=== PATIENT | female | born 1935 | race Caucasian/White ===

== ENCOUNTER 2024-03-15 18:07 | Inpatient (IN) | payer MEDICARE, OTHER, SELFPAY ==
[2024-03-15] VITALS (17 sets, daily range): BP systolic 77–133; BP diastolic 38–94; BMI 19.8
[2024-03-15 12:10] LABS: % Basophils 0.2 % (0-2); % Eosinophils 0.1 % (0-6); % Immature Granulocytes 0.2 % (0-0.5); % Lymphocytes 4.6 % (20.5-51.1); % Monocytes 6.2 % (1.7-9.3); % Neutrophils 88.7 % (42.2-75.2); Absolute Lymphocytes 0.6 10^3/uL (1.2-3.4); Absolute Monocytes 0.8 10^3/uL (0.1-0.6); Absolute Neutrophils 10.9 10^3/uL (1.4-6.5); Hematocrit 48.7 % (37.0-47.0); Hemoglobin 15.7 g/dL (12.0-16.0); Mean Corp Hgb Conc. 32.2 g/dL (33.0-37.0); Mean Corpuscular Hgb 31.8 pg (27.0-31.0); Mean Corpuscular Volume 98.6 fL (81.0-99.0); Mean Platelet Volume 9.5 fL (7.4-10.4); Nucleated Red Blood Cells % 0 %; Platelet Count 228 10^3/uL (130-400); Red Blood Cell Count 4.94 10^6/uL (4.20-5.40); Red Cell Dist. Width 13.1 % (11.5-14.5); White Blood Cell Count 12.3 10^3/uL (4.8-10.8)
[2024-03-15 12:29] LABS: ALT (SGPT) 16 U/L (0-35); AST (SGOT) 35 U/L (14-36); Albumin 3.6 g/dl (3.5-5.0); Alkaline Phosphatase 71 U/L (38-126); Blood Urea Nitrogen 20 mg/dl (7-17); Carbon Dioxide 27 mmol/L (22-30); Chloride 102 mmol/L (98-107); Glucose 110 mg/dl (70-99); Potassium 4.1 mmol/L (3.5-5.1); Sodium 138 mmol/L (135-145); Total Bilirubin 0.7 mg/dl (0.2-1.3); Total Protein 6.6 g/dl (6.3-8.2); eGFR 48.03
[2024-03-15 12:48] LABS: COVID-19 Antigen Negative (Negative)
--- NOTE | 2024-03-15 13:23 | ED.GENMED ---
History of Present Illness
General
Chief Complaint: Cold/Flu/URI Symptoms
Source: patient
Exam Limitations: none
Time Seen by Provider: 03/15/24 13:13
History of Present Illness
History of Present Illness:
89-year-old female with history of A-fib, COPD on Eliquis presents with several days worth of chills sweats cough body aches headache. No nausea or vomiting. Her daughter is sick with similar symptoms. She feels short of breath. No chest pain.
No vomiting.
Past History
Past History
ED Past Medical History: Arrthythmia (afib/flutter), COPD and Other (IBS)
ED Past Surgical History: Cardiac (pacemaker)
Social History
Alcohol: None
Drug: None
Living: with family
Phy Exam
Physical Exam
Physical Exam:
General: Overall well-appearing female no acute respiratory distress
HEENT: Normocephalic atraumatic
Heart: Cardiac and irregular
Lungs: Rales at the right base no obvious wheeze
Abdomen is soft nontender nondistended
Extremities: No cyanosis or edema
Skin: Warm no rash
Course
Orders/Labs/Results
Orders:
Orders
03/15/24 11:47
Electrocardiogram (*1) Urgent
Reason for Study: Tachycardia
EKG- Treatment ONCE
03/15/24 11:55
COVID-19 Antigen Urgent
Source: Nasal Swab
Complete Blood Count/With Diff Urgent
Comprehensive Metabolic Panel Urgent
INF RAPID [Influenza A+B Rapid Molecular] Urgent
DIANA Source: Nasal Swab
Specimen Description:
03/15/24 13:23
Cardiac Monitoring- Treatment ONCE
CR Chest - 2 Views Urgent
Comment:
Reason For Exam: cough
03/15/24 13:47
0.9% Sodium Chloride 1000 ml [Nss] 1,000 ml IV BOLUS
Diltiazem HCl [Cardizem] 10 mg IV NOW STA
03/15/24 14:00
Diltiazem 125 mg/125 ml Nss [Cardizem] 125 mg in 125 ml IV PER PROTOCOL
Initial dose in mg/hr, then titrate:: 5
Titrate to keep:: Heart rate 80-100 bpm
Titrate by mg/hr:: 5 mg/hr
Frequency of titrations (minutes):: 15
Maximum dose in mg/hr:: 15
03/15/24 16:16
Azithromycin 500 mg/250 ml [Zithromax Infusion] 500 mg in 250 ml IV NOW
CefTRIAXone [Rocephin] 1,000 mg IV NOW STA
Abnormal Lab Results
03/15/24
11:55
WBC 12.3 H 10^3/uL
(4.8-10.8)
Hct 48.7 H %
(37.0-47.0)
MCH 31.8 H pg
(27.0-31.0)
MCHC 32.2 L g/dL
(33.0-37.0)
Absolute Neuts (auto) 10.9 H 10^3/uL
(1.4-6.5)
Absolute Lymphs (auto) 0.6 L 10^3/uL
(1.2-3.4)
Absolute Monos (auto) 0.8 H 10^3/uL
(0.1-0.6)
Neutrophils % 88.7 H %
(42.2-75.2)
Lymphocytes % 4.6 L %
(20.5-51.1)
BUN 20 H mg/dl
(7-17)
Creatinine 1.1 H mg/dL
(0.6-1.0)
Glucose 110 H mg/dl
(70-99)
03/15/24 11:55
03/15/24 11:55
Vital Signs
Initial and Last Documented VS:
Initial Vital Signs
Temp Pulse Resp BP Pulse Ox
97.6 F 122 20 124/93 95
03/15/24 11:41 03/15/24 11:41 03/15/24 11:41 03/15/24 11:41 03/15/24 11:41
Last Documented Vital Signs
Temp Pulse Resp BP Pulse Ox
98.1 F 104 26 133/69 91
03/15/24 14:33 03/15/24 16:00 03/15/24 16:00 03/15/24 15:00 03/15/24 16:00
MDM/Problems Addressed
Differential Diagnosis Includes:
Rigors cough fatigue myalgias. Consider viral illness versus pneumonia versus COPD flare.
Patient also has history of atrial fibrillation. Will check EKG. EKG demonstrates rapid atrial fibrillation
*Critical Care Note
Total Time (30-74mins, 75-104mins- exclusive of procedures): Not Applicable
Update Note
Update Note:
Patient reevaluated multiple times. She persisted to be in rapid A-fib. Cardizem bolus and infusion was ordered. COVID test was negative. Chest x-ray shows right lower lobe infiltrate consistent with pneumonia. Rocephin and Zithromax ordered.
Will admit to hospital
ED Attending Note
-
Portions of this chart may have been created with voice recognition software.� Occasional wrong word or��sound alike� substitutions may have occurred due to the inherent limitations of voice recognition software.
Discharge Plan
Departure
Patient Disposition: Admit
Date of Disposition: 03/15/24
Time of Disposition: 16:20
Admit to: Telemetry
Presentation/result/management discussed w/ accepting MD/DO: Hospitalist
Discharge Problem:
Pneumonia, Atrial fibrillation
Prescriptions:
No Action
acetaminophen [Tylenol Extra Strength] 500 mg Tablet
500 mg PO DAILYPRN PRN (Reason: mild pain)
simethicone [Gas-X Extra Strength] 125 mg Tablet,Chewable
250 mg PO BIDPRN PRN (Reason: flatulence)
cholecalciferol (vitamin D3) [Vitamin D3] 25 mcg (1,000 unit) Tablet
25 mcg PO DAILY
Restful Legs tablet
2 - 3 tab sublingual DAILYPRN PRN (Reason: restless legs)
hydralazine 10 mg Tablet
10 mg PO BID
Patient Comments:
07/28/23 patient gets this filled at [facility] in [place].
bumetanide 1 mg Tablet
1 mg PO DAILYPRN PRN (Reason: fluid retention)
Patient Comments:
07/28/23 patient gets this filled at [facility] in [place].
Linzess 145 mcg Capsule
145 mcg PO Q72H
Patient Comments:
07/28/[address] patient [address] samples [address] Dr[address] Jonah Pitts in [place], [place]
Eliquis 2.5 mg Tablet
2.5 mg PO BID
Patient Comments:
07/28/23 patient gets this medication filled at [facility] in [place].
Trelegy Ellipta 100-62.5-25 mcg Blister With Device
1 inh INHALATION R DAILY
Patient Comments:
07/28/23 patient gets this medication filled from [facility] in [place].
metoprolol succinate 100 mg Tablet Extended Release 24 Hr
100 mg PO BID
gabapentin 600 mg Tablet
600 mg PO HS
doxycycline hyclate 100 mg Capsule
100 mg PO Q12 Qty: 6 0RF
albuterol sulfate 2.5 mg /3 mL (0.083 %) Solution For Nebulization
2.5 mg inhalation R Q4HPRN PRN (Reason: SOB, COUGH, WHEEZE) Qty: 75 0RF
Referrals:
Harvinder Borrego MD [Family Provider] -
Interventions
Interventions:
*Risk Screen - Suicide Last Done: 03/15/24 13:29
*General Assessment Last Done: 03/15/24 13:29
*Neglect/Abuse Screening Last Done: 03/15/24 13:29
ED- Fall Risk Assessment Last Done: 03/15/24 13:29
*ED COVID-19 Vaccine History Last Done: 03/15/24 13:29
ED- Pulmonary Assessment Last Done: 03/15/24 16:00
Discharge Date and Time
Print Language: ALGERIAN
[2024-03-15] MEDS: CARDIZEM 10 MG IV (13:52)
[2024-03-15] MEDS: NSS 1000 IV ×2 (13:53→23:30)
[2024-03-15] MEDS: CARDIZEM 125 IV (13:54)
[2024-03-15] MEDS: ROCEPHIN 1000 MG IV (16:31)
[2024-03-15] MEDS: ZITHROMAX INFUSION 250 IV (16:32)
[2024-03-15] MEDS: TYLENOL 1000 MG PO (16:35)
--- NOTE | 2024-03-15 17:48 | W.PN.HOSP.TC ---
Today's Communication/Plan
-
admit IMU
empiric abx
Cardizem drip
Assessment / Plan
Assessment / Plan
Acute Rt sided Community Associated Pneumonia
48 hrs of fever, cough, headache, chills and sob
Hx of COPD
follows with Dr. Mariah Nielson in office
Paroxysmal Atrial Fibrillation
currently with rvr, started on Cardizem drip
Etoh
2 glasses of wine per day, never had withdrawal symptoms if did not drink
Cigarettes
1/2 ppd x 20 yrs, none since 1987
P:empiric abx
IV Cardizem
Pulm and Cardio consults
DNR
see dictated note
Anticipated Discharge: > 48 hours
Subjective/Interval History
-
Date of Service: March 15, 2024
cough, fever, chills past 48 hrs
Objective Data
-
Labs:
Laboratory Results
03/15/24
11:55
WBC 12.3 H
Hgb 15.7
Hct 48.7 H
Plt Count 228
Sodium 138
Potassium 4.1
Chloride 102
Carbon Dioxide 27
BUN 20 H
Creatinine 1.1 H
Glucose 110 H
Calcium 9.0
Total Bilirubin 0.7
AST 35
ALT 16
Alkaline Phosphatase 71
Vital Signs:
Vital Signs
Temp Pulse Resp BP Pulse Ox
98.1 F 104 26 133/69 95
03/15/24 14:33 03/15/24 16:00 03/15/24 16:00 03/15/24 15:00 03/15/24 17:13
Review of Systems
-
History Source: Patient and Family (son at bedside)
Constitutional: Reports Fever (prior to admission)
EENT: Reports No Symptoms Reported
Respiratory: Reports Cough and Trouble Breathing
Cardiac: Reports Palpitations; Denies Chest Pain
Abdomen/GI: Reports No Symptoms
Genitourinary: Reports No Symptoms
Neuro: Reports No Symptoms
Physical Exam
-
General: Well Developed, Well Nourished and No Apparent Distress
HEENT: Normocephalic, Atraumatic and Moist Mucous Membranes
Respiratory: Rhonchi (right mid lung)
Cardiac: S1/S2, Irregular Rhythm and Tachycardic
GI: Soft, Nontender and Nondistended
Musculoskeletal: No Clubbing, No Cyanosis and No Edema
Neuro: Awake, Alert and Oriented
[2024-03-15] MEDS: VENTOLIN NEBULES 2.5 MG INH (20:37)
[2024-03-15] MEDS: ELIQUIS 2.5 MG PO (20:41)
[2024-03-15] MEDS: TOPROL XL 100 MG PO (20:41)
[2024-03-15] MEDS: NEURONTIN 600 MG PO (21:08)
[2024-03-16] VITALS (18 sets, daily range): BP systolic 86–159; BP diastolic 44–84
--- NOTE | 2024-03-16 00:10 | PTCARENOTE ---
Rec'd pt from ED ground transportation operator with cardizem gtt intact at 10mg through R AC IV. This RN questioned pt about listed cardizem allergy & pt states that she does not have an allergy to this medication bc she has never had it before, however pt handed
this RN a print-out of all of her medications/allergies which does list the allergy and rxn foot & ankle swelling. Pt agreeable to taking medication anyways. This RN titrated per protocol. Pt due for PO metoprolol, which again is a listed allergy.
Pt agreeable to take medication despite listed allergy with rxn itching. BP 105 systolic when med given. BPs started to read low in the 80s systolic with MAPs 50s-low 60s, this RN reached out to JF Brady who ordered to hold cardizem gtt. Gtt held,
BP reading 77/43. Reached out to JF again, who ordered NSS bolus, infusing now.
[2024-03-16] MEDS: TYLENOL 500 MG PO (03:26)
[2024-03-16] MEDS: LINZESS 145 MCG PO (05:16)
[2024-03-16 05:25] LABS: Hematocrit 40.9 % (37.0-47.0); Hemoglobin 13.4 g/dL (12.0-16.0); Mean Corp Hgb Conc. 32.8 g/dL (33.0-37.0); Mean Corpuscular Hgb 31.8 pg (27.0-31.0); Mean Corpuscular Volume 97.1 fL (81.0-99.0); Mean Platelet Volume 9.6 fL (7.4-10.4); Platelet Count 217 10^3/uL (130-400); Red Blood Cell Count 4.21 10^6/uL (4.20-5.40); Red Cell Dist. Width 13.1 % (11.5-14.5); White Blood Cell Count 8.9 10^3/uL (4.8-10.8)
[2024-03-16 05:40] LABS: Blood Urea Nitrogen 18 mg/dl (7-17); Calcium 8.1 mg/dl (8.4-10.2); Carbon Dioxide 23 mmol/L (22-30); Chloride 108 mmol/L (98-107); Estimated Creatinine Clearance 35 ml/min; Glucose 75 mg/dl (70-99); Potassium 4.1 mmol/L (3.5-5.1); Sodium 139 mmol/L (135-145); eGFR > 60.00
--- NOTE | 2024-03-16 05:50 | PTCARENOTE ---
Pt ambulated to bathroom with rolling walker and assistx1. Pt did not experience tachycardia, but did experience tachypnea, and hypoxia once returned to bed with O2 sat 88% on 2L. Once returned to bed, BP noted to be 99/44 compared to 111/60 prior
to ambulation. Pt did c/o feeling weaker than usual and fatigued once returned to bed, but no other complaints while ambulating. Pt O2 soon recovered to 96%.
[2024-03-16 05:51] LABS: Troponin I 0.041 ng/ml
--- NOTE | 2024-03-16 07:47 | CON.CAR ---
Addendum entered and electronically signed by Werner Streeter MD 03/16/24 16:07:
I saw and examined the patient.
The Wooden Furniture Polisher's note was reviewed and I agree with the note.
Comment: Briefly, 89-year-old woman past medical history of paroxysmal atrial fibrillation on Eliquis and permanent pacemaker for sick sinus syndrome who presented with pneumonia and was found to be in atrial fibrillation with rapid ventricular rates
Initiated on IV Cardizem however she developed hypotension and this medication was discontinued
As her blood pressure has been marginal would decrease metoprolol dose down from 100 mg twice daily to 50 mg twice daily
Will start amiodarone for additional rate control
If she does not spontaneously convert to sinus rhythm during hospitalization we can arrange for outpatient cardioversion in 3 to 4 weeks after she recovers from acute illness
Currently receiving IV fluids for sepsis, would be judicious to avoid precipitating decompensated heart failure
Original Note:
Consultation
Consultation Request
Date/Time Consultation Performed: 03/06/35
Requesting Provider: Dr. Ocampo
Performing Provider: Erin Reynolds PA-C for Dr. Streeter
Reason for Consultation: afib with RVR
Medical History
-
Chief Complaint: cough
History of Present Illness:
Patient is an 89 yo F with PMH of COPD, SSS s/p Medtronic DC PPM 2016, PAF on chronic eliquis, HTN, chronic HFpEF who presented to with complaints of cough, chills, and headache. She was found to have R sided PNA by imaging and was also noted to
be in rapid afib. She does not feel when she is in afib. She states she has been compliant with eliquis, aside from missing a dose yesterday morning due to coming to ER. She was started on IV cardizem however then had hypotension to 70s systolic and
drip was stopped. Cardiology consulted for evaluation. Currently HRs controlled in afib.
PMH:
PAF on chronic eliquis
SSS s/p Medtronic DC PPM 2016
Chronic HFpEF
HTN
COPD
History of respiratory arrest 2012
History of PE
Former smoker
Daily ETOH (2 small glasses of wine)
Past Medical History
Past Medical History: Other (in HPI)
Social History
Tobacco: Former Smoker
Alcohol: Daily
Living: With Family (son and DIL)
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
Allergies / Home Medications
Allergy/AdvReac Type Severity Reaction Status Date / Time
amlodipine Allergy Swelling Verified 03/15/24 11:42
diltiazem Allergy Swelling Verified 03/15/24 11:42
hydromorphone [From Dilaudid] Allergy Swelling Verified 03/15/24 11:42
metoprolol [From Lopressor] Allergy Itching Verified 03/15/24 23:08
metronidazole [From Flagyl] Allergy Hives Verified 03/15/24 11:42
Sulfa (Sulfonamide Allergy Itching Verified 03/15/24 11:42
Antibiotics)
�Medication �Instructions �Recorded �Confirmed �Type
Restful Legs 2 - 3 tab sublingual DAILYPRN PRN 07/28/23 03/15/24 History
restless legs
acetaminophen 500 mg tablet 500 mg PO DAILYPRN PRN mild pain 07/28/23 03/15/24 History
(Tylenol Extra Strength)
apixaban 2.5 mg tablet (Eliquis) 2.5 mg PO BID Blood Clot 07/28/23 03/15/24 History
Prevention/Tx
bumetanide 1 mg tablet 1 mg PO DAILYPRN PRN fluid 07/28/23 03/15/24 History
retention
cholecalciferol (vitamin D3) 25 25 mcg PO DAILY Supplement 07/28/23 03/15/24 History
mcg (1,000 unit) tablet (Vitamin
D3)
fluticasone fur. 100 mcg-umeclid 1 inh inhalation R DAILY sob 07/28/23 03/15/24 History
62.5 mcg-vilant 25 mcg
inhalat.powder (Trelegy Ellipta)
gabapentin 600 mg tablet 600 mg PO HS Neurological Condition 07/28/23 03/15/24 History
hydralazine 10 mg tablet 10 mg PO BID Blood Pressure 07/28/23 03/15/24 History
linaclotide 145 mcg capsule 145 mcg PO Q72H Gastrointestinal 07/28/23 03/15/24 History
(Linzess) Issue
metoprolol succinate 100 mg 100 mg PO BID Blood Pressure 07/28/23 03/15/24 History
tablet,extended release 24 hr
simethicone 125 mg chewable tablet 250 mg PO BIDPRN PRN flatulence 07/28/23 03/15/24 History
(Gas-X Extra Strength)
albuterol sulfate 2.5 mg/3 mL 2.5 mg (3 mL) inhalation R Q4HPRN 07/30/23 03/15/24 Rx
(0.083 %) solution for nebulization PRN SOB, COUGH, WHEEZE #75 mL
doxycycline hyclate 100 mg capsule 100 mg PO Q12 #6 caps 07/30/23 03/15/24 Rx
Review of Systems
-
History Source: Patient
All other systems: Negative unless noted
Physical Exam
Vital Signs
Temp Pulse Resp BP Pulse Ox
98.4 F 87 22 99/44 96
03/16/24 03:00 03/16/24 05:10 03/16/24 05:10 03/16/24 05:10 03/16/24 05:10
Lab Results
03/16/24 05:06
03/16/24 05:06
Troponin I 0.041 ng/ml H* 03/16/24 05:06
Physical Exam
General: No Apparent Distress, Comfortable and Other (on supp O2)
HEENT: Normocephalic, Anicteric and Moist Mucous Membranes
Respiratory: Wheezes (and rales B/L) and Non Labored Respirations
Cardiac: S1/S2 and Irregular Rhythm
Musculoskeletal: No Clubbing, No Cyanosis and No Edema
Skin: Warm and Dry
Neuro: AO x 3
Impression / Plan
-
Primary Spa Associate: Dr. Ta
Assessment:
Presentation with cough, headache, chills
R PNA
Atrial fibrillation with RVR
Hypotension with IV cardizem gtt
Elevated troponin, suspected nonischemic myocardial injury
PAF on chronic eliquis
SSS s/p Medtronic DC PPM 2016
Chronic HFpEF
HTN
COPD
History of respiratory arrest 2008, 2012
History of PE
Former smoker
Daily ETOH (2 small glasses of wine)
DNR code status
Plan:
-Patient presents with cough headache and chills. By imaging noted to have right-sided pneumonia.
-Cardiology consulted due to atrial fibrillation with rapid ventricular response on arrival
-Started on IV Cardizem gtt overnight with subsequent hypotension and stopped. Currently heart rates well-controlled in A-fib.
-remains hypotensive, asymptomatic. by OP note in 10/2023, patient was on toprol 50mg daily, and again in pulm note 02/26/24. unclear when/why dosing increased as no eCW record of this. will hold dose this AM and plan to start toprol 50mg BID this
evening. would consider starting amiodarone with hypotension and as paroxysmal. currently on zithromax but QTc stable by EKG 03/15. repeat today and in AM to follow QTc
-check echo
-device interrogation to determine AF burden
-check TSH
-continue eliquis 2.5mg BID, one missed dose on 03/15. would consider for OP CV if remains in afib.
-trop 0.041. no CP. trend to peak. in rapid AF, patient with inferolateral ST abnormality. would consider for OP ischemic evaluation once recovered
-continue treatment of PNA per primary service
Data Reviewed
-
EKG: Tracing Personally Visualized and interpreted
Radiology: Report Reviewed by me
Labs: Labs Reviewed by me
Old Records: Reviewed
[2024-03-16] MEDS: VITAMIN D3 (cholecalciferol) 25 MCG PO (08:16)
[2024-03-16] MEDS: ELIQUIS 2.5 MG PO ×2 (08:16→20:18)
[2024-03-16] MEDS: SYMBICORT 80/4.5 MCG INHALER 2 PUFF INH (08:22)
[2024-03-16] MEDS: SPIRIVA RESPIMAT 2.5 MCG 2 PUFF INH (08:22)
[2024-03-16] MEDS: TOPROL XL PO (08:40)
[2024-03-16 10:11] LABS: TSH Reflex To Free T4 2.14 uIU/ml (0.47-4.68)
[2024-03-16] MEDS: PACERONE 200 MG PO ×2 (10:24→20:18)
--- NOTE | 2024-03-16 12:36 | CON.PUL ---
Consultation
Consultation Request
Date/Time Consultation Requested: 03/16/2024
Date/Time Consultation Performed: 03/16/2024
Requesting Provider: Dr. Ocampo
Performing Provider: Dr. Prem Argueta
Reason for Consultation: Pneumonia/acute exacerbation of COPD
Medical History
-
History of Present Illness:
89-year-old woman who is known to our service, follows up with Dr. Nielson regarding COPD/bronchiectasis. Last admission to the hospital in 2022 with acute exacerbation.
History of atrial fibrillation on chronic anticoagulant. Came to the hospital after developing productive cough, increased respiratory distress, fevers, chills, headache and generalized malaise for the last 24 hours.
Due to worsening symptoms, came to the emergency room. Chest x-ray demonstrated right lower lobe abnormality suggestive of pneumonia.
Patient was found to be in rapid atrial fibrillation. Started on a Cardizem drip.
I started antibiotics per
She denies any hemoptysis.
Denies any swallowing problems.
Denies any leg edema.
Denies syncopal episodes.
[facility] records reviewed, recently seen in our office and she was doing well.
Past Medical History
Past Medical History: Other (See assessment and plan section)
Social History
Tobacco: Former Smoker
Alcohol: None
Drug: None
Personal:
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
Occupational Exposures: Denies
Environmental Exposures: Denies
Family History
Family History: Reviewed & Not Pertinent
Allergies / Home Medications
Allergies
Allergy/AdvReac Type Severity Reaction Status Date / Time
amlodipine Allergy Swelling Verified 03/15/24 11:42
diltiazem Allergy Swelling Verified 03/15/24 11:42
hydromorphone [From Dilaudid] Allergy Swelling Verified 03/15/24 11:42
metoprolol [From Lopressor] Allergy Itching Verified 03/15/24 23:08
metronidazole [From Flagyl] Allergy Hives Verified 03/15/24 11:42
Sulfa (Sulfonamide Allergy Itching Verified 03/15/24 11:42
Antibiotics)
Home Medications
�Medication �Instructions �Recorded �Confirmed �Last Taken �Type
Restful Legs 2 - 3 tab sublingual DAILYPRN PRN 07/28/23 03/15/24 Unknown History
restless legs
acetaminophen 500 mg tablet 500 mg PO DAILYPRN PRN mild pain 07/28/23 03/15/24 Unknown History
(Tylenol Extra Strength)
apixaban 2.5 mg tablet (Eliquis) 2.5 mg PO BID Blood Clot 07/28/23 03/15/24 07/26/23 History
Prevention/Tx
bumetanide 1 mg tablet 1 mg PO DAILYPRN PRN fluid 07/28/23 03/15/24 Unknown History
retention
cholecalciferol (vitamin D3) 25 25 mcg PO DAILY Supplement 07/28/23 03/15/24 07/26/23 History
mcg (1,000 unit) tablet (Vitamin
D3)
fluticasone fur. 100 mcg-umeclid 1 inh inhalation R DAILY sob 07/28/23 03/15/24 07/26/23 History
62.5 mcg-vilant 25 mcg
inhalat.powder (Trelegy Ellipta)
gabapentin 600 mg tablet 600 mg PO HS Neurological Condition 07/28/23 03/15/24 Unknown History
hydralazine 10 mg tablet 10 mg PO BID Blood Pressure 07/28/23 03/15/24 07/26/23 History
linaclotide 145 mcg capsule 145 mcg PO Q72H Gastrointestinal 07/28/23 03/15/24 07/26/23 History
(Linzess) Issue
metoprolol succinate 100 mg 100 mg PO BID Blood Pressure 07/28/23 03/15/24 07/27/23 08:00 History
tablet,extended release 24 hr
simethicone 125 mg chewable tablet 250 mg PO BIDPRN PRN flatulence 07/28/23 03/15/24 Unknown History
(Gas-X Extra Strength)
albuterol sulfate 2.5 mg/3 mL 2.5 mg (3 mL) inhalation R Q4HPRN 07/30/23 03/15/24 Unknown Rx
(0.083 %) solution for nebulization PRN SOB, COUGH, WHEEZE #75 mL
doxycycline hyclate 100 mg capsule 100 mg PO Q12 #6 caps 07/30/23 03/15/24 Unknown Rx
Review of Systems
-
History Source: Patient
All other systems: Negative unless noted
Vitals / Labs / Diagnostic Testing
Vital Signs
Temp Pulse Resp BP Pulse Ox
97.9 F 88 38 121/63 96
03/16/24 11:00 03/16/24 12:00 03/16/24 12:00 03/16/24 10:24 03/16/24 12:05
Lab Data
03/16/24 05:06
03/16/24 05:06
Microbiology
03/15/24 11:55 Nasal Swab Influenza Types A & B (SHER) - Final
Negative for Influenza A & B, NAAT
Negative results must be combined with clinical observations
and patient history.
Nucleic Acid Amplification test (NAAT)performed on the
[employer] NOW platform.
Diagnostic Testing:
Physical Exam
-
HEENT: Normocephalic
Cardiovascular: S1/S2
Respiratory: Rales (scattered bilaterally.) and Other (Coughing throughout the examination.)
GI: Soft, Non Distended and Non Tender
Neurology: Awake, Alert, Oriented, AO x 3 and No Motor Deficits
Skin: Warm
General: Respiratory Distress (n)
Assessment
-
89-year-old woman with past medical history noted. Came to the hospital with 48 hours of fevers, cough, generalized malaise. Shortness of breath. Found to be in rapid atrial fibrillation. Found to have a right lower lobe infiltrate and admitted
for further evaluation.
Acute respiratory sufficiency due to acute exacerbation of COPD/bronchiectasis-currently in 2 L which is new for her.
Chest x-ray 03/15/2024: New focal region of patchy parenchymal opacity within the right lower lobe. Small right pleural effusion.
Pneumonia-likely bacterial
Rapid atrial fibrillation-mild troponin leak
Conditions PUMP SERVICER:
Hospital admission for acute exacerbation of COPD 07/30/2023
Afib/flutter, on apixaban
PPM
COPD/bronchiectasis: on fluticasone/umeclidinium/vilanterol (trelegy). Not on home O2. Not on SABDs.
IBS
S/p partial colectomy in 2008 while living in [place]
Postop complicated by respiratory arrest after extubation
S/p BRNA 2012 at [facility]
Postop complicated by respiratory arrest after extubation, resulting in prolonged MV requiring tracheoscomy
Bronchiectasis: Abnormal chest CT 2020: significant BEs at RML and lingula, small patchy bilateral opacities
Reports has received up to 4 bronchoscopies over the years, reportedly not actionable results, denies MTB or NTM
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
Spirometry 12/10/2023: FEV1 0.66 L - 48%, FVC 0.95 L - 50%, FEV1/FVC 69%.
Chronic cough: Possible allergic rhinitis.
History of pulmonary embolism-unprovoked per patient-on long-term anticoagulation
Former cigarette smoker quitting in 1979 two quarter of a pack for 30 years.
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
1.8 cm right ovarian lesion.
Assessment and plan:
-
Clinical picture suggestive of possible bacterial pneumonia.
Patient at risk due to advanced age as well as bronchiectasis.
-
Not significantly bronchospastic on exam
Okay to hold systemic corticosteroids
Continue inhalers
Will limit beta agonist with rapid atrial fibrillation.
Significant coughing: Hold inhalers as maneuver is poor at the moment.
Start Xopenex/Atrovent/Pulmicort nebulizers while in the hospital.
Acapella device
Mucolytic's
Sputum culture if able-order was placed
Continue current antibiotics will adjust as necessary
-
Continue oxygen supplementation and wean down as able to maintain pulse ox above 88%.
Patient not on supplemental oxygen at home.
Eventual home oxygen assessment prior to discharge.
Last 6-minute walk testing 11/2023 without oxygen requirements in our office.
-
Rapid atrial fibrillation likely driven by pulmonary process
Repeat echocardiogram 03/16/2024: Report reviewed: Hyperdynamic left ventricular systolic function. LVEF 70 to 75%. Mild to moderate LVH. Normal biventricular size and function.
Mild MR. Mild TR. Pulmonary pressure 35-40 mmHg.
Cardiology following the patient-IV Cardizem started for rate control. Heart rate is improved now off Cardizem drip.
Hopefully as pneumonia improves heart rate will improve
Trend troponins
Continue anticoagulants
-
Patient has chronic shortness of breath: Likely has component of deconditioning.
Will start physical therapy and Occupational Therapy-
Consults were placed
-
Will follow
--- NOTE | 2024-03-16 12:45 | CM ---
CM met with pt bedside
Pt resides with her son and DIL in an inlaw suite
Suite is one level, [address]
Pt notes independence with her ADLs
Only utilizes her rollator at night
Denies use of home O2 baseline
Pt has hx with [facility] while she lived in [place]
PCP- Harvinder Borrego
Rx- [facility]
Discharge Disposition- home, follow for VN/O2 needs
[2024-03-16] MEDS: ATROVENT NEBULES 0.5 MG INH ×2 (13:47→20:05)
[2024-03-16] MEDS: XOPENEX 0.63 MG INHALANT SOLUTION 0.630000000000000004 MG INH ×2 (13:48→20:05)
[2024-03-16 14:39] LABS: Troponin I 0.024 ng/ml
--- NOTE | 2024-03-16 15:20 | W.CARD.DEVCH ---
Cardiac Device Check
-
Device: Pacemaker
Inpatient Coder: [employer]
The patient's device was interrogated with assistance of the device advertising account representative. The device had normal function. AF burden noted to be 26.8% since 10/2023, with associated suboptimal HRs above 100BPM.
[2024-03-16] MEDS: STERILE WATER FOR INJECTION 10 ML IV (16:42)
[2024-03-16] MEDS: ZITHROMAX INFUSION 250 IV (16:43)
[2024-03-16] MEDS: ROCEPHIN 1000 MG IV (16:43)
[2024-03-16] MEDS: TYLENOL 650 MG PO (16:51)
--- NOTE | 2024-03-16 17:47 | W.PN.HOSP.TC ---
Today's Communication/Plan
-
follow labs, CXR
Assessment / Plan
Assessment / Plan
Acute Rt sided Community Associated Pneumonia
48 hrs of fever, cough, headache, chills and sob
WBC 12.3-->8.9
Hx of COPD
follows with Dr. Mariah Nielson in office. Input of Dr. Argueta appreciated
Paroxysmal Atrial Fibrillation
currently with rvr, started on Cardizem drip, became hypotensive, Cardizem was stopped and placed on Amiodarone
Etoh
2 glasses of wine per day, never had withdrawal symptoms if did not drink
Cigarettes
1/2 ppd x 20 yrs, none since 1987
P:empiric abx
IV Cardizem stopped and placed on oral Amiodarone
Pulm and Cardio consults
DNR
Anticipated Discharge: > 48 hours
Subjective/Interval History
-
Date of Service: March 16, 2024
Still with cough
Objective Data
-
Labs:
Laboratory Results
03/16/24
05:06
WBC 8.9
Hgb 13.4
Hct 40.9
Plt Count 217
Vital Signs:
Vital Signs
Temp Pulse Resp BP Pulse Ox
100.7 F H 80 26 121/63 96
03/16/24 15:20 03/16/24 13:49 03/16/24 13:49 03/16/24 10:24 03/16/24 13:49
I&O
03/15/24 03/16/24 03/17/24
06:59 06:59 06:59
Intake Total 200 / 200
Balance 200 / 200
Review of Systems
-
History Source: Patient
Constitutional: Reports Fever (100.7)
EENT: Reports No Symptoms Reported
Respiratory: Reports Cough and Trouble Breathing
Cardiac: Reports Palpitations; Denies Chest Pain
Abdomen/GI: Reports No Symptoms
Genitourinary: Reports No Symptoms
Neuro: Reports No Symptoms
Physical Exam
-
General: Well Developed, Well Nourished and No Apparent Distress
HEENT: Normocephalic, Atraumatic and Moist Mucous Membranes
Respiratory: Rhonchi (right mid lung)
Cardiac: S1/S2, Irregular Rhythm and Tachycardic (rate has slowed)
GI: Soft, Nontender and Nondistended
Musculoskeletal: No Clubbing, No Cyanosis and No Edema
Neuro: Awake, Alert and Oriented
--- NOTE | 2024-03-16 18:23 | PTCARENOTE ---
Rec'd pt this AM. remains in A fib, mostly controlled heart rate. Febrile tonight with temp 100.7. tylenol given with relief. OOB x1 with walker to BSC. poor appetite, drinking fluids.
[2024-03-16] MEDS: PULMICORT 0.5 MG INH (20:05)
[2024-03-16] MEDS: NEURONTIN 600 MG PO (20:18)
[2024-03-16] MEDS: MUCINEX 600 MG PO (20:18)
[2024-03-16] MEDS: TOPROL XL 50 MG PO (20:18)
[2024-03-17] VITALS (11 sets, daily range): BP systolic 101–158; BP diastolic 51–95
--- NOTE | 2024-03-17 02:50 | PTCARENOTE ---
pt able to ambulate to BR x1 assist with RW- pt was tachypneic and SOB during ambulation, oxygen did drop to 80s. oxygen increased to 4L and pt recovered to 90s.
--- NOTE | 2024-03-17 05:28 | PTCARENOTE ---
Addendum entered by Anmol Mijares RN 03/17/24 05:58:
pt refusing extra strength tylenol that was ordered- pt agreed to lidocaine patches- one patch to lower back, one patch to right hip.
Addendum entered by Anmol Mijares RN 03/17/24 05:35:
pt also refusing CXR this AM.
Original Note:
this AM pt told this RN that she 'is done, does not want anything done anymore'. refusing labs, BP, EKG, stating she is in pain and tired of being in pain, says her head has been hurting since Friday, her hips and back hurt, they hurt more when
she coughs. states that tylenol does not work. notified covering [employer] of the above. awaiting orders.
--- NOTE | 2024-03-17 05:41 | PTCARENOTE ---
pt told this RN that she is ready for hospice care- educated patient, advised to talk to MD in the AM.
[2024-03-17] MEDS: LIDOCAINE 4% PATCH 1 PATCH TOPICAL ×2 (05:47)
[2024-03-17] MEDS: PULMICORT INH (07:53)
[2024-03-17] MEDS: XOPENEX 0.63 MG INHALANT SOLUTION INH ×2 (07:53→13:46)
[2024-03-17] MEDS: ATROVENT NEBULES INH ×2 (07:53→13:46)
[2024-03-17] MEDS: TOPROL XL 50 MG PO ×2 (09:21→19:44)
[2024-03-17] MEDS: MUCINEX 600 MG PO ×2 (09:22→19:43)
[2024-03-17] MEDS: PACERONE 200 MG PO ×2 (09:22→19:43)
[2024-03-17] MEDS: ELIQUIS 2.5 MG PO ×2 (09:22→19:43)
[2024-03-17] MEDS: VITAMIN D3 (cholecalciferol) 25 MCG PO (09:22)
[2024-03-17] MEDS: LIDOCAINE 4% PATCH TOPICAL ×2 (09:22)
--- NOTE | 2024-03-17 09:48 | PTCARENOTE ---
Rec'd pt this AM. Continues to refuse labs and X ray. will take PO meds. Allowed RN to monitor pulse Ox and BP with much encouragement. Very short of breath. PT did take off O2 and was trying to get OOB by herself. RN reminded pt to call for help
so she does not fall. bed alarm in place. Pt confused about where she was briefly but able to be re-oriented. Pt wants to go home on hospice. RN updated Dr. Ocampo
--- NOTE | 2024-03-17 10:17 | W.PN.PUL3 ---
Today's Communication / Plan
-
Patient requesting hospice
Declining aggressive care
Will give morphine for work of breathing relief
1 dose of Lasix and IV steroids also ordered.
Continue nebulizer therapy
Dr. Argueta discussed with son who is on his way to discuss further.
Patient is DNR status
Discussed with primary team
Prognosis is guarded
Assessment
-
89-year-old woman with past medical history noted. Came to the hospital with 48 hours of fevers, cough, generalized malaise. Shortness of breath. Found to be in rapid atrial fibrillation. Found to have a right lower lobe infiltrate and admitted
for further evaluation.
Acute respiratory sufficiency due to acute exacerbation of COPD/bronchiectasis-currently in 2 L which is new for her.
Chest x-ray 03/15/2024: New focal region of patchy parenchymal opacity within the right lower lobe. Small right pleural effusion.
Pneumonia-likely bacterial
Rapid atrial fibrillation-mild troponin leak
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
Hospital admission for acute exacerbation of COPD 07/30/2023
Afib/flutter, on apixaban
PPM
COPD/bronchiectasis: on fluticasone/umeclidinium/vilanterol (trelegy). Not on home O2. Not on SABDs.
IBS
S/p partial colectomy in 2008 while living in [place]
Postop complicated by respiratory arrest after extubation
S/p BRAN 2012 at [facility]
Postop complicated by respiratory arrest after extubation, resulting in prolonged MV requiring tracheoscomy
Bronchiectasis: Abnormal chest CT 2020: significant BEs at RML and lingula, small patchy bilateral opacities
Reports has received up to 4 bronchoscopies over the years, reportedly not actionable results, denies MTB or NTM
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
Spirometry 12/10/2023: FEV1 0.66 L - 48%, FVC 0.95 L - 50%, FEV1/FVC 69%.
Chronic cough: Possible allergic rhinitis.
History of pulmonary embolism-unprovoked per patient-on long-term anticoagulation
Former cigarette smoker quitting in 1979 two quarter of a pack for 30 years.
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
1.8 cm right ovarian lesion.
Assessment and plan:
-
Clinical picture suggestive of possible bacterial pneumonia.
Patient at risk due to advanced age as well as bronchiectasis.
-
Clinical deterioration overnight, now with increased work of breathing.
Rhonchi throughout.
Increased oxygen requirement
More tachycardic with heart rate in the 130s.
Patient has been refusing care, she is contemplating going on hospice.
She would like to be comfortable.
-
To my evaluation using accessory muscles, unable to speak in full sentences.
She states that she would like to be comfortable.
-
Will give 1 dose of dexamethasone
Will give 1 dose of morphine for relief of shortness of breath
Cannot rule out volume overload component as well, will give 1 dose of Lasix as well.
Dr. Argueta discussed with son Leon over the phone 03/17/2024 current situation. He was explained that his mother was requesting hospice evaluation. He is on his way to discuss further.
Will limit beta agonist with rapid atrial fibrillation.
Significant coughing: Hold inhalers as maneuver is poor at the moment.(Usually on Trelegy)
Continue Xopenex/Atrovent/Pulmicort nebulizers while in the hospital.
Acapella device if able.
Mucolytic's
Sputum culture if able-order was placed- pending
Follow fever curve and white blood cells. Low-grade fevers noted overnight.
Continue current antibiotics will adjust as necessary, depending on cultures. Ceftriaxone/azithromycin.
-
Continue oxygen supplementation and wean down as able to maintain pulse ox above 88%.
Mid flow will be started. High flow may be an option if she continues to have increased work of breathing.
Not a candidate for noninvasive mechanical ventilation at this point. Significant secretions as well as tachycardic.
-
Last 6-minute walk testing 11/2023 without oxygen requirements in our office.
-
Rapid atrial fibrillation likely driven by pulmonary process
Repeat echocardiogram 03/16/2024: Report reviewed: Hyperdynamic left ventricular systolic function. LVEF 70 to 75%. Mild to moderate LVH. Normal biventricular size and function.
Mild MR. Mild TR. Pulmonary pressure 35-40 mmHg.
Heart rate controlled overnight but elevated this morning.
Cardiology following the patient-if no improvement with above interventions may need to restart Cardizem
Minimal troponin leak. Back to normal. Denies chest pain.
Continue anticoagulants
-
Patient has chronic shortness of breath: Likely has component of deconditioning.
As able physical therapy and Occupational Therapy-
-
Will follow
-
Patient requesting hospice. Dr. Argueta discussed with Aide and her son on 03/17/2024. Also discussed with Dr. Ocampo.
Patient is DNR status. Continue supportive care as above
-
Outpatient pulmonary follow-up with Dr. Mariah Nielson after discharge
Subjective Data
-
Date of Service:
Date of Service: March 17, 2024
Chief Complaint: Pulmonary Follow Up (Pneumonia/shortness of breath)
Subjective:
Unfortunately, clinical deterioration.
Increased work of breathing
Tachycardic
More congested.
Patient has expressed that she would not want aggressive care. She would like to explore hospice.
Refused laboratories, refused physical therapy
Review of Systems
Cardiopulmonary: Dyspnea, Dyspnea on Exertion (Acute on chronic), Cough and Sputum Production (Difficult to expectorate)
Objective Data
Data Reviewed
Vital Signs / I&O / Oxygen:
Vital Signs
Temp Pulse Resp BP Pulse Ox
100.6 F H 126 39 150/94 98
03/17/24 07:56 03/17/24 09:22 03/17/24 04:00 03/17/24 09:22 03/17/24 02:00
Intake and Output
03/16/24 03/17/24 03/18/24
06:59 06:59 06:59
Intake Total 200 / 200
Balance 200 / 200
SaO2 98
Nasal Cannula flow liters per 2
minute
Physical Exam
General: Respiratory Distress (Moderate at rest)
HEENT: Normocephalic
Cardiovascular: S1-S2 and Regular Rhythm
Respiratory: Rhonchi and Accessory Resp Muscle Use
GI: Soft and Non Distended
Neurology: Awake, Alert, Oriented and No Motor Deficits
Skin: Warm
Labs/Micro/Reports
Microbiology
03/15/24 11:55 Nasal Swab Influenza Types A & B (SHER) - Final
Negative for Influenza A & B, NAAT
Negative results must be combined with clinical observations
and patient history.
Nucleic Acid Amplification test (NAAT)performed on the
[employer] NOW platform.
--- NOTE | 2024-03-17 10:50 | PTCARENOTE ---
Pt O2 sat down to 70s. Dr. Argueta at bedside. ordered lasix, steroids, morphine for comfort. Pt still requesting hospice. Son on his way to see her.
--- NOTE | 2024-03-17 11:06 | W.PN.CARDCBS ---
Today's Communication / Plan
-
patient requests hospice evaluation, which appears appropriate
d/w hospitalist, pulm, nursing
will sign off. please call with questions
Impression / Plan
-
Primary Oncology Admin: Dr. Ta
Assessment:
Presentation with cough, headache, chills
R PNA
Atrial fibrillation with RVR
Hypotension with IV cardizem gtt
Elevated troponin, suspected nonischemic myocardial injury
PAF on chronic eliquis
SSS s/p Medtronic DC PPM 2016
Chronic HFpEF
HTN
COPD
History of respiratory arrest 2008, 2012
History of PE
Former smoker
Daily ETOH (2 small glasses of wine)
DNR code status
ECHO 03/16/24: EF 70-75%, mild to mod cLVH, mild MR, mild TR, PAP 35-40mmHg
Plan:
-she feels SOB and has had increasing supp O2 requirements overnight
-remains in rapid afib
-she is refusing CXR and labs this morning
-believe she would benefit from dose of IV lasix if agreeable
-states that she is 'done' and does not want anymore tests
-she requests hospice eval, which appears appropriate. she confirms that she is DNR/DNI code status today
-d/w pulmonary, hospitalist, and nursing
Progress Note - Oncology Admin
Subjective
Date of Service: March 17, 2024
reports SOB. 'I am done'
Objective
Labs:
Labs
Hgb 13.4 g/dL (12.0-16.0) 03/16/24 05:06
Hct 40.9 % (37.0-47.0) 03/16/24 05:06
Plt Count 217 10^3/uL (130-400) 03/16/24 05:06
Sodium 139 mmol/L (135-145) 03/16/24 05:06
Potassium 4.1 mmol/L (3.5-5.1) 03/16/24 05:06
BUN 18 mg/dl (7-17) H 03/16/24 05:06
Creatinine 0.9 mg/dL (0.6-1.0) 03/16/24 05:06
Glucose 75 mg/dl (70-99) 03/16/24 05:06
Troponins
03/16/24 03/16/24
05:06 13:45
Troponin I 0.041 H* 0.024
Vital Signs and I&O:
Vital Signs
Temp Pulse Resp BP Pulse Ox
100.6 F H 126 39 150/94 85
03/17/24 07:56 03/17/24 09:22 03/17/24 04:00 03/17/24 09:22 03/17/24 10:29
Vital Signs
Temp Pulse Resp BP Pulse Ox
100.6 F H 126 39 150/94 85
03/17/24 07:56 03/17/24 09:22 03/17/24 04:00 03/17/24 09:22 03/17/24 10:29
Intake & Output
03/15/24 03/16/24 03/17/24 03/18/24
07:59 07:59 07:59 07:59
Intake Total 200 / 200
Balance 200 / 200
Physical Exam
Physical Exam
GEN: No distress, awake, alert, oriented x3. on supp O2
HEENT: supple, anicteric, mmm, eomi
LUNGS: Rales B/L
CV: Irreg irreg, S1/S2, no murmur
NEURO: Gross non-focal
[2024-03-17] MEDS: MORPHINE SULFATE 1 MG IV (11:07)
[2024-03-17] MEDS: LASIX 20 MG IV (11:08)
[2024-03-17] MEDS: DECADRON 4 MG IV ×2 (11:09→19:42)
--- NOTE | 2024-03-17 11:11 | PN.CDI ---
CDI
- -
CDI:
Physician Documentation Request
Admit Date: 03/15/24 18:07
Dear Doctor Terrence,
The diagnosis of sepsis was documented in H&P, but is not consistently noted in subsequent documentation.
03/16 progress note states 'acute Rt sided Community associated pneumonia 48 hrs of fever , cough, headache, chills and sob WBC 12.3 -->8.9'
Presenting heart rate 122 (afib )
Presenting respiratory rate 20-24
Please clarify the following:
____ - Sepsis was present on admission
____ - Sepsis was ruled out
____ - Other
Use of terms such as suspected, likely, concern for, or probable (associated with a specific diagnosis that is being evaluated, monitored, or treated as if it exists) are acceptable and can be coded in the inpatient setting, when documented at the
time of discharge.
Thank you,
Nadege Ayala RN, BSN
CDI Specialist
tiger text
Please use your independent medical judgment in providing your response.
--- NOTE | 2024-03-17 13:52 | PTCARENOTE ---
Met with pt and son to discuss goals of care after they talked to Dr. Ocampo. both agree to allow 24 hours on antibiotics to see how she feels. She does not want any labs or x rays and requests morphine to continue PRN. Pt's breathing has improved.
Weaning O2 down. currently at 10L down from 15L. Updated Dr. Ocampo
--- NOTE | 2024-03-17 16:46 | CM ---
Patient with Dx pneumonia, Paroxysmal Atrial Fibrillation. O2 6L. Receiving IV Abx, IV decadron. Patient declined PT/OT. Goals of care discussions in progress.
CM continuing to follow for d/c needs.
Plan follow up with patient/family once GOC decisions made.
[2024-03-17] MEDS: ZITHROMAX INFUSION 250 IV (17:04)
[2024-03-17] MEDS: STERILE WATER FOR INJECTION 10 ML IV (17:04)
[2024-03-17] MEDS: ROCEPHIN 1000 MG IV (17:04)
--- NOTE | 2024-03-17 18:00 | W.PN.HOSP.TC ---
Today's Communication/Plan
-
add low dose Morphine
Assessment / Plan
Assessment / Plan
Acute Rt sided Community Associated Pneumonia
48 hrs of fever, cough, headache, chills and sob
WBC 12.3-->8.9
Sepsis from Pneumonia
leukocytosis/tachycardia/fever 100.7
Hx of COPD
follows with Dr. Mariah Nielson in office. Input of Dr. Argueta appreciated
Paroxysmal Atrial Fibrillation
currently with rvr, started on Cardizem drip, became hypotensive, Cardizem was stopped and placed on Amiodarone
Etoh
2 glasses of wine per day, never had withdrawal symptoms if did not drink
Cigarettes
1/2 ppd x 20 yrs, none since 1987
P:empiric abx
IV Cardizem stopped and placed on oral Amiodarone
Pulm and Cardio consults
Pt at this point is saying she had 'enough' and wishes to transition to Hospice. Met with pt and son, plan is to continue treatment overnight and if continues to be in favor of stoppage of treatment, son would be okay with the transition to Hospice
extensive visit discussing these issues
Low dose Morphine, as per Dr. Argueta, may help air hunger and make pt more comfortable
DNR
Anticipated Discharge: > 48 hours
Subjective/Interval History
-
Date of Service: March 17, 2024
feels more congested
Objective Data
-
Labs:
Laboratory Results
03/17/24
06:00
WBC Cancelled
Hgb Cancelled
Hct Cancelled
Plt Count Cancelled
Vital Signs:
Vital Signs
Temp Pulse Resp BP Pulse Ox
99.5 F 126 39 158/95 85
03/17/24 15:57 03/17/24 09:22 03/17/24 04:00 03/17/24 11:08 03/17/24 10:29
I&O
03/16/24 03/17/24 03/18/24
06:59 06:59 06:59
Intake Total 200 / 200
Output Total 900 / 900
Balance 200 / 200 -900 / -900
Review of Systems
-
History Source: Patient, Family (reviewed with son in room) and Physician (reviewed with Dr. Argueta)
Constitutional: Reports Fever (100.7)
EENT: Reports No Symptoms Reported
Respiratory: Reports Cough and Trouble Breathing
Cardiac: Reports Palpitations; Denies Chest Pain
Abdomen/GI: Reports No Symptoms
Genitourinary: Reports No Symptoms
Neuro: Reports No Symptoms
Physical Exam
-
General: Well Developed, Well Nourished and No Apparent Distress
HEENT: Normocephalic, Atraumatic and Moist Mucous Membranes
Respiratory: Rhonchi (right mid lung) and Other (very rhonchus cough when takes deep breaths)
Cardiac: S1/S2, Irregular Rhythm and Tachycardic (rate has slowed)
GI: Soft, Nontender and Nondistended
Musculoskeletal: No Clubbing, No Cyanosis and No Edema
Neuro: Awake, Alert and Oriented
[2024-03-17] MEDS: NEURONTIN 600 MG PO (19:42)
[2024-03-17] MEDS: ATROVENT NEBULES 0.5 MG INH (20:12)
[2024-03-17] MEDS: XOPENEX 0.63 MG INHALANT SOLUTION 0.630000000000000004 MG INH (20:13)
[2024-03-17] MEDS: PULMICORT 0.5 MG INH (20:13)
[2024-03-18] VITALS (16 sets, daily range): BP systolic 94–126; BP diastolic 53–73; PULSE 79–86; O2SAT 99
[2024-03-18] MEDS: XOPENEX 0.63 MG INHALANT SOLUTION 0.630000000000000004 MG INH ×3 (07:47→20:05)
[2024-03-18] MEDS: PULMICORT 0.5 MG INH ×2 (07:48→20:05)
[2024-03-18] MEDS: ATROVENT NEBULES 0.5 MG INH ×3 (07:48→20:05)
[2024-03-18] MEDS: MUCINEX 600 MG PO ×2 (09:03→20:05)
[2024-03-18] MEDS: VITAMIN D3 (cholecalciferol) 25 MCG PO (09:03)
[2024-03-18] MEDS: PACERONE 200 MG PO ×2 (09:03→20:05)
[2024-03-18] MEDS: SENOKOT-S 1 TABLET PO (09:03)
[2024-03-18] MEDS: LIDOCAINE 4% PATCH 1 PATCH TOPICAL ×2 (09:04→09:05)
[2024-03-18] MEDS: MORPHINE SULFATE 1 MG IV (09:04)
[2024-03-18] MEDS: ELIQUIS 2.5 MG PO ×2 (09:06→20:06)
[2024-03-18] MEDS: TOPROL XL PO ×2 (09:07→20:01)
[2024-03-18] MEDS: DECADRON 4 MG IV ×2 (09:07→20:14)
--- NOTE | 2024-03-18 10:16 | W.PN.PUL3 ---
Today's Communication / Plan
-
Continue nebulizers
IV steroids
Secretion clearance interventions
Antibiotics
High rate control
Oxygen supplementation
Physical therapy as able
Will follow
Assessment
-
89-year-old woman with past medical history noted. Came to the hospital with 48 hours of fevers, cough, generalized malaise. Shortness of breath. Found to be in rapid atrial fibrillation. Found to have a right lower lobe infiltrate and admitted
for further evaluation.
Acute respiratory sufficiency due to acute exacerbation of COPD/bronchiectasis-currently in 2 L which is new for her.
Chest x-ray 03/15/2024: New focal region of patchy parenchymal opacity within the right lower lobe. Small right pleural effusion.
Pneumonia-likely bacterial
Rapid atrial fibrillation-mild troponin leak
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
Hospital admission for acute exacerbation of COPD 07/30/2023
Afib/flutter, on apixaban
PPM
COPD/bronchiectasis: on fluticasone/umeclidinium/vilanterol (trelegy). Not on home O2. Not on SABDs.
IBS
S/p partial colectomy in 2008 while living in [place]
Postop complicated by respiratory arrest after extubation
S/p BRAN 2012 at [facility]
Postop complicated by respiratory arrest after extubation, resulting in prolonged MV requiring tracheoscomy
Bronchiectasis: Abnormal chest CT 2020: significant BEs at RML and lingula, small patchy bilateral opacities
Reports has received up to 4 bronchoscopies over the years, reportedly not actionable results, denies MTB or NTM
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
Spirometry 12/10/2023: FEV1 0.66 L - 48%, FVC 0.95 L - 50%, FEV1/FVC 69%.
Chronic cough: Possible allergic rhinitis.
History of pulmonary embolism-unprovoked per patient-on long-term anticoagulation
Former cigarette smoker quitting in 1979 two quarter of a pack for 30 years.
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
1.8 cm right ovarian lesion.
Assessment and plan:
-
Clinical picture suggestive of possible bacterial pneumonia.
Patient at risk due to advanced age as well as bronchiectasis.
-
Significant improvement compared to yesterday.
Today, patient would like to continue with care.
Lung exam improved, scattered rhonchi with bibasilar crackles.
Oxygen requirements improved. Continue to wean down as able.
Heart rate improved, patient currently on physical therapy.
-
Respiratory distress at rest has resolved.
-
Continue dexamethasone at the current dose, 4 mg IV every 12. Monitor for delirium.
Did receive 1 dose of Lasix. 03/17/[address] Argueta discussed with Leon her son at the bedside 03/18/2024. Will continue with current care per
-
Significant coughing: Hold inhalers as maneuver is poor at the moment.(Usually on Trelegy)
Continue Xopenex/Atrovent/Pulmicort nebulizers while in the hospital.
Acapella device if able.
Mucolytic's
-
Sputum culture if able-order was placed- pending
leukocytosis resolved
Low-grade fever resolved
Continue current antibiotics will adjust as necessary, depending on cultures. Ceftriaxone/azithromycin.
-
Continue oxygen supplementation and wean down as able to maintain pulse ox above 88%.
Currently on nasal cannula oxygen.
Last 6-minute walk testing 11/2023 without oxygen requirements in our office.
-
Rapid atrial fibrillation likely driven by pulmonary process-heart rate improved this morning 03/18/2024.
Repeat echocardiogram 03/16/2024: Report reviewed: Hyperdynamic left ventricular systolic function. LVEF 70 to 75%. Mild to moderate LVH. Normal biventricular size and function.
Mild MR. Mild TR. Pulmonary pressure 35-40 mmHg.
Cardiology following
Minimal troponin leak. Back to normal. Denies chest pain.
Continue anticoagulants
-
Patient has chronic shortness of breath: Likely has component of deconditioning.
As able physical therapy and Occupational Therapy-
-
Will follow
-
Patient is DNR status. Continue supportive care as above.
Case has been discussed with son Dr. Quintero by Dr. Argueta as well as Dr. Ocampo 03/18/2024.
-
Outpatient pulmonary follow-up with Dr. Mariah Nielson after discharge
Subjective Data
-
Date of Service:
Date of Service: March 18, 2024
Chief Complaint: Pulmonary Follow Up (Pneumonia/shortness of breath)
Subjective:
Feels better today
Less short of breath
Continues to report cough and congestion
In better spirits today.
Son at the bedside
Review of Systems
Cardiopulmonary: Dyspnea, Dyspnea on Exertion, Cough, Sputum Production and Wheezing
GI: Abdominal Pain (n)
Objective Data
Data Reviewed
Vital Signs / I&O / Oxygen:
Vital Signs
Temp Pulse Resp BP Pulse Ox
97.7 F 91 32 97/71 96
03/18/24 07:46 03/18/24 07:50 03/18/24 07:50 03/18/24 09:07 03/18/24 07:50
Intake and Output
03/17/24 03/18/24 03/19/24
06:59 06:59 06:59
Output Total 900 / 900
Balance -900 / -900
SaO2 96
Nasal Cannula flow liters per 6
minute
Physical Exam
General: Respiratory Distress (None at rest)
HEENT: Normocephalic
Cardiovascular: S1-S2 and Regular Rhythm
Respiratory: Wheeze ( mild expiratory wheezing), Crackles (Bibasilar), Rhonchi (Mild scattered) and Accessory Resp Muscle Use
GI: Soft and Non Distended
Neurology: Awake, Alert, Oriented and No Motor Deficits
Skin: Warm
Labs/Micro/Reports
Lab Data
03/17/24 06:00
03/17/24 06:00
Microbiology
03/15/24 11:55 Nasal Swab Influenza Types A & B (SHER) - Final
Negative for Influenza A & B, NAAT
Negative results must be combined with clinical observations
and patient history.
Nucleic Acid Amplification test (NAAT)performed on the
[employer] NOW platform.
[2024-03-18] MEDS: ZITHROMAX INFUSION 250 IV (16:16)
[2024-03-18] MEDS: ROCEPHIN 1000 MG IV (16:17)
[2024-03-18] MEDS: STERILE WATER FOR INJECTION 10 ML IV (16:17)
[2024-03-18] MEDS: TYLENOL 650 MG PO (17:10)
--- NOTE | 2024-03-18 17:17 | PTCARENOTE ---
OOB all day, weaned o2 to 4L Midflow tubing. RA 87% and SOB. IV Morphine given for headache/ whole body pain earlier today with good relief, this pm asking for tylenol for headache. No BM this admit- but refused prn regimen- will bring in linzess
from home if needed.
--- NOTE | 2024-03-18 17:17 | W.PN.HOSP.TC ---
Today's Communication/Plan
-
continue current management, will not proceed to Hospice with pt showing signs of improvement
Assessment / Plan
Assessment / Plan
Acute Rt sided Community Associated Pneumonia
48 hrs of fever, cough, headache, chills and sob, today starting to improve, much less sob
WBC 12.3-->8.9-->pt refuses further blood tests
SaO2 99% on 4 L/M
Sepsis from Pneumonia
leukocytosis/tachycardia/fever 100.7
Hx of COPD
follows with Dr. Mariah Nielson in office. Input of Dr. Argueta appreciated
Paroxysmal Atrial Fibrillation
currently with rvr, started on Cardizem drip, became hypotensive, Cardizem was stopped and placed on Amiodarone 200 mg bid and Toprol XL 50 mg bid
Etoh
2 glasses of wine per day, never had withdrawal symptoms if did not drink
Cigarettes
1/2 ppd x 20 yrs, none since 1987
P:empiric abx
IV Cardizem stopped and placed on oral Amiodarone
Pulm and Cardio consults
Pt at this point iwilling to continue to receive aggressive medical care as she too believes she is improving
Low dose Morphine, as per Dr. Argueta, may help air hunger and make pt more comfortable
appetite has been poor, will add supplemental Ensure
DNR
Anticipated Discharge: > 48 hours
Subjective/Interval History
-
Date of Service: March 18, 2024
Looks better, much less sob
Objective Data
-
Vital Signs:
Vital Signs
Temp Pulse Resp BP Pulse Ox
98.1 F 91 30 96/63 99
03/18/24 15:49 03/18/24 16:00 03/18/24 16:00 03/18/24 16:00 03/18/24 10:00
I&O
06/03/18/24 03/19/24
06:59 06:59 06:59
Intake Total 730 / 730
Output Total 900 / 900 150 / 150
Balance -900 / -900 580 / 580
Review of Systems
-
History Source: Patient, Family (reviewed with son and dgt in room) and Physician (reviewed with Dr. Argueta)
Constitutional: Reports Fever (afebrile >24hrs)
EENT: Reports No Symptoms Reported
Respiratory: Reports Cough and Trouble Breathing
Cardiac: Reports Palpitations; Denies Chest Pain
Abdomen/GI: Reports No Symptoms
Genitourinary: Reports No Symptoms
Neuro: Reports No Symptoms
Physical Exam
-
General: Well Developed, Well Nourished and No Apparent Distress
HEENT: Normocephalic, Atraumatic and Moist Mucous Membranes
Respiratory: Rhonchi (right mid lung, markedly diminished) and Other (very rhonchus cough when takes deep breaths); Negative Wheezes
Cardiac: S1/S2, Irregular Rhythm and Tachycardic (resolved)
GI: Soft, Nontender and Nondistended
Musculoskeletal: No Clubbing, No Cyanosis and No Edema
Neuro: Awake, Alert and Oriented
--- NOTE | 2024-03-18 20:23 | PTCARENOTE ---
Pt resting in bed, RR even unlabored. denies SOB. 4L midflow. Pt AAO. making needs known. held PM toporl, v/s not within admin protocol. Pt took Pm pills with water.
[2024-03-18] MEDS: NEURONTIN 600 MG PO (21:40)
[2024-03-19] VITALS (13 sets, daily range): BP systolic 93–123; BP diastolic 55–73; BMI 19.8
[2024-03-19] MEDS: LINZESS PO (05:26)
[2024-03-19 06:18] LABS: % Basophils 0.2 % (0-2); % Immature Granulocytes 0.6 % (0-0.5); % Lymphocytes 5.7 % (20.5-51.1); % Monocytes 3.2 % (1.7-9.3); % Neutrophils 90.3 % (42.2-75.2); Absolute Immature Granulocytes 0.1 10^3/uL (0-0.05); Absolute Lymphocytes 0.8 10^3/uL (1.2-3.4); Absolute Monocytes 0.4 10^3/uL (0.1-0.6); Hematocrit 44.6 % (37.0-47.0); Mean Corp Hgb Conc. 31.4 g/dL (33.0-37.0); Mean Corpuscular Hgb 31.3 pg (27.0-31.0); Mean Corpuscular Volume 99.6 fL (81.0-99.0); Mean Platelet Volume 9.7 fL (7.4-10.4); Nucleated Red Blood Cells % 0 %; Platelet Count 261 10^3/uL (130-400); Red Blood Cell Count 4.48 10^6/uL (4.20-5.40); Red Cell Dist. Width 12.2 % (11.5-14.5); White Blood Cell Count 13.3 10^3/uL (4.8-10.8)
[2024-03-19 06:40] LABS: Blood Urea Nitrogen 27 mg/dl (7-17); Calcium 9.1 mg/dl (8.4-10.2); Carbon Dioxide 32 mmol/L (22-30); Chloride 101 mmol/L (98-107); Estimated Creatinine Clearance 35 ml/min; Glucose 113 mg/dl (70-99); Potassium 4.8 mmol/L (3.5-5.1); Sodium 138 mmol/L (135-145); eGFR > 60.00
[2024-03-19] MEDS: ATROVENT NEBULES 0.5 MG INH ×3 (07:50→19:48)
[2024-03-19] MEDS: PULMICORT 0.5 MG INH ×2 (07:50→19:48)
[2024-03-19] MEDS: XOPENEX 0.63 MG INHALANT SOLUTION 0.630000000000000004 MG INH ×3 (07:50→19:48)
[2024-03-19] MEDS: TOPROL XL 50 MG PO ×2 (09:53→21:08)
[2024-03-19] MEDS: ELIQUIS 2.5 MG PO ×2 (09:53→21:07)
[2024-03-19] MEDS: MUCINEX 600 MG PO ×2 (09:53→21:07)
[2024-03-19] MEDS: VITAMIN D3 (cholecalciferol) 25 MCG PO (09:54)
[2024-03-19] MEDS: DECADRON 4 MG IV ×2 (09:54→21:08)
[2024-03-19] MEDS: PACERONE 200 MG PO ×2 (09:54→21:06)
[2024-03-19] MEDS: LIDOCAINE 4% PATCH TOPICAL ×2 (10:00)
--- NOTE | 2024-03-19 10:33 | W.PN.PUL3 ---
Today's Communication / Plan
-
Continue antibiotics
Wean oxygen
Continue budesonide nebulizer, DuoNebs
Continue IV Decadron, consider transition to oral Pred in the next 24 to 48 hours
Out of bed to chair, PT/OT
Assessment
-
89-year-old woman with past medical history noted. Came to the hospital with 48 hours of fevers, cough, generalized malaise. Shortness of breath. Found to be in rapid atrial fibrillation. Found to have a right lower lobe infiltrate and admitted
for further evaluation.
Acute respiratory sufficiency due to acute exacerbation of COPD/bronchiectasis-currently in 2 L which is new for her.
Chest x-ray 03/15/2024: New focal region of patchy parenchymal opacity within the right lower lobe. Small right pleural effusion.
Pneumonia-likely bacterial
Rapid atrial fibrillation-mild troponin leak
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
Hospital admission for acute exacerbation of COPD 07/30/2023
Afib/flutter, on apixaban
PPM
COPD/bronchiectasis: on fluticasone/umeclidinium/vilanterol (trelegy). Not on home O2. Not on SABDs.
IBS
S/p partial colectomy in 2008 while living in [place]
Postop complicated by respiratory arrest after extubation
S/p BRAN 2012 at [facility]
Postop complicated by respiratory arrest after extubation, resulting in prolonged MV requiring tracheoscomy
Bronchiectasis: Abnormal chest CT 2020: significant BEs at RML and lingula, small patchy bilateral opacities
Reports has received up to 4 bronchoscopies over the years, reportedly not actionable results, denies MTB or NTM
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
Spirometry 12/10/2023: FEV1 0.66 L - 48%, FVC 0.95 L - 50%, FEV1/FVC 69%.
Chronic cough: Possible allergic rhinitis.
History of pulmonary embolism-unprovoked per patient-on long-term anticoagulation
Former cigarette smoker quitting in 1979 two quarter of a pack for 30 years.
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
1.8 cm right ovarian lesion.
Assessment and plan:
At this time, patient appears to be subjectively improved
Chest exam with persistent crackles, inspiratory squeaks, few rhonchi
Clinical picture suggestive of possible bacterial pneumonia.
Patient at risk due to advanced age as well as bronchiectasis.
Chest x-ray today with no significant improvement, no worsening
Moving forward
Continue to wean oxygen as able
Respiratory distress at rest has resolved
Would like to get out of bed to chair, PT/OT
Continue dexamethasone at the current dose, 4 mg IV every 12. Monitor for delirium.
Will consider transition to oral prednisone in the next 24 to 48 hours
Did receive 1 dose of Lasix. 03/17/[address] Argueta discussed with Leon her son at the bedside 03/18/2024. Will continue with current care
Significant coughing: Hold inhalers as maneuver is poor at the moment.(Usually on Trelegy)
Continue Xopenex/Atrovent/Pulmicort nebulizers while in the hospital.
Acapella device if able.
Mucolytic's
Sputum culture unable to produce
Prior cultures in the past July 2022 positive for gram-negative bacilli
leukocytosis resolved
Low-grade fever resolved
Continue current antibiotics will adjust as necessary, depending on cultures. Ceftriaxone/azithromycin.
Continue oxygen supplementation and wean down as able to maintain pulse ox above 88%.
Currently on nasal cannula oxygen.
Last 6-minute walk testing 11/2023 without oxygen requirements in our office.
Atrial fibrillation noted
Repeat echocardiogram 03/16/2024: Report reviewed: Hyperdynamic left ventricular systolic function. LVEF 70 to 75%. Mild to moderate LVH. Normal biventricular size and function.
Mild MR. Mild TR. Pulmonary pressure 35-40 mmHg.
Cardiology following
Minimal troponin leak. Back to normal. Denies chest pain.
Continue anticoagulants
Patient has chronic shortness of breath: Likely has component of deconditioning.
As able physical therapy and Occupational Therapy-
-
Will follow
-
Patient is DNR status. Continue supportive care as above.
Case has been discussed with son Dr. Quintero by Dr. Argueta as well as Dr. Ocampo 03/18/2024.
-
Outpatient pulmonary follow-up with Dr. Mariah Nielson after discharge. Dr Lemus covering over the weekend
Subjective Data
-
Date of Service:
Date of Service: March 19, 2024
Chief Complaint: Pulmonary Follow Up (Pneumonia/shortness of breath)
Subjective:
Patient appears to be comfortable, complaining of shortness of breath and cough. Feels improved since admission. Denies hemoptysis, nausea, abdominal pain. Has essentially been sedentary, not out of bed
Objective Data
Data Reviewed
Vital Signs / I&O / Oxygen:
Vital Signs
Temp Pulse Resp BP Pulse Ox
97.2 F 103 25 103/68 100
03/19/24 07:10 03/19/24 09:54 03/19/24 06:00 03/19/24 09:54 03/19/24 06:00
Intake and Output
03/18/24 03/19/24 03/20/24
06:59 06:59 06:59
Intake Total 730 / 730
Output Total 900 / 900 150 / 150
Balance -900 / -900 580 / 580
SaO2 100
Nasal Cannula flow liters per 5
minute
Physical Exam
General: Comfortable (Lying flat)
HEENT: Normocephalic and Anicteric
Cardiovascular: S1-S2, Regular Rhythm, Murmur (n) and Rub (n)
Respiratory: Wheeze ( mild expiratory wheezing), Crackles (Bibasilar), Rhonchi (Mild scattered), Accessory Resp Muscle Use and Stridor (n)
GI: Soft, Non Distended and Non Tender
Neurology: Awake, Alert, Oriented and No Motor Deficits
Skin: Good Color and Cyanosis (n)
Labs/Micro/Reports
Lab Data
03/19/24 05:22
03/19/24 05:22
--- NOTE | 2024-03-19 14:33 | W.PN.HOSP.TC ---
Today's Communication/Plan
-
continue current Tx, potential transfer [facility] if converts back into NSR
Assessment / Plan
Assessment / Plan
Acute Rt sided Community Associated Pneumonia
48 hrs of fever, cough, headache, chills and sob, today starting to improve, much less sob
WBC 12.3-->8.9-->13.3
SaO2 99% on 3 L/M
03/19 CXR: Stable moderate right basilar pneumonia with small associated right pleural effusion
Sepsis from Pneumonia
leukocytosis/tachycardia/fever 100.7
Hx of COPD
follows with Dr. Mariah Nielson in office. Input of Dr. Argueta appreciated
Paroxysmal Atrial Fibrillation
currently with rvr, started on Cardizem drip, became hypotensive, Cardizem was stopped and placed on Amiodarone 200 mg bid and Toprol XL 50 mg bid
Etoh
2 glasses of wine per day, never had withdrawal symptoms if did not drink
Cigarettes
1/2 ppd x 20 yrs, none since 1987
P:empiric abx
IV Cardizem stopped and placed on oral Amiodarone
Pulm and Cardio consults
Pt at this point is willing to continue to receive aggressive medical care as she too believes she is improving
Low dose Morphine, as per Dr. Argueta, may help air hunger and make pt more comfortable
appetite has been poor, will add supplemental Ensure
Discussed adding percussion vest therapy, though with her hx of arthritis may make her more uncomfortable and thus will hold off
DNR
Anticipated Discharge: > 48 hours
Subjective/Interval History
-
Date of Service: March 19, 2024
Pt looks much better today, smiling, answering questions
Objective Data
-
Labs:
Laboratory Results
03/19/24
05:22
WBC 13.3 H
Hgb 14.0
Hct 44.6
Plt Count 261 D
Sodium 138
Potassium 4.8
Chloride 101
Carbon Dioxide 32 H
BUN 27 H
Creatinine 0.9
Glucose 113 H
Calcium 9.1
Vital Signs:
Vital Signs
Temp Pulse Resp BP Pulse Ox
97.5 F 90 28 112/55 99
03/19/24 11:00 03/19/24 13:43 03/19/24 13:43 03/19/24 10:00 03/19/24 13:43
I&O
03/18/24 03/19/24 03/20/24
06:59 06:59 06:59
Intake Total 730 / 730
Output Total 900 / 900 150 / 150
Balance -900 / -900 580 / 580
Review of Systems
-
History Source: Patient and Physician (reviewed with Dr. Argueta)
Constitutional: Reports Fever (afebrile >24hrs)
EENT: Reports No Symptoms Reported
Respiratory: Reports Cough and Trouble Breathing
Cardiac: Reports Palpitations; Denies Chest Pain
Abdomen/GI: Reports No Symptoms
Genitourinary: Reports No Symptoms
Neuro: Reports No Symptoms
Physical Exam
-
General: Well Developed, Well Nourished and No Apparent Distress
HEENT: Normocephalic, Atraumatic and Moist Mucous Membranes
Respiratory: Rhonchi (much clearer, rhonchi resolved) and Other (very rhonchus cough when takes deep breaths); Negative Wheezes
Cardiac: S1/S2, Irregular Rhythm and Tachycardic (resolved)
GI: Soft, Nontender and Nondistended
Musculoskeletal: No Clubbing, No Cyanosis and No Edema
Neuro: Awake, Alert and Oriented
--- NOTE | 2024-03-19 15:32 | PN.CDI ---
CDI
- -
CDI:
Physician Documentation Request
Admit Date: 03/15/24 18:07
Dear Doctor Terrence
Patient admitted with sepsis from right sided community associated pneumonia.
03/17 nursing note states 'Pt O2 sat down to 70s', later the same day 'Weaning O2 down. currently at 10 L down from 15 L'
Documented vital signs reflect pt is using midflow.
Please clarify which of the following accurately represents the patient's respiratory status:
Acute respiratory failure- please indicate type
Hypoxia
Other
Additional information for Respiratory Failure:
Recognized criteria for Respiratory Failure (Source: [facility] Hospitalist Jul 2013)
ABGs: (1 or more) Symptoms Please indicate type if known
1. p)2 <60 or RA SPO2 <91% on RA 1. Tachypnea, SOB, dyspnea Hypoxic
2. pCO2 50 and pH <7.35 2. Use of accessory muscles Hypercapnic
3. pO2 decrease of pCO2 increase by 3. Pallor or cyanosis Hypoxic and Hypercapnic
10 mmHg from baseline if known 4. Anxiety or restlessness Unable to determine
5. Unable to speak in full sentences
Supplemental O2 of > 40% (5LPM) Intubation is not required
Use of terms such as suspected, likely, concern for, or probable (associated with a specific diagnosis that is being evaluated, monitored, or treated as if it exists) are acceptable and can be coded in the inpatient setting, when documented at the
time of discharge.
Thank you,
Nadege Ayala RN, BSN
CDI Specialist
tiger text
Please use your independent medical judgment in providing your response.
[2024-03-19] MEDS: ROCEPHIN 1000 MG IV (16:03)
[2024-03-19] MEDS: STERILE WATER FOR INJECTION 10 ML IV (16:04)
[2024-03-19] MEDS: ZITHROMAX 500 MG PO (16:04)
--- NOTE | 2024-03-19 17:08 | CM ---
Patient with Dx pneumonia, Paroxysmal Atrial Fibrillation. O2 3L. Receiving IV Abx, IV decadron. PT recommending rehab vs home. OT recommends HH.
Phone call to son Leon; left message requesting callback for d/c planning.
Plan watch for any home O2 needs.
Plan discuss SNF for rehab vs home with VN.
--- NOTE | 2024-03-19 18:26 | PTCARENOTE ---
Pt reports much improvement in symptoms and overall status today. Weaned from 4L O2 [place] to 2L O2 NC with POX 97%. Pt worked with PT and assisted in her own hygiene care this afternoon. Pt still reports mild-moderate MERAZ, but states overall more
comfortable at rest. Pt resting comfortably in bed watching TV, call flor within reach.
[2024-03-19] MEDS: NEURONTIN 600 MG PO (21:07)
[2024-03-19] MEDS: MORPHINE SULFATE 1 MG IV (23:28)
[2024-03-20] VITALS (11 sets, daily range): BP systolic 95–126; BP diastolic 57–85
--- NOTE | 2024-03-20 06:39 | PTCARENOTE ---
Patient requested prn morphine at bedtime for restlessness/generalized pain/MERAZ, able to sleep after dose. Tele showing Afib, HR 80-100. Pt calls appropriately to get up to BSC, slightly unsteady. No BM. Pt reports appetite is improving. Remains on
2L [place], Sp02 WNL. Call flor and tray table within reach. Pt appreciative of care.
[2024-03-20] MEDS: ATROVENT NEBULES 0.5 MG INH ×3 (07:18→20:21)
[2024-03-20] MEDS: PULMICORT 0.5 MG INH ×2 (07:19→20:21)
[2024-03-20] MEDS: XOPENEX 0.63 MG INHALANT SOLUTION 0.630000000000000004 MG INH ×3 (07:19→20:21)
--- NOTE | 2024-03-20 09:51 | RESPNOTE ---
Attempted to wean patient from O2, SpO2 decreased to 85%, RN placed patient back on oxygen 2 LPM.
[2024-03-20] MEDS: ELIQUIS 2.5 MG PO ×2 (09:52→21:11)
[2024-03-20] MEDS: MUCINEX 600 MG PO ×2 (09:52→21:11)
[2024-03-20] MEDS: DECADRON 4 MG IV (09:54)
[2024-03-20] MEDS: LIDOCAINE 4% PATCH TOPICAL ×2 (09:55)
[2024-03-20] MEDS: TOPROL XL 50 MG PO ×2 (10:15→21:10)
[2024-03-20] MEDS: PACERONE 200 MG PO ×2 (10:15→21:10)
[2024-03-20] MEDS: VITAMIN D3 (cholecalciferol) 25 MCG PO (10:17)
--- NOTE | 2024-03-20 10:53 | W.PN.PUL3 ---
Today's Communication / Plan
-
Improving, on 2L [place], not on home O2--home O2 eval ordered
Transition IV steroids to PO prednisone, taper at discharge
Encouraged OOB/Ambulation
Outpatient pulmonary FU recommended
Discharge planning per team
Assessment
-
89-year-old woman with past medical history noted. Came to the hospital with 48 hours of fevers, cough, generalized malaise. Shortness of breath. Found to be in rapid atrial fibrillation. Found to have a right lower lobe infiltrate and admitted
for further evaluation.
Acute respiratory sufficiency due to acute exacerbation of COPD/bronchiectasis-currently in 2 L which is new for her.
Chest x-ray 03/15/2024: New focal region of patchy parenchymal opacity within the right lower lobe. Small right pleural effusion.
Pneumonia-likely bacterial
Rapid atrial fibrillation-mild troponin leak
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
Hospital admission for acute exacerbation of COPD 07/30/2023
Afib/flutter, on apixaban
PPM
COPD/bronchiectasis: on fluticasone/umeclidinium/vilanterol (trelegy). Not on home O2. Not on SABDs.
IBS
S/p partial colectomy in 2008 while living in [place]
Postop complicated by respiratory arrest after extubation
S/p BRAN 2012 at [facility]
Postop complicated by respiratory arrest after extubation, resulting in prolonged MV requiring tracheoscomy
Bronchiectasis: Abnormal chest CT 2020: significant BEs at RML and lingula, small patchy bilateral opacities
Reports has received up to 4 bronchoscopies over the years, reportedly not actionable results, denies MTB or NTM
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
Spirometry 12/10/2023: FEV1 0.66 L - 48%, FVC 0.95 L - 50%, FEV1/FVC 69%.
Chronic cough: Possible allergic rhinitis.
History of pulmonary embolism-unprovoked per patient-on long-term anticoagulation
Former cigarette smoker quitting in 1979 two quarter of a pack for 30 years.
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
1.8 cm right ovarian lesion.
Plan
At this time, patient appears to be subjectively improved
Chest exam with persistent crackles, inspiratory squeaks, few rhonchi
Clinical picture suggestive of possible bacterial pneumonia.
Patient at risk due to advanced age as well as bronchiectasis.
Chest x-ray today with no significant improvement, no worsening
Home O2 eval
Placed on 2L [place], prior 6MWT showing yolanda 90% on RA
She had been borderline on prior testing
Continue to wean oxygen as able
Respiratory distress at rest has resolved
Would like to get out of bed to chair, PT/OT
Severe COPD history
She typically will have 2-3 flares per year requiring prednisone, last hospitalization in Jul 2023 for AECOPD
Continue dexamethasone at the current dose, 4 mg IV every 12. Monitor for delirium.
Will consider transition to oral prednisone in the next 24 to 48 hours
Did receive 1 dose of Lasix. 03/17/[address] Argueta discussed with Leon her son at the bedside 03/18/2024. Will continue with current care
Significant coughing: Hold inhalers as maneuver is poor at the moment. (Usually on Trelegy)
Continue Xopenex/Atrovent/Pulmicort nebulizers while in the hospital.
Acapella device if able.
Mucolytic's
Bronchiectasis history: She does have Acapella device and incentive spirometer at home. She is not interested in vest therapy.
Prior CT chest showing TIB findings. Per records, patient has undergone multiple bronchoscopies, negative for BRITTNY. Most recent sputum culture normal.
She had a repeat chest x-ray in past which shows persistent right middle lobe and lingular infiltrates. These findings were present on CT imaging in 2020.
We did discuss repeating CT imaging to evaluate for progression but she declined. She did not want to be aggressive
Sputum culture unable to produce
Prior cultures in the past July 2022 positive for gram-negative bacilli
Leukocytosis resolved/Low-grade fever resolved
Continue current antibiotics will adjust as necessary, depending on cultures--Ceftriaxone/azithromycin.
Atrial fibrillation noted
Repeat echocardiogram 03/16/2024: Report reviewed: Hyperdynamic left ventricular systolic function. LVEF 70 to 75%. Mild to moderate LVH. Normal biventricular size and function.
Mild MR. Mild TR. Pulmonary pressure 35-40 mmHg.
Cardiology following
Minimal troponin leak. Back to normal. Denies chest pain.
Continue anticoagulants
Patient has chronic shortness of breath: Likely has component of deconditioning.
As able PT/OT evals
Patient is DNR status. Continue supportive care as above.
Case has been discussed with son Dr. Quintero by Dr. Argueta as well as Dr. Ocampo 03/18/2024.
Outpatient pulmonary follow-up with Dr. Mariah Nielson after discharge.
Diagnostic Data
CXR 03/19/24- Stable moderate right basilar pneumonia with small associated right pleural effusion
03/15/24- New focal region of patchy parenchymal opacity within the right lower lobe of the lung, which very likely represents pneumonia. Small right pleural effusion.
07/28/23- Severe chronic COPD and lung changes in the right middle lobe and lingula of the left upper lobe, seen on prior CT of the chest 2.5 years ago. No definite acute process. No definite pleural effusion or focal area of airspace process.
CT CAP 12/18/20- 1. Minimally displaced fracture of the left posterolateral 10th rib, with adjacent soft tissue swelling suggestive of acute fracture. No additional rib fractures are appreciated.
2. No pneumothorax or significant pleural effusion.
3. Significant bronchiectasis and interstitial thickening within the right middle lobe and lingular segment of the right upper lobe, suggestive of chronic indolent infection such as BRITTNY. Diffuse tree-in-bud opacities within both lungs, also
suggestive of indolent infection.
4. Calcified arterial plaque within the abdominal aorta. 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 Wide patency of the celiac axis and inferior mesenteric artery. Please correlate for
symptoms of chronic mesenteric ischemia.
5. 1.8 cm right ovarian lesion. Further evaluation is recommended with nonemergent pelvic ultrasound.
Subjective Data
-
Date of Service:
Date of Service: March 20, 2024
Chief Complaint: Pulmonary Follow Up (Pneumonia/shortness of breath)
Subjective:
doing well today, no new complaints
remains on 2L [place]
Objective Data
Data Reviewed
Vital Signs / I&O / Oxygen:
Vital Signs
Temp Pulse Resp BP Pulse Ox
97.7 F 86 16 102/54 2
03/20/24 07:17 03/20/24 10:15 03/20/24 07:19 03/20/24 10:15 03/20/24 07:19
Intake and Output
03/19/24 03/20/24 03/21/24
06:59 06:59 06:59
Intake Total 730 / 730 240 / 240
Output Total 150 / 150
Balance 580 / 580 240 / 240
SaO2 2
Nasal Cannula flow liters per 98
minute
Physical Exam
General: Comfortable (Lying flat)
HEENT: Normocephalic and Anicteric
Cardiovascular: S1-S2, Regular Rhythm, Murmur (n) and Rub (n)
Respiratory: Clear, Accessory Resp Muscle Use and Stridor (n)
GI: Soft, Non Distended and Non Tender
Neurology: Awake, Alert, Oriented, AO x 3 and No Motor Deficits
Skin: Good Color and Cyanosis (n)
Labs/Micro/Reports
Lab Data
03/19/24 05:22
03/19/24 05:22
--- NOTE | 2024-03-20 16:30 | W.PN.HOSP.TC ---
Today's Communication/Plan
-
encourage OOB
recheck labs
will need SNF rehab, hopefully early this week
Assessment / Plan
Assessment / Plan
Acute Rt sided Community Associated Pneumonia
48 hrs of fever, cough, headache, chills and sob, today starting to improve, much less sob
WBC 12.3-->8.9-->13.3
SaO2 99% on 3 L/M
03/19 CXR: Stable moderate right basilar pneumonia with small associated right pleural effusion
Sepsis from Pneumonia present on admission
leukocytosis/tachycardia/fever 100.7
Acute hypoxic respiratory failure from PNA, present on admission
markedly better
Hx of COPD
follows with Dr. Mariah Nielson in office. Input of Dr. Argueta appreciated
Paroxysmal Atrial Fibrillation
started on Cardizem drip, became hypotensive, Cardizem was stopped and placed on Amiodarone 200 mg bid and Toprol XL 50 mg bid
heart rate much improved. Rate now in 75-85 range, but still a. fib primarily
Etoh
2 glasses of wine per day, never had withdrawal symptoms if did not drink
Cigarettes
1/2 ppd x 20 yrs, none since 1987
P:empiric abx
IV Cardizem stopped and placed on oral Amiodarone 200 mg bid
Pulm and Cardio consults
Pt at this point is willing to continue to receive aggressive medical care as she too believes she is improving
Low dose Morphine, as per Dr. Argueta, may help air hunger and make pt more comfortable
appetite has been poor, will add supplemental Ensure
Discussed adding percussion vest therapy, though with her hx of arthritis may make her more uncomfortable and thus will hold off
importance of sitting in chair and out of bed, Incentive Spirometry recommended
Pt remains too weak to go directly home. Have recommended short term SNF rehab and pt is agreeable
DNR
Anticipated Discharge: > 48 hours
Subjective/Interval History
-
Date of Service: March 20, 2024
Remains weak
Objective Data
-
Vital Signs:
Vital Signs
Temp Pulse Resp BP Pulse Ox
98.2 F 78 17 112/66 97
03/20/24 15:20 03/20/24 13:12 03/20/24 13:12 03/20/24 12:00 03/20/24 13:24
I&O
03/19/24 03/20/24 03/21/24
06:59 06:59 06:59
Intake Total 730 / 730 240 / 240
Output Total 150 / 150 250 / 250
Balance 580 / 580 240 / 240 -250 / -250
Review of Systems
-
History Source: Patient
Constitutional: Reports Fever (afebrile >48hrs)
EENT: Reports No Symptoms Reported
Respiratory: Reports Cough (has markedly lessened) and Trouble Breathing
Cardiac: Reports Palpitations; Denies Chest Pain
Abdomen/GI: Reports No Symptoms
Genitourinary: Reports No Symptoms
Neuro: Reports No Symptoms
Physical Exam
-
General: Well Developed, Well Nourished and No Apparent Distress
HEENT: Normocephalic, Atraumatic and Moist Mucous Membranes
Respiratory: Rhonchi (scattered rt sided rhonchi) and Other (very rhonchus cough when takes deep breaths); Negative Wheezes
Cardiac: S1/S2, Irregular Rhythm and Tachycardic (resolved)
GI: Soft, Nontender and Nondistended
Musculoskeletal: No Clubbing, No Cyanosis and No Edema
Neuro: Awake, Alert and Oriented
[2024-03-20] MEDS: ZITHROMAX 500 MG PO (16:54)
[2024-03-20] MEDS: STERILE WATER FOR INJECTION 10 ML IV (16:55)
[2024-03-20] MEDS: ROCEPHIN 1000 MG IV (16:55)
--- NOTE | 2024-03-20 18:31 | PTCARENOTE ---
No events throughout the shift, pt tolerated 2L NC with POX 98%. RT attempted RA trial with pt this AM which she failed with a POX of 85%. Pt states potential d/c to rehab on Friday. Pt reports no bowel movement since admission, offered PRN bowel
regimen, pt declined, reports she wants her Linzess in the AM. Pt has been utilizing the commode for elimination as a standby assist. Resting comfortably in bed, call flor within reach.
[2024-03-20] MEDS: NEURONTIN 600 MG PO (21:11)
[2024-03-20] MEDS: MORPHINE SULFATE 1 MG IV (21:23)
--- NOTE | 2024-03-20 23:31 | PTCARENOTE ---
Received pt resting comfortably in bed. AAOx3 NISQUALLY. Afib w/ occ Apacing on the monitor. On 2L o2 97%. Lungs w/ scattered rhonchi. Appetite decreased. No BM + BS. Pt declining bowel regimen - would like her Linzess in the AM (ordered for 03/19 AM).
[2024-03-21] VITALS (12 sets, daily range): BP systolic 93–142; BP diastolic 60–117; PULSE 86; O2SAT 95
[2024-03-21 06:05] LABS: % Basophils 0.1 % (0-2); % Immature Granulocytes 1.4 % (0-0.5); % Lymphocytes 7.3 % (20.5-51.1); % Monocytes 6.2 % (1.7-9.3); Absolute Immature Granulocytes 0.1 10^3/uL (0-0.05); Absolute Lymphocytes 0.7 10^3/uL (1.2-3.4); Absolute Monocytes 0.6 10^3/uL (0.1-0.6); Hematocrit 40.3 % (37.0-47.0); Hemoglobin 13.1 g/dL (12.0-16.0); Mean Corp Hgb Conc. 32.5 g/dL (33.0-37.0); Mean Corpuscular Hgb 31.6 pg (27.0-31.0); Mean Corpuscular Volume 97.3 fL (81.0-99.0); Mean Platelet Volume 9.3 fL (7.4-10.4); Nucleated Red Blood Cells % 0 %; Platelet Count 301 10^3/uL (130-400); Red Blood Cell Count 4.14 10^6/uL (4.20-5.40); Red Cell Dist. Width 12.1 % (11.5-14.5); White Blood Cell Count 9.4 10^3/uL (4.8-10.8)
[2024-03-21 06:26] LABS: ALT (SGPT) 42 U/L (0-35); AST (SGOT) 51 U/L (14-36); Alkaline Phosphatase 52 U/L (38-126); Blood Urea Nitrogen 28 mg/dl (7-17); Calcium 8.9 mg/dl (8.4-10.2); Carbon Dioxide 34 mmol/L (22-30); Chloride 99 mmol/L (98-107); Estimated Creatinine Clearance 45 ml/min; Glucose 98 mg/dl (70-99); Potassium 5.5 mmol/L (3.5-5.1); Sodium 136 mmol/L (135-145); Total Bilirubin 0.3 mg/dl (0.2-1.3); Total Protein 5.5 g/dl (6.3-8.2); eGFR > 60.00
[2024-03-21] MEDS: ATROVENT NEBULES 0.5 MG INH ×3 (06:56→20:54)
[2024-03-21] MEDS: PULMICORT 0.5 MG INH ×2 (06:56→20:54)
[2024-03-21] MEDS: XOPENEX 0.63 MG INHALANT SOLUTION 0.630000000000000004 MG INH ×3 (06:56→20:54)
[2024-03-21] MEDS: LIDOCAINE 4% PATCH TOPICAL ×2 (07:29→08:58)
[2024-03-21] MEDS: LINZESS PO (07:30)
[2024-03-21] MEDS: LINZESS 145 MCG PO (07:41)
[2024-03-21] MEDS: ELIQUIS 2.5 MG PO ×2 (08:57→20:25)
[2024-03-21] MEDS: TOPROL XL 50 MG PO ×2 (08:57→20:35)
[2024-03-21] MEDS: PACERONE 200 MG PO ×2 (08:58→20:25)
[2024-03-21] MEDS: DELTASONE 40 MG PO (08:58)
[2024-03-21] MEDS: MUCINEX 600 MG PO ×2 (08:58→20:25)
[2024-03-21] MEDS: VITAMIN D3 (cholecalciferol) 25 MCG PO (08:59)
--- NOTE | 2024-03-21 09:56 | W.PN.PUL3 ---
Today's Communication / Plan
-
Doing well, continue OOB/IS
Wean O2 as tolerated, eventual home O2 eval
Dispo planning to SNF
OP pulmonary FU
Assessment
-
89-year-old woman with past medical history noted. Came to the hospital with 48 hours of fevers, cough, generalized malaise. Shortness of breath. Found to be in rapid atrial fibrillation. Found to have a right lower lobe infiltrate and admitted
for further evaluation.
Acute respiratory sufficiency due to acute exacerbation of COPD/bronchiectasis-currently in 2 L which is new for her.
Chest x-ray 03/15/2024: New focal region of patchy parenchymal opacity within the right lower lobe. Small right pleural effusion.
Pneumonia-likely bacterial
Rapid atrial fibrillation-mild troponin leak
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
Hospital admission for acute exacerbation of COPD 07/30/2023
Afib/flutter, on apixaban
PPM
COPD/bronchiectasis: on fluticasone/umeclidinium/vilanterol (trelegy). Not on home O2. Not on SABDs.
IBS
S/p partial colectomy in 2008 while living in [place]
Postop complicated by respiratory arrest after extubation
S/p BRAN [address] [facility]
Postop complicated by respiratory arrest after extubation, resulting in prolonged MV requiring tracheoscomy
Bronchiectasis: Abnormal chest CT 2020: significant BEs at RML and lingula, small patchy bilateral opacities
Reports has received up to 4 bronchoscopies over the years, reportedly not actionable results, denies MTB or NTM
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
Spirometry 12/10/2023: FEV1 0.66 L - 48%, FVC 0.95 L - 50%, FEV1/FVC 69%.
Chronic cough: Possible allergic rhinitis.
History of pulmonary embolism-unprovoked per patient-on long-term anticoagulation
Former cigarette smoker quitting in 1979 two quarter of a pack for 30 years.
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
1.8 cm right ovarian lesion.
Plan
At this time, patient appears to be subjectively improved
Chest exam with persistent crackles, inspiratory squeaks, few rhonchi
Clinical picture suggestive of possible bacterial pneumonia.
Patient at risk due to advanced age as well as bronchiectasis.
Chest x-ray today with no significant improvement, no worsening
Home O2 eval
Placed on 2L NC, prior 6MWT showing yolanda 90% on RA
She had been borderline on prior testing
Continue to wean oxygen as able
Respiratory distress at rest has resolved
Would like to get out of bed to chair, PT/OT
Severe COPD history
She typically will have 2-3 flares per year requiring prednisone, last hospitalization in Jul 2023 for AECOPD
Continue dexamethasone at the current dose, 4 mg IV every 12. Monitor for delirium.
Will consider transition to oral prednisone in the next 24 to 48 hours
Did receive 1 dose of Lasix. 03/17/[address] Argueta discussed with Leon her son at the bedside 03/18/2024. Will continue with current care
Significant coughing: Hold inhalers as maneuver is poor at the moment. (Usually on Trelegy)
Continue Xopenex/Atrovent/Pulmicort nebulizers while in the hospital.
Acapella device if able.
Mucolytic's
Bronchiectasis history: She does have Acapella device and incentive spirometer at home. She is not interested in vest therapy.
Prior CT chest showing TIB findings. Per records, patient has undergone multiple bronchoscopies, negative for BRITTNY. Most recent sputum culture normal.
She had a repeat chest x-ray in past which shows persistent right middle lobe and lingular infiltrates. These findings were present on CT imaging in 2020.
We did discuss repeating CT imaging to evaluate for progression but she declined. She did not want to be aggressive
Sputum culture unable to produce
Prior cultures in the past July 2022 positive for gram-negative bacilli
Leukocytosis resolved/Low-grade fever resolved
Continue current antibiotics will adjust as necessary, depending on cultures--Ceftriaxone/azithromycin.
Atrial fibrillation noted
Repeat echocardiogram 03/16/2024: Report reviewed: Hyperdynamic left ventricular systolic function. LVEF 70 to 75%. Mild to moderate LVH. Normal biventricular size and function.
Mild MR. Mild TR. Pulmonary pressure 35-40 mmHg.
Cardiology following
Minimal troponin leak. Back to normal. Denies chest pain.
Continue anticoagulants
Patient has chronic shortness of breath: Likely has component of deconditioning.
As able PT/OT evals
Patient is DNR status. Continue supportive care as above.
Case has been discussed with son Dr. Quintero by Dr. Argueta as well as Dr. Ocampo 03/18/2024.
Outpatient pulmonary follow-up with Dr. Mariah Nielson after discharge.
Diagnostic Data
CXR 03/19/24- Stable moderate right basilar pneumonia with small associated right pleural effusion
03/15/24- New focal region of patchy parenchymal opacity within the right lower lobe of the lung, which very likely represents pneumonia. Small right pleural effusion.
07/28/23- Severe chronic COPD and lung changes in the right middle lobe and lingula of the left upper lobe, seen on prior CT of the chest 2.5 years ago. No definite acute process. No definite pleural effusion or focal area of airspace process.
CT CAP 12/18/20- 1. Minimally displaced fracture of the left posterolateral 10th rib, with adjacent soft tissue swelling suggestive of acute fracture. No additional rib fractures are appreciated.
2. No pneumothorax or significant pleural effusion.
3. Significant bronchiectasis and interstitial thickening within the right middle lobe and lingular segment of the right upper lobe, suggestive of chronic indolent infection such as BRITTNY. Diffuse tree-in-bud opacities within both lungs, also
suggestive of indolent infection.
4. Calcified arterial plaque within the abdominal aorta. 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 Wide patency of the celiac axis and inferior mesenteric artery. Please correlate for
symptoms of chronic mesenteric ischemia.
5. 1.8 cm right ovarian lesion. Further evaluation is recommended with nonemergent pelvic ultrasound.
Subjective Data
-
Date of Service:
Date of Service: March 21, 2024
Chief Complaint: Pulmonary Follow Up (Pneumonia/shortness of breath)
Subjective:
no new complaints
no events on
Objective Data
Data Reviewed
Vital Signs / I&O / Oxygen:
Vital Signs
Temp Pulse Resp BP Pulse Ox
97.7 F 93 24 128/79 97
03/21/24 07:24 03/21/24 08:58 03/21/24 06:02 03/21/24 08:58 03/21/24 06:56
Intake and Output
03/20/24 03/21/24 03/22/24
06:59 06:59 06:59
Intake Total 240 / 240 1420 / 1420
Output Total 550 / 550 300 / 300
Balance 240 / 240 870 / 870 -300 / -300
SaO2 97
Nasal Cannula flow liters per 2
minute
Physical Exam
General: Comfortable (Lying flat)
HEENT: Normocephalic and Anicteric
Cardiovascular: S1-S2, Regular Rhythm, Murmur (n) and Rub (n)
Respiratory: Clear, Accessory Resp Muscle Use and Stridor (n)
GI: Soft, Non Distended and Non Tender
Neurology: Awake, Alert, Oriented, AO x 3 and No Motor Deficits
Skin: Good Color and Cyanosis (n)
Labs/Micro/Reports
Lab Data
03/21/24 05:33
03/21/24 05:33
[2024-03-21] MEDS: LOKELMA 5 GRAM PO (11:15)
--- NOTE | 2024-03-21 15:05 | CM ---
Patient with Dx pneumonia, sepsis, paroxysmal atrial fibrillation. O2 2L. Receiving IV Abx.
PT 03/18 recommends rehab vs home. Patient declined PT 05/19 & 03/20.
OT 03/18; max assist for toileting & LE self care, recommend HH.
Met with patient and daughter Pilar, who is POA; discussed need for short term SNF for rehab. Patient JAMUL but seemed to understand. Discussed with daughter that patient will need to participate with PT/OT in order for SNF to accept- daughter is
not sure why patient has declined PT however wonders if she is not hearing therapist speaking to her. Patient/daughter chose [facility] SNF - M/C rating provided. Also provided SNF list - daughter will review in case an alternate SNF is needed.
SNF referral placed for [facility].
Plan follow patient's progress with PT/OT - check if patient participating.
Plan follow up SNF referral.
--- NOTE | 2024-03-21 15:50 | PTCARENOTE ---
Rec'd pt this AM. Pt reports feeling much improved. no longer tachypnic. OOB to bSC x2. had large BM in BSC. One assist OOB. vital signs stable today. Daughter at bedside.
[2024-03-21] MEDS: ROCEPHIN 1000 MG IV (16:08)
[2024-03-21] MEDS: ZITHROMAX 500 MG PO (16:08)
[2024-03-21] MEDS: STERILE WATER FOR INJECTION 10 ML IV (16:08)
--- NOTE | 2024-03-21 16:43 | W.PN.HOSP.TC ---
Today's Communication/Plan
-
encourage OOB to chair and use of incentive spirometry
Assessment / Plan
Assessment / Plan
Acute Rt sided Community Associated Pneumonia
48 hrs of fever, cough, headache, chills and sob, today starting to improve, much less sob
WBC 12.3-->8.9-->13.3-->9.4
SaO2 99% on 2 L/M
03/19 CXR: Stable moderate right basilar pneumonia with small associated right pleural effusion
Sepsis from Pneumonia present on admission
leukocytosis/tachycardia/fever 100.7
Acute hypoxic respiratory failure from PNA, present on admission
markedly better
Hx of COPD
follows with Dr. Mariah Nielsno in office. Input of Dr. Argueta appreciated
Paroxysmal Atrial Fibrillation
started on Cardizem drip, became hypotensive, Cardizem was stopped and placed on Amiodarone 200 mg bid and Toprol XL 50 mg bid
heart rate much improved. Rate now in 75-85 range, but still a. fib primarily
Etoh
2 glasses of wine per day, never had withdrawal symptoms if did not drink
Cigarettes
1/2 ppd x 20 yrs, none since 1987
P:empiric abx
IV Cardizem stopped and placed on oral Amiodarone 200 mg bid
Pulm and Cardio consults
Pt at this point is willing to continue to receive aggressive medical care as she too believes she is improving
Low dose Morphine, as per Dr. Argueta, may help air hunger and make pt more comfortable
appetite has been poor, will add supplemental Ensure
Discussed adding percussion vest therapy, though with her hx of arthritis may make her more uncomfortable and thus will hold off
importance of sitting in chair and out of bed, Incentive Spirometry recommended
Pt remains too weak to go directly home. Have recommended short term SNF rehab and pt is agreeable
Will stop Azithromycin, transition off Rocephin at time of dc
CM updated on plans to go to SNF
reviewed with dgt in room
DNR
Anticipated Discharge: 24 - 48 hours
Subjective/Interval History
-
Date of Service: March 21, 2024
Definitely looks better
Objective Data
-
Labs:
Laboratory Results
03/21/24
05:33
WBC 9.4
Hgb 13.1
Hct 40.3
Plt Count 301
Sodium 136
Potassium 5.5 H
Chloride 99
Carbon Dioxide 34 H
BUN 28 H
Creatinine 0.7
Glucose 98
Calcium 8.9
Total Bilirubin 0.3
AST 51 H
ALT 42 H
Alkaline Phosphatase 52
Vital Signs:
Vital Signs
Temp Pulse Resp BP Pulse Ox
97.8 F 85 26 129/70 97
03/21/24 15:41 03/21/24 15:27 03/21/24 15:27 03/21/24 15:27 03/21/24 15:27
I&O
03/20/24 03/21/24 03/22/24
06:59 06:59 06:59
Intake Total 240 / 240 1420 / 1420
Output Total 550 / 550 500 / 500
Balance 240 / 240 870 / 870 -500 / -500
Review of Systems
-
History Source: Patient
Constitutional: Reports Fever (afebrile >48hrs)
EENT: Reports No Symptoms Reported and Hearing Loss (dgt concerned about worsening hearing)
Respiratory: Reports Cough (has markedly lessened) and Trouble Breathing
Cardiac: Reports Palpitations; Denies Chest Pain
Abdomen/GI: Reports No Symptoms
Genitourinary: Reports No Symptoms
Neuro: Reports No Symptoms
Physical Exam
-
General: Well Developed, Well Nourished and No Apparent Distress
HEENT: Normocephalic, Atraumatic and Moist Mucous Membranes
Respiratory: Rhonchi (scattered rt sided rhonchi) and Other (very rhonchus cough when takes deep breaths); Negative Wheezes
Cardiac: S1/S2, Irregular Rhythm and Tachycardic (resolved)
GI: Soft, Nontender and Nondistended
Musculoskeletal: No Clubbing, No Cyanosis and No Edema
Neuro: Awake, Alert and Oriented
[2024-03-21] MEDS: NEURONTIN 600 MG PO (20:34)
[2024-03-21] MEDS: MORPHINE SULFATE 1 MG IV (23:40)
[2024-03-22] VITALS (12 sets, daily range): BP systolic 118–145; BP diastolic 58–89
[2024-03-22 06:38] LABS: ALT (SGPT) 69 U/L (0-35); AST (SGOT) 64 U/L (14-36); Alkaline Phosphatase 52 U/L (38-126); Blood Urea Nitrogen 26 mg/dl (7-17); Carbon Dioxide 35 mmol/L (22-30); Chloride 98 mmol/L (98-107); Estimated Creatinine Clearance 39 ml/min; Glucose 81 mg/dl (70-99); Sodium 137 mmol/L (135-145); Total Bilirubin 0.4 mg/dl (0.2-1.3); Total Protein 5.6 g/dl (6.3-8.2); eGFR > 60.00
[2024-03-22] MEDS: VITAMIN D3 (cholecalciferol) 25 MCG PO (07:56)
[2024-03-22] MEDS: PACERONE 200 MG PO ×2 (07:56→21:07)
[2024-03-22] MEDS: ELIQUIS 2.5 MG PO ×2 (07:59→21:07)
[2024-03-22] MEDS: MUCINEX 600 MG PO ×2 (07:59→21:07)
[2024-03-22] MEDS: DELTASONE 40 MG PO (07:59)
[2024-03-22] MEDS: LIDOCAINE 4% PATCH TOPICAL ×2 (08:00)
[2024-03-22] MEDS: ATROVENT NEBULES 0.5 MG INH ×3 (08:00→19:18)
[2024-03-22] MEDS: PULMICORT 0.5 MG INH ×2 (08:00→19:18)
[2024-03-22] MEDS: XOPENEX 0.63 MG INHALANT SOLUTION 0.630000000000000004 MG INH ×3 (08:00→19:18)
[2024-03-22] MEDS: TOPROL XL 50 MG PO ×2 (08:00→21:08)
--- NOTE | 2024-03-22 08:44 | W.PN.HOSP.TC ---
Today's Communication/Plan
-
Wean Oxygen for sats above 92.
Discharge planning
Needs a rehab
Assessment / Plan
Assessment / Plan
Echo 03/16/2024-small LV size. Hyperdynamic LV systolic function. Ejection fraction 70 to 75%. Mild to moderate concentric LVH. Diastolic function indeterminate. Normal RV size and function. Mild MR. Mild TR. Pulmonary artery pressure 35 to
40 mmHg.
CVS: S1-S2 irregular,,SSM at apex
Chest:Rales bilaterally
Abdomen: Soft, NT / Bowel sounds present
Extremities: No edema, normal pulses
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
#Rt sided Community Associated Pneumonia with small effusion NOS
Sepsis from Pneumonia present on admission
Acute hypoxic respiratory failure secondary to pneumonia present on admission
Low dose Morphine, as per Dr. Argueta, may help air hunger and make pt more comfortable
Continue incentive spirometry-out of bed as tolerated
Completed Zithromax
Ceftriaxone to be completed
Continue Pulmicort, Mucinex, prednisone, Atrovent inhaler
Uses trilogy Ellipta outpatient
Wean Oxygen
#Paroxysmal Atrial Fibrillation
History of pacemaker placement
Started on Cardizem drip, became hypotensive, Cardizem was stopped and placed on Amiodarone 200 mg bid and Toprol XL 50 mg bid
Heart rate much improved. Rate now in 75-85 range, but still a. fib primarily
Continue Eliquis 2.5 mg twice daily
#Nonischemic myocardial injury with one troponin 0.04
#Hx of COPD/chronic bronchiectasis-Follows with Dr. Mariah Nielson uses trilogy Ellipta
COPD exacerbation
PO steroids now
#Hyperkalemia resolved
#Daily alcohol use-2 glasses of wine per day, never had withdrawal symptoms
Elevated AST and AZZ-fvakrua-azusuwh transaminase elevation
Add Thiamine
Check MSAS
#History of pulmonary embolism-unprovoked per patient-on long-term anticoagulation
#Calcified arterial plaque within the abdominal aorta. 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 Wide patency of the celiac axis and inferior mesenteric artery.
#1.8 cm right ovarian lesion-CT 2020-OP Follow up
#S/p partial colectomy in 2008
#Ex-smoker
#DVT prophylaxis-Eliquis
#DNR
Spoke to son Leon and updated
Case management made aware re discharge plans
D/W Pulm
Anticipated Discharge: Within 24 hours
Subjective/Interval History
-
Date of Service: March 22, 2024
Objective Data
-
Labs:
Laboratory Results
03/22/24
06:04
Sodium 137
Potassium 5.0
Chloride 98
Carbon Dioxide 35 H
BUN 26 H
Creatinine 0.8
Glucose 81
Calcium 9.0
Total Bilirubin 0.4
AST 64 H
ALT 69 H
Alkaline Phosphatase 52
Vital Signs:
Vital Signs
Temp Pulse Resp BP Pulse Ox
98 F 78 18 139/84 99
03/22/24 03:21 03/22/24 08:07 03/22/24 08:07 03/22/24 08:00 03/22/24 08:08
I&O
03/21/24 03/22/24 03/23/24
06:59 06:59 06:59
Intake Total 1420 / 1420
Output Total 550 / 550 600 / 600
Balance 870 / 870 -600 / -600
[2024-03-22] MEDS: VITAMIN B1 200 MG PO (11:26)
--- NOTE | 2024-03-22 12:45 | W.PN.PUL3 ---
Today's Communication / Plan
-
OOB/IS
Wean O2 as tolerated, eventual home O2 eval - goal SpO2 88-94%
Dispo planning to SNF
OP pulmonary FU
Assessment
-
89-year-old woman with past medical history noted. Came to the hospital with 48 hours of fevers, cough, generalized malaise. Shortness of breath. Found to be in rapid atrial fibrillation. Found to have a right lower lobe infiltrate and admitted
for further evaluation.
Impression:
Acute respiratory sufficiency due to acute exacerbation of COPD/bronchiectasis-currently in 1-2 L which is new for her.
Chest x-ray 03/15/2024: New focal region of patchy parenchymal opacity within the right lower lobe. Small right pleural effusion.
Pneumonia-likely bacterial involving RLL
Rapid atrial fibrillation-mild troponin leak
Conditions [employer]:
Hospital admission for acute exacerbation of COPD 07/30/2023
Afib/flutter, on apixaban
PPM
COPD/bronchiectasis: on fluticasone/umeclidinium/vilanterol (trelegy). Not on home O2. Not on SABDs.
IBS
S/p partial colectomy in 2008 while living in [place]
Postop complicated by respiratory arrest after extubation
S/p BRAN 2012 at [facility]
Postop complicated by respiratory arrest after extubation, resulting in prolonged MV requiring tracheoscomy
Bronchiectasis: Abnormal chest CT 2020: significant BEs at RML and lingula, small patchy bilateral opacities
Reports has received up to 4 bronchoscopies over the years, reportedly not actionable results, denies MTB or NTM
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
Spirometry 12/10/2023: FEV1 0.66 L - 48%, FVC 0.95 L - 50%, FEV1/FVC 69%.
Chronic cough: Possible allergic rhinitis.
History of pulmonary embolism-unprovoked per patient-on long-term anticoagulation
Former cigarette smoker quitting in 1979 two quarter of a pack for 30 years.
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
1.8 cm right ovarian lesion.
Plan
At this time, patient appears to be improved
Clinical picture suggestive of possible bacterial pneumonia.
Patient at risk due to advanced age as well as bronchiectasis.
Chest x-ray on 03/19/2024 shows stable RLL pneumonia
Home O2 eval prior to discharge
Prior 6MWT showing yolanda 90% on RA
She had been borderline on prior testing
Continue to wean oxygen as able to maintain SpO2 >88%
Respiratory distress at rest has resolved
Would like to get out of bed to chair, PT/OT
Severe COPD history
She typically will have 2-3 flares per year requiring prednisone, last hospitalization in Jul 2023 for AECOPD
Continue prednisone 40 mg, started 03/21/2024 after being on decadron - Monitor for delirium.
Did receive 1 dose of Lasix on 03/17/[address] Argueta discussed with Leon her son at the bedside 03/18/2024. Will continue with current care
Significant coughing: Hold inhalers as maneuver is poor at the moment. (Usually on Trelegy)
Continue Xopenex/Atrovent/Pulmicort nebulizers while in the hospital.
Acapella device if able.
Mucolytic's
Bronchiectasis history: She does have Acapella device and incentive spirometer at home. She is not interested in vest therapy.
Prior CT chest showing TIB findings. Per records, patient has undergone multiple bronchoscopies, negative for BRITTNY. Most recent sputum culture normal.
She had a repeat chest x-ray in past which shows persistent right middle lobe and lingular infiltrates. These findings were present on CT imaging in 2020.
We did discuss repeating CT imaging to evaluate for progression but she declined. She did not want to be aggressive
Sputum culture unable to produce
Prior cultures in the past July 2022 positive for gram-negative bacilli
Leukocytosis resolved/Low-grade fever resolved
Continue current antibiotics will adjust as necessary, depending on cultures--Ceftriaxone and s/p azithromycin.
Atrial fibrillation noted
Repeat echocardiogram 03/16/2024: Report reviewed: Hyperdynamic left ventricular systolic function. LVEF 70 to 75%. Mild to moderate LVH. Normal biventricular size and function.
Mild MR. Mild TR. Pulmonary pressure 35-40 mmHg.
Cardiology following
Minimal troponin leak. Back to normal. Denies chest pain.
Continue anticoagulants
Patient has chronic shortness of breath: Likely has component of deconditioning.
As able PT/OT evals
Patient is DNR status. Continue supportive care as above.
Case has been discussed with son Dr. Quintero by Dr. Argueta as well as Dr. Ocampo 03/18/2024.
Outpatient pulmonary follow-up with Dr. Mariah Nielson after discharge.
Total time spent today was 35 minutes for this encounter. Time includes reviewing laboratory test/imaging results, reviewing pertinent medical records, obtaining and reviewing medical history, performing an appropriate exam, ordering medications,
tests and procedures. Time also includes documentation of this encounter, coordinating patient care and communicating with other healthcare professionals. Total time does not include separately billed tests performed on this date of service.
Diagnostic Data
CXR 03/19/24- Stable moderate right basilar pneumonia with small associated right pleural effusion
03/15/24- New focal region of patchy parenchymal opacity within the right lower lobe of the lung, which very likely represents pneumonia. Small right pleural effusion.
07/28/23- Severe chronic COPD and lung changes in the right middle lobe and lingula of the left upper lobe, seen on prior CT of the chest 2.5 years ago. No definite acute process. No definite pleural effusion or focal area of airspace process.
CT CAP 12/18/20- 1. Minimally displaced fracture of the left posterolateral 10th rib, with adjacent soft tissue swelling suggestive of acute fracture. No additional rib fractures are appreciated.
2. No pneumothorax or significant pleural effusion.
3. Significant bronchiectasis and interstitial thickening within the right middle lobe and lingular segment of the right upper lobe, suggestive of chronic indolent infection such as BRITTNY. Diffuse tree-in-bud opacities within both lungs, also
suggestive of indolent infection.
4. Calcified arterial plaque within the abdominal aorta. 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 Wide patency of the celiac axis and inferior mesenteric artery. Please correlate for
symptoms of chronic mesenteric ischemia.
5. 1.8 cm right ovarian lesion. Further evaluation is recommended with nonemergent pelvic ultrasound.
Abd US 03-22-2024:
1. Moderate diffuse liver disease (probably diffuse hepatic steatosis).
2. Gallbladder stones and sludge.
3. No sonographic evidence for biliary obstruction.
4. Severe calcific atherosclerotic plaque in the abdominal aorta.
5. Moderate chronic bilateral renal disease.
6. Small right pleural effusion.
Subjective Data
-
Date of Service:
Date of Service: March 22, 2024
Chief Complaint: Pulmonary Follow Up (Pneumonia/shortness of breath)
Subjective:
Patient seen and evaluated today. No acute events reported from overnight. Patient afebrile. Currently on 1 L/min nasal cannula saturating 97%. Patient denies chest pain, headache, abdominal pain, fevers or chills.
Review of Systems
General: Other (Negative unless mentioned above)
Objective Data
Data Reviewed
Vital Signs / I&O / Oxygen:
Vital Signs
Temp Pulse Resp BP Pulse Ox
98 F 67 26 123/61 95
03/22/24 03:21 03/22/24 10:00 03/22/24 10:00 03/22/24 10:00 03/22/24 10:00
Intake and Output
03/21/24 03/22/24 03/23/24
06:59 06:59 06:59
Intake Total 1420 / 1420 460 / 460
Output Total 550 / 550 600 / 600 200 / 200
Balance 870 / 870 -600 / -600 260 / 260
SaO2 95
Nasal Cannula flow liters per 2
minute
Physical Exam
General: Respiratory Distress (negative) and Comfortable (Lying flat)
HEENT: Normocephalic and Anicteric
Cardiovascular: S1-S2, Murmur (n) and Rub (n)
Respiratory: Wheeze (n), Crackles, Rhonchi and Stridor (n)
GI: Soft, Non Distended and Non Tender
Neurology: AO x 3 and No Motor Deficits
Skin: Warm, Dry and Cyanosis (n)
Labs/Micro/Reports
Lab Data
03/21/24 05:33
03/22/24 06:04
--- NOTE | 2024-03-22 14:36 | TRANSFER ---
Pt downgraded to tele, report called to new RNMirella. Pt transported on telemetry via stretcher, all personal belongings sent with pt.
--- NOTE | 2024-03-22 15:23 | CM ---
CM reviewed pt with Dr Paul- ADC tomorrow
Pt accepted at [facility] pending bed availability on day of dc
Pt has Medicare and qualifying stay
Discharge Disposition- [facility] pending bed availability
--- NOTE | 2024-03-22 16:06 | PTCARENOTE ---
Patient transferred from IMU into room 410-02. Vital signs stable. Patient NPO - sent for abdominal US. Oriented to room and use of call flor. Patient verbalizes understanding of teaching.
[2024-03-22] MEDS: STERILE WATER FOR INJECTION 10 ML IV (16:16)
[2024-03-22] MEDS: ROCEPHIN 1000 MG IV (16:16)
[2024-03-22] MEDS: NEURONTIN 600 MG PO (21:08)
[2024-03-22] MEDS: MORPHINE SULFATE 1 MG IV (22:02)
[2024-03-23 03:15] VITALS: BP 109/59
[2024-03-23 06:40] VITALS: BMI 21.3
[2024-03-23] MEDS: PULMICORT 0.5 MG INH (07:00)
[2024-03-23] MEDS: ATROVENT NEBULES 0.5 MG INH ×2 (07:00→13:37)
[2024-03-23] MEDS: XOPENEX 0.63 MG INHALANT SOLUTION 0.630000000000000004 MG INH ×2 (07:00→13:37)
[2024-03-23 07:59] VITALS: BP 131/81
[2024-03-23] MEDS: VITAMIN B1 200 MG PO (08:58)
[2024-03-23] MEDS: PACERONE 200 MG PO (08:58)
[2024-03-23] MEDS: LIDOCAINE 4% PATCH TOPICAL ×2 (08:58)
[2024-03-23] MEDS: MUCINEX 600 MG PO (08:59)
[2024-03-23] MEDS: ELIQUIS 2.5 MG PO (08:59)
[2024-03-23] MEDS: DELTASONE 40 MG PO (08:59)
[2024-03-23] MEDS: TOPROL XL 50 MG PO (08:59)
[2024-03-23] MEDS: VITAMIN D3 (cholecalciferol) 25 MCG PO (08:59)
[2024-03-23 11:00] VITALS: BP 115/61
--- NOTE | 2024-03-23 11:06 | W.PN.PUL3 ---
Today's Communication / Plan
-
OOB/IS
Wean O2 as tolerated with home O2 eval - goal SpO2 88-94%
Today is day #9 of Abx - ok to stop
OP pulmonary FU
Patient being prepared for discharge to SNF-rehab @ [facility]. Pulmonary service will now sign off. Please reconsult if there are any additional questions/concerns, or if patient's respiratory status deteriorates.
Assessment
-
89-year-old woman with past medical history noted. Came to the hospital with 48 hours of fevers, cough, generalized malaise. Shortness of breath. Found to be in rapid atrial fibrillation. Found to have a right lower lobe infiltrate and admitted
for further evaluation.
Impression:
Acute respiratory sufficiency due to acute exacerbation of COPD/bronchiectasis-currently on 1-2 L which is new for her.
Chest x-ray 03/15/2024: New focal region of patchy parenchymal opacity within the right lower lobe. Small right pleural effusion.
Pneumonia-likely bacterial involving RLL
Rapid atrial fibrillation-mild troponin leak
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
Hospital admission for acute exacerbation of COPD 07/30/2023
Afib/flutter, on apixaban
PPM
COPD/bronchiectasis: on fluticasone/umeclidinium/vilanterol (trelegy). Not on home O2. Not on SABDs.
IBS
S/p partial colectomy in 2008 while living in [place]
Postop complicated by respiratory arrest after extubation
S/p BRAN 2012 at [facility] [place][note 2]
Postop complicated by respiratory arrest after extubation, resulting in prolonged MV requiring tracheoscomy
Bronchiectasis: Abnormal chest CT 2020: significant BEs at RML and lingula, small patchy bilateral opacities
Reports has received up to 4 bronchoscopies over the years, reportedly not actionable results, denies MTB or NTM
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
Spirometry 12/10/2023: FEV1 0.66 L - 48%, FVC 0.95 L - 50%, FEV1/FVC 69%.
Chronic cough: Possible allergic rhinitis.
History of pulmonary embolism-unprovoked per patient-on long-term anticoagulation
Former cigarette smoker quitting in 1979 two quarter of a pack for 30 years.
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
1.8 cm right ovarian lesion.
Plan
At this time, patient has markedly improved
Clinical picture suggestive of bacterial pneumonia.
Patient at risk due to advanced age as well as bronchiectasis.
Chest x-ray on 03/19/2024 shows stable RLL pneumonia
Home O2 eval prior to discharge
Prior 6MWT showing yolanda 90% on RA
She had been borderline on prior testing
Continue to wean oxygen as able to maintain SpO2 >88%
Respiratory distress at rest has resolved
Would like to get out of bed to chair, PT/OT -patient awaiting discharge to SNF at [facility] for skilled rehab
Severe COPD history
She typically will have 2-3 flares per year requiring prednisone, last hospitalization in Jul 2023 for AECOPD
Continue prednisone 40 mg, started 03/21/2024 after being on decadron - Monitor for delirium.
Did receive 1 dose of Lasix on 03/17/[address] Argueta discussed with Leon her son at the bedside 03/18/2024. Will continue with current care
Significant coughing: Hold inhalers as maneuver is poor at the moment. (Usually on Trelegy)
Continue Xopenex/Atrovent/Pulmicort nebulizers while in the hospital --> DC back on Trelegy
Acapella device if able.
Mucolytics
Bronchiectasis history: She does have Acapella device and incentive spirometer at home. She is not interested in vest therapy.
Prior CT chest showing TIB findings. Per records, patient has undergone multiple bronchoscopies, negative for BRITTNY. Most recent sputum culture normal.
She had a repeat chest x-ray in past which shows persistent right middle lobe and lingular infiltrates. These findings were present on CT imaging in 2020.
We did discuss repeating CT imaging to evaluate for progression but she declined. She did not want to be aggressive
Sputum culture unable to produce
Prior cultures in the past July 2022 positive for gram-negative bacilli
Leukocytosis resolved/Low-grade fever resolved
Continue current antibiotics will adjust as necessary, depending on cultures--Ceftriaxone and s/p azithromycin.
Atrial fibrillation noted
Repeat echocardiogram 03/16/2024: Report reviewed: Hyperdynamic left ventricular systolic function. LVEF 70 to 75%. Mild to moderate LVH. Normal biventricular size and function.
Mild MR. Mild TR. Pulmonary pressure 35-40 mmHg.
Cardiology following
Minimal troponin leak. Back to normal as of 03/16/2024 at 1345. Denies chest pain.
Continue anticoagulants
Patient has chronic shortness of breath: Likely has component of deconditioning.
PT/OT --> pt going to [facility] today for SNF-rehab
Patient is DNR status. Continue supportive care as above.
Case has been discussed with son Leon by Dr. Argueta as well as Dr. Ocampo 03/18/2024.
Outpatient pulmonary follow-up with Dr. Mariah Nielson after discharge.
Patient being prepared for discharge to SNF-rehab - Pulmonary service will now sign off. Thank you for allowing us to be involved in the care of this patient. Please reconsult if there are any additional questions/concerns, or if patient's
respiratory status deteriorates.
Total time spent today was 35 minutes for this encounter. Time includes reviewing laboratory test/imaging results, reviewing pertinent medical records, obtaining and reviewing medical history, performing an appropriate exam, ordering medications,
tests and procedures. Time also includes documentation of this encounter, coordinating patient care and communicating with other healthcare professionals. Total time does not include separately billed tests performed on this date of service.
Diagnostic Data
CXR 03/19/24- Stable moderate right basilar pneumonia with small associated right pleural effusion
03/15/24- New focal region of patchy parenchymal opacity within the right lower lobe of the lung, which very likely represents pneumonia. Small right pleural effusion.
07/28/23- Severe chronic COPD and lung changes in the right middle lobe and lingula of the left upper lobe, seen on prior CT of the chest 2.5 years ago. No definite acute process. No definite pleural effusion or focal area of airspace process.
CT CAP 12/18/20- 1. Minimally displaced fracture of the left posterolateral 10th rib, with adjacent soft tissue swelling suggestive of acute fracture. No additional rib fractures are appreciated.
2. No pneumothorax or significant pleural effusion.
3. Significant bronchiectasis and interstitial thickening within the right middle lobe and lingular segment of the right upper lobe, suggestive of chronic indolent infection such as BRITTNY. Diffuse tree-in-bud opacities within both lungs, also
suggestive of indolent infection.
4. Calcified arterial plaque within the abdominal aorta. 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 Wide patency of the celiac axis and inferior mesenteric artery. Please correlate for
symptoms of chronic mesenteric ischemia.
5. 1.8 cm right ovarian lesion. Further evaluation is recommended with nonemergent pelvic ultrasound.
Abd 03-22-2024:
1. Moderate diffuse liver disease (probably diffuse hepatic steatosis).
2. Gallbladder stones and sludge.
3. No sonographic evidence for biliary obstruction.
4. Severe calcific atherosclerotic plaque in the abdominal aorta.
5. Moderate chronic bilateral renal disease.
6. Small right pleural effusion.
Subjective Data
-
Date of Service:
Date of Service: March 23, 2024
Chief Complaint: Pulmonary Follow Up (Pneumonia/shortness of breath)
Subjective:
Patient seen at bedside and she was laying in bed in no acute distress on 1.5 L/min breathing comfortably. She says she is not on home oxygen. She still feels short of breath with activity and has a dry cough but she feels much better compared to
several days ago. Still has aches and pains in her body but no chest pain, headache, nausea, vomiting, fevers or chills.
Review of Systems
General: Other (Negative unless mentioned above)
Objective Data
Data Reviewed
Vital Signs / I&O / Oxygen:
Vital Signs
Temp Pulse Resp BP Pulse Ox
97.4 F 74 20 131/81 98
03/23/24 07:59 03/23/24 08:58 03/23/24 07:59 03/23/24 08:58 03/23/24 07:59
Intake and Output
03/22/24 03/23/24 03/24/24
06:59 06:59 06:59
Intake Total 820 / 820
Output Total 600 / 600 200 / 200
Balance -600 / -600 620 / 620
SaO2 98
Nasal Cannula flow liters per 2
minute
Physical Exam
General: Respiratory Distress (negative) and Comfortable (Lying flat)
HEENT: Normocephalic and Anicteric
Cardiovascular: S1-S2, Murmur (n), Rub (n) and Peripheral Edema (Negative)
Respiratory: Wheeze (n), Crackles (Negative), Rhonchi (Bilaterally) and Stridor (n)
GI: Soft, Non Distended and Non Tender
Neurology: AO x 3 and Tremors (Negative)
Skin: Warm, Dry and Cyanosis (n)
Labs/Micro/Reports
Lab Data
03/21/24 05:33
03/22/24 06:04
--- NOTE | 2024-03-23 11:21 | CM ---
Addendum entered by Gabriela Payton 03/23/24 16:12:
Acute Care was not able to accomodate w/c van transport. [facility] will be providing w/c van transport; son notified of need to call [facility] directly to arrange payment for w/c van.
[facility]
Report: [phone]

Addendum entered by Gabriela Payton 03/23/24 14:27:
ERNIE spoke with [facility] and [facility] has been accepted for admission. Will set up w/c van transport and notify family of transfer time.
Addendum entered by Gabriela Payton 03/23/24 13:47:
Attempted to reach [facility] several times today without success. [place] Text sent at 1:39pm. Await response.
Original Note:
CM following for briener to [facility] when medically ready. Call placed to [facility] to determine bed availability. Await return call with bed status.
PCP: Harvinder Borrego
Pharm: [facility]
--- NOTE | 2024-03-23 13:37 | W.PN.HOSP.TC ---
Addendum entered and electronically signed by Mino Paul MD 03/23/24 15:23:
LFTs noted- Pt has no right upper quadrant pain or tenderness.
Ultrasound ordered. Hepatic steatosis. Gallstones with no CBD obstruction
Reached out to cardiology okay to decrease amiodarone to 2 her milligram daily and repeat LFTs as outpatient.
Prednisone will be also tapered. LFTs to be followed as outpatient I did discuss this with the patient's son.
Repeat chest x-ray in 4 to 6 weeks.
Patient has a bed at [facility] will discharge for further lab work and x-ray follow-up as outpatient.
Total discharge coordination time 40 minutes
Original Note:
Today's Communication/Plan
-
Repeat LFTs ordered
Await SNF
Assessment / Plan
Assessment / Plan
Echo 03/16/2024-small LV size. Hyperdynamic LV systolic function. Ejection fraction 70 to 75%. Mild to moderate concentric LVH. Diastolic function indeterminate. Normal RV size and function. Mild MR. Mild TR. Pulmonary artery pressure 35 to
40 mmHg.
CVS: S1-S2 irregular,,SSM at apex
Chest:few scattered Rales bilaterally
Abdomen: Soft, NT / Bowel sounds present
Extremities: No edema, normal pulses
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
Ultrasound of the abdomen 03/22/2024-moderate diffuse liver disease-probably diffuse hepatic steatosis. Gallbladder stone with sludge. No sonographic evidence of failure or obstruction. Severe calcific atherosclerotic plaque in the abdominal aorta.
Moderate chronic bilateral renal disease. Small right pleural effusion.
#Rt sided Community Associated Pneumonia with small effusion NOS
Sepsis from Pneumonia present on admission
Acute hypoxic respiratory failure secondary to pneumonia present on admission
Low dose Morphine, as per Dr. Argueta, may help air hunger and make pt more comfortable
Continue incentive spirometry-out of bed as tolerated
Completed Zithromax
Ceftriaxone to be completed
Continue Pulmicort, Mucinex, prednisone, Atrovent inhaler
Uses trilogy Ellip outpatient
Wean Oxygen
#Paroxysmal Atrial Fibrillation
History of pacemaker placement
Started on Cardizem drip, became hypotensive, Cardizem was stopped and placed on Amiodarone 200 mg bid and Toprol XL 50 mg bid
Heart rate much improved. but still a. fib primarily
Continue Eliquis 2.5 mg twice daily
#Nonischemic myocardial injury with one troponin 0.04
#Hx of COPD/chronic bronchiectasis-Follows with Dr. Mariah Nielson uses [facility] Ellipta
COPD exacerbation
PO steroids now
#Hyperkalemia resolved
#Daily alcohol use-2 glasses of wine per day, never had withdrawal symptoms
Elevated AST and MZK-iyqwodb-qzrvfyx transaminase elevation
Add Thiamine
MSAS-0 now
Likely secondary hepatic steatosis
No abdomen tenderness noted
#History of pulmonary embolism-unprovoked per patient-on long-term anticoagulation
#Calcified arterial plaque within the abdominal aorta. 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 Wide patency of the celiac axis and inferior mesenteric artery.
#1.8 cm right ovarian lesion-CT 2020-OP Follow up
#S/p partial colectomy in 2008
#Ex-smoker
#DVT prophylaxis-Eliquis
#DNR
D/W RN at bed side
Spoke to charlie Quintero and updated 03/22/24
Case management made aware re discharge plans
D/W Pulm
Anticipated Discharge: Today
Subjective/Interval History
-
Date of Service: March 23, 2024
Objective Data
-
Vital Signs:
Vital Signs
Temp Pulse Resp BP Pulse Ox
98.1 F 66 18 115/61 95
03/23/24 11:00 03/23/24 11:00 03/23/24 11:00 03/23/24 11:00 03/23/24 11:00
I&O
03/22/24 03/23/24 03/24/24
06:59 06:59 06:59
Intake Total 820 / 820
Output Total 600 / 600 200 / 200
Balance -600 / -600 620 / 620
[2024-03-23 14:55] LABS: ALT (SGPT) 99 U/L (0-35); AST (SGOT) 70 U/L (14-36); Albumin 3.2 g/dl (3.5-5.0); Alkaline Phosphatase 59 U/L (38-126); Blood Urea Nitrogen 25 mg/dl (7-17); Calcium 9.1 mg/dl (8.4-10.2); Chloride 94 mmol/L (98-107); Estimated Creatinine Clearance 37 ml/min; Glucose 121 mg/dl (70-99); Potassium 4.7 mmol/L (3.5-5.1); Sodium 135 mmol/L (135-145); Total Bilirubin 0.4 mg/dl (0.2-1.3); Total Protein 5.7 g/dl (6.3-8.2); eGFR > 60.00
[2024-03-23 15:18] LABS: Carbon Dioxide 35 mmol/L (22-30)
--- NOTE | 2024-03-23 15:24 | W.DS.TRANS ---
Addendum entered and electronically signed by Mino Paul MD 03/23/24 16:23:
Dictation- [id number]
Original Note:
DC Summary - Eye Physician
-
Discharge Instructions:
Sleep Apnea Risk Low
Discharge Diagnosis/Procedures , Atrial fibrillation, COPD, chronic
bronchiectasis ,pneumonia history of pulmonary,
atherosclerosis, 1.8 cm right ovarian lesion,
fatty liver, gallstones.
Diet As tolerated
Activity As tolerated,With assistance
Driving Restrictions No driving
Blood Work LFTs 3-5 days . Thyroid function tests 3 months
Others Tests X ray of the chest 4-6 weeks .
Other Services PT,OT
Instructions:
Stand-Alone Forms:
Changes to Home Medications: Yes
Discharge Medications:
DC Medications w/original date entered in [facility]
Restful Legs 2 - 3 tab sublingual DAILYPRN PRN restless legs 07/28/23
apixaban 2.5 mg tablet (Eliquis) 2.5 mg PO BID Blood Clot Prevention/Tx 07/28/23
bumetanide 1 mg tablet 1 mg PO DAILYPRN PRN fluid retention 07/28/23
cholecalciferol (vitamin D3) 25 mcg (1,000 unit) tablet (Vitamin D3) 25 mcg PO DAILY Supplement 07/28/23
fluticasone fur. 100 mcg-umeclid 62.5 mcg-vilant 25 mcg inhalat.powder (Trelegy Ellipta) 1 inh inhalation R DAILY sob 07/28/23
gabapentin 600 mg tablet 600 mg PO HS Neurological Condition 07/28/23
linaclotide 145 mcg capsule (Linzess) 145 mcg PO Q72H Gastrointestinal Issue 07/28/23
simethicone 125 mg chewable tablet (Gas-X Extra Strength) 250 mg PO BIDPRN PRN flatulence 07/28/23
albuterol sulfate 2.5 mg/3 mL (0.083 %) solution for nebulization 2.5 mg (3 mL) inhalation R Q4HPRN PRN SOB, COUGH, WHEEZE #75 mL 07/30/23
amiodarone 200 mg tablet (Pacerone) 200 mg PO DAILY Arrhythmia #0 tabs 03/23/24
guaifenesin 600 mg tablet, extended release 12 hr 600 mg PO Q12 Lung/breathing issues #0 tabs 03/23/24
ipratropium bromide 0.02 % solution for inhalation 0.5 mg (2.5 mL) inhalation R TID Lung/breathing issues #0 mL 03/23/24
lidocaine 4 % topical patch 1 patch topical DAILY Pain #0 ea 03/23/24
metoprolol succinate 50 mg tablet,extended release 24 hr 50 mg PO BID Heart disease/condition #0 tabs 03/23/24
polyethylene glycol 3350 17 gram oral powder packet (HealthyLax) 17 g PO DAILYPRN PRN constipation #0 ea 03/23/24
prednisone 20 mg tablet 40 mg (2 x 20 mg) PO DAILY Lung/breathing issues #0 tabs 03/23/24
thiamine HCl (vitamin B1) 100 mg tablet 200 mg (2 x 100 mg) PO DAILY Supplement #0 tabs 03/23/24
Home Medication Changes
new
polyethylene glycol 3350 17 gram oral powder packet (HealthyLax) 17 g PO DAILYPRN PRN constipation #0 ea 03/23/24
prednisone 20 mg tablet 40 mg (2 x 20 mg) PO DAILY Lung/breathing issues #0 tabs 03/23/24
thiamine HCl (vitamin B1) 100 mg tablet 200 mg (2 x 100 mg) PO DAILY Supplement #0 tabs 03/23/24
albuterol sulfate 2.5 mg/3 mL (0.083 %) solution for nebulization 2.5 mg (3 mL) inhalation R Q4HPRN PRN SOB, COUGH, WHEEZE #75 mL 07/30/23
amiodarone 200 mg tablet (Pacerone) 200 mg PO DAILY Arrhythmia #0 tabs 03/23/24
guaifenesin 600 mg tablet, extended release 12 hr 600 mg PO Q12 Lung/breathing issues #0 tabs 03/23/24
ipratropium bromide 0.02 % solution for inhalation 0.5 mg (2.5 mL) inhalation R TID Lung/breathing issues #0 mL 03/23/24
lidocaine 4 % topical patch 1 patch topical DAILY Pain #0 ea 03/23/24
Hydralazine stopped
Metoprolol decreased.
Pending Results: No
[2024-03-23] MEDS: ROCEPHIN 1000 MG IV (15:58)
[2024-03-23] MEDS: STERILE WATER FOR INJECTION 10 ML IV (15:59)
== END 2024-03-23 18:09 | DRG 871 ==
LOC: 4 EAST ACU 18:07
PROVIDERS: Emergency Medicine; Nurse Practitioner Family; Physician Assistant; ADMITTING PHYSICIAN Internal Medicine; ATTENDING PHYSICIAN Hospitalist; CONSULT PHYSICIAN Internal Medicine Critical Care Medicine; EMERGENCY PHYSICIAN Emergency Medicine; FAMILY PHYSICIAN Family Medicine; OTHER PHYSICIAN Internal Medicine Cardiovascular Disease
DX: A41.9 Sepsis, unspecified organism (principal); J18.9 Pneumonia, unspecified organism; J96.01 Acute respiratory failure with hypoxia; J44.0 Chronic obstructive pulmonary disease with (acute) lower respiratory infection; I50.32 Chronic diastolic (congestive) heart failure; J44.1 Chronic obstructive pulmonary disease with (acute) exacerbation; J47.1 Bronchiectasis with (acute) exacerbation; I5A Non-ischemic myocardial injury (non-traumatic); Z66 Do not resuscitate; I11.0 Hypertensive heart disease with heart failure; K76.0 Fatty (change of) liver, not elsewhere classified; I08.1 Rheumatic disorders of both mitral and tricuspid valves; I70.0 Atherosclerosis of aorta; I49.5 Sick sinus syndrome; I48.0 Paroxysmal atrial fibrillation; K58.9 Irritable bowel syndrome, unspecified; F10.90 Alcohol use, unspecified, uncomplicated; E87.5 Hyperkalemia; I95.2 Hypotension due to drugs; T46.1X5A Adverse effect of calcium-channel blockers, initial encounter; Y92.239 Unspecified place in hospital as the place of occurrence of the external cause; K80.20 Calculus of gallbladder without cholecystitis without obstruction; N83.9 Noninflammatory disorder of ovary, fallopian tube and broad ligament, unspecified; Z79.01 Long term (current) use of anticoagulants; Z79.899 Other long term (current) drug therapy; Z87.19 Personal history of other diseases of the digestive system; Z87.891 Personal history of nicotine dependence; Z90.49 Acquired absence of other specified parts of digestive tract; Z90.89 Acquired absence of other organs; Z95.0 Presence of cardiac pacemaker; Z87.09 Personal history of other diseases of the respiratory system; Z86.711 Personal history of pulmonary embolism; Z88.2 Allergy status to sulfonamides; Z88.8 Allergy status to other drugs, medicaments and biological substances; Z11.52 Encounter for screening for COVID-19
CPT/HCPCS: 71045; 71046; 76700; 80048; 80053; 83735; 84443; 84484; 85025; 85027; 87502; 87811; 93005; 93306; 94640; 96361; 96374; 96375; 97110; 97116; 97163; 97166; 99285

== ENCOUNTER → 2024-03-26 09:11 | Outpatient (REF) | payer MEDICARE, OTHER, SELFPAY ==
[2024-03-26 09:54] LABS: ALT (SGPT) 75 U/L (0-35); AST (SGOT) 39 U/L (14-36); Albumin 2.9 g/dl (3.5-5.0); Alkaline Phosphatase 60 U/L (38-126); Direct Bilirubin 0.2 mg/dl (0.0-0.4); Total Bilirubin 0.4 mg/dl (0.2-1.3); Total Protein 5.3 g/dl (6.3-8.2)
== END ==
LOC: OLABP 09:11
PROVIDERS: ATTENDING PHYSICIAN Hospitalist; FAMILY PHYSICIAN Family Medicine
DX: J44.1 Chronic obstructive pulmonary disease with (acute) exacerbation (principal)
CPT/HCPCS: 36415; 80076

== ENCOUNTER → 2024-03-30 10:50 | Outpatient (REF) | payer MEDICARE, OTHER, SELFPAY ==
[2024-03-30 13:20] LABS: % Basophils 0.2 % (0-2); % Eosinophils 0.2 % (0-6); % Immature Granulocytes 1.4 % (0-0.5); % Lymphocytes 11.8 % (20.5-51.1); % Monocytes 10.4 % (1.7-9.3); Absolute Immature Granulocytes 0.2 10^3/uL (0-0.05); Absolute Lymphocytes 1.9 10^3/uL (1.2-3.4); Absolute Monocytes 1.7 10^3/uL (0.1-0.6); Absolute Neutrophils 12.5 10^3/uL (1.4-6.5); Hemoglobin 13.2 g/dL (12.0-16.0); Mean Corp Hgb Conc. 31.4 g/dL (33.0-37.0); Mean Corpuscular Hgb 32.7 pg (27.0-31.0); Mean Platelet Volume 9.8 fL (7.4-10.4); Nucleated Red Blood Cells % 0 %; Platelet Count 333 10^3/uL (130-400); Red Blood Cell Count 4.04 10^6/uL (4.20-5.40); Red Cell Dist. Width 12.5 % (11.5-14.5); White Blood Cell Count 16.4 10^3/uL (4.8-10.8)
[2024-03-30 13:35] LABS: ALT (SGPT) 56 U/L (0-35); AST (SGOT) 34 U/L (14-36); Albumin 3.1 g/dl (3.5-5.0); Alkaline Phosphatase 63 U/L (38-126); Blood Urea Nitrogen 22 mg/dl (7-17); Calcium 8.9 mg/dl (8.4-10.2); Carbon Dioxide 35 mmol/L (22-30); Chloride 99 mmol/L (98-107); Glucose 54 mg/dl (70-99); Potassium 4.4 mmol/L (3.5-5.1); Sodium 139 mmol/L (135-145); Total Bilirubin 0.3 mg/dl (0.2-1.3); Total Protein 5.6 g/dl (6.3-8.2); eGFR > 60.00
== END ==
LOC: OLABP 10:50
PROVIDERS: ATTENDING PHYSICIAN Family Medicine
DX: A41.9 Sepsis, unspecified organism (principal); M62.81 Muscle weakness (generalized); E87.5 Hyperkalemia
CPT/HCPCS: 36415; 80053; 85025

== ENCOUNTER → 2024-04-01 09:44 | Outpatient (REF) | payer OTHER, MEDICARE, SELFPAY ==
[2024-04-01 10:27] LABS: Hematocrit 38.9 % (37.0-47.0); Hemoglobin 12.5 g/dL (12.0-16.0); Mean Corp Hgb Conc. 32.1 g/dL (33.0-37.0); Mean Corpuscular Hgb 32.1 pg (27.0-31.0); Mean Platelet Volume 9.5 fL (7.4-10.4); Platelet Count 312 10^3/uL (130-400); Red Blood Cell Count 3.89 10^6/uL (4.20-5.40); Red Cell Dist. Width 12.8 % (11.5-14.5); White Blood Cell Count 16.4 10^3/uL (4.8-10.8)
[2024-04-01 10:56] LABS: ALT (SGPT) 49 U/L (0-35); AST (SGOT) 32 U/L (14-36); Alkaline Phosphatase 57 U/L (38-126); Blood Urea Nitrogen 22 mg/dl (7-17); Calcium 8.5 mg/dl (8.4-10.2); Carbon Dioxide 36 mmol/L (22-30); Chloride 98 mmol/L (98-107); Glucose 60 mg/dl (70-99); Potassium 4.1 mmol/L (3.5-5.1); Sodium 137 mmol/L (135-145); Total Bilirubin 0.6 mg/dl (0.2-1.3); Total Protein 5.3 g/dl (6.3-8.2); eGFR > 60.00
== END ==
LOC: OLABP 09:44
PROVIDERS: ATTENDING PHYSICIAN Family Medicine
DX: A41.9 Sepsis, unspecified organism (principal); J44.1 Chronic obstructive pulmonary disease with (acute) exacerbation; J47.9 Bronchiectasis, uncomplicated; E87.5 Hyperkalemia; I21.4 Non-ST elevation (NSTEMI) myocardial infarction; I48.0 Paroxysmal atrial fibrillation; M62.81 Muscle weakness (generalized); J18.9 Pneumonia, unspecified organism
CPT/HCPCS: 36415; 80053; 85027

== ENCOUNTER → 2024-04-05 10:50 | Outpatient (REF) | payer MEDICARE, OTHER, SELFPAY ==
[2024-04-05 13:08] LABS: % Basophils 0.3 % (0-2); % Eosinophils 1.3 % (0-6); % Immature Granulocytes 0.8 % (0-0.5); % Monocytes 6.8 % (1.7-9.3); % Neutrophils 75.8 % (42.2-75.2); Absolute Eosinophils 0.2 10^3/uL (0-0.7); Absolute Immature Granulocytes 0.1 10^3/uL (0-0.05); Absolute Lymphocytes 1.9 10^3/uL (1.2-3.4); Absolute Monocytes 0.8 10^3/uL (0.1-0.6); Absolute Neutrophils 9.4 10^3/uL (1.4-6.5); Hematocrit 41.4 % (37.0-47.0); Mean Corp Hgb Conc. 31.4 g/dL (33.0-37.0); Mean Corpuscular Hgb 32.8 pg (27.0-31.0); Mean Corpuscular Volume 104.5 fL (81.0-99.0); Mean Platelet Volume 9.8 fL (7.4-10.4); Nucleated Red Blood Cells % 0 %; Platelet Count 314 10^3/uL (130-400); Red Blood Cell Count 3.96 10^6/uL (4.20-5.40); Red Cell Dist. Width 12.8 % (11.5-14.5); White Blood Cell Count 12.4 10^3/uL (4.8-10.8)
== END ==
LOC: OLABP 10:50
PROVIDERS: ATTENDING PHYSICIAN Family Medicine
DX: M62.81 Muscle weakness (generalized) (principal); I21.4 Non-ST elevation (NSTEMI) myocardial infarction; J47.9 Bronchiectasis, uncomplicated
CPT/HCPCS: 85025

== ENCOUNTER → 2024-05-11 11:47 | Outpatient (REF) | payer MEDICARE, OTHER, SELFPAY ==
[2024-05-11 11:58] LABS: % Basophils 0.4 % (0-2); % Eosinophils 2.4 % (0-6); % Immature Granulocytes 1.3 % (0-0.5); % Lymphocytes 13.5 % (20.5-51.1); % Monocytes 7.7 % (1.7-9.3); % Neutrophils 74.7 % (42.2-75.2); Absolute Basophils 0.1 10^3/uL (0-0.2); Absolute Eosinophils 0.3 10^3/uL (0-0.7); Absolute Immature Granulocytes 0.2 10^3/uL (0-0.05); Absolute Lymphocytes 1.6 10^3/uL (1.2-3.4); Absolute Monocytes 0.9 10^3/uL (0.1-0.6); Absolute Neutrophils 8.9 10^3/uL (1.4-6.5); Hematocrit 32.1 % (37.0-47.0); Hemoglobin 10.2 g/dL (12.0-16.0); Mean Corp Hgb Conc. 31.8 g/dL (33.0-37.0); Mean Corpuscular Hgb 33.2 pg (27.0-31.0); Mean Corpuscular Volume 104.6 fL (81.0-99.0); Mean Platelet Volume 8.9 fL (7.4-10.4); Nucleated Red Blood Cells % 0 %; Platelet Count 515 10^3/uL (130-400); Red Blood Cell Count 3.07 10^6/uL (4.20-5.40); Red Cell Dist. Width 14.7 % (11.5-14.5)
[2024-05-11 12:33] LABS: Blood Urea Nitrogen 10 mg/dl (7-17); Calcium 8.5 mg/dl (8.4-10.2); Carbon Dioxide 38 mmol/L (22-30); Chloride 97 mmol/L (98-107); Glucose 86 mg/dl (70-99); Potassium 4.4 mmol/L (3.5-5.1); Sodium 134 mmol/L (135-145); eGFR > 60.00
== END ==
LOC: OLABP 11:47
PROVIDERS: ATTENDING PHYSICIAN Family Medicine
DX: M25.552 Pain in left hip (principal); D62 Acute posthemorrhagic anemia; R26.2 Difficulty in walking, not elsewhere classified; M62.81 Muscle weakness (generalized); I48.0 Paroxysmal atrial fibrillation; A41.9 Sepsis, unspecified organism
CPT/HCPCS: 36415; 80048; 85025

== ENCOUNTER → 2024-05-26 12:01 | Outpatient (REF) | payer OTHER, MEDICARE, SELFPAY ==
[2024-05-26 12:31] LABS: % Basophils 0.2 % (0-2); % Eosinophils 1.1 % (0-6); % Immature Granulocytes 1.8 % (0-0.5); % Lymphocytes 22.7 % (20.5-51.1); % Monocytes 8.4 % (1.7-9.3); % Neutrophils 65.8 % (42.2-75.2); Absolute Eosinophils 0.2 10^3/uL (0-0.7); Absolute Immature Granulocytes 0.2 10^3/uL (0-0.05); Absolute Monocytes 1.1 10^3/uL (0.1-0.6); Absolute Neutrophils 8.6 10^3/uL (1.4-6.5); Hematocrit 34.3 % (37.0-47.0); Hemoglobin 10.7 g/dL (12.0-16.0); Mean Corp Hgb Conc. 31.2 g/dL (33.0-37.0); Mean Corpuscular Hgb 32.7 pg (27.0-31.0); Mean Corpuscular Volume 104.9 fL (81.0-99.0); Mean Platelet Volume 9.2 fL (7.4-10.4); Nucleated Red Blood Cells % 0 %; Platelet Count 336 10^3/uL (130-400); Red Blood Cell Count 3.27 10^6/uL (4.20-5.40); Red Cell Dist. Width 14.4 % (11.5-14.5); White Blood Cell Count 13.1 10^3/uL (4.8-10.8)
[2024-05-26 13:06] LABS: Blood Urea Nitrogen 22 mg/dl (7-17); Calcium 8.7 mg/dl (8.4-10.2); Carbon Dioxide 36 mmol/L (22-30); Chloride 97 mmol/L (98-107); Glucose 68 mg/dl (70-99); Potassium 4.3 mmol/L (3.5-5.1); Sodium 140 mmol/L (135-145); eGFR > 60.00
== END ==
LOC: OLABP 12:01
PROVIDERS: ATTENDING PHYSICIAN Family Medicine
DX: I50.30 Unspecified diastolic (congestive) heart failure (principal); D62 Acute posthemorrhagic anemia; I48.0 Paroxysmal atrial fibrillation; I50.32 Chronic diastolic (congestive) heart failure; J44.1 Chronic obstructive pulmonary disease with (acute) exacerbation; Z95.0 Presence of cardiac pacemaker; K76.89 Other specified diseases of liver; J47.9 Bronchiectasis, uncomplicated; N28.9 Disorder of kidney and ureter, unspecified; J96.10 Chronic respiratory failure, unspecified whether with hypoxia or hypercapnia; E87.5 Hyperkalemia
CPT/HCPCS: 36415; 80048; 85025

== ENCOUNTER → 2024-06-04 10:56 | Outpatient (REF) | payer OTHER, MEDICARE, SELFPAY ==
[2024-06-04 11:07] LABS: % Basophils 0.3 % (0-2); % Eosinophils 1.2 % (0-6); % Immature Granulocytes 1.4 % (0-0.5); % Lymphocytes 25.9 % (20.5-51.1); % Monocytes 7.5 % (1.7-9.3); % Neutrophils 63.7 % (42.2-75.2); Absolute Eosinophils 0.2 10^3/uL (0-0.7); Absolute Immature Granulocytes 0.2 10^3/uL (0-0.05); Absolute Monocytes 1.2 10^3/uL (0.1-0.6); Absolute Neutrophils 9.9 10^3/uL (1.4-6.5); Hematocrit 37.8 % (37.0-47.0); Hemoglobin 11.8 g/dL (12.0-16.0); Mean Corp Hgb Conc. 31.2 g/dL (33.0-37.0); Mean Corpuscular Hgb 33.4 pg (27.0-31.0); Mean Corpuscular Volume 107.1 fL (81.0-99.0); Mean Platelet Volume 9.6 fL (7.4-10.4); Nucleated Red Blood Cells % 0 %; Platelet Count 272 10^3/uL (130-400); Red Blood Cell Count 3.53 10^6/uL (4.20-5.40); Red Cell Dist. Width 14.2 % (11.5-14.5); White Blood Cell Count 15.5 10^3/uL (4.8-10.8)
[2024-06-04 11:14] LABS: ALT (SGPT) 16 U/L (0-35); AST (SGOT) 24 U/L (14-36); Albumin 3.7 g/dl (3.5-5.0); Alkaline Phosphatase 118 U/L (38-126); Blood Urea Nitrogen 15 mg/dl (7-17); Calcium 9.1 mg/dl (8.4-10.2); Carbon Dioxide 37 mmol/L (22-30); Chloride 94 mmol/L (98-107); Glucose 70 mg/dl (70-99); Potassium 4.3 mmol/L (3.5-5.1); Sodium 140 mmol/L (135-145); Total Bilirubin 0.5 mg/dl (0.2-1.3); Total Protein 6.3 g/dl (6.3-8.2); eGFR > 60.00
== END ==
LOC: OLABP 10:56
PROVIDERS: ATTENDING PHYSICIAN Family Medicine
DX: I50.30 Unspecified diastolic (congestive) heart failure (principal); D62 Acute posthemorrhagic anemia; I48.0 Paroxysmal atrial fibrillation; I50.32 Chronic diastolic (congestive) heart failure; J44.1 Chronic obstructive pulmonary disease with (acute) exacerbation; Z95.0 Presence of cardiac pacemaker; K76.89 Other specified diseases of liver; J47.9 Bronchiectasis, uncomplicated; N28.9 Disorder of kidney and ureter, unspecified; E87.5 Hyperkalemia; J96.10 Chronic respiratory failure, unspecified whether with hypoxia or hypercapnia
CPT/HCPCS: 36415; 80053; 85025

== ENCOUNTER → 2024-06-11 09:09 | Outpatient (REF) | payer OTHER, MEDICARE, SELFPAY ==
[2024-06-11 10:09] LABS: Hematocrit 32.6 % (37.0-47.0); Mean Corp Hgb Conc. 30.7 g/dL (33.0-37.0); Mean Corpuscular Hgb 31.4 pg (27.0-31.0); Mean Corpuscular Volume 102.5 fL (81.0-99.0); Mean Platelet Volume 9.5 fL (7.4-10.4); Platelet Count 250 10^3/uL (130-400); Red Blood Cell Count 3.18 10^6/uL (4.20-5.40); Red Cell Dist. Width 13.7 % (11.5-14.5); White Blood Cell Count 11.2 10^3/uL (4.8-10.8)
[2024-06-11 10:43] LABS: Blood Urea Nitrogen 19 mg/dl (7-17); Calcium 8.6 mg/dl (8.4-10.2); Carbon Dioxide 34 mmol/L (22-30); Chloride 96 mmol/L (98-107); Glucose 78 mg/dl (70-99); Magnesium 1.8 mg/dl (1.6-2.3); Potassium 4.2 mmol/L (3.5-5.1); Sodium 140 mmol/L (135-145); eGFR > 60.00
== END ==
LOC: OLABP 09:09
PROVIDERS: ATTENDING PHYSICIAN Family Medicine
DX: I50.30 Unspecified diastolic (congestive) heart failure (principal); D62 Acute posthemorrhagic anemia; I48.0 Paroxysmal atrial fibrillation; I50.32 Chronic diastolic (congestive) heart failure; J44.1 Chronic obstructive pulmonary disease with (acute) exacerbation; Z95.0 Presence of cardiac pacemaker; K76.89 Other specified diseases of liver; J47.9 Bronchiectasis, uncomplicated; N28.9 Disorder of kidney and ureter, unspecified; E87.5 Hyperkalemia; J96.10 Chronic respiratory failure, unspecified whether with hypoxia or hypercapnia
CPT/HCPCS: 36415; 80048; 83735; 84443; 85027

== ENCOUNTER 2024-06-13 14:57 | Inpatient (IN) | payer MEDICARE, OTHER, SELFPAY ==
[2024-06-13 12:17] VITALS: BP 144/55
[2024-06-13 12:33] VITALS: BMI 24.7
[2024-06-13] MEDS: SOLU-MEDROL PF 60 MG IV (12:50)
[2024-06-13] MEDS: DUONEB 3 ML INH ×3 (12:51→21:04)
[2024-06-13 12:57] LABS: % Basophils 0.2 % (0-2); % Eosinophils 0.8 % (0-6); % Immature Granulocytes 0.8 % (0-0.5); % Lymphocytes 8.6 % (20.5-51.1); % Monocytes 8.1 % (1.7-9.3); % Neutrophils 81.5 % (42.2-75.2); Absolute Eosinophils 0.1 10^3/uL (0-0.7); Absolute Immature Granulocytes 0.1 10^3/uL (0-0.05); Absolute Lymphocytes 1.3 10^3/uL (1.2-3.4); Absolute Monocytes 1.2 10^3/uL (0.1-0.6); Absolute Neutrophils 11.9 10^3/uL (1.4-6.5); Hematocrit 37.5 % (37.0-47.0); Hemoglobin 11.5 g/dL (12.0-16.0); Mean Corp Hgb Conc. 30.7 g/dL (33.0-37.0); Mean Corpuscular Hgb 31.9 pg (27.0-31.0); Mean Corpuscular Volume 104.2 fL (81.0-99.0); Mean Platelet Volume 9.2 fL (7.4-10.4); Nucleated Red Blood Cells % 0 %; Platelet Count 300 10^3/uL (130-400); Red Cell Dist. Width 13.8 % (11.5-14.5); White Blood Cell Count 14.6 10^3/uL (4.8-10.8)
[2024-06-13 13:10] LABS: ALT (SGPT) 16 U/L (0-35); AST (SGOT) 22 U/L (14-36); Albumin 3.3 g/dl (3.5-5.0); Alkaline Phosphatase 89 U/L (38-126); Blood Urea Nitrogen 21 mg/dl (7-17); Calcium 8.5 mg/dl (8.4-10.2); Carbon Dioxide 38 mmol/L (22-30); Chloride 97 mmol/L (98-107); Estimated Creatinine Clearance 36 ml/min; Glucose 91 mg/dl (70-99); Potassium 3.9 mmol/L (3.5-5.1); Sodium 141 mmol/L (135-145); Total Bilirubin 0.5 mg/dl (0.2-1.3); Total Protein 5.8 g/dl (6.3-8.2); eGFR > 60.00
[2024-06-13 13:22] LABS: NT-proBNP 4860 pg/ml; Troponin I 0.014 ng/ml
--- NOTE | 2024-06-13 13:24 | ED.GENMED ---
History of Present Illness
General
Chief Complaint: Chest Problem
Source: patient, records and ambulance crew
Time Seen by Provider: 06/13/24 12:17
History of Present Illness
History of Present Illness:
89-year-old female with past medical history of atrial fibrillation, hypertension, COPD, previous PE presenting to the emergency department via EMS for worsening shortness of breath and left-sided rib pain, started on Augmentin yesterday for
aspiration pneumonia, has been on 2 L via nasal cannula since recent hospitalization and outpatient rehab at [facility] which she states has been about for 3 weeks. Patient states pain worsens with deep inspiration but no hemoptysis, fevers, chills
or rigors. She notes that she is chronically short of breath and has a chronic cough but states this cough is a little bit more productive of a yellowish sputum. No known sick contacts.
Past History
Past History
ED Past Medical History: Arrthythmia (afib/flutter), CHF, COPD, HTN and Other (IBS)
ED Past Surgical History: Cardiac (pacemaker)
Social History
Tobacco: Non-smoker
Alcohol: None
Drug: None
Personal:
Living: with family
Review of Systems
Review of Systems
All Other Systems: ROS reviewed and negative except as documented in HPI and ROS
Phy Exam
Physical Exam
Physical Exam:
GENERAL: Alert , in no apparent distress, coughing throughout the exam and bringing up a yellowish-green sputum
EYE: Clear conjunctiva
NECK: Supple
ENT: o/p clr, mmm.
CARDIAC: irregularly irregular rate and rhythm
LUNGS: Diffuse anterior and posterior lung field wheezing and rhonchi, possible faint Rales bilateral bases
ABDOMEN: Soft, without focal tenderness, no r/g, no cvat
NEUROLOGICAL: Alert and oriented
SKIN: Warm and dry, skin intact.
MUSCULOSKELETAL: No edema, well perfused.
PSYCH: Normal and appropriate interaction.
Scores
Heart Failure Risk
Heart Failure Risk Score: Not Applicable
Heart Score for Chest Pain Patients
STEMI patient?: Not applicable
Withdrawal Assessment of Alcohol
Withdrawal Assessment Completed?: Not applicable
Sepsis
Sepsis Screening
Sepsis Assessment: Sepsis
Sepsis Screening: Worsening O2 Saturation
Sepsis Screen
Sepsis Screen: Sepsis
Date: 06/13/24
Time: 16:50
Course
Orders/Labs/Results
Orders:
Orders
06/13/24 12:33
Ipratropium/Albuterol Sulfate [Duoneb] 3 ml INH R NOW ONE
MethylPREDNISolone PF [Solu-Medrol Pf] 60 mg IV NOW STA
06/13/24 12:34
Electrocardiogram (*1) Urgent
Reason for Study: Shortness of Breath
EKG- Treatment ONCE
CR Chest Portable - 1 View Urgent
Comment:
Reason For Exam: SOB, cough, aspiration
Reason Study Needs to be Portable: Unable to Transport
06/13/24 12:42
Complete Blood Count/With Diff Urgent
Comprehensive Metabolic Panel Urgent
Lactic Acid Q4H
Comment: CANCEL 2nd LACTIC ACID IF 1st LACTIC ACID IS LESS THAN 2
NT-proBNP Urgent
Troponin I Urgent
06/13/24 14:08
Cefepime HCl [Maxipime] 2,000 mg IV NOW STA
06/13/24 14:32
Sterile Water [Sterile Water For Injection] 20 ml .ROUTE .STK-MED
06/13/24 14:35
Admit/Transfer Patient As Directed
Co-Sign Provider:
Level of Care: Inpatient admission
Assign to:: Medical/Surgical
Physician / Group: evens
Diagnosis: aspiration pneumonia/ copd ex
Reason for Hospitalization: aspiration pneumonia /copd ex
Expected length of stay greater than two midnights?: Yes
ELOS- Estimated Length of Stay in days: 2
I certify the patient meets the requirements for IP care: Yes
Oxycodone [Roxicodone Oral Solution] 5 mg PO NOW STA
06/13/24 14:36
Vancomycin [Vancocin] 1,500 mg 0.9% Sodium Chloride [Nss] 20 ml 0.9% Sodium Chloride 250 ml [Nss] 250 ml IV NOW
06/13/24 14:37
PRN Pain Medication Management As Directed
May give lesser potent ordered pain med per pt: Yes
preference::
Protocol:: Medication orders for pain may be administered in a
manner that supports deferring to patient preference
when the pt is:
- Requesting an ordered lesser potent pain medication.
Least to most potent pain medications are defined
as: acetaminophen < NSAID < tramadol < opioids
(morphine, oxycodone, hydromorphone).
- Requesting a lesser dose of the same medication IF
ORDERED.
- Requesting a less intrusive route of administration
if both routes are prescribed by the provider (PO <
IV).
06/13/24 14:38
Code Status As Directed
Resuscitation Status: Do not resuscitate
Reached after discussion with pt or family/Healthcare POA: Yes
06/13/24 14:39
DNR Bracelet Application ONCE
06/13/24 14:40
CT Chest Pe Study Urgent
Comment:
Reason For Exam: PE
06/13/24 Dinner
Cholesterol Lowering
At Your Request: Full Participation
Does patient need a safe tray?: No
Cholesterol Lowering: Sodium, 2 Gram
06/13/24 16:10
Acetaminophen [Tylenol] 650 mg PO Q4HPRN PRN
Ampicillin/Sulbactam 1.5 G [Unasyn] 1.5 gm 0.9% Sodium Chloride [Nss] 50 ml IV Q24H
Bisacodyl [Dulcolax] 10 mg RECTAL DAILYPRN PRN
Dexamethasone Sod Phosphate [Decadron] 4 mg IV Q12H
Doxycycline Hyclate [Vibramycin] 100 mg 0.9% Sodium Chloride 250 ml [Nss] 250 ml IV Q12H
Guaifenesin [Mucinex] 600 mg PO [id number] PRN
Ipratropium/Albuterol Sulfate [Duoneb] 3 ml INH R Q4HPRN PRN
Ipratropium/Albuterol Sulfate [Duoneb] 3 ml INH R QID
Magnesium Hydroxide [Milk of Magnesia] 30 ml PO DAILYPRN PRN
Oxycodone [Roxicodone] 10 mg PO Q6HPRN PRN
Phosphate Enema [Fleet Phosphate Enema-Adult] 118 ml RECTAL DAILYPRN PRN
methocarbamol 500 mg PO Q8HPRN PRN
naloxone [Narcan] 4 mg NASAL Q3MPRN PRN
simethicone [Gas-X Extra Strength] 125 mg PO QIDPRN PRN
06/13/24 16:10
VTE Contraindication Routine
VTE Mechanical Device Contraindication: Medical Contraindication
Pharmocologic Contraindication: Medical Contraindication
Activity As Directed
Activity Level: As Tolerated
Intake/ Output As Directed
Frequency: Per unit guidelines
Vital Signs As Directed
Frequency: Per unit guidelines
Copd Education [RESP] Routine
Speech Therapy Eval & Treat Routine
06/13/24 16:24
Respiratory Culture/Gram Stain Urgent
DIANA Source: Sputum
Specimen Description:
Date Specimen was Collected: 06/13/24
Time Specimen was Collected: 16:21
06/13/24 20:00
Apixaban [Eliquis] 2.5 mg PO BID
Budesonide [Pulmicort] 0.5 mg INH R BID
Docusate Sodium [Colace] 100 mg PO BID
Metoprolol Xl [Toprol Xl] 25 mg PO BID
06/13/24 22:00
Acetaminophen [Tylenol] 500 mg PO HS
Gabapentin [Neurontin] 600 mg PO HS
06/14/24 06:00
Basic Metabolic Panel IN AM
Complete Blood Count/With Diff IN AM
06/14/24 08:00
Amiodarone [Pacerone] 200 mg PO DAILY
Bumetanide [Bumex] 1 mg PO DAILY
Cholecalciferol (Vitamin D3) [VITAMIN D3 (cholecalciferol)] 25 mcg PO DAILY
Levothyroxine [Synthroid] 50 mcg PO DAILY
Linaclotide [Linzess] 145 mcg PO DAILY
Sennosides [Senokot] 17.2 mg PO DAILY
Thiamine HCl [Vitamin B1] 100 mg PO DAILY
Tolterodine Extended Release [Detrol LA] 2 mg PO DAILY
Abnormal Lab Results
06/13/24
12:42
WBC 14.6 H 10^3/uL
(4.8-10.8)
RBC 3.60 L 10^6/uL
(4.20-5.40)
Hgb 11.5 L g/dL
(12.0-16.0)
MCV 104.2 H fL
(81.0-99.0)
MCH 31.9 H pg
(27.0-31.0)
MCHC 30.7 L g/dL
(33.0-37.0)
Abs Immat Gran (auto) 0.1 H 10^3/uL
(0-0.05)
Absolute Neuts (auto) 11.9 H 10^3/uL
(1.4-6.5)
Absolute Monos (auto) 1.2 H 10^3/uL
(0.1-0.6)
Immature Gran % 0.8 H %
(0-0.5)
Neutrophils % 81.5 H %
(42.2-75.2)
Lymphocytes % 8.6 L %
(20.5-51.1)
Chloride 97 L mmol/L
(98-107)
Carbon Dioxide 38 H mmol/L
(22-30)
BUN 21 H mg/dl
(7-17)
Total Protein 5.8 L g/dl
(6.3-8.2)
Albumin 3.3 L g/dl
(3.5-5.0)
06/13/24 12:42
06/13/24 12:42
Vital Signs
Initial and Last Documented VS:
Initial Vital Signs
Temp Pulse Resp BP Pulse Ox
98.3 F 80 22 144/55 85
06/13/24 12:17 06/13/24 12:17 06/13/24 12:17 06/13/24 12:17 06/13/24 12:17
Last Documented Vital Signs
Temp Pulse Resp BP Pulse Ox
97.9 F 93 20 144/107 94
06/13/24 16:19 06/13/24 16:46 06/13/24 16:46 06/13/24 16:19 06/13/24 16:46
MDM/Problems Addressed
Differential Diagnosis Includes:
Aspiration pneumonia, COPD exacerbation, COVID/flu or other viral etiology, CHF, less concern for ACS presentation however considered given patient's cardiopulmonary medical history
MDM/Problems Addressed:
89-year-old female presenting to the emergency department for evaluation of left-sided chest discomfort, cough and shortness of breath. Diagnosed yesterday with aspiration pneumonia and started on Augmentin. Patient on her current regimen of 2 L
via nasal cannula. At the bedside she is bringing up a fair amount of purulent yellow-green sputum. I do suspect symptoms are more likely from pneumonia causing COPD exacerbation. Will treat with nebulizer treatments and Solu-Medrol. Patient may
need IV antibiotics as well. Anticipate admission is most likely disposition.
Chronic conditions affecting care: COPD
Acute Exacerbation and/or Progression of Chronic Illness: COPD
*Radiology
Radiology exam reviewed: radiology read reviewed
*Pulse Oximetry
Patient hypoxic: no
*EKG
Interpreted by ED Provider?: Yes
Heart Rate: 91
Rate: normal
Rhythm: a-fib
Interval: long QT
Ischemia: non-specific ST changes
*Material Man Interpretation
Rate: tachycardiac
Rhythm: a-fib
*Critical Care Note
Total Time (30-74mins, 75-104mins- exclusive of procedures): Not Applicable
Data Reviewed
Review of Other/Old Records Reveals: Labs, Records and Discharge Summary
Comment
Comment:
Patient is a lactic of less than 2. I did not initiate sepsis antibiotics due to patient's CHF history and I do feel that a component of patient's presentation today is related to CHF.
Patient Management
Discussion with other providers: Hospitalist
Escalation/DeEscalation of care consider admission/obs:
Patient's chest x-ray consistent with pneumonia. Given her age, comorbidities and worsening respiratory status will admit for continued breathing treatments, antibiotics and monitoring. Hospitalist team is aware and accepts for continued
evaluation and treatment.
ED Attending Note
-
Portions of this chart may have been created with voice recognition software.� Occasional wrong word or��sound alike� substitutions may have occurred due to the inherent limitations of voice recognition software.
Discharge Plan
Departure
Patient Disposition: Admit
Date of Disposition: 06/13/24
Time of Disposition: 14:09
Presentation/result/management discussed w/ accepting MD/DO: Hospitalist
Discharge Problem:
Aspiration pneumonia, Acute exacerbation of chronic obstructive pulmonary disease, CHF (congestive heart failure)
Interventions
Interventions:
*Risk Screen - Suicide Last Done: 06/13/24 12:28
*General Assessment Last Done: 06/13/24 12:28
*Neglect/Abuse Screening Last Done: 06/13/24 12:29
ED- Fall Risk Assessment Last Done: 06/13/24 12:36
*ED COVID-19 Vaccine History Last Done: 06/13/24 12:35
*Nursing Disposition Last Done: 06/13/24 16:09
ED- Cardiac Assessment Last Done: 06/13/24 12:36
ED- Pulmonary Assessment Last Done: 06/13/24 12:36
Discharge Date and Time
Discharge Date/Time: 06/13/24 16:10
[2024-06-13 14:00] VITALS: BP 141/77
[2024-06-13] MEDS: MAXIPIME 2000 MG IV (14:36)
--- NOTE | 2024-06-13 14:43 | HPS.HSE ---
Family Physician
-
Family Physician: Noel Stewart MD
Chief Complaint
-
shortness of breath
History of Present Illness
89-year-old female past medical history of paroxysmal atrial fibrillation with pacemaker, chronic HFpEF, COPD, bronchiectasis, daily alcohol use, pulmonary embolism, presenting for worsening shortness of breath and left-sided rib pain. Pain started
today and is worse with deep inspiration but denies coughing up blood, fevers or chills or sweats. She has chronic shortness of breath and chronic cough but she states the cough is a bit more productive with yellow sputum which got worse a few days
ago. Denies sick contacts.
Started yesterday on Augmentin for aspiration pneumonia. She had an episode where she coughed possibly aspirated on a pill few days ago. Denies any swallowing dysfunction normally. She has been on 2 L nasal cannula since recent hospitalization
after which she attended rehab at [facility] [place].
She has some lower extremity edema which she states that she has had since she had left hip surgery. It is not too bad at this time. She denies any weight gain.
She is a former smoker. She drinks 1/4 glass of wine every night.
Medical History
Past Medical History
Past Medical History: Reports Other (paroxysmal atrial fibrillation with pacemaker, chronic HFpEF, COPD, bronchiectasis, daily alcohol use, pulmonary embolism)
Past Surgical History: Reports None
Social History
Tobacco: Former Smoker
Alcohol: Daily
Drug: None
Family History
Family History: Not pertinent
Allergies / Home Medications
Allergies reflects when Allergies were last updated in [facility]
Home Medications with original date entered in [facility]
Allergy/Medication List:
Allergies
Allergy/AdvReac Type Severity Reaction Status Date / Time
amlodipine Allergy Swelling Verified 03/15/24 11:42
diltiazem Allergy Swelling Verified 03/15/24 11:42
hydromorphone [From Dilaudid] Allergy Swelling Verified 03/15/24 11:42
metoprolol [From Lopressor] Allergy Itching Verified 03/15/24 23:08
metronidazole [From Flagyl] Allergy Hives Verified 03/15/24 11:42
Sulfa (Sulfonamide Allergy Itching Verified 03/15/24 11:42
Antibiotics)
Home Medications
apixaban 2.5 mg tablet (Eliquis) 2.5 mg PO BID Blood Clot Prevention/Tx 07/28/23
bumetanide 1 mg tablet 1 mg PO DAILY 07/28/23
cholecalciferol (vitamin D3) 25 mcg (1,000 unit) tablet (Vitamin D3) 25 mcg PO DAILY Supplement 07/28/23
linaclotide 145 mcg capsule (Linzess) 145 mcg PO DAILY Gastrointestinal Issue 07/28/23
simethicone 125 mg chewable tablet (Gas-X Extra Strength) 125 mg PO QIDPRN PRN flatulence 07/28/23
amiodarone 200 mg tablet (Pacerone) 200 mg PO DAILY Arrhythmia #0 tabs 03/23/24
acetaminophen 325 mg tablet 650 mg PO Q4HPRN PRN mild pain/fever>100 06/13/24
acetaminophen 500 mg tablet 500 mg PO HS 06/13/24
amoxicillin 875 mg-potassium clavulanate 125 mg tablet 1 tab PO BID 06/13/24
bisacodyl 10 mg rectal suppository (Dulcolax (bisacodyl)) 10 mg NM DAILYPRN PRN if mom is ineffective, give on day 5 of no bm 06/13/24
budesonide 0.5 mg/2 mL suspension for nebulization 0.5 mg inhalation R BID 06/13/24
docusate sodium 100 mg capsule 100 mg PO BID 06/13/24
gabapentin 300 mg capsule 600 mg PO HS 06/13/24
guaifenesin 600 mg tablet, extended release 12 hr 600 mg PO [id number] PRN cough 06/13/24
ipratropium 0.5 mg-albuterol 3 mg (2.5 mg base)/3 mL nebulization soln 3 ml inhalation R Q6 06/13/24
levothyroxine 50 mcg tablet 50 mcg PO DAILY 06/13/24
magnesium hydroxide 400 mg/5 mL oral suspension (Milk of Magnesia) 30 ml PO DAILYPRN PRN if no bm on day 4 06/13/24
methocarbamol 500 mg tablet 500 mg PO Q8HPRN PRN muscle weakness 06/13/24
metoprolol succinate 25 mg tablet,extended release 24 hr 25 mg PO BID 06/13/24
naloxone 4 mg/actuation nasal spray (Narcan) 4 mg intranasal Q3MPRN PRN opiod overdose 06/13/24
oxycodone 5 mg tablet 10 mg PO Q6HPRN PRN moderate pain 06/13/24
prednisone 10 mg tablet 10 mg PO DAILY 06/13/24
prednisone 20 mg tablet 20 mg PO DAILY Lung/breathing issues 06/13/24
sennosides 8.6 mg tablet (senna) 17.2 mg PO DAILY 06/13/24
sodium phosphates 19 gram-7 gram/118 mL enema (Fleet Enema) 118 ml NM DAILYPRN PRN if dulcolax is ineffective, give day 6 of no bm 06/13/24
thiamine HCl (vitamin B1) 100 mg tablet 100 mg PO DAILY Supplement 06/13/24
tolterodine 2 mg capsule,extended release 24 hr 2 mg PO DAILY 06/13/24
Review of Systems
-
Constitutional: Reports No Symptoms
EENT: Reports No Symptoms
Respiratory: Reports See HPI
Cardiac: Reports See HPI
Abdomen/GI: Reports No Symptoms
: Reports No Symptoms
Musculoskeletal: Reports No Symptoms
Skin: Reports No Symptoms
Neurological: Reports No Symptoms
Endocrine: Reports No Symptoms
Hematologic/Lymphatic: Reports No Symptoms
Psych: Reports No Symptoms
Physical Exam
Vital Signs
Vital Signs
Temp Pulse Resp BP Pulse Ox
98.3 F 80 24 144/55 95
06/13/24 12:17 06/13/24 13:07 06/13/24 13:07 06/13/24 12:17 06/13/24 13:07
Physical Exam
General: Well Developed, Well Nourished and No Apparent Distress
HEENT: NormoCephalic, Moist mucous membranes and Atraumatic
Respiratory: Wheezes and Rhonchi
Cardiac: S1/S2 and Regular Rhythm; No Murmur or Rub
GI: Soft, Non Tender, Non Distended and Normal Bowel Sounds; No Organomegaly
Rectal: Deferred by Provider
Musculoskeletal: No Clubbing, No Cyanosis and No Edema
Skin: No Rash
Neuro: Nonfocal/grossly intact
Laboratory Results
-
06/13/24 12:42
06/13/24 12:42
Laboratory Results
Lactic Acid Cancelled 06/13/24 16:45
Total Bilirubin 0.5 mg/dl (0.2-1.3) 06/13/24 12:42
AST 22 U/L (14-36) 06/13/24 12:42
ALT 16 U/L (0-35) 06/13/24 12:42
Alkaline Phosphatase 89 U/L (38-126) 06/13/24 12:42
Troponin I 0.014 ng/ml 06/13/24 12:42
Data Reviewed
-
Lab Data: Labs Reviewed by me
Old Records: Reviewed
Impression/Plan
-
IMPRESSION:
PLAN:
# Multifactorial dyspnea secondary to right basilar aspiration pneumonia/COPD exacerbation
-See individually below
-Chest pain on the left does not correlate with location of aspiration pneumonia, will check CT PE to rule out pulmonary embolism given history
# Right basilar aspiration pneumonia
-Check sputum culture
-Given Vanco and cefepime in ER, change to Unasyn/doxycycline
-Check speech and swallow
# Acute COPD exacerbation
# Chronic bronchiectasis
-Dexamethasone 4 mg every 12
-DuoNebs every 6 hours
-Guaifenesin
-Continue budesonide
Paroxysmal atrial fibrillation with pacemaker
-Continue amiodarone
-On Eliquis however dosing is for DVT prophylaxis
-Continue metoprolol
Chronic HFpEF
-Cardiac BNP of 4800 but not overtly in heart failure
-Continue Bumex
History of pulmonary embolism
-Continue Eliquis
Daily alcohol use
Hypothyroidism
-Continue levothyroxine
Calcified arterial plaque within abdominal aorta
Chronic right shoulder/right hip pain
-Continue oxycodone, gabapentin
Superior mesenteric artery occlusion
Right ovarian lesion
History of partial colectomy in 2008
Former smoker
Constipation
-Continue Linzess
DNR/DNI
DVT prophylaxis�Eliquis
Cardiac diet
[2024-06-13] MEDS: ROXICODONE ORAL SOLUTION 5 MG PO (14:46)
[2024-06-13] MEDS: VANCOCIN 300 MG IV (15:12)
[2024-06-13] MEDS: VANCOCIN 300 ML IV (15:12)
[2024-06-13 16:19] VITALS: BP 144/107
[2024-06-13 16:20] VITALS: BMI 24.1
[2024-06-13] MEDS: VIBRAMYCIN 100 MG PO (17:49)
[2024-06-13] MEDS: TOPROL XL 25 MG PO (20:09)
[2024-06-13] MEDS: ELIQUIS 2.5 MG PO (20:09)
[2024-06-13] MEDS: COLACE 100 MG PO (20:09)
[2024-06-13] MEDS: ROXICODONE 10 MG PO (20:19)
[2024-06-13] MEDS: PULMICORT 0.5 MG INH (21:04)
[2024-06-13] MEDS: NEURONTIN 600 MG PO (21:10)
[2024-06-13] MEDS: TYLENOL PO ×2 (21:10→21:14)
[2024-06-13] MEDS: DECADRON 4 MG IV (21:11)
[2024-06-13] MEDS: UNASYN IV (23:11)
[2024-06-13] MEDS: SKELAXIN 800 MG PO (23:20)
[2024-06-13 23:48] VITALS: BP 140/89
--- NOTE | 2024-06-13 23:52 | PTCARENOTE ---
Received pt from day shift RN. Pt AAOx3, VSS 97% on 2L. Medicated for chest pain per NOV. Oriented to room, call flor and plan of care.
[2024-06-14] MEDS: MUCINEX 600 MG PO (00:01)
[2024-06-14] MEDS: ROXICODONE 10 MG PO ×4 (03:42→21:17)
[2024-06-14 06:00] VITALS: BMI 24.1
[2024-06-14] MEDS: SYNTHROID 50 MCG PO (06:07)
[2024-06-14] MEDS: UNASYN IV ×3 (06:07→18:07)
[2024-06-14 07:40] VITALS: BP 113/74
[2024-06-14 08:08] LABS: % Basophils 0.1 % (0-2); % Immature Granulocytes 0.9 % (0-0.5); % Lymphocytes 6.8 % (20.5-51.1); % Monocytes 4.8 % (1.7-9.3); % Neutrophils 87.4 % (42.2-75.2); Absolute Immature Granulocytes 0.1 10^3/uL (0-0.05); Absolute Lymphocytes 0.7 10^3/uL (1.2-3.4); Absolute Monocytes 0.5 10^3/uL (0.1-0.6); Absolute Neutrophils 9.3 10^3/uL (1.4-6.5); Hematocrit 34.2 % (37.0-47.0); Hemoglobin 10.8 g/dL (12.0-16.0); Mean Corp Hgb Conc. 31.6 g/dL (33.0-37.0); Mean Corpuscular Hgb 32.1 pg (27.0-31.0); Mean Corpuscular Volume 101.8 fL (81.0-99.0); Mean Platelet Volume 9.1 fL (7.4-10.4); Nucleated Red Blood Cells % 0 %; Platelet Count 259 10^3/uL (130-400); Red Blood Cell Count 3.36 10^6/uL (4.20-5.40); Red Cell Dist. Width 13.6 % (11.5-14.5); White Blood Cell Count 10.6 10^3/uL (4.8-10.8)
[2024-06-14] MEDS: DUONEB 3 ML INH ×4 (08:19→20:23)
[2024-06-14] MEDS: PULMICORT 0.5 MG INH ×2 (08:19→20:23)
[2024-06-14 08:39] LABS: Blood Urea Nitrogen 21 mg/dl (7-17); Calcium 8.7 mg/dl (8.4-10.2); Chloride 93 mmol/L (98-107); Estimated Creatinine Clearance 32 ml/min; Glucose 133 mg/dl (70-99); Potassium 4.7 mmol/L (3.5-5.1); Sodium 138 mmol/L (135-145); eGFR > 60.00
--- NOTE | 2024-06-14 08:54 | W.PN.HOSP.TC ---
Today's Communication/Plan
-
Continue antibiotics, steroids, Eliquis
Consulted pulmonary, appreciate evaluation and recommendations
Assessment / Plan
Assessment / Plan
Physical Exam
General: Well Developed, Well Nourished and No Apparent Distress
HEENT: Normocephalic, Moist mucous membranes and Atraumatic
Respiratory: Wheezes and Rhonchi
Cardiac: S1/S2 and Regular Rhythm
GI: Soft, Non Tender, Non Distended and Normal Bowel Sounds
Musculoskeletal: No Cyanosis and No Edema
Skin: Warm. Dry.
Neuro: Nonfocal/grossly intact
Assessment/Plan
89-year-old female history of paroxysmal atrial fibrillation, chronic HFrEF, COPD, bronchiectasis, prior PE on Eliquis here for chest pain/shortness of breath secondary to right basilar aspiration pneumonia and COPD exacerbation. Chest pain does
not correlate to location of pneumonia. Check CT PE. Unasyn/Doxy, sputum culture, dexamethasone/DuoNebs, speech and swallow
# Multifactorial dyspnea secondary to right basilar aspiration pneumonia/COPD exacerbation
-See individually below
-Chest pain on the left does not correlate with location of aspiration pneumonia, will check CT PE to rule out pulmonary embolism given history
# Right basilar aspiration pneumonia
-Check sputum culture
-Given Vanco and cefepime in ER, change to Unasyn/doxycycline
-Check speech and swallow: per speech pathologist: '.......I attempted to see [phone] Mary Lou Ward for Swallow Evaluation. Patient adamantly refused ST services; Reported this is the [address] has attempted to see her and she has refused each
time, stating she does not have trouble swallowing. She endorsed choking on a pill prior to admission, which I discussed is considered dysphagia. I educated her on her diagnosis of aspiration pneumonia being related to dysphagia. Patient continued
to refuse. Please let me know if you have questions, thank you'
# Acute COPD exacerbation
# Chronic bronchiectasis
-Dexamethasone 4 mg every 12
-DuoNebs every 6 hours
-Guaifenesin
-Continue budesonide
-Pulmonary consulted, appreciate evaluation and recommendations
Paroxysmal atrial fibrillation with pacemaker
-Continue amiodarone
-Continue Eliquis
-Continue metoprolol
Chronic HFpEF
-Cardiac BNP of 4800 but not overtly in heart failure
-Continue Bumex
History of pulmonary embolism
-Continue Eliquis
Daily alcohol use
Hypothyroidism
-Continue levothyroxine
Calcified arterial plaque within abdominal aorta
Chronic right shoulder/right hip pain
-Continue oxycodone, gabapentin
Superior mesenteric artery occlusion
Right ovarian lesion
History of partial colectomy in 2008
Former smoker
Constipation
-Continue Linzess
DNR/DNI
DVT prophylaxis�Eliquis
Cardiac diet
Anticipated Discharge: > 48 hours
Subjective/Interval History
-
Date of Service: June 14, 2024
Patient was seen and examined. She reported pain in her left chest wall, worse with breathing and movement.
Objective Data
-
Labs:
Laboratory Results
06/14/24
07:38
WBC 10.6
Hgb 10.8 L
Hct 34.2 L
Plt Count 259
Sodium 138
Potassium 4.7
Chloride 93 L
Carbon Dioxide Pending
BUN 21 H
Creatinine 0.9
Glucose 133 H
Calcium 8.7
Vital Signs:
Vital Signs
Temp Pulse Resp BP Pulse Ox
97.5 F 68 16 113/74 99
06/14/24 07:40 06/14/24 08:20 06/14/24 08:20 06/14/24 07:40 06/14/24 08:20
I&O
06/13/24 06/14/24 06/15/24
06:59 06:59 06:59
Intake Total 480 / 480
Balance 480 / 480
[2024-06-14] MEDS: BUMEX 1 MG PO (09:27)
[2024-06-14] MEDS: VITAMIN B1 100 MG PO (09:27)
[2024-06-14] MEDS: ELIQUIS 2.5 MG PO ×2 (09:28→20:55)
[2024-06-14] MEDS: VIBRAMYCIN 100 MG PO ×2 (09:29→20:55)
[2024-06-14] MEDS: PACERONE 200 MG PO (09:29)
[2024-06-14] MEDS: VITAMIN D3 (cholecalciferol) 25 MCG PO (09:36)
[2024-06-14] MEDS: COLACE 100 MG PO ×2 (09:36→20:55)
[2024-06-14] MEDS: TOPROL XL 25 MG PO ×2 (09:36→20:55)
[2024-06-14] MEDS: DETROL LA PO (09:41)
[2024-06-14] MEDS: SENOKOT PO (09:41)
[2024-06-14] MEDS: DECADRON 4 MG IV ×2 (09:45→21:18)
[2024-06-14 09:58] LABS: Carbon Dioxide 30 mmol/L (22-30)
[2024-06-14] MEDS: LINZESS 145 MCG PO (09:59)
[2024-06-14 11:12] VITALS: BP 117/63
[2024-06-14 12:00] VITALS: BMI 24.1
[2024-06-14 15:52] VITALS: BP 97/61
--- NOTE | 2024-06-14 17:04 | CM ---
Patient was admitted from [facility], not on bedhold per admissions at [facility], prior to skilled placement, neha lived in an in law suite with son and daughter in law, 1st floor one story with one step to enter, patient needs assist with adl's and
uses cane and walker with ambulation.
Pharmacy [facility] in [place]
PCP: Dr. Borrego
Plan; Skilled placement possible back to [facility].
[2024-06-14 19:45] VITALS: BP 121/61
[2024-06-14] MEDS: NEURONTIN 600 MG PO (21:16)
[2024-06-14] MEDS: TYLENOL 500 MG PO (21:16)
[2024-06-14 23:50] VITALS: BP 130/65
[2024-06-15] MEDS: UNASYN IV ×5 (00:11→23:54)
[2024-06-15] MEDS: TYLENOL 650 MG PO (03:02)
[2024-06-15] MEDS: ROXICODONE 10 MG PO ×2 (03:03→10:51)
[2024-06-15 03:27] VITALS: BP 123/79
[2024-06-15] MEDS: SYNTHROID 50 MCG PO (05:10)
[2024-06-15 06:00] VITALS: BMI 23.9
[2024-06-15] MEDS: DUONEB 3 ML INH ×4 (07:27→20:38)
[2024-06-15] MEDS: PULMICORT 0.5 MG INH ×2 (07:28→20:38)
[2024-06-15 07:40] VITALS: BP 117/68
[2024-06-15] MEDS: BUMEX 1 MG PO (08:39)
[2024-06-15] MEDS: COLACE 100 MG PO ×2 (08:40→20:14)
[2024-06-15] MEDS: LINZESS 145 MCG PO (08:40)
[2024-06-15] MEDS: PACERONE 200 MG PO (08:40)
[2024-06-15] MEDS: ELIQUIS 2.5 MG PO ×2 (08:40→20:14)
[2024-06-15] MEDS: DETROL LA 2 MG PO (08:40)
[2024-06-15] MEDS: VITAMIN B1 100 MG PO (08:41)
[2024-06-15] MEDS: TOPROL XL 25 MG PO ×2 (08:41→20:14)
[2024-06-15] MEDS: VIBRAMYCIN 100 MG PO ×2 (08:41→20:15)
[2024-06-15] MEDS: VITAMIN D3 (cholecalciferol) 25 MCG PO (08:41)
[2024-06-15] MEDS: SENOKOT 17.2 MG PO (08:41)
[2024-06-15 08:55] LABS: % Immature Granulocytes 1.5 % (0-0.5); % Lymphocytes 8.1 % (20.5-51.1); % Monocytes 5.1 % (1.7-9.3); % Neutrophils 85.3 % (42.2-75.2); Absolute Immature Granulocytes 0.2 10^3/uL (0-0.05); Absolute Lymphocytes 0.9 10^3/uL (1.2-3.4); Absolute Monocytes 0.6 10^3/uL (0.1-0.6); Absolute Neutrophils 9.3 10^3/uL (1.4-6.5); Hematocrit 32.9 % (37.0-47.0); Mean Corp Hgb Conc. 30.4 g/dL (33.0-37.0); Mean Corpuscular Hgb 30.7 pg (27.0-31.0); Mean Corpuscular Volume 100.9 fL (81.0-99.0); Nucleated Red Blood Cells % 0 %; Platelet Count 252 10^3/uL (130-400); Red Blood Cell Count 3.26 10^6/uL (4.20-5.40); Red Cell Dist. Width 13.4 % (11.5-14.5); White Blood Cell Count 10.9 10^3/uL (4.8-10.8)
--- NOTE | 2024-06-15 09:20 | CON.PUL ---
Consultation
Consultation Request
Date/Time Consultation Requested: 06/15/24
Date/Time Consultation Performed: 06/15/24
Performing Provider: Nisreen
Reason for Consultation: SOB, L sided chest pain
Medical History
-
History of Present Illness:
Patient is an 89-year-old female with previous history of A-fib, heart failure with preserved ejection fraction, COPD, bronchiectasis, prior PE presenting for acute onset left-sided chest pain. She notes that she has had pain with onset of
exertion, she had been sent over from rehab for pain. She has accompanying shortness of breath due to pain on deep inspiration. Denies any cough, chest tightness. She does have wheezing. She was started on Augmentin for suspected aspiration
pneumonia, there is note of increased lower extremity edema. Chest x-ray and CT scan obtained not indicating any acute left-sided pathology. She does have an elevated proBNP with negative troponins.
Recently discharged from at 03/23/24 for AECOPD and AECHF.
Past Medical History
Past Medical History: Other (see list below)
Allergies / Home Medications
Allergies
Allergy/AdvReac Type Severity Reaction Status Date / Time
amlodipine Allergy Swelling Verified 03/15/24 11:42
diltiazem Allergy Swelling Verified 03/15/24 11:42
hydromorphone [From Dilaudid] Allergy Swelling Verified 03/15/24 11:42
metoprolol [From Lopressor] Allergy Itching Verified 03/15/24 23:08
metronidazole [From Flagyl] Allergy Hives Verified 03/15/24 11:42
Sulfa (Sulfonamide Allergy Itching Verified 03/15/24 11:42
Antibiotics)
Home Medications
�Medication �Instructions �Recorded �Confirmed �Last Taken �Type
apixaban 2.5 mg tablet (Eliquis) 2.5 mg PO BID Blood Clot 07/28/23 06/13/24 07/26/23 History
Prevention/Tx
bumetanide 1 mg tablet 1 mg PO DAILY Fluid 07/28/23 06/13/24 Unknown History
Retention/Swelling
cholecalciferol (vitamin D3) 25 25 mcg PO DAILY Supplement 07/28/23 06/13/24 07/26/23 History
mcg (1,000 unit) tablet (Vitamin
D3)
linaclotide 145 mcg capsule 145 mcg PO DAILY Gastrointestinal 07/28/23 06/13/24 07/26/23 History
(Linzess) Issue
simethicone 125 mg chewable tablet 125 mg PO QIDPRN PRN flatulence 07/28/23 06/13/24 Unknown History
(Gas-X Extra Strength)
amiodarone 200 mg tablet (Pacerone) 200 mg PO DAILY Arrhythmia #0 tabs 03/23/24 06/13/24 Unknown Rx
acetaminophen 325 mg tablet 650 mg PO Q4HPRN PRN mild 06/13/24 06/13/24 Unknown History
pain/fever>100
acetaminophen 500 mg tablet 500 mg PO HS Pain 06/13/24 06/13/24 Unknown History
amoxicillin 875 mg-potassium 1 tab PO BID Infection 06/13/24 06/13/24 Unknown History
clavulanate 125 mg tablet
bisacodyl 10 mg rectal suppository 10 mg GA DAILYPRN PRN if mom is 06/13/24 06/13/24 Unknown History
(Dulcolax (bisacodyl)) ineffective, give on day 5 of no bm
budesonide 0.5 mg/2 mL suspension 0.5 mg inhalation R BID 06/13/24 06/13/24 Unknown History
for nebulization Lung/Breathing Issues
docusate sodium 100 mg capsule 100 mg PO BID Constipation 06/13/24 06/13/24 Unknown History
gabapentin 300 mg capsule 600 mg PO HS Neurological Condition 06/13/24 06/13/24 Unknown History
guaifenesin 600 mg tablet, 600 mg PO [id number] PRN cough 06/13/24 06/13/24 Unknown History
extended release 12 hr
ipratropium 0.5 mg-albuterol 3 mg 3 ml inhalation R Q6 06/13/24 06/13/24 Unknown History
(2.5 mg base)/3 mL nebulization Lung/Breathing Issues
soln
levothyroxine 50 mcg tablet 50 mcg PO DAILY Thyroid 06/13/24 06/13/24 Unknown History
magnesium hydroxide 400 mg/5 mL 30 ml PO DAILYPRN PRN if no bm on 06/13/24 06/13/24 Unknown History
oral suspension (Milk of Magnesia) day 4
methocarbamol 500 mg tablet 500 mg PO Q8HPRN PRN muscle 06/13/24 06/13/24 Unknown History
weakness
metoprolol succinate 25 mg 25 mg PO BID Heart Failure 06/13/24 06/13/24 Unknown History
tablet,extended release 24 hr
naloxone 4 mg/actuation nasal 4 mg intranasal Q3MPRN PRN opiod 06/13/24 06/13/24 Unknown History
spray (Narcan) overdose
oxycodone 5 mg tablet 10 mg PO Q6HPRN PRN moderate pain 06/13/24 06/13/24 Unknown History
prednisone 10 mg tablet 10 mg PO DAILY Anti-Inflammatory 06/13/24 06/13/24 Unknown History
prednisone 20 mg tablet 20 mg PO DAILY Lung/breathing 06/13/24 06/13/24 Unknown History
issues
sennosides 8.6 mg tablet (senna) 17.2 mg PO DAILY Constipation 06/13/24 06/13/24 Unknown History
sodium phosphates 19 gram-7 118 ml GA DAILYPRN PRN if dulcolax 06/13/24 06/13/24 Unknown History
gram/118 mL enema (Fleet Enema) is ineffective, give day 6 of no bm
thiamine HCl (vitamin B1) 100 mg 100 mg PO DAILY Supplement 06/13/24 06/13/24 Unknown History
tablet
tolterodine 2 mg capsule,extended 2 mg PO DAILY Urinary Issue 06/13/24 06/13/24 Unknown History
release 24 hr
Review of Systems
-
History Source: Patient
All other systems: Negative unless noted
Vitals / Labs / Diagnostic Testing
Vital Signs
Temp Pulse Resp BP Pulse Ox
97.6 F 85 16 117/68 98
06/15/24 07:40 06/15/24 07:40 06/15/24 07:40 06/15/24 07:40 06/15/24 07:40
Lab Data
06/15/24 08:24
Microbiology
06/13/24 18:58 Nose MRSA Screen - Final
No Methicillin Resistant Staphylococcus aureus isolated.
06/13/24 16:24 Sputum Gram Stain - Preliminary
Diagnostic Testing:
Physical Exam
-
HEENT: Normocephalic, Anicteric and Moist Mucous Membranes
Cardiovascular: S1/S2 and Regular Rhythm
Respiratory: Wheeze and Non-Labored Respirations
GI: Soft, Non Distended and Non Tender
Neurology: Awake, Alert, Oriented, AO x 3 and No Motor Deficits
Skin: Warm, Dry and Good Color
General: Comfortable, Pain and Other (NAD)
Assessment
-
Patient is an 89-year-old female with previous history of A-fib, heart failure with preserved ejection fraction, COPD, bronchiectasis, prior PE presenting for acute onset left-sided chest pain. She notes that she has had pain with onset of
exertion, she had been sent over from rehab for pain. She has accompanying shortness of breath due to pain on deep inspiration. Denies any cough, chest tightness. She does have wheezing. She was started on Augmentin for suspected aspiration
pneumonia, there is note of increased lower extremity edema. Chest x-ray and CT scan obtained not indicating any acute left-sided pathology. She does have an elevated proBNP with negative troponins.
Acute hypoxic respiratory failure, O2 yolanda 85%
Acute L sided pleuritic pain
SOB
Acute on chronic HFpEF
Wheezing, possible AE COPD
Conditions [employer]:
Hospital admission for acute exacerbation of COPD 07/30/2023, 7/2/24
Afib/flutter, on apixaban
PPM
IBS
S/p partial colectomy in 2008 while living in [place]
Postop complicated by respiratory arrest after extubation
S/p BRAN 2012 at [facility]
Postop complicated by respiratory arrest after extubation, resulting in prolonged MV requiring tracheostomy
COPD/Bronchiectasis: on fluticasone/umeclidinium/vilanterol (trelegy). Not on home O2. Not on SABDs.
Abnormal chest CT 2020: significant BEs at RML and lingula, small patchy bilateral opacities
Reports has received up to 4 bronchoscopies over the years, reportedly not actionable results, denies MTB or NTM
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
Spirometry 12/10/2023: FEV1 0.66 L - 48%, FVC 0.95 L - 50%, FEV1/FVC 69% (severe obstruction)
Chronic cough
Allergic rhinitis.
History of pulmonary embolism-unprovoked per patient-on long-term anticoagulation
Former cigarette smoker quitting in 1980s /-1/2 pack for 30 years.
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
1.8 cm right ovarian lesion
Plan
At this time, patient has been placed on O2, yolanda 85%
Placed on supplemental O2, has not needed this at home
Prior 6MWT showing yolanda 90% on RA
She had been borderline on prior testing
Continue to wean oxygen as able to maintain SpO2 >88%
Wheezing is noted, she is treated with IV steroids for AE COPD
CT and CXR reviewed showing persistent bilateral TIB/mucus plugging but nothing to explain L sided chest pain
PE negative
proBNP 4860
She has history of HFpEF maintained on bumex at home
Severe COPD history
She typically will have 2-3 flares per year requiring prednisone, last hospitalization in Jul 2023 then 03/2024 for AECOPD
Resume home inhalers
Bronchiectasis history: She does have Acapella device and incentive spirometer at home. She is not interested in vest therapy.
Airway clearance resumed
Prior CT chest showing TIB findings.
Per records, patient has undergone multiple bronchoscopies, negative for BRITTNY.
Most recent sputum culture normal.
She had a repeat chest x-ray in past which shows persistent right middle lobe and lingular infiltrates. These findings were present on CT imaging in 2020.
[address] showing progression but no discreet consolidation
L sided pleuritic pain could be MSK in nature
Pain management
Neg trops on arrival, can repeat ECHO
Atrial fibrillation history, resume on home meds
Prior ECHO reviewed, stable function, trivial VHD, PH
Patient has chronic shortness of breath: Likely has component of deconditioning.
PT/OT --> pt at [facility], she would like to return [facility]
Patient is DNR status. Continue supportive care as above.
Outpatient pulmonary follow-up with Dr. Mariah Nielson after discharge.
We will follow
Diagnostic Data
CXR 06/13/24- Small right basilar airspace opacity may represent aspiration/pneumonia.
CXR 03/19/24- Stable moderate right basilar pneumonia with small associated right pleural effusion
03/15/24- New focal region of patchy parenchymal opacity within the right lower lobe of the lung, which very likely represents pneumonia. Small right pleural effusion.
07/28/23- Severe chronic COPD and lung changes in the right middle lobe and lingula of the left upper lobe, seen on prior CT of the chest 2.5 years ago. No definite acute process. No definite pleural effusion or focal area of airspace process.
CT Chest 06/13/24- 1. No CTA evidence for an acute pulmonary thromboembolism.
2. Confluent airspace opacity in the right lower lobe with air bronchograms and a groundglass opacity in the left lower lobe, both considered suspicious for pneumonia.
3. Small right pleural effusion.
4. Significant bronchiectasis and peribronchial thickening of the right middle lobe and lingula.
5. Small centrilobular nodules throughout both lungs most suspicious for a chronic infectious or inflammatory bronchiolitis.
6. Subacute fracture of the anterior left fifth rib.
CT CAP 12/18/20- 1. Minimally displaced fracture of the left posterolateral 10th rib, with adjacent soft tissue swelling suggestive of acute fracture. No additional rib fractures are appreciated.
2. No pneumothorax or significant pleural effusion.
3. Significant bronchiectasis and interstitial thickening within the right middle lobe and lingular segment of the right upper lobe, suggestive of chronic indolent infection such as BRITTNY. Diffuse tree-in-bud opacities within both lungs, also
suggestive of indolent infection.
4. Calcified arterial plaque within the abdominal aorta. 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 Wide patency of the celiac axis and inferior mesenteric artery. Please correlate for
symptoms of chronic mesenteric ischemia.
5. 1.8 cm right ovarian lesion. Further evaluation is recommended with nonemergent pelvic ultrasound.
Abd US 03-22-2024:
1. Moderate diffuse liver disease (probably diffuse hepatic steatosis).
2. Gallbladder stones and sludge.
3. No sonographic evidence for biliary obstruction.
4. Severe calcific atherosclerotic plaque in the abdominal aorta.
5. Moderate chronic bilateral renal disease.
6. Small right pleural effusion.
ECHO 03/16/2024: Hyperdynamic left ventricular systolic function. LVEF 70 to 75%. Mild to moderate LVH. Normal biventricular size and function.
Mild MR. Mild TR. Pulmonary pressure 35-40 mmHg.
-----
Total time spent today was 75 minutes for this encounter. Time includes reviewing laboratory test/imaging results, reviewing pertinent medical records, obtaining and reviewing medical history, performing an appropriate exam, ordering medications,
tests and procedures. Time also includes documentation of this encounter, coordinating patient care and communicating with other healthcare professionals. Total time does not include separately billed tests performed on this date of service.
--- NOTE | 2024-06-15 09:21 | PN.CDI ---
CDI
- -
CDI:
Physician Documentation Request
Admit Date: 06/13/24 14:57
Dear Doctor Marielle,
Patient admitted for aspiration pneumonia and COPD exacerbation.
ER Physician Documentation: 'has been on 2 L via nasal cannula since recent hospitalization and outpatient rehab at [facility] which she states has been about for 3 weeks.'
06/13 PCN: 'Pt AAOx3, VSS 97% on 2L.'
Selected Entries
06/13/24
12:36 06/14/24
08:00 06/15/24
03:27
Nasal Cannula flow liters per minute 2 2 2
Clarify which of the following accurately represents the patient's respiratory status:
Chronic hypoxic respiratory failure
Hypoxia
Other
Additional information for Respiratory Failure:
Recognized criteria for Respiratory Failure (Source: [facility] Hospitalist Jul 2013)
ABGs: (1 or more) Symptoms Please indicate type if known
1. p)2 <60 or RA SPO2 <91% on RA 1. Tachypnea, SOB, dyspnea Hypoxic
2. pCO2 50 and pH <7.35 2. Use of accessory muscles Hypercapnic
3. pO2 decrease of pCO2 increase by 3. Pallor or cyanosis Hypoxic and Hypercapnic
10 mmHg from baseline if known 4. Anxiety or restlessness Unable to determine
5. Unable to speak in full sentences
Supplemental O2 of > 40% (5LPM) Intubation is not required
Use of terms such as suspected, likely, concern for, or probable (associated with a specific diagnosis that is being evaluated, monitored, or treated as if it exists) are acceptable and can be coded in the inpatient setting, when documented at the
time of discharge.
Thank you,
Vika Blanco RN, BSN
CDI Specialist
Available via [place] text
Please use your independent medical judgment in providing your response.
[2024-06-15 09:23] LABS: ALT (SGPT) 15 U/L (0-35); AST (SGOT) 22 U/L (14-36); Albumin 3.2 g/dl (3.5-5.0); Alkaline Phosphatase 84 U/L (38-126); Blood Urea Nitrogen 27 mg/dl (7-17); Calcium 8.7 mg/dl (8.4-10.2); Chloride 93 mmol/L (98-107); Estimated Creatinine Clearance 32 ml/min; Glucose 115 mg/dl (70-99); Potassium 4.2 mmol/L (3.5-5.1); Sodium 138 mmol/L (135-145); Total Bilirubin 0.4 mg/dl (0.2-1.3); Total Protein 5.6 g/dl (6.3-8.2); eGFR > 60.00
--- NOTE | 2024-06-15 09:28 | PN.CDI ---
CDI
- -
CDI:
Physician Documentation Request
Admit Date: 06/13/24 14:57
Dear Doctor Marielle,
Patient admitted for aspiration pneumonia and COPD exacerbation.
06/14 Hospitalist PN: 'Chronic right shoulder/right hip pain -Continue oxycodone, gabapentin'
Oxycodone 10mg PO administered
06/13: 20:19
06/14: 03:42, 09:42, 15:39, 21:17
06/15: 03:03
If possible, please provide further specificity as outlined below:
Opioid dependence
Opioid use
Other
Use of terms such as suspected, likely, concern for, or probable (associated with a specific diagnosis that is being evaluated, monitored, or treated as if it exists) are acceptable and can be coded in the inpatient setting, when documented at the
time of discharge.
Thank you,
Vika Blanco RN, BSN
CDI Specialist
Available via [place] text
Please use your independent medical judgment in providing your response.
[2024-06-15 09:32] LABS: Carbon Dioxide 36 mmol/L (22-30)
[2024-06-15] MEDS: DECADRON 4 MG IV ×2 (09:35→21:31)
[2024-06-15 11:21] VITALS: BP 117/58
[2024-06-15 14:29] LABS: Venous Blood Gas B.E. 13.2 mmol/L (-4 to +4); Venous Blood Gas pH 7.35 (7.32-7.43); Venous Blood Gas pO2 30 mmHg (30-50)
[2024-06-15 14:39] LABS: Venous Blood Gas pCO2 76 mmHg (35-48)
[2024-06-15 15:34] VITALS: BP 118/58
--- NOTE | 2024-06-15 16:05 | W.PN.HOSP.TC ---
Today's Communication/Plan
-
Continue IV steroids
Continue antibiotics
Wean oxygen as tolerated
Appreciate pulmonary
Assessment / Plan
Assessment / Plan
Physical Exam
General: Well Developed, Well Nourished and No Apparent Distress
HEENT: Normocephalic, Moist mucous membranes and Atraumatic
Respiratory: Wheezes and Rhonchi
Cardiac: S1/S2 and Regular Rhythm
GI: Soft, Non Tender, Non Distended and Normal Bowel Sounds
Musculoskeletal: No Cyanosis and No Edema
Skin: Warm. Dry.
Neuro: Nonfocal/grossly intact
Assessment/Plan
89-year-old female history of paroxysmal atrial fibrillation, chronic HFrEF, COPD, bronchiectasis, prior PE on Eliquis here for chest pain/shortness of breath secondary to right basilar aspiration pneumonia and COPD exacerbation. Chest pain does
not correlate to location of pneumonia. Check CT PE. Unasyn/Doxy, sputum culture, dexamethasone/DuoNebs, speech and swallow
# Multifactorial dyspnea secondary to right basilar aspiration pneumonia/COPD exacerbation
# Concern for Chronic hypoxic respiratory failure
-See individually below
-Chest pain on the left does not correlate with location of aspiration pneumonia, will check CT PE to rule out pulmonary embolism given history
# Right basilar aspiration pneumonia
-Check sputum culture
-Given Vanco and cefepime in ER, changed to Unasyn/doxycycline
-Check speech and swallow: per speech pathologist: '.......I attempted to see [phone] Mary Lou Ward for Swallow Evaluation. Patient adamantly refused ST services; Reported this is the 4th [address] has attempted to see her and she has refused each
time, stating she does not have trouble swallowing. She endorsed choking on a pill prior to admission, which I discussed is considered dysphagia. I educated her on her diagnosis of aspiration pneumonia being related to dysphagia. Patient continued
to refuse. Please let me know if you have questions, thank you'
# Acute COPD exacerbation
# Chronic bronchiectasis
# Acute hypoxic respiratory failure
-Dexamethasone 4 mg every 12
-DuoNebs every 6 hours
-Guaifenesin
-Continue budesonide
-Pulmonary consulted, appreciate evaluation and recommendations
Paroxysmal atrial fibrillation with pacemaker
-Continue amiodarone
-Continue Eliquis
-Continue metoprolol
Chronic HFpEF
-Cardiac BNP of 4800 but not overtly in heart failure
-Continue Bumex
History of pulmonary embolism
-Continue Eliquis
Daily alcohol use
Hypothyroidism
-Continue levothyroxine
Calcified arterial plaque within abdominal aorta
Chronic right shoulder/right hip pain
Opioid Use
-Continue oxycodone, gabapentin
Superior mesenteric artery occlusion
Right ovarian lesion
History of partial colectomy in 2008
Former smoker
Constipation
-Continue Linzess
DNR/DNI
DVT prophylaxis�Eliquis
Cardiac diet
Anticipated Discharge: 24 - 48 hours
Subjective/Interval History
-
Date of Service: June 15, 2024
Patient was seen and examined. She denied any new symptoms.
Objective Data
-
Labs:
Laboratory Results
06/15/24
08:24
WBC 10.9 H
Hgb 10.0 L
Hct 32.9 L
Plt Count 252
Sodium 138
Potassium 4.2
Chloride 93 L
Carbon Dioxide 36 H
BUN 27 H
Creatinine 0.9
Glucose 115 H
Calcium 8.7
Total Bilirubin 0.4
AST 22
ALT 15
Alkaline Phosphatase 84
Vital Signs:
Vital Signs
Temp Pulse Resp BP Pulse Ox
98.0 F 92 18 118/58 97
06/15/24 15:34 06/15/24 15:34 06/15/24 15:34 06/15/24 15:34 06/15/24 15:34
I&O
06/14/24 06/15/24 06/16/24
06:59 06:59 06:59
Intake Total 480 / 480 960 / 960
Balance 480 / 480 960 / 960
--- NOTE | 2024-06-15 16:08 | CM ---
Chart reviewed and outsole caser will await PT/OT evaluations to assist with discharge planning needs for patient.
Plan; Await PT/OT evaluations and recommendations.
[2024-06-15] MEDS: ROXICODONE 5 MG PO ×2 (16:27→21:32)
[2024-06-15] MEDS: LIDOCAINE 4% PATCH 1 PATCH TOPICAL (16:27)
[2024-06-15] MEDS: SKELAXIN PO (16:27)
[2024-06-15 19:30] VITALS: BP 130/68
[2024-06-15] MEDS: NEURONTIN 600 MG PO (21:32)
[2024-06-15] MEDS: TYLENOL PO ×2 (21:33→21:48)
[2024-06-15 23:40] VITALS: BP 133/74
[2024-06-16 03:30] VITALS: BP 140/69
[2024-06-16] MEDS: ROXICODONE 5 MG PO ×4 (04:23→20:13)
[2024-06-16] MEDS: SYNTHROID 50 MCG PO (05:53)
[2024-06-16] MEDS: UNASYN IV ×3 (05:53→17:22)
[2024-06-16 06:00] VITALS: BMI 24.0
[2024-06-16 07:23] LABS: % Basophils 0.1 % (0-2); % Lymphocytes 6.4 % (20.5-51.1); % Monocytes 4.8 % (1.7-9.3); % Neutrophils 86.7 % (42.2-75.2); Absolute Immature Granulocytes 0.2 10^3/uL (0-0.05); Absolute Lymphocytes 0.7 10^3/uL (1.2-3.4); Absolute Monocytes 0.5 10^3/uL (0.1-0.6); Absolute Neutrophils 8.9 10^3/uL (1.4-6.5); Hematocrit 32.6 % (37.0-47.0); Hemoglobin 10.1 g/dL (12.0-16.0); Mean Corpuscular Hgb 30.8 pg (27.0-31.0); Mean Corpuscular Volume 99.4 fL (81.0-99.0); Mean Platelet Volume 9.3 fL (7.4-10.4); Nucleated Red Blood Cells % 0 %; Platelet Count 265 10^3/uL (130-400); Red Blood Cell Count 3.28 10^6/uL (4.20-5.40); Red Cell Dist. Width 13.3 % (11.5-14.5); White Blood Cell Count 10.3 10^3/uL (4.8-10.8)
[2024-06-16 07:47] LABS: Blood Urea Nitrogen 25 mg/dl (7-17); Calcium 8.4 mg/dl (8.4-10.2); Chloride 93 mmol/L (98-107); Estimated Creatinine Clearance 32 ml/min; Glucose 118 mg/dl (70-99); Potassium 4.7 mmol/L (3.5-5.1); Sodium 141 mmol/L (135-145); eGFR > 60.00
[2024-06-16 07:57] LABS: Carbon Dioxide 30 mmol/L (22-30)
[2024-06-16] MEDS: PULMICORT 0.5 MG INH ×2 (08:00→20:11)
[2024-06-16] MEDS: DUONEB 3 ML INH ×3 (08:00→20:11)
[2024-06-16 08:09] VITALS: BP 138/84
[2024-06-16] MEDS: BUMEX 1 MG PO (08:51)
[2024-06-16] MEDS: COLACE 100 MG PO (08:52)
[2024-06-16] MEDS: ELIQUIS 2.5 MG PO ×2 (08:52→20:28)
[2024-06-16] MEDS: LINZESS 145 MCG PO (08:52)
[2024-06-16] MEDS: LIDOCAINE 4% PATCH 1 PATCH TOPICAL (08:52)
[2024-06-16] MEDS: DETROL LA 2 MG PO (08:52)
[2024-06-16] MEDS: PACERONE 200 MG PO (08:53)
[2024-06-16] MEDS: VITAMIN B1 100 MG PO (08:53)
[2024-06-16] MEDS: VIBRAMYCIN 100 MG PO ×2 (08:53→20:29)
[2024-06-16] MEDS: TOPROL XL 25 MG PO ×2 (08:53→20:28)
[2024-06-16] MEDS: VITAMIN D3 (cholecalciferol) 25 MCG PO (08:53)
[2024-06-16] MEDS: SENOKOT 17.2 MG PO (08:53)
[2024-06-16] MEDS: DECADRON 4 MG IV (09:22)
[2024-06-16 10:14] LABS: Troponin I 0.021 ng/ml
[2024-06-16 11:10] VITALS: BP 127/67
[2024-06-16] MEDS: DUONEB INH (11:26)
--- NOTE | 2024-06-16 11:35 | W.PN.PUL3 ---
Today's Communication / Plan
-
SOB more than prior, agree with added diuresis
Follow UO, weights
L sided pain not improved per patient, local pain control
Encouraged OOB/PT/ambulation
If better by tomorrow, can refer back to [facility] rehab
Assessment
-
Patient is an 89-year-old female with previous history of A-fib, heart failure with preserved ejection fraction, COPD, bronchiectasis, prior PE presenting for acute onset left-sided chest pain. She notes that she has had pain with onset of
exertion, she had been sent over from rehab for pain. She has accompanying shortness of breath due to pain on deep inspiration. Denies any cough, chest tightness. She does have wheezing. She was started on Augmentin for suspected aspiration
pneumonia, there is note of increased lower extremity edema. Chest x-ray and CT scan obtained not indicating any acute left-sided pathology. She does have an elevated proBNP with negative troponins.
Acute hypoxic respiratory failure, O2 yolanda 85%
Acute L sided pleuritic pain
SOB
Acute on chronic HFpEF
Wheezing, possible AE COPD
Conditions [employer]:
Hospital admission for acute exacerbation of COPD 07/30/2023, 03/23/24
Afib/flutter, on apixaban
PPM
IBS
S/p partial colectomy in 2008 while living in [place]
Postop complicated by respiratory arrest after extubation
S/p BRAN 2012 at [facility]
Postop complicated by respiratory arrest after extubation, resulting in prolonged MV requiring tracheostomy
COPD/Bronchiectasis: on fluticasone/umeclidinium/vilanterol (trelegy). Not on home O2. Not on SABDs.
Abnormal chest CT 2020: significant BEs at RML and lingula, small patchy bilateral opacities
Reports has received up to 4 bronchoscopies over the years, reportedly not actionable results, denies MTB or NTM
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
Spirometry 12/10/2023: FEV1 0.66 L - 48%, FVC 0.95 L - 50%, FEV1/FVC 69% (severe obstruction)
Chronic cough
Allergic rhinitis.
History of pulmonary embolism-unprovoked per patient-on long-term anticoagulation
Former cigarette smoker quitting in 1980s /-1/2 pack for 30 years.
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
1.8 cm right ovarian lesion
Plan
At this time, patient has been placed on O2, yolanda 85%
Placed on supplemental O2, has not needed this at home
Prior 6MWT showing yolanda 90% on RA
She had been borderline on prior testing
Continue to wean oxygen as able to maintain SpO2 >88%
Wheezing is noted, she is treated with IV steroids for AE COPD
CT and CXR reviewed showing persistent bilateral TIB/mucus plugging but nothing to explain L sided chest pain
PE negative
proBNP 4860
She has history of HFpEF maintained on bumex at home
Agree with added diuresis
Severe COPD history
She typically will have 2-3 flares per year requiring prednisone, last hospitalization in Jul 2023 then 03/2024 for AECOPD
Resume home inhalers
Bronchiectasis history: She does have Acapella device and incentive spirometer at home. She is not interested in vest therapy.
Airway clearance resumed
Prior CT chest showing TIB findings.
Per records, patient has undergone multiple bronchoscopies, negative for BRITTNY.
Most recent sputum culture normal.
She had a repeat chest x-ray in past which shows persistent right middle lobe and lingular infiltrates. These findings were present on CT imaging in 2020.
[address] showing progression but no discreet consolidation
L sided pleuritic pain could be MSK in nature
Pain management
Neg trops on arrival, can repeat ECHO
Atrial fibrillation history, resume on home meds
Prior ECHO reviewed, stable function, trivial VHD, PH
Patient has chronic shortness of breath: Likely has component of deconditioning.
PT/OT --> pt at [facility], she would like to return [facility]
Patient is DNR status. Continue supportive care as above.
Outpatient pulmonary follow-up with Dr. Mariah Nielson after discharge.
Diagnostic Data
CXR 06/13/24- Small right basilar airspace opacity may represent aspiration/pneumonia.
CXR 03/19/24- Stable moderate right basilar pneumonia with small associated right pleural effusion
03/15/24- New focal region of patchy parenchymal opacity within the right lower lobe of the lung, which very likely represents pneumonia. Small right pleural effusion.
07/28/23- Severe chronic COPD and lung changes in the right middle lobe and lingula of the left upper lobe, seen on prior CT of the chest 2.5 years ago. No definite acute process. No definite pleural effusion or focal area of airspace process.
CT Chest 06/13/24- 1. No CTA evidence for an acute pulmonary thromboembolism.
2. Confluent airspace opacity in the right lower lobe with air bronchograms and a groundglass opacity in the left lower lobe, both considered suspicious for pneumonia.
3. Small right pleural effusion.
4. Significant bronchiectasis and peribronchial thickening of the right middle lobe and lingula.
5. Small centrilobular nodules throughout both lungs most suspicious for a chronic infectious or inflammatory bronchiolitis.
6. Subacute fracture of the anterior left fifth rib.
CT CAP 12/18/20- 1. Minimally displaced fracture of the left posterolateral 10th rib, with adjacent soft tissue swelling suggestive of acute fracture. No additional rib fractures are appreciated.
2. No pneumothorax or significant pleural effusion.
3. Significant bronchiectasis and interstitial thickening within the right middle lobe and lingular segment of the right upper lobe, suggestive of chronic indolent infection such as BRITTNY. Diffuse tree-in-bud opacities within both lungs, also
suggestive of indolent infection.
4. Calcified arterial plaque within the abdominal aorta. 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 Wide patency of the celiac axis and inferior mesenteric artery. Please correlate for
symptoms of chronic mesenteric ischemia.
5. 1.8 cm right ovarian lesion. Further evaluation is recommended with nonemergent pelvic ultrasound.
Abd US 03-22-2024:
1. Moderate diffuse liver disease (probably diffuse hepatic steatosis).
2. Gallbladder stones and sludge.
3. No sonographic evidence for biliary obstruction.
4. Severe calcific atherosclerotic plaque in the abdominal aorta.
5. Moderate chronic bilateral renal disease.
6. Small right pleural effusion.
ECHO 03/16/2024: Hyperdynamic left ventricular systolic function. LVEF 70 to 75%. Mild to moderate LVH. Normal biventricular size and function.
Mild MR. Mild TR. Pulmonary pressure 35-40 mmHg.
-----
Total time spent today was 50 minutes for this encounter. Time includes reviewing laboratory test/imaging results, reviewing pertinent medical records, obtaining and reviewing medical history, performing an appropriate exam, ordering medications,
tests and procedures. Time also includes documentation of this encounter, coordinating patient care and communicating with other healthcare professionals. Total time does not include separately billed tests performed on this date of service.
Subjective Data
-
Date of Service:
Date of Service: June 16, 2024
Chief Complaint: Pulmonary Follow Up
Subjective:
No new events, states her SOB had been increasing
Received extra 1 x dose of lasix
UO has been improving
Still notes L sided pain
Objective Data
Data Reviewed
Vital Signs / I&O / Oxygen:
Vital Signs
Temp Pulse Resp BP Pulse Ox
97.8 F 89 20 127/67 100
06/16/24 11:10 06/16/24 11:10 06/16/24 11:10 06/16/24 11:10 06/16/24 11:10
Intake and Output
06/15/24 06/16/24 06/17/24
06:59 06:59 06:59
Intake Total 960 / 960 1680 / 1680
Balance 960 / 960 1680 / 1680
SaO2 100
Nasal Cannula flow liters per 3
minute
Physical Exam
General: Comfortable and Other (NAD)
HEENT: Normocephalic, Anicteric and Moist Mucous Membranes
Cardiovascular: S1-S2 and Regular Rhythm
Respiratory: Crackles and Non-Labored Respirations
GI: Soft, Non Distended and Non Tender
Neurology: Awake, Alert, Oriented and No Motor Deficits
Skin: Warm, Dry and Good Color
Labs/Micro/Reports
Lab Data
06/16/24 06:07
06/16/24 06:07
Microbiology
06/13/24 16:24 Sputum Respiratory Culture - Final
Pseudomonas aeruginosa
06/13/24 16:24 Sputum Gram Stain - Final
06/13/24 18:58 Nose MRSA Screen - Final
No Methicillin Resistant Staphylococcus aureus isolated.
--- NOTE | 2024-06-16 15:14 | CM ---
Chart reviewed and waiting on PT/OT evaluations plan is for skilled placement per son, Leon. Patient's son has selected [facility], referral sent to [facility] for skilled placement.
Plan; Waiting on a determination from admissions at [facility].
[2024-06-16 15:19] LABS: Troponin I 0.025 ng/ml
[2024-06-16 15:37] VITALS: BP 122/70
--- NOTE | 2024-06-16 16:29 | PTCARENOTE ---
When the student nurse charted this patient's POX, she charted that patient was on room air. Pt has not been on room air but has had the O2 decreased throughout the shift and now is on 1.5L of O2 and POX is 97%.
--- NOTE | 2024-06-16 17:59 | W.PN.HOSP.TC ---
Today's Communication/Plan
-
Continue prednisone
Was more SOB this morning, but echo without significant change, no concern for ACS
Continue to monitor, anticipate discharge to SNF in the next 24 to 48 hours
Assessment / Plan
Assessment / Plan
Physical Exam
General: Well Developed, Well Nourished and No Apparent Distress
HEENT: Normocephalic, Moist mucous membranes and Atraumatic
Respiratory: Wheezes and Rhonchi
Cardiac: S1/S2 and Regular Rhythm
GI: Soft, Non Tender, Non Distended and Normal Bowel Sounds
Musculoskeletal: No Cyanosis and No Edema
Skin: Warm. Dry.
Neuro: Nonfocal/grossly intact

CT Chest Results (as per radiologist's report)
'IMPRESSION:
1. No CTA evidence for an acute pulmonary thromboembolism.
2. Confluent airspace opacity in the right lower lobe with air bronchograms and a groundglass opacity in the left lower lobe, both considered suspicious for pneumonia.
3. Small right pleural effusion.
4. Significant bronchiectasis and peribronchial thickening of the right middle lobe and lingula.
5. Small centrilobular nodules throughout both lungs most suspicious for a chronic infectious or inflammatory bronchiolitis.
6. Subacute fracture of the anterior left fifth rib.'
Chest X-Ray -- from 06/13/24 -- Results (as per radiologist's report)
'IMPRESSION:
Slight interval increase in right basilar airspace opacities which may represent worsening pneumonia/pneumonitis versus atelectasis. Stable small right pleural effusion. Left basilar airspace opacities are unchanged. No new focal consolidation.'
Echocardiogram (as per websphere commerce developer's report)
'CONCLUSIONS
Normal left ventricular size, wall thickness and systolic function. No regional
wall motion abnormalities are seen. LV ejection fraction is 57% by volumetric
assessment. Diastolic function indeterminate due to atrial fibrillation.
Mitral annular calcification. Thickened mitral valve leaflets. Mitral valve
opens normally. Mild mitral regurgitation.
Indexed LA volume is mildly abnormal (35-41 mL/m2).
Aortic annular calcification. Trileaflet aortic valve. Thickened aortic valve
with normal leaflet excursion. Trace aortic regurgitation.
Tricuspid valve opens normally. Mild tricuspid regurgitation. Estimated
pulmonary artery pressure of 37 mmHg, assuming a right atrial pressure of 3
mmHg.
Mildly dilated right atrium.
Since echocardiogram February 2024, there is no significant change.'

Assessment/Plan
89-year-old female history of paroxysmal atrial fibrillation, chronic HFrEF, COPD, bronchiectasis, prior PE on Eliquis here for chest pain/shortness of breath secondary to right basilar aspiration pneumonia and COPD exacerbation. Chest pain does
not correlate to location of pneumonia. Check CT PE. Unasyn/Doxy, sputum culture, dexamethasone/DuoNebs, speech and swallow
# Multifactorial dyspnea secondary to right basilar aspiration pneumonia/COPD exacerbation
# Concern for Chronic hypoxic respiratory failure
-See individually below
-Chest pain on the left does not correlate with location of aspiration pneumonia, will check CT PE to rule out pulmonary embolism given history
# Right basilar aspiration pneumonia
-Check sputum culture
-Given Vanco and cefepime in ER, changed to Unasyn/doxycycline
-Check speech and swallow: per speech pathologist: '.......I attempted to see [phone] Mary Lou Ward for Swallow Evaluation. Patient adamantly refused ST services; Reported this is the 4th [address] has attempted to see her and she has refused each
time, stating she does not have trouble swallowing. She endorsed choking on a pill prior to admission, which I discussed is considered dysphagia. I educated her on her diagnosis of aspiration pneumonia being related to dysphagia. Patient continued
to refuse. Please let me know if you have questions, thank you'
-ProBNP elevated, but echo without significant change
# Acute COPD exacerbation
# Chronic bronchiectasis
# Acute hypoxic respiratory failure
-Status post Dexamethasone 4 mg every 12
-Now on prednisone (at home takes 30 mg of PO Prednisone daily)
-DuoNebs every 6 hours
-Guaifenesin
-Continue budesonide
-Pulmonary consulted, appreciate evaluation and recommendations
Paroxysmal atrial fibrillation with pacemaker
-Continue amiodarone
-Continue Eliquis
-Continue metoprolol
Chronic HFpEF
-Cardiac BNP of 4800 but not overtly in heart failure
-Continue Bumex
History of pulmonary embolism
-Continue Eliquis
Daily alcohol use
Hypothyroidism
-Continue levothyroxine
Calcified arterial plaque within abdominal aorta
Chronic right shoulder/right hip pain
Opioid Use
-Continue oxycodone, gabapentin
Superior mesenteric artery occlusion
Right ovarian lesion
History of partial colectomy in 2008
Former smoker
Constipation
-Continue Linzess
DNR/DNI
DVT prophylaxis�Eliquis
Cardiac diet
Anticipated Discharge: 24 - 48 hours
Subjective/Interval History
-
Date of Service: June 16, 2024
Patient was seen and examined. She was somewhat more short of breath this morning.
Objective Data
-
Labs:
Laboratory Results
06/16/24
06:07
WBC 10.3
Hgb 10.1 L
Hct 32.6 L
Plt Count 265
Sodium 141
Potassium 4.7
Chloride 93 L
Carbon Dioxide 30
BUN 25 H
Creatinine 0.9
Glucose 118 H
Calcium 8.4
Vital Signs:
Vital Signs
Temp Pulse Resp BP Pulse Ox
97.5 F 80 20 122/70 97
06/16/24 15:37 06/16/24 15:37 06/16/24 15:37 06/16/24 15:37 06/16/24 16:22
I&O
06/15/24 06/16/24 06/17/24
06:59 06:59 06:59
Intake Total 960 / 960 1680 / 1680
Balance 960 / 960 1680 / 1680
[2024-06-16 19:23] VITALS: BP 110/86
[2024-06-16] MEDS: COLACE PO (20:04)
[2024-06-16 20:44] LABS: Troponin I 0.027 ng/ml
[2024-06-16] MEDS: SKELAXIN 800 MG PO (21:58)
[2024-06-16] MEDS: TYLENOL PO (21:58)
[2024-06-16] MEDS: NEURONTIN 600 MG PO (21:58)
[2024-06-16 23:31] VITALS: BP 143/77
[2024-06-17] VITALS (8 sets, daily range): BP systolic 104–177; BP diastolic 55–90; PULSE 81–85; O2SAT 80–96; BMI 24.2
[2024-06-17] MEDS: UNASYN IV ×4 (00:19→19:31)
[2024-06-17] MEDS: ROXICODONE 5 MG PO ×3 (00:19→08:47)
[2024-06-17 03:05] LABS: Troponin I 0.027 ng/ml
[2024-06-17] MEDS: SYNTHROID 50 MCG PO (04:31)
[2024-06-17] MEDS: DUONEB 3 ML INH ×3 (07:36→15:07)
[2024-06-17] MEDS: PULMICORT 0.5 MG INH (07:36)
[2024-06-17 07:38] LABS: % Basophils 0.3 % (0-2); % Eosinophils 0.2 % (0-6); % Immature Granulocytes 3.6 % (0-0.5); % Lymphocytes 13.4 % (20.5-51.1); % Monocytes 10.3 % (1.7-9.3); % Neutrophils 72.2 % (42.2-75.2); Absolute Immature Granulocytes 0.4 10^3/uL (0-0.05); Absolute Lymphocytes 1.5 10^3/uL (1.2-3.4); Absolute Monocytes 1.2 10^3/uL (0.1-0.6); Absolute Neutrophils 8.3 10^3/uL (1.4-6.5); Hematocrit 34.7 % (37.0-47.0); Mean Corp Hgb Conc. 31.7 g/dL (33.0-37.0); Mean Corpuscular Hgb 32.3 pg (27.0-31.0); Mean Corpuscular Volume 101.8 fL (81.0-99.0); Mean Platelet Volume 9.3 fL (7.4-10.4); Nucleated Red Blood Cells % 0 %; Platelet Count 283 10^3/uL (130-400); Red Blood Cell Count 3.41 10^6/uL (4.20-5.40); Red Cell Dist. Width 13.2 % (11.5-14.5); White Blood Cell Count 11.4 10^3/uL (4.8-10.8)
[2024-06-17 08:23] LABS: Blood Urea Nitrogen 28 mg/dl (7-17); Calcium 8.7 mg/dl (8.4-10.2); Chloride 92 mmol/L (98-107); Estimated Creatinine Clearance 26 ml/min; Glucose 73 mg/dl (70-99); Sodium 140 mmol/L (135-145); eGFR 48.03
[2024-06-17] MEDS: LIDOCAINE 4% PATCH 1 PATCH TOPICAL (08:42)
[2024-06-17] MEDS: VIBRAMYCIN 100 MG PO (08:45)
[2024-06-17] MEDS: COLACE 100 MG PO (08:45)
[2024-06-17] MEDS: VITAMIN D3 (cholecalciferol) 25 MCG PO (08:45)
[2024-06-17] MEDS: LINZESS 145 MCG PO (08:45)
[2024-06-17] MEDS: SENOKOT 17.2 MG PO (08:46)
[2024-06-17] MEDS: TOPROL XL 25 MG PO (08:46)
[2024-06-17] MEDS: DELTASONE 40 MG PO (08:47)
[2024-06-17] MEDS: BUMEX 1 MG PO (08:47)
[2024-06-17] MEDS: PACERONE 200 MG PO (08:47)
[2024-06-17] MEDS: ELIQUIS 2.5 MG PO (08:47)
[2024-06-17] MEDS: DETROL LA 2 MG PO (08:47)
[2024-06-17] MEDS: VITAMIN B1 100 MG PO (08:48)
[2024-06-17 08:56] LABS: Carbon Dioxide 38 mmol/L (22-30)
--- NOTE | 2024-06-17 11:02 | W.PN.HOSP.TC ---
Addendum entered and electronically signed by Jadon Palomares MD 06/17/24 16:52:
Given that fluoroquinolones have an interaction with patient's Amiodarone, have not given patient any fluoroquinolone.
Original Note:
Today's Communication/Plan
-
Discharge today
Assessment / Plan
Assessment / Plan
Physical Exam
General: Not in Acute Distress
HEENT: Normocephalic, Moist mucous membranes and Atraumatic
Respiratory: Wheezes and Rhonchi - IMPROVED
Cardiac: S1/S2 and Regular Rhythm
GI: Soft, Non Tender, Non Distended and Normal Bowel Sounds
Musculoskeletal: No Cyanosis and No Edema
Skin: Warm. Dry.
Neuro: Nonfocal/grossly intact

CT Chest Results (as per radiologist's report)
'IMPRESSION:
1. No CTA evidence for an acute pulmonary thromboembolism.
2. Confluent airspace opacity in the right lower lobe with air bronchograms and a groundglass opacity in the left lower lobe, both considered suspicious for pneumonia.
3. Small right pleural effusion.
4. Significant bronchiectasis and peribronchial thickening of the right middle lobe and lingula.
5. Small centrilobular nodules throughout both lungs most suspicious for a chronic infectious or inflammatory bronchiolitis.
6. Subacute fracture of the anterior left fifth rib.'
Chest X-Ray -- from 06/13/24 -- Results (as per radiologist's report)
'IMPRESSION:
Slight interval increase in right basilar airspace opacities which may represent worsening pneumonia/pneumonitis versus atelectasis. Stable small right pleural effusion. Left basilar airspace opacities are unchanged. No new focal consolidation.'
Echocardiogram (as per punch finisher's report)
'CONCLUSIONS
Normal left ventricular size, wall thickness and systolic function. No regional
wall motion abnormalities are seen. LV ejection fraction is 57% by volumetric
assessment. Diastolic function indeterminate due to atrial fibrillation.
Mitral annular calcification. Thickened mitral valve leaflets. Mitral valve
opens normally. Mild mitral regurgitation.
Indexed LA volume is mildly abnormal (35-41 mL/m2).
Aortic annular calcification. Trileaflet aortic valve. Thickened aortic valve
with normal leaflet excursion. Trace aortic regurgitation.
Tricuspid valve opens normally. Mild tricuspid regurgitation. Estimated
pulmonary artery pressure of 37 mmHg, assuming a right atrial pressure of 3
mmHg.
Mildly dilated right atrium.
Since echocardiogram February 2024, there is no significant change.'

Assessment/Plan
89-year-old female history of paroxysmal atrial fibrillation, chronic HFrEF, COPD, bronchiectasis, prior PE on Eliquis here for chest pain/shortness of breath secondary to right basilar aspiration pneumonia and COPD exacerbation. Chest pain does
not correlate to location of pneumonia. Check CT PE. Unasyn/Doxy, sputum culture, dexamethasone/DuoNebs, speech and swallow
# Multifactorial dyspnea secondary to right basilar aspiration pneumonia
#Acute Left-Sided Pleuritic Chest Pain
# Concern for Chronic hypoxic respiratory failure
-See individually below
-Chest pain on the left does not correlate with location of aspiration pneumonia, will check CT PE to rule out pulmonary embolism given history
# Right basilar aspiration pneumonia
#Pseudomonas growth in sputum culture
-Checked sputum culture as above
-Given Vanco and cefepime in ER, changed to Unasyn/doxycycline
-Discussed on 06/17/24 case with clinical pharmacist regarding patient Pseudomonas in the sputum culture, and after discussion it was decided patient can be discharged on Levofloxacin 750 mg Q48H
(given her CrCl of 26) for another 6 days (total of 3 doses)
-Check speech and swallow: per speech pathologist: '.......I attempted to see [phone] Mary Lou Ward for Swallow Evaluation. Patient adamantly refused ST services; Reported this is the 4th [address] has attempted to see her and she has refused each
time, stating she does not have trouble swallowing. She endorsed choking on a pill prior to admission, which I discussed is considered dysphagia. I educated her on her diagnosis of aspiration pneumonia being related to dysphagia. Patient continued
to refuse. Please let me know if you have questions, thank you'
-ProBNP elevated, but echo without significant change
# Wheezing, Possible Acute COPD exacerbation
# Chronic bronchiectasis
# Acute hypoxic respiratory failure
-Status post Dexamethasone 4 mg every 12
-Now on prednisone 40 mg: do prednisone tapering Q3 days until the prednisone is stopped
-DuoNebs every 6 hours
-Guaifenesin
-Continue budesonide
-Pulmonary consulted, appreciate evaluation and recommendations
-Maintain oxygen saturation at least 89% or above
-Follow-up with Dr. Lemus after discharge
#Dizziness on 06/17/24 morning - RESOLVED
-Zofran given for nausea
-Possibly from taking oxycodone on an empty stomach or higher than usual blood pressure, this morning SBP was in the 170s
-Monitor blood pressure -- IMPROVED
Paroxysmal atrial fibrillation with pacemaker
-Continue amiodarone
-Continue Eliquis
-Continue metoprolol
Chronic HFpEF
-Cardiac BNP of 4800 but not overtly in heart failure
-Continue Bumex
History of pulmonary embolism
-Continue Eliquis
Daily alcohol use
Hypothyroidism
-Continue levothyroxine
Calcified arterial plaque within abdominal aorta
Chronic right shoulder/right hip pain
Opioid Use
-Continue oxycodone, gabapentin
Superior mesenteric artery occlusion
Right ovarian lesion
History of partial colectomy in 2008
Former smoker
Constipation
-Continue Linzess
History of pulmonary embolism
Former cigarette smoker quitting in 1980s 1/4-1/2 pack for 30 years.
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
DNR/DNI
DVT prophylaxis�Eliquis
Cardiac diet
I called and spoke to patient's daughter today. All questions and concerns were answered to satisfaction.
More than 30 minutes spent in discharge including
Final examination of the patient
Summarizing hospital stay
Instructions for continuing care to all relevant caregivers
Preparation of discharge records, prescriptions, and referral forms
Total time spent (in minutes): 45
Anticipated Discharge: Today
Subjective/Interval History
-
Date of Service: June 17, 2024
Patient was seen and examined. She reported room-spinning dizziness this morning and was unable to participate in physical or occupational therapy.
Objective Data
-
Labs:
Laboratory Results
06/17/24
06:11
WBC 11.4 H
Hgb 11.0 L
Hct 34.7 L
Plt Count 283
Sodium 140
Potassium 4.0
Chloride 92 L
Carbon Dioxide 38 H
BUN 28 H
Creatinine 1.1 H
Glucose 73
Calcium 8.7
Vital Signs:
Vital Signs
Temp Pulse Resp BP Pulse Ox
97.6 F 85 22 177/90 96
06/17/24 08:24 06/17/24 08:24 06/17/24 08:24 06/17/24 08:46 06/17/24 08:24
I&O
06/16/24 06/17/24 06/18/24
06:59 06:59 06:59
Intake Total 1680 / 1680 840 / 840
Balance 1680 / 1680 840 / 840
--- NOTE | 2024-06-17 11:20 | W.PN.PUL3 ---
Today's Communication / Plan
-
Doing better in terms of SOB, ongoing diuresis
Transition IV steroids to PO taper
Encouraged OOB/PT
Pain control for L sided pain, can try 1 time dose of ibuprofen
Otherwise, ok for discharge to rehab per team
Outpatient FU recommended
Assessment
-
Patient is an 89-year-old female with previous history of A-fib, heart failure with preserved ejection fraction, COPD, bronchiectasis, prior PE presenting for acute onset left-sided chest pain. She notes that she has had pain with onset of
exertion, she had been sent over from rehab for pain. She has accompanying shortness of breath due to pain on deep inspiration. Denies any cough, chest tightness. She does have wheezing. She was started on Augmentin for suspected aspiration
pneumonia, there is note of increased lower extremity edema. Chest x-ray and CT scan obtained not indicating any acute left-sided pathology. She does have an elevated proBNP with negative troponins.
Acute hypoxic respiratory failure, O2 yolanda 85%
Acute L sided pleuritic pain
SOB
Acute on chronic HFpEF
Wheezing, possible AE COPD
Conditions G[employer] MAIN [employer]:
Hospital admission for acute exacerbation of COPD 07/30/2023, 03/23/24
Afib/flutter, on apixaban
PPM
IBS
S/p partial colectomy in 2008 while living in [place]
Postop complicated by respiratory arrest after extubation
S/p BRAN 2012 at [facility]
Postop complicated by respiratory arrest after extubation, resulting in prolonged MV requiring tracheostomy
COPD/Bronchiectasis: on fluticasone/umeclidinium/vilanterol (trelegy). Not on home O2. Not on SABDs.
Abnormal chest CT 2020: significant BEs at RML and lingula, small patchy bilateral opacities
Reports has received up to 4 bronchoscopies over the years, reportedly not actionable results, denies MTB or NTM
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
Spirometry 12/10/2023: FEV1 0.66 L - 48%, FVC 0.95 L - 50%, FEV1/FVC 69% (severe obstruction)
Chronic cough
Allergic rhinitis.
History of pulmonary embolism-unprovoked per patient-on long-term anticoagulation
Former cigarette smoker quitting in 1980s /-1/2 pack for 30 years.
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
1.8 cm right ovarian lesion
Plan
At this time, patient has been placed on O2, yolanda 85%
Placed on supplemental O2, has not needed this at home
Prior 6MWT showing yolanda 90% on RA
She had been borderline on prior testing
Continue to wean oxygen as able to maintain SpO2 >88%
Needing 2L with exertion, can arrange for rehab
Wheezing is noted, she is treated with IV steroids for AE COPD, transition to PO taper
CT and CXR reviewed showing persistent bilateral TIB/mucus plugging but nothing to explain L sided chest pain
PE negative
proBNP 4860
She has history of HFpEF maintained on bumex at home
Agree with added diuresis
Severe COPD history
She typically will have 2-3 flares per year requiring prednisone, last hospitalization in Jul 2023 then 03/2024 for AECOPD
Resume home inhalers
Bronchiectasis history: She does have Acapella device and incentive spirometer at home. She is not interested in vest therapy.
Airway clearance resumed
Prior CT chest showing TIB findings.
Per records, patient has undergone multiple bronchoscopies, negative for BRITTNY.
Most recent sputum culture normal.
She had a repeat chest x-ray in past which shows persistent right middle lobe and lingular infiltrates. These findings were present on CT imaging in 2020.
[address] showing progression but no discreet consolidation
L sided pleuritic pain could be MSK in nature
Pain management
Neg trops on arrival
Atrial fibrillation history, resume on home meds
Prior ECHO reviewed, stable function, trivial VHD, PH
Patient has chronic shortness of breath: Likely has component of deconditioning.
PT/OT --> pt at [facility], she would like to return [facility]
Patient is DNR status. Continue supportive care as above.
Outpatient pulmonary follow-up with Dr. Mariah Nielson after discharge.
Diagnostic Data
CXR 06/13/24- Small right basilar airspace opacity may represent aspiration/pneumonia.
CXR 03/19/24- Stable moderate right basilar pneumonia with small associated right pleural effusion
03/15/24- New focal region of patchy parenchymal opacity within the right lower lobe of the lung, which very likely represents pneumonia. Small right pleural effusion.
07/28/23- Severe chronic COPD and lung changes in the right middle lobe and lingula of the left upper lobe, seen on prior CT of the chest 2.5 years ago. No definite acute process. No definite pleural effusion or focal area of airspace process.
CT Chest 06/13/24- 1. No CTA evidence for an acute pulmonary thromboembolism.
2. Confluent airspace opacity in the right lower lobe with air bronchograms and a groundglass opacity in the left lower lobe, both considered suspicious for pneumonia.
3. Small right pleural effusion.
4. Significant bronchiectasis and peribronchial thickening of the right middle lobe and lingula.
5. Small centrilobular nodules throughout both lungs most suspicious for a chronic infectious or inflammatory bronchiolitis.
6. Subacute fracture of the anterior left fifth rib.
CT CAP 12/18/20- 1. Minimally displaced fracture of the left posterolateral 10th rib, with adjacent soft tissue swelling suggestive of acute fracture. No additional rib fractures are appreciated.
2. No pneumothorax or significant pleural effusion.
3. Significant bronchiectasis and interstitial thickening within the right middle lobe and lingular segment of the right upper lobe, suggestive of chronic indolent infection such as BRITTNY. Diffuse tree-in-bud opacities within both lungs, also
suggestive of indolent infection.
4. Calcified arterial plaque within the abdominal aorta. 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 Wide patency of the celiac axis and inferior mesenteric artery. Please correlate for
symptoms of chronic mesenteric ischemia.
5. 1.8 cm right ovarian lesion. Further evaluation is recommended with nonemergent pelvic ultrasound.
Abd US 03-22-2024:
1. Moderate diffuse liver disease (probably diffuse hepatic steatosis).
2. Gallbladder stones and sludge.
3. No sonographic evidence for biliary obstruction.
4. Severe calcific atherosclerotic plaque in the abdominal aorta.
5. Moderate chronic bilateral renal disease.
6. Small right pleural effusion.
ECHO 03/16/2024: Hyperdynamic left ventricular systolic function. LVEF 70 to 75%. Mild to moderate LVH. Normal biventricular size and function.
Mild MR. Mild TR. Pulmonary pressure 35-40 mmHg.
-----
Total time spent today was 50 minutes for this encounter. Time includes reviewing laboratory test/imaging results, reviewing pertinent medical records, obtaining and reviewing medical history, performing an appropriate exam, ordering medications,
tests and procedures. Time also includes documentation of this encounter, coordinating patient care and communicating with other healthcare professionals. Total time does not include separately billed tests performed on this date of service.
Subjective Data
-
Date of Service:
Date of Service: June 17, 2024
Chief Complaint: Pulmonary Follow Up
Subjective:
Doing well, no acute events ON
Still with L sided pain but tolerating it
Objective Data
Data Reviewed
Vital Signs / I&O / Oxygen:
Vital Signs
Temp Pulse Resp BP Pulse Ox
97.6 F 85 22 177/90 92
06/17/24 08:24 06/17/24 08:24 06/17/24 08:24 06/17/24 08:46 06/17/24 11:19
Intake and Output
06/16/24 06/17/24 06/18/24
06:59 06:59 06:59
Intake Total 1680 / 1680 840 / 840
Balance 1680 / 1680 840 / 840
SaO2 92
Nasal Cannula flow liters per 2
minute
Physical Exam
General: Comfortable and Other (NAD)
HEENT: Normocephalic, Anicteric and Moist Mucous Membranes
Cardiovascular: S1-S2 and Regular Rhythm
Respiratory: Crackles and Non-Labored Respirations
GI: Soft, Non Distended and Non Tender
Neurology: Awake, Alert, Oriented and No Motor Deficits
Skin: Warm, Dry and Good Color
Labs/Micro/Reports
Lab Data
06/17/24 06:11
06/17/24 06:11
Microbiology
06/13/24 16:24 Sputum Respiratory Culture - Final
Pseudomonas aeruginosa
06/13/24 16:24 Sputum Gram Stain - Final
06/13/24 18:58 Nose MRSA Screen - Final
No Methicillin Resistant Staphylococcus aureus isolated.
[2024-06-17] MEDS: ZOFRAN 4 MG IV (12:09)
[2024-06-17] MEDS: MOTRIN 200 MG PO (16:07)
--- NOTE | 2024-06-17 16:13 | CM ---
Patient from [facility] with Dx aspiration pneumonia/COPD exacerbation. O2 2L. PT/OT recommend skilled rehab.
Spoke with Jacquelyn, s [facility]; they are able to accept the patient today. The phone for report is [phone], fax [phone].
Met with patient and spoke with daughter Pilar; both agree to d/c today to [facility] by ambulance. IMM completed.
Plan [facility] today by ambulance.
--- NOTE | 2024-06-17 19:41 | PTCARENOTE ---
writing a note for [facility] who did not answer for report, I called them two times and no answer.
--- NOTE | 2024-06-17 21:52 | PTCARENOTE ---
Addendum entered by Edith Landry RN 06/17/24 22:08:
correction to previous note: Patient transferred at 19:40
Original Note:
Patient being transferred to [place] [facility] via [facility] care ambulance at 21:40. [address] at 2 liters. Vitals obtained prior to d/c and stable. Patient belongings taken with daughter. IV removed prior.
== END 2024-06-17 19:42 | DRG 177 ==
LOC: 4 WEST ACU 14:57
PROVIDERS: Physician Assistant Medical; ADMITTING PHYSICIAN Hospitalist; ATTENDING PHYSICIAN Hospitalist; EMERGENCY PHYSICIAN Emergency Medicine; FAMILY PHYSICIAN Family Medicine; OTHER PHYSICIAN Internal Medicine
DX: J69.0 Pneumonitis due to inhalation of food and vomit (principal); I50.33 Acute on chronic diastolic (congestive) heart failure; J96.01 Acute respiratory failure with hypoxia; K55.069 Acute infarction of intestine, part and extent unspecified; J44.1 Chronic obstructive pulmonary disease with (acute) exacerbation; Z87.891 Personal history of nicotine dependence; I48.0 Paroxysmal atrial fibrillation; E03.9 Hypothyroidism, unspecified; Z66 Do not resuscitate; F11.90 Opioid use, unspecified, uncomplicated
CPT/HCPCS: 93308; 71045; 71046; 71275; 80048; 80053; 82805; 83605; 83880; 84484; 85025; 87070; 87077; 87186; 87205; 93005; 93321; 93325; 94640; 94761; 96374; 97161; 97166; 99285; Q9967

== ENCOUNTER → 2024-06-18 09:15 | Outpatient (REF) | payer OTHER, MEDICARE, SELFPAY ==
[2024-06-18 10:03] LABS: % Basophils 0.3 % (0-2); % Eosinophils 0.4 % (0-6); % Immature Granulocytes 2.4 % (0-0.5); % Lymphocytes 16.5 % (20.5-51.1); % Monocytes 8.9 % (1.7-9.3); % Neutrophils 71.5 % (42.2-75.2); Absolute Eosinophils 0.1 10^3/uL (0-0.7); Absolute Immature Granulocytes 0.3 10^3/uL (0-0.05); Absolute Monocytes 1.1 10^3/uL (0.1-0.6); Absolute Neutrophils 8.6 10^3/uL (1.4-6.5); Hematocrit 32.3 % (37.0-47.0); Hemoglobin 10.4 g/dL (12.0-16.0); Mean Corp Hgb Conc. 32.2 g/dL (33.0-37.0); Mean Corpuscular Hgb 32.4 pg (27.0-31.0); Mean Corpuscular Volume 100.6 fL (81.0-99.0); Mean Platelet Volume 9.5 fL (7.4-10.4); Nucleated Red Blood Cells % 0 %; Platelet Count 273 10^3/uL (130-400); Red Blood Cell Count 3.21 10^6/uL (4.20-5.40); Red Cell Dist. Width 13.2 % (11.5-14.5)
[2024-06-18 10:26] LABS: ALT (SGPT) 17 U/L (0-35); AST (SGOT) 21 U/L (14-36); Alkaline Phosphatase 76 U/L (38-126); Blood Urea Nitrogen 29 mg/dl (7-17); Calcium 8.6 mg/dl (8.4-10.2); Carbon Dioxide 40 mmol/L (22-30); Chloride 93 mmol/L (98-107); Glucose 72 mg/dl (70-99); Magnesium 1.7 mg/dl (1.6-2.3); Potassium 3.6 mmol/L (3.5-5.1); Sodium 140 mmol/L (135-145); Total Bilirubin 0.4 mg/dl (0.2-1.3); Total Protein 5.4 g/dl (6.3-8.2); eGFR 48.03
== END ==
LOC: OLABP 09:15
PROVIDERS: ATTENDING PHYSICIAN Family Medicine
DX: I50.30 Unspecified diastolic (congestive) heart failure (principal); I48.0 Paroxysmal atrial fibrillation; I50.32 Chronic diastolic (congestive) heart failure; J44.1 Chronic obstructive pulmonary disease with (acute) exacerbation; Z95.0 Presence of cardiac pacemaker; K76.89 Other specified diseases of liver; J47.9 Bronchiectasis, uncomplicated; N28.9 Disorder of kidney and ureter, unspecified; E87.5 Hyperkalemia; J96.10 Chronic respiratory failure, unspecified whether with hypoxia or hypercapnia
CPT/HCPCS: 36415; 80053; 83735; 85025

== ENCOUNTER → 2024-06-25 09:50 | Outpatient (REF) | payer OTHER, MEDICARE, SELFPAY ==
[2024-06-25 10:57] LABS: % Basophils 0.1 % (0-2); % Eosinophils 1.4 % (0-6); % Immature Granulocytes 3.2 % (0-0.5); % Lymphocytes 25.6 % (20.5-51.1); % Monocytes 8.8 % (1.7-9.3); % Neutrophils 60.9 % (42.2-75.2); Absolute Eosinophils 0.2 10^3/uL (0-0.7); Absolute Immature Granulocytes 0.4 10^3/uL (0-0.05); Hematocrit 32.7 % (37.0-47.0); Hemoglobin 10.1 g/dL (12.0-16.0); Mean Corp Hgb Conc. 30.9 g/dL (33.0-37.0); Mean Corpuscular Hgb 31.2 pg (27.0-31.0); Mean Corpuscular Volume 100.9 fL (81.0-99.0); Mean Platelet Volume 9.8 fL (7.4-10.4); Nucleated Red Blood Cells % 0 %; Platelet Count 307 10^3/uL (130-400); Red Blood Cell Count 3.24 10^6/uL (4.20-5.40); Red Cell Dist. Width 13.2 % (11.5-14.5); White Blood Cell Count 11.6 10^3/uL (4.8-10.8)
[2024-06-25 11:14] LABS: ALT (SGPT) 24 U/L (0-35); AST (SGOT) 29 U/L (14-36); Albumin 2.7 g/dl (3.5-5.0); Alkaline Phosphatase 103 U/L (38-126); Blood Urea Nitrogen 26 mg/dl (7-17); Calcium 8.4 mg/dl (8.4-10.2); Carbon Dioxide 39 mmol/L (22-30); Chloride 97 mmol/L (98-107); Glucose 64 mg/dl (70-99); Potassium 3.6 mmol/L (3.5-5.1); Sodium 142 mmol/L (135-145); Total Bilirubin 0.2 mg/dl (0.2-1.3); Total Protein 5.1 g/dl (6.3-8.2); eGFR 43.27
== END ==
LOC: OLABP 09:50
PROVIDERS: ATTENDING PHYSICIAN Family Medicine
DX: I50.30 Unspecified diastolic (congestive) heart failure (principal); D62 Acute posthemorrhagic anemia; I48.0 Paroxysmal atrial fibrillation; I50.32 Chronic diastolic (congestive) heart failure; J44.1 Chronic obstructive pulmonary disease with (acute) exacerbation; Z95.0 Presence of cardiac pacemaker; K76.89 Other specified diseases of liver; J47.9 Bronchiectasis, uncomplicated; N28.9 Disorder of kidney and ureter, unspecified; E87.5 Hyperkalemia; J96.10 Chronic respiratory failure, unspecified whether with hypoxia or hypercapnia
CPT/HCPCS: 36415; 80053; 85025

== ENCOUNTER → 2024-06-29 12:09 | Outpatient (REF) | payer OTHER, MEDICARE, SELFPAY ==
[2024-06-29 13:18] LABS: % Basophils 0.4 % (0-2); % Eosinophils 2.3 % (0-6); % Immature Granulocytes 1.7 % (0-0.5); % Lymphocytes 19.5 % (20.5-51.1); % Monocytes 8.2 % (1.7-9.3); % Neutrophils 67.9 % (42.2-75.2); Absolute Eosinophils 0.2 10^3/uL (0-0.7); Absolute Immature Granulocytes 0.2 10^3/uL (0-0.05); Absolute Lymphocytes 1.9 10^3/uL (1.2-3.4); Absolute Monocytes 0.8 10^3/uL (0.1-0.6); Absolute Neutrophils 6.7 10^3/uL (1.4-6.5); Hematocrit 32.3 % (37.0-47.0); Mean Corpuscular Hgb 32.8 pg (27.0-31.0); Mean Corpuscular Volume 105.9 fL (81.0-99.0); Mean Platelet Volume 9.7 fL (7.4-10.4); Nucleated Red Blood Cells % 0 %; Platelet Count 284 10^3/uL (130-400); Red Blood Cell Count 3.05 10^6/uL (4.20-5.40); Red Cell Dist. Width 13.3 % (11.5-14.5); White Blood Cell Count 9.9 10^3/uL (4.8-10.8)
[2024-06-29 13:50] LABS: Blood Urea Nitrogen 15 mg/dl (7-17); Calcium 8.6 mg/dl (8.4-10.2); Carbon Dioxide 36 mmol/L (22-30); Chloride 99 mmol/L (98-107); Glucose 70 mg/dl (70-99); Potassium 4.7 mmol/L (3.5-5.1); Sodium 141 mmol/L (135-145); eGFR 53.85
== END ==
LOC: OLABP 12:09
PROVIDERS: ATTENDING PHYSICIAN Family Medicine
DX: I50.30 Unspecified diastolic (congestive) heart failure (principal); D62 Acute posthemorrhagic anemia; I48.0 Paroxysmal atrial fibrillation; I50.32 Chronic diastolic (congestive) heart failure; J44.1 Chronic obstructive pulmonary disease with (acute) exacerbation; Z95.0 Presence of cardiac pacemaker; K76.89 Other specified diseases of liver; J47.9 Bronchiectasis, uncomplicated; N28.9 Disorder of kidney and ureter, unspecified; E87.5 Hyperkalemia
CPT/HCPCS: 36415; 80048; 85025

== ENCOUNTER 2024-08-19 08:00 | Inpatient (IN) | payer MEDICARE, OTHER, SELFPAY ==
[2024-08-14 16:41] VITALS: BP 137/52; BMI 23.6
[2024-08-14 17:00] VITALS: BP 142/52
[2024-08-14 18:00] VITALS: BP 131/54
--- NOTE | 2024-08-14 18:21 | ED.GENMED ---
History of Present Illness
<Maya Phillips PA-C - Last Filed: 08/17/24 18:41>
General
Chief Complaint: Fall
Source: patient
Exam Limitations: none
Time Seen by Provider: 08/14/24 17:13
Nursing documentation reviewed up to this point in time: agreed with
History of Present Illness
History of Present Illness:
PT IS A 89 Y/O F with h/o bronchiectasis on o2
afib on eliquis
here with L shoulder and L hip pain after fall
pt is mostly wheelchair bound; she can stand to transfer briefly
and has h/o L hip fracture and shoulder fracture from a fall a few months ago
she says that she was standing up to get out of her wheelchair and she lost her balance and fell on her L side onto let shoulder, elbow and hip
she has mostly pain in her L groin
she has minimal pain in her L shoulder which is fairly chronic because of her preivous fracture
she has very limited ROM chronically
requesting oxycodone 5 mg which she last took at 1 pm
no vomiting, cp, sob, flank pain, rib pain
pt says she fell on carpet and called out to her son whom she lives with and was able to be picked up after EMS arrived, which wasn't long
Past History
<Maya Phillips PA-C - Last Filed: 08/17/24 18:41>
Past History
ED Past Medical History: Arrthythmia (afib/flutter), CHF, COPD, HTN and Other (IBS)
ED Past Surgical History: Cardiac (pacemaker)
Social History
Tobacco: Non-smoker
Alcohol: None
Drug: None
Personal:
Living: with family
Review of Systems
<FJ Kapoor Last Filed: 08/17/24 18:41>
Review of Systems
Allergies reviewed?: Yes
All Other Systems: Not applicable
Phy Exam
<Maya Phillips PA-C - Last Filed: 08/17/24 18:41>
Physical Exam
Physical Exam:
GENERAL: Alert , in no apparent distress
HEAD: NCAT
NECK: no midline tenderness, active ROM intact, no paraspinal muscle tenderness;
EYE: pupils equal and reactive, EOMs intact.
ENT: o/p clr, mmm. no hemotympanum
CARDIAC: Regular rate and rhythm, no edema
LUNGS: diminished, occ cough;, no acute respiratory distress, no wheezes/rales/rhonchi
ABDOMEN: Soft, without focal tenderness, no r/g, no cvat
no rib tendenress, no flank bruising or tendenress
back: no midline bakc or neck tendenress
NEUROLOGICAL: Alert and oriented, no focal neuro deficits, CN intact, 5/5 strength, sensation intact
SKIN: Warm and dry,
MUSCULOSKELETAL: L groin pain with hip flexion and rotation
L leg is about 1 inch shorter than R
right hip full rom
L shoulder nontender, no deformity but some very limited extension and abduction
PSYCH: Normal and appropriate interaction.
Course
<Maya Phillips PA-C - Last Filed: 08/17/24 18:41>
Orders/Labs/Results
Orders:
Orders
08/14/24 16:54
Elbow, Left [CR Elbow - Left Min 3 Views ] Urgent
Comment:
Reason For Exam: fall, pain
Shoulder, Left, Trauma CR [CR Shoulder, Trauma - Left] Urgent
Comment:
Reason For Exam: fall, pain
08/14/24 18:02
Hip, Left 2-3 Views [CR Hip - LT w/wo Pel 2-3 Vw*] Urgent
Comment:
Reason For Exam: left groin pain after fall
Include a pelvis x-ray?: Yes
08/14/24 18:21
CT Head W/o Iv Contrast Urgent
Comment:
Reason For Exam: fall on eliquis
08/14/24 19:48
Oxycodone [Roxicodone] 5 mg PO NOW STA
08/14/24 23:08
Admit/Transfer Patient As Directed
Co-Sign Provider:
Level of Care: Observation services
Assign to:: Telemetry
Physician / Group: alana
Diagnosis: ambulatory dysfunction
Reason for Telemetry: Arrhythmia
Date to Stop Telemetry: 08/17/24
Time to Stop Telemetry: 11:00
08/14/24 23:09
PRN Pain Medication Management As Directed
May give lesser potent ordered pain med per pt: Yes
preference::
Protocol:: Medication orders for pain may be administered in a
manner that supports deferring to patient preference
when the pt is:
- Requesting an ordered lesser potent pain medication.
Least to most potent pain medications are defined
as: acetaminophen < NSAID < tramadol < opioids
(morphine, oxycodone, hydromorphone).
- Requesting a lesser dose of the same medication IF
ORDERED.
- Requesting a less intrusive route of administration
if both routes are prescribed by the provider (PO <
IV).
08/14/24 23:10
Code Status As Directed
Resuscitation Status: Do not resuscitate
Reached after discussion with pt or family/Healthcare POA: Yes
DNR Bracelet Application ONCE
08/15/24 00:48
Acetaminophen [Tylenol] 650 mg PO Q4H PRN
Bisacodyl [Dulcolax] 10 mg RECTAL [id number] PRN
Docusate W/Senna [Senokot-S] 1 tablet PO BIDPRN PRN
Ipratropium/Albuterol Sulfate [Duoneb] 3 ml INH R Q4HPRN PRN
Lidocaine [Lidocaine 4% Patch] 1 patch TOPICAL DAILY PRN
Apply Lidocaine patch(s) to:: back
Oxycodone [Roxicodone] 5 mg PO Q6HPRN PRN
Polyethylene Glycol Powder [Miralax] 17 grams PO DAILYPRN PRN
08/15/24 00:48
Activity As Directed
Activity Level: As Tolerated
Vital Signs As Directed
Frequency: Per unit guidelines
O2 Therapy [RESP] Routine
Titrate/Wean O2 to maintain O2 sat greater than (%): 92
08/15/24 Breakfast
Cholesterol Lowering
At Your Request: Limited Participation
Does patient need a safe tray?: No
Cholesterol Lowering: Sodium, 2 Gram
Occupational Therapy Consult [Ot Eval And Treat] IN AM
Physical Therapy Consult [Pt Eval And Treat] IN AM
Activity Level: As Tolerated
08/15/24 08:00
CT Pelvis W/o Iv Contrast Routine
Reason For Exam: groin pain
Amiodarone [Pacerone] 200 mg PO DAILY
Apixaban [Eliquis] 2.5 mg PO BID
Budesonide/Formoterol 80/4.5 [Symbicort 80/4.5 Mcg Inhaler] 2 puff INH R BID
Cholecalciferol (Vitamin D3) [VITAMIN D3 (cholecalciferol)] 25 mcg PO DAILY
Linaclotide [Linzess] 145 mcg PO DAILY
Metoprolol Xl [Toprol Xl] 50 mg PO BID
08/15/24 22:00
Gabapentin [Neurontin] 600 mg PO HS
08/17/24 11:00
DC Protocol for Telemetry ONCE
Vital Signs
Initial and Last Documented VS:
Initial Vital Signs
Temp Pulse Resp BP Pulse Ox
98.3 F 63 17 137/52 92
08/14/24 16:41 08/14/24 16:41 08/14/24 16:41 08/14/24 16:41 08/14/24 16:41
Last Documented Vital Signs
Temp Pulse Resp BP Pulse Ox
97.4 F 65 18 118/57 97
08/17/24 23:02 08/17/24 23:02 08/17/24 23:02 08/17/24 23:02 08/17/24 23:02
<Noel Vanessa MD - Last Filed: 08/18/24 08:10>
Orders/Labs/Results
Orders:
Orders
08/14/24 16:54
Elbow, Left [CR Elbow - Left Min 3 Views ] Urgent
Comment:
Reason For Exam: fall, pain
Shoulder, Left, Trauma CR [CR Shoulder, Trauma - Left] Urgent
Comment:
Reason For Exam: fall, pain
08/14/24 18:02
Hip, Left 2-3 Views [CR Hip - LT w/wo Pel 2-3 Vw*] Urgent
Comment:
Reason For Exam: left groin pain after fall
Include a pelvis x-ray?: Yes
08/14/24 18:21
CT Head W/o Iv Contrast Urgent
Comment:
Reason For Exam: fall on eliquis
08/14/24 19:48
Oxycodone [Roxicodone] 5 mg PO NOW STA
08/14/24 23:08
Admit/Transfer Patient As Directed
Co-Sign Provider:
Level of Care: Observation services
Assign to:: Telemetry
Physician / Group: alana
Diagnosis: ambulatory dysfunction
Reason for Telemetry: Arrhythmia
Date to Stop Telemetry: 08/17/24
Time to Stop Telemetry: 11:00
08/14/24 23:09
PRN Pain Medication Management As Directed
May give lesser potent ordered pain med per pt: Yes
preference::
Protocol:: Medication orders for pain may be administered in a
manner that supports deferring to patient preference
when the pt is:
- Requesting an ordered lesser potent pain medication.
Least to most potent pain medications are defined
as: acetaminophen < NSAID < tramadol < opioids
(morphine, oxycodone, hydromorphone).
- Requesting a lesser dose of the same medication IF
ORDERED.
- Requesting a less intrusive route of administration
if both routes are prescribed by the provider (PO <
IV).
08/14/24 23:10
Code Status As Directed
Resuscitation Status: Do not resuscitate
Reached after discussion with pt or family/Healthcare POA: Yes
DNR Bracelet Application ONCE
08/15/24 00:48
Acetaminophen [Tylenol] 650 mg PO Q4H PRN
Bisacodyl [Dulcolax] 10 mg RECTAL [id number] PRN
Docusate W/Senna [Senokot-S] 1 tablet PO BIDPRN PRN
Ipratropium/Albuterol Sulfate [Duoneb] 3 ml INH R Q4HPRN PRN
Lidocaine [Lidocaine 4% Patch] 1 patch TOPICAL DAILY PRN
Apply Lidocaine patch(s) to:: back
Oxycodone [Roxicodone] 5 mg PO Q6HPRN PRN
Polyethylene Glycol Powder [Miralax] 17 grams PO DAILYPRN PRN
08/15/24 00:48
Activity As Directed
Activity Level: As Tolerated
Vital Signs As Directed
Frequency: Per unit guidelines
O2 Therapy [RESP] Routine
Titrate/Wean O2 to maintain O2 sat greater than (%): 92
08/15/24 Breakfast
Cholesterol Lowering
At Your Request: Limited Participation
Does patient need a safe tray?: No
Cholesterol Lowering: Sodium, 2 Gram
Occupational Therapy Consult [Ot Eval And Treat] IN AM
Physical Therapy Consult [Pt Eval And Treat] IN AM
Activity Level: As Tolerated
08/15/24 08:00
CT Pelvis W/o Iv Contrast Routine
Reason For Exam: groin pain
Amiodarone [Pacerone] 200 mg PO DAILY
Apixaban [Eliquis] 2.5 mg PO BID
Budesonide/Formoterol 80/4.5 [Symbicort 80/4.5 Mcg Inhaler] 2 puff INH R BID
Cholecalciferol (Vitamin D3) [VITAMIN D3 (cholecalciferol)] 25 mcg PO DAILY
Linaclotide [Linzess] 145 mcg PO DAILY
Metoprolol Xl [Toprol Xl] 50 mg PO BID
08/15/24 22:00
Gabapentin [Neurontin] 600 mg PO HS
08/17/24 11:00
DC Protocol for Telemetry ONCE
Vital Signs
Initial and Last Documented VS:
Initial Vital Signs
Temp Pulse Resp BP Pulse Ox
98.3 F 63 17 137/52 92
08/14/24 16:41 08/14/24 16:41 08/14/24 16:41 08/14/24 16:41 08/14/24 16:41
Last Documented Vital Signs
Temp Pulse Resp BP Pulse Ox
97.4 F 65 18 118/57 97
08/17/24 23:02 08/17/24 23:02 08/17/24 23:02 08/17/24 23:02 08/17/24 23:02
<Maya Phillips PA-C - Last Filed: 08/17/24 18:41>
MDM/Problems Addressed
Differential Diagnosis Includes:
fall, fracture, contusion, head injury
MDM/Problems Addressed:
89 y/o F
from home
lives with son
fall on carpet onto her already fractured L shoulder and L hip which was repaired
she is ni a lot of pain
on oxycodone
did not hit her head
she occasionally is a ltitle confused by questions but has no sign of head trauma
on eliquis so ct'd her head which was neg
xray l hip and L shoulder - no new fx
indep reviewed
will medicate with oxycodone and reassess
pt would like to go home
i spoke with son who agreed that this is her basliene, minimal walking, using a lot of opiates, stubborn
but he will take her back if she can come.
<Maya Phillips PA-C - Last Filed: 08/17/24 18:41>
*Critical Care Note
Total Time (30-74mins, 75-104mins- exclusive of procedures): Not Applicable
ED Attending Note
<Maya Phillips PA-C - Last Filed: 08/17/24 18:41>
-
Portions of this chart may have been created with voice recognition software.� Occasional wrong word or��sound alike� substitutions may have occurred due to the inherent limitations of voice recognition software.
<Noel Vanessa MD - Last Filed: 08/18/24 08:10>
ED Attending Note
Patient seen and examined by attending physician: Yes
ED Attending Note:
Patient presents to ED for an evaluation after losing balance, when she got up from her wheelchair, and fell onto her left side. Patient presents with left shoulder and left hip pain. No other injuries reported.
Unfortunately, despite x-ray without any acute fractures, patient unable to ambulate due to significant pain, despite treatment with pain medication. As such, patient will be admitted to the hospital for further evaluation treatment, including
likely PT OT evaluation as well as case management consultation for potential transition to short-term rehab.
Discharge Plan
Departure
Patient Disposition: Admit
Date of Disposition: 08/14/24
Time of Disposition: 22:38
Admit to: Med/Surg
Presentation/result/management discussed w/ accepting MD/DO: Hospitalist
Discharge Problem:
Intractable pain
Interventions
Interventions:
*Risk Screen - Suicide Last Done: 08/14/24 16:41
*General Assessment Last Done: 08/14/24 16:41
*Neglect/Abuse Screening Last Done: 08/14/24 16:41
ED- Fall Risk Assessment Last Done: 08/14/24 16:57
*ED COVID-19 Vaccine History Last Done: 08/14/24 16:41
*Nursing Disposition Last Done: 08/15/24 00:50
ED-Musculoskeletal Assessment Last Done: 08/14/24 16:57
ED- Neurological Assessment Last Done: 08/14/24 16:57
ED-Skin Assessment Last Done: 08/14/24 16:57
Discharge Date and Time
Discharge Date/Time: 08/15/24 00:57
[2024-08-14 19:19] VITALS: BP 153/50
[2024-08-14 20:00] VITALS: BP 164/53
[2024-08-14] MEDS: ROXICODONE 5 MG PO (20:03)
--- NOTE | 2024-08-14 22:40 | HPS.HSE ---
Family Physician
-
Family Physician: Harvinder Borrego
Chief Complaint
-
fall
History of Present Illness
89 Y/O F with h/o bronchiectasis on o2,afib on eliquis here with L shoulder and L hip and groin pain after fall.pt is mostly wheelchair bound. she got up from the chair and lose the balance and fell on her left side. since then complaining of left
hip,groin pain. denied stinson, dizzy or syncope. denied fever, chills, chest pain,sob. denied abdominal pain,n,v,d. denied dysuria or hematuria.
no acute fracture.admitting for further management.
Medical History
Past Medical History
Past Medical History: Reports Other
Additional Past Medical History:
COPD
A-fib
Hypertension
Bronchiectasis
Paroxysmal A-fib
Aortic diastolic murmur
CHF
Mitral insufficiency
Ambulatory dysfunction
Past Surgical History: Reports Other
Additional Past Surgical History:
Appendectomy
Left oophorectomy
Lithotripsy
Large colon resection
Tracheotomy
Cardiac pacemaker
Laminectomy
Right hip replacement
Social History
Tobacco: Former Smoker
Alcohol: Occasional
Drug: None
Personal: Single
Living: With Family
Family History
Family History: Not pertinent
Allergies / Home Medications
Allergies reflects when Allergies were last updated in [employer].
Home Medications with original date entered in [employer]
Allergy/Medication List:
Allergies
Allergy/AdvReac Type Severity Reaction Status Date / Time
amlodipine Allergy Swelling Verified 08/14/24 16:49
diltiazem Allergy Swelling Verified 08/14/24 16:49
hydromorphone [From Dilaudid] Allergy Swelling Verified 08/14/24 16:49
metoprolol [From Lopressor] Allergy Itching Verified 08/14/24 16:49
metronidazole [From Flagyl] Allergy Hives Verified 08/14/24 16:49
Sulfa (Sulfonamide Allergy Itching Verified 08/14/24 16:49
Antibiotics)
Home Medications
apixaban 2.5 mg tablet (Eliquis) 2.5 mg PO BID Blood Clot Prevention/Tx 07/28/23
bumetanide 1 mg tablet 1 mg PO DAILY Fluid Retention/Swelling 07/28/23
cholecalciferol (vitamin D3) 25 mcg (1,000 unit) tablet (Vitamin D3) 25 mcg PO DAILY Supplement 07/28/23
linaclotide 145 mcg capsule (Linzess) 145 mcg PO DAILY Gastrointestinal Issue 07/28/23
simethicone 125 mg chewable tablet (Gas-X Extra Strength) 125 mg PO QIDPRN PRN flatulence 07/28/23
amiodarone 200 mg tablet (Pacerone) 200 mg PO DAILY Arrhythmia #0 tabs 03/23/24
acetaminophen 500 mg tablet 500 mg PO HS Pain 06/13/24
bisacodyl 10 mg rectal suppository (Dulcolax (bisacodyl)) 10 mg MA DAILYPRN PRN if mom is ineffective, give on day 5 of no bm 06/13/24
budesonide 0.5 mg/2 mL suspension for nebulization 0.5 mg inhalation R BID Lung/Breathing Issues 06/13/24
docusate sodium 100 mg capsule 100 mg PO BID Constipation 06/13/24
gabapentin 300 mg capsule 600 mg PO HS Neurological Condition 06/13/24
guaifenesin 600 mg tablet, extended release 12 hr 600 mg PO Q52UDRT PRN cough 06/13/24
ipratropium 0.5 mg-albuterol 3 mg (2.5 mg base)/3 mL nebulization soln 3 ml inhalation R Q6 Lung/Breathing Issues 06/13/24
levothyroxine 50 mcg tablet 50 mcg PO DAILY Thyroid 06/13/24
magnesium hydroxide 400 mg/5 mL oral suspension (Milk of Magnesia) 30 ml PO DAILYPRN PRN if no bm on day 4 06/13/24
methocarbamol 500 mg tablet 500 mg PO Q8HPRN PRN muscle weakness 06/13/24
metoprolol succinate 25 mg tablet,extended release 24 hr 25 mg PO BID Heart Failure 06/13/24
naloxone 4 mg/actuation nasal spray (Narcan) 4 mg intranasal Q3MPRN PRN opiod overdose 06/13/24
oxycodone 5 mg tablet 10 mg PO Q6HPRN PRN moderate pain 06/13/24
sennosides 8.6 mg tablet (senna) 17.2 mg PO DAILY Constipation 06/13/24
sodium phosphates 19 gram-7 gram/118 mL enema (Fleet Enema) 118 ml MA DAILYPRN PRN if dulcolax is ineffective, give day 6 of no bm 06/13/24
thiamine HCl (vitamin B1) 100 mg tablet 100 mg PO DAILY Supplement 06/13/24
tolterodine 2 mg capsule,extended release 24 hr 2 mg PO DAILY Urinary Issue 06/13/24
amoxicillin 875 mg-potassium clavulanate 125 mg tablet 1 tab PO Q12H #2 tabs 06/17/24
doxycycline hyclate 100 mg capsule 100 mg PO Q12 #2 caps 06/17/24
prednisone 10 mg tablet 10 mg PO DIRECTED #16 tabs 06/17/24
Review of Systems
-
Constitutional: Reports No Symptoms
EENT: Reports No Symptoms
Respiratory: Reports No Symptoms
Cardiac: Reports No Symptoms
Abdomen/GI: Reports No Symptoms
: Reports No Symptoms
Musculoskeletal: Reports Other (left hip, groin pain)
Skin: Reports No Symptoms
Neurological: Reports No Symptoms
Endocrine: Reports No Symptoms
Hematologic/Lymphatic: Reports No Symptoms
Psych: Reports No Symptoms
Physical Exam
Vital Signs
Vital Signs
Temp Pulse Resp BP Pulse Ox
98.3 F 60 18 164/53 95
08/14/24 16:41 08/14/24 19:24 08/14/24 20:00 08/14/24 20:00 08/14/24 19:52
Physical Exam
General: Well Developed, Well Nourished and No Apparent Distress
HEENT: NormoCephalic, Moist mucous membranes and Atraumatic
Respiratory: Clear
Cardiac: S1/S2 and Regular Rhythm; No Murmur or Rub
GI: Soft, Non Tender, Non Distended and Normal Bowel Sounds; No Organomegaly
Rectal: Deferred by Provider
Musculoskeletal: No Clubbing, No Cyanosis, No Edema and Other (left LE shorter than right LE)
Skin: No Rash
Neuro: AO x 3 and Nonfocal/grossly intact
Psych: Calm
Data Reviewed
-
Diagnostic Radiology: Report Reviewed by me
Lab Data: Labs Reviewed by me
Impression/Plan
-
# Mechanical fall/ambulatory dysfunction
-PT/OT consulted
-Head CT with no acute abnormality
-Hip x-ray without evidence of acute periprosthetic fracture or dislocation
-Shoulder x-ray with no acute fracture or dislocation, there is chronic proximal humeral fracture which appears overall similar to prior
-Elbow x-ray with no evidence of acute fracture or dislocation
-will obtain CT of groin
-oxy prn for pain
#chornic hypoxic respiratory failure
#COPD
-uses 2l all the time
-continue supplemental oxygen to keep sat>92
-wean a tolerated
#paroxysmal atrial fibrillation with pacemaker
-Continue amiodarone
-Continue Eliquis
-Continue metoprolol
#Chronic HFpEF
-not in acute exacerbation
#History of pulmonary embolism
-Continue Eliquis
#Constipation
-Continue Linzess
DNR/DNI
DVT prophylaxis�Eliquis
Cardiac diet
[2024-08-15] VITALS (7 sets, daily range): BP systolic 122–135; BP diastolic 52–59; BMI 24.3
--- NOTE | 2024-08-15 00:16 | W.PN.UPDATE ---
Update Note
Progress Note Update
Attending addendum
89 Y/O woman with h/o:
bronchiectasis on o2,
afib on eliquis
here with L shoulder and L hip and groin pain after fall. She is mostly wheelchair bound. Today, she got up from the chair and lose the balance and fell on her left side. Since then, she has been complaining of left hip, groin pain. She denied stinson,
dizzy or syncope, fever, chills, chest pain, sob, abdominal pain,n,v,d., dysuria or hematuria. At the time of my interview, she was comfortable. Imaging in ED showed no acute fracture.
Past Medical History
COPD
A-fib
Hypertension
Bronchiectasis
Paroxysmal A-fib
Aortic diastolic murmur
CHF
Mitral insufficiency
Ambulatory dysfunction
Past Surgical History: Reports Other
Additional Past Surgical History:
Appendectomy
Left oophorectomy
Lithotripsy
Large colon resection
Tracheotomy
Cardiac pacemaker
Laminectomy
Right hip replacement
Physical Exam
General: Well Developed, Well Nourished and No Apparent Distress
HEENT: NormoCephalic, Moist mucous membranes and Atraumatic
Respiratory: Clear
Cardiac: S1/S2 and Regular Rhythm; No Murmur or Rub
GI: Soft, Non Tender, Non Distended and Normal Bowel Sounds; No Organomegaly
Psych: Calm
Impression/Plan
1. Mechanical fall/ambulatory dysfunction, no signs of fracture
PT/OT consulted
Head CT with no acute abnormality
Hip x-ray without evidence of acute periprosthetic fracture or dislocation
Shoulder x-ray with no acute fracture or dislocation,
Elbow x-ray with no evidence of acute fracture or dislocation
CT of groin pending
oxy prn for pain
2. See midlevel note for full details of the following:
chronic hypoxic respiratory failure
COPD
paroxysmal atrial fibrillation with pacemaker
Chronic HFpEF
History of pulmonary embolism
Constipation
[2024-08-15] MEDS: ROXICODONE 5 MG PO ×4 (01:07→20:41)
[2024-08-15] MEDS: SYMBICORT 80/4.5 MCG INHALER 2 PUFF INH ×2 (07:21→19:33)
[2024-08-15] MEDS: VITAMIN D3 (cholecalciferol) 25 MCG PO (08:07)
[2024-08-15] MEDS: ELIQUIS 2.5 MG PO ×2 (08:08→20:29)
[2024-08-15] MEDS: TOPROL XL 50 MG PO (08:08)
[2024-08-15] MEDS: PACERONE 200 MG PO (08:08)
[2024-08-15] MEDS: TYLENOL 650 MG PO ×4 (11:27→23:37)
--- NOTE | 2024-08-15 12:54 | CM ---
CM reviewed chart, patient seen bedside, initial assessment completed. Patient resides in a single story home with her son and daughter in law, two small steps to enter. Patient reports she gets lifted over the steps into the home. Patient reports
having three wheelchairs at home, two walkers, a rollator, oxygen at home, typically 2L, unsure of provider. Patient current with [facility], current with Palliative Care. Patient reports history of [facility]. Patient confirms PCP Harvinder Borrego,
pharmacy [facility], confirms prescription coverage. Patient denies any insecurities at home. LANE reviewed, refused to sign, placed in chart, patient provided with copy. CM will continue to follow for all discharge planning needs.
Plan; PT/OT ordered, watch for recommendations.
[2024-08-15 13:54] LABS: Hemoglobin 10.5 g/dL (12.0-16.0); Mean Corp Hgb Conc. 30.9 g/dL (33.0-37.0); Mean Corpuscular Hgb 30.6 pg (27.0-31.0); Mean Corpuscular Volume 99.1 fL (81.0-99.0); Mean Platelet Volume 9.4 fL (7.4-10.4); Platelet Count 333 10^3/uL (130-400); Red Blood Cell Count 3.43 10^6/uL (4.20-5.40); Red Cell Dist. Width 12.4 % (11.5-14.5); White Blood Cell Count 10.1 10^3/uL (4.8-10.8)
--- NOTE | 2024-08-15 14:44 | W.PN.HOSP.TC ---
Today's Communication/Plan
-
pain control
bowel regimen
PT/OT
Assessment / Plan
Assessment / Plan
pt is an 89 year old female
Mechanical fall/ambulatory dysfunction--no prodrome of dizziness, chest pain, etc--head CT without acute issues--has pelvic fracture and chronic healing proximal humeral fracture--pain control (no labs ordered so unclear if blow up operator give NSAIDs etc),
bowel regimen, PT/OT--changing to RTC tylenol and will add motrin if labs are fine, increase oxy to U2D--erxtbeyzt won't get pt pain free just pain tolerable--will likely need SNF
chronic hypoxemic respiratory failure (wears 2L O2 at baseline) due to COPD--cont nebs/MDIs
paroxysmal atrial fibrillation with pacemaker--Continue amiodarone--Continue Eliquis--Continue metoprolol
Chronic HFpEF--not in acute exacerbation--cont meds as able
History of pulmonary embolism--Continue Eliquis
Constipation--Continue Linzess PRN along with bowel regimen
code status --DNR/DNI
DVT prophylaxis�Eliquis
Anticipated Discharge: 24 - 48 hours
Subjective/Interval History
-
Date of Service: August 15, 2024
pt c/o pain meds not lasting
Objective Data
-
Labs:
Laboratory Results
08/15/24
13:47
WBC 10.1
Hgb 10.5 L
Hct 34.0 L
Plt Count 333
Sodium Pending
Potassium Pending
Chloride Pending
Carbon Dioxide Pending
BUN Pending
Creatinine Pending
Glucose Pending
Calcium Pending
Total Bilirubin Pending
AST Pending
ALT Pending
Alkaline Phosphatase Pending
Vital Signs:
max temp for 24 hours
08/15/24
01:05
Temp 98.6 F
Vital Signs
Temp Pulse Resp BP Pulse Ox
98.0 F 61 18 135/57 95
08/15/24 11:25 08/15/24 11:25 08/15/24 11:25 08/15/24 11:25 08/15/24 11:25
I&O
08/14/24 08/15/24 08/16/24
06:59 06:59 06:59
Intake Total 240 / 240
Balance 240 / 240
Review of Systems
-
All other systems: Reviewed and negative
Musculoskeletal: Reports Other (pelvis and left arm painful)
Physical Exam
-
General: Appears Chronically Ill (frail)
HEENT: Normocephalic, Atraumatic and Oxygen (wears 2 L at baseline)
Respiratory: Clear to Auscultation; Negative Wheezes or Rhonchi
Cardiac: Regular Rhythm and S1/S2; Negative Murmur
GI: Soft, Nontender, Nondistended and Normal Bowel Sounds
Musculoskeletal: No Clubbing, No Cyanosis and No Edema
Neuro: Awake and Alert
Psych: Calm
[2024-08-15 14:55] LABS: ALT (SGPT) 16 U/L (0-35); AST (SGOT) 25 U/L (14-36); Alkaline Phosphatase 73 U/L (38-126); Blood Urea Nitrogen 10 mg/dl (7-17); Calcium 8.5 mg/dl (8.4-10.2); Carbon Dioxide 30 mmol/L (22-30); Chloride 98 mmol/L (98-107); Estimated Creatinine Clearance 34 ml/min; Glucose 102 mg/dl (70-99); Magnesium 1.6 mg/dl (1.6-2.3); Potassium 4.1 mmol/L (3.5-5.1); Sodium 138 mmol/L (135-145); Total Bilirubin 0.4 mg/dl (0.2-1.3); Total Protein 5.8 g/dl (6.3-8.2); eGFR > 60.00
[2024-08-15] MEDS: COLACE PO ×2 (20:29→20:39)
[2024-08-15] MEDS: TOPROL XL PO ×2 (20:30→20:38)
[2024-08-15] MEDS: NEURONTIN 600 MG PO (21:34)
[2024-08-15] MEDS: SENOKOT PO (21:38)
[2024-08-16] VITALS (8 sets, daily range): BP systolic 111–132; BP diastolic 49–67; PULSE 60–61; O2SAT 96; BMI 24.3
[2024-08-16] MEDS: ROXICODONE 5 MG PO ×5 (00:36→22:52)
[2024-08-16] MEDS: TYLENOL PO (05:05)
[2024-08-16] MEDS: SYMBICORT 80/4.5 MCG INHALER 2 PUFF INH ×2 (07:34→19:20)
[2024-08-16 08:10] LABS: Hematocrit 36.5 % (37.0-47.0); Hemoglobin 11.3 g/dL (12.0-16.0); Mean Platelet Volume 9.8 fL (7.4-10.4); Platelet Count 367 10^3/uL (130-400); Red Blood Cell Count 3.65 10^6/uL (4.20-5.40); Red Cell Dist. Width 12.4 % (11.5-14.5); White Blood Cell Count 9.8 10^3/uL (4.8-10.8)
[2024-08-16] MEDS: COLACE 100 MG PO (08:38)
[2024-08-16] MEDS: TOPROL XL 50 MG PO (08:38)
[2024-08-16] MEDS: MIRALAX 17 GRAMS PO (08:38)
[2024-08-16] MEDS: VITAMIN D3 (cholecalciferol) 25 MCG PO (08:39)
[2024-08-16] MEDS: PACERONE 200 MG PO (08:39)
[2024-08-16] MEDS: ELIQUIS 2.5 MG PO ×2 (08:39→21:28)
[2024-08-16] MEDS: TYLENOL 650 MG PO ×3 (08:40→15:40)
[2024-08-16 08:48] LABS: Blood Urea Nitrogen 10 mg/dl (7-17); Calcium 8.4 mg/dl (8.4-10.2); Carbon Dioxide 34 mmol/L (22-30); Chloride 97 mmol/L (98-107); Estimated Creatinine Clearance 39 ml/min; Glucose 74 mg/dl (70-99); Magnesium 1.7 mg/dl (1.6-2.3); Potassium 4.3 mmol/L (3.5-5.1); Sodium 138 mmol/L (135-145); eGFR > 60.00
--- NOTE | 2024-08-16 14:56 | CM ---
Pt seen bedside w/ hospitalist. Pt shared that she is not comfortable to d/c today as she still has some pain. Pt expressed pain on her left side. Per hospitalist, will order X-ray to ensure no additional fractures. Poss d/c tomorrow.
Discussed PT/OT recs of , no skilled needs identified. Pt confirmed she is current w/ [facility].
CHRISTIANO referral completed in [facility]
Pt is current w/ Palliative Care, will resume at d/c
Per pt, her son will transport at d/c. Pt confirmed she has portable O2 and will advise son to bring at d/c.
[facility]

Palliative Care

Plan: Home; CHRISTIANO w/ [facility] and Palliative Care
--- NOTE | 2024-08-16 15:49 | W.PN.HOSP.TC ---
Today's Communication/Plan
-
Analgesics adjusted
If pain is controlled can be discharged tomorrow.
Check x-rays of the rib with pain in the rib
Assessment / Plan
Assessment / Plan
89-year-old female presented after a fall
CT pelvis-subacute mildly displaced left inferior pubic ramus fracture
Head CT-no acute IC changes. Moderate senescent changes
Echo 06/15/2024-normal LV size and function. EF 57%. Diastolic function indeterminate. Mild MR, trace AI, mild TR. PA pressure 37 mmHg
Awake alert
Cardiovascular system S1-S2 appreciated
Chest clear to auscultation
Abdomen soft nontender
Left pelvic area pain also pain in the left rib area
# Mechanical fall/ambulatory dysfunction no prodrome symptoms
Pelvic fracture and chronic healing proximal humeral fracture
Pain control
Tylenol-changed to [id number], add Celebrex, continue gabapentin, also on oxycodone continue that
She said when she moves around pain is about 8
# Left rib area pain-check x-rays of the ribs
# Bronchiectasis/COPD with chronic hypoxic respiratory failure on 2 L of oxygen-needs to verify that she is on budesonide, Trelegy Ellipta
# Paroxysmal atrial fibrillation-continue amiodarone, Eliquis, metoprolol
# Chronic HFpEF-needs to verify the dose of Bumex
# Hypothyroidism-Synthroid
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
# History of PE-continue Eliquis
# Constipation-continue Linzess and Bal regimen
# History of bowel obstruction with bowel resection
# Nephrolithiasis with history of lithotripsy
# DVT prophylaxis-Eliquis
# DNR
Obtain medication records-latest and update med rec.
D/W SW at bed side
Anticipated Discharge: Within 24 hours
Subjective/Interval History
-
Date of Service: August 16, 2024
Objective Data
-
Labs:
Laboratory Results
08/16/24
06:32
WBC 9.8
Hgb 11.3 L
Hct 36.5 L
Plt Count 367
Sodium 138
Potassium 4.3
Chloride 97 L
Carbon Dioxide 34 H
BUN 10
Creatinine 0.7
Glucose 74
Calcium 8.4
Vital Signs:
Vital Signs
Temp Pulse Resp BP Pulse Ox
97.5 F 61 20 127/53 98
08/16/24 15:43 08/16/24 15:43 08/16/24 15:43 08/16/24 15:43 08/16/24 15:43
I&O
08/15/24 08/16/24 08/17/24
06:59 06:59 06:59
Intake Total 240 / 240 720 / 720
Output Total 250 / 250
Balance 240 / 240 470 / 470
[2024-08-16] MEDS: MAGNESIUM OXIDE 500 MG PO (15:55)
[2024-08-16] MEDS: NEURONTIN 600 MG PO (21:29)
[2024-08-16] MEDS: COLACE PO (22:55)
[2024-08-16] MEDS: TOPROL XL PO (22:55)
[2024-08-16] MEDS: SENOKOT PO (22:56)
[2024-08-17] VITALS (7 sets, daily range): BP systolic 114–136; BP diastolic 45–57; O2SAT 96; BMI 22.8
[2024-08-17] MEDS: TYLENOL 1000 MG PO ×4 (00:01→23:14)
--- NOTE | 2024-08-17 03:55 | PTCARENOTE ---
pt DTV. Pt void a mod amount. post void bladder scan for 325ml. will monitor.
--- NOTE | 2024-08-17 04:05 | PTCARENOTE ---
pt void a smo amount. post void bladder scan =325ml.
[2024-08-17] MEDS: ROXICODONE 5 MG PO ×3 (05:56→19:53)
--- NOTE | 2024-08-17 06:01 | W.PN.HOSP.TC ---
Today's Communication/Plan
-
cont pain control
PT/OT
LUE sling and lidocaine patch for additional support/pain control
Assessment / Plan
Assessment / Plan
Physical Exam
General: No acute distress sitting up comfortably in chair
HEENT: normocephalic atraumatic
Cardio: S1-S2 RRR
Chest: Clear to Auscultation
Abd: soft nontender bowel sounds present
Ext: no edema
Neuro: Awake Alert Conversant Coherent
89F COPD chronic O2 2L pAfib HFpEF Hypothyroidism ppm hx PE on Eliquis renal dose d/t age/weight hx bowel obstruction resection here for fall with associate pelvic and rib fractures.
CT pelvis-subacute mildly displaced left inferior pubic ramus fracture
Head CT-no acute IC changes. Moderate senescent changes
Echo 06/15/2024-normal LV size and function. EF 57%. Diastolic function indeterminate. Mild MR, trace AI, mild TR. PA pressure 37 mmHg
# Mechanical fall/ambulatory dysfunction no prodrome symptoms
Pelvic fracture and chronic healing proximal humeral fracture
Pain control
Tylenol [id number], added Celebrex cont, continue gabapentin
oxycodone prn
# Left rib area pain-rib X-rays appreciated 2 old rib fractures and 2 new rb fractures
#Left Upper Ext chronic proximal humerus fx as noted on Left Shoulder X-ray
lidocaine patch
Sling for support/comfort
# Bronchiectasis/COPD with chronic hypoxic respiratory failure on 2 L of oxygen- cont symbicort
# Paroxysmal atrial fibrillation-continue amiodarone, Eliquis, metoprolol
# Chronic HFpEF- on bumex prn for weight gain
daily weights I/O
appears Euvolemic at this time
# Hypothyroidism-Synthroid
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
# History of PE-continue Eliquis
# Constipation-continue Linzess and Bal regimen
# History of bowel obstruction with bowel resection
# Nephrolithiasis with history of lithotripsy
# DVT prophylaxis-Eliquis
# DNR
I spent a total of 40 minutes with the patient or on the floor. More than 50% of this time involved counseling and coordination of care.
Anticipated Discharge: 24 - 48 hours
Subjective/Interval History
-
Date of Service: August 17, 2024
Seen examined at bedside in no acute distress sitting up comfortably in bed. Pain remains uncontrolled especially LUE. Denies nausea vomiting constipation diarrhea.
Objective Data
-
Vital Signs:
Vital Signs
Temp Pulse Resp BP Pulse Ox
98.2 F 61 16 122/45 92
08/17/24 03:26 08/17/24 03:26 08/17/24 03:26 08/17/24 03:26 08/17/24 03:26
I&O
08/15/24 08/16/24 08/17/24
06:59 06:59 06:59
Intake Total 240 / 240 720 / 720
Output Total 250 / 250 425 / 425
Balance 240 / 240 470 / 470 -425 / -425
[2024-08-17] MEDS: VITAMIN D3 (cholecalciferol) 25 MCG PO (07:57)
[2024-08-17] MEDS: MAGNESIUM OXIDE 500 MG PO (07:58)
[2024-08-17] MEDS: COLACE 100 MG PO (07:58)
[2024-08-17] MEDS: ELIQUIS 2.5 MG PO ×2 (07:58→19:53)
[2024-08-17] MEDS: TOPROL XL 50 MG PO ×2 (07:58→19:53)
[2024-08-17] MEDS: PACERONE 200 MG PO (07:58)
[2024-08-17] MEDS: LIDOCAINE 4% PATCH 1 PATCH TOPICAL ×2 (07:59→12:55)
[2024-08-17] MEDS: MIRALAX PO (07:59)
[2024-08-17] MEDS: SYMBICORT 80/4.5 MCG INHALER INH (08:32)
[2024-08-17] MEDS: COMPAZINE 5 MG IV (10:55)
[2024-08-17] MEDS: COLACE PO ×2 (19:53→19:58)
[2024-08-17] MEDS: SYMBICORT 80/4.5 MCG INHALER 2 PUFF INH (20:58)
[2024-08-17] MEDS: NEURONTIN 600 MG PO (21:06)
[2024-08-17] MEDS: SENOKOT PO (21:06)
[2024-08-18 06:00] VITALS: BMI 22.7
--- NOTE | 2024-08-18 06:15 | DOWNTIME ---
There was a [employer] Downtime on 08/18/2024 from 0100 to 08/18/2024 at 0350. Downtime documentation of patient's care, including medication administrations, has been reconciled in the electronic record per guidelines. Refer to the
patient's paper chart under the miscellaneous tab to see printed paper medication records and downtime forms.
[2024-08-18 07:00] VITALS: BP 119/52
--- NOTE | 2024-08-18 07:10 | W.PN.HOSP.TC ---
Today's Communication/Plan
-
cont pain control
start baclofen
sputum culture
Augmentin
Check Left shoulder MRI
Assessment / Plan
Assessment / Plan
Physical Exam
General: No acute distress resting comfortably in bed
HEENT: normocephalic atraumatic
Cardio: S1-S2 RRR
Chest: Clear to Auscultation
Abd: soft nontender bowel sounds present
Ext: no edema
Neuro: Awake Alert Conversant Coherent
89F COPD chronic O2 2L pAfib HFpEF Hypothyroidism ppm hx PE on Eliquis renal dose d/t age/weight hx bowel obstruction resection here for fall with associate pelvic and rib fractures.
CT pelvis-subacute mildly displaced left inferior pubic ramus fracture
Head CT-no acute IC changes. Moderate senescent changes
Echo 06/15/2024-normal LV size and function. EF 57%. Diastolic function indeterminate. Mild MR, trace AI, mild TR. PA pressure 37 mmHg
# Mechanical fall/ambulatory dysfunction no prodrome symptoms
Pelvic fracture and chronic healing proximal humeral fracture
cont Pain control
Tylenol [id number], continue gabapentin, [correction to prior documentation, celebrex was never added], lidocaine patchs
oxycodone prn
Pain remains uncontrolled, low dose Baclofen added
# Left rib area pain-rib X-rays appreciated 2 old rib fractures and 2 new rb fractures
#Left Upper Ext chronic proximal humerus fx as noted on Left Shoulder X-ray
lidocaine patches left arm and shoulder
Sling for support/comfort
check Left Shoulder MRI
# Bronchiectasis/COPD with chronic hypoxic respiratory failure on 2 L of oxygen- cont symbicort
#cough productive sputum, possible pna
patient was previously on Augmentin prior to hospitalization which she noted improvement in cough and sputum coloration while on abx
Otherwise no significant systemic signs of infection, afebrile, recent mild leukocytosis noted, oxygenation remains baseline 2L
check sputum culture
Augmentin restarted 08/18
# Paroxysmal atrial fibrillation-continue amiodarone, Eliquis, metoprolol
# Chronic HFpEF- on bumex prn for weight gain
daily weights I/O
appears Euvolemic at this time
# Hypothyroidism-Synthroid
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
# History of PE-continue Eliquis
# Constipation-continue Linzess and Bal regimen
# History of bowel obstruction with bowel resection
# Nephrolithiasis with history of lithotripsy
# DVT prophylaxis-Eliquis
# DNR
discussed with patient and patient's son Leon
I spent a total of 40 minutes with the patient or on the floor. More than 50% of this time involved counseling and coordination of care.
Anticipated Discharge: 24 - 48 hours
Subjective/Interval History
-
Date of Service: August 18, 2024
Continues to report severe pain mostly related to left arm and shoulder. Reports some benefit with current pain meds but pain remains largely uncontrolled.
Objective Data
-
Labs:
Laboratory Results
08/18/24
05:48
WBC Pending
Hgb Pending
Hct Pending
Plt Count Pending
Sodium Pending
Potassium Pending
Chloride Pending
Carbon Dioxide Pending
BUN Pending
Creatinine Pending
Glucose Pending
Calcium Pending
Vital Signs:
Vital Signs
Temp Pulse Resp BP Pulse Ox
97.4 F 65 18 118/57 97
08/17/24 23:02 08/17/24 23:02 08/17/24 23:02 08/17/24 23:02 08/17/24 23:02
I&O
08/17/24 08/18/24 08/19/24
06:59 06:59 06:59
Intake Total 720 / 720
Output Total 425 / 425
Balance -425 / -425 720 / 720
[2024-08-18 07:20] LABS: Hemoglobin 11.3 g/dL (12.0-16.0); Mean Corp Hgb Conc. 29.7 g/dL (33.0-37.0); Mean Corpuscular Hgb 30.1 pg (27.0-31.0); Mean Corpuscular Volume 101.3 fL (81.0-99.0); Mean Platelet Volume 9.7 fL (7.4-10.4); Platelet Count 402 10^3/uL (130-400); Red Blood Cell Count 3.75 10^6/uL (4.20-5.40); Red Cell Dist. Width 12.7 % (11.5-14.5); White Blood Cell Count 10.9 10^3/uL (4.8-10.8)
[2024-08-18 07:54] LABS: Blood Urea Nitrogen 14 mg/dl (7-17); Calcium 8.5 mg/dl (8.4-10.2); Carbon Dioxide 36 mmol/L (22-30); Chloride 97 mmol/L (98-107); Estimated Creatinine Clearance 30 ml/min; Glucose 71 mg/dl (70-99); Phosphorus 3.4 mg/dl (2.5-4.5); Sodium 138 mmol/L (135-145); eGFR > 60.00
[2024-08-18] MEDS: SYMBICORT 80/4.5 MCG INHALER 2 PUFF INH ×2 (08:12→19:18)
[2024-08-18] MEDS: COLACE PO ×2 (09:26→19:34)
[2024-08-18] MEDS: LIDOCAINE 4% PATCH TOPICAL (09:27)
[2024-08-18] MEDS: MIRALAX PO (09:28)
[2024-08-18] MEDS: PACERONE 200 MG PO (09:30)
[2024-08-18] MEDS: ELIQUIS 2.5 MG PO ×2 (09:30→19:33)
[2024-08-18] MEDS: MAGNESIUM OXIDE 500 MG PO (09:30)
[2024-08-18] MEDS: TOPROL XL 50 MG PO ×2 (09:31→19:34)
[2024-08-18] MEDS: TYLENOL 1000 MG PO ×2 (09:31→15:15)
[2024-08-18] MEDS: VITAMIN D3 (cholecalciferol) 25 MCG PO (09:31)
[2024-08-18] MEDS: ROXICODONE 5 MG PO ×2 (13:19→19:32)
[2024-08-18 15:00] VITALS: BP 116/53
[2024-08-18 19:20] VITALS: BP 161/65
[2024-08-18] MEDS: LIORESAL 2.5 MG PO (19:31)
[2024-08-18] MEDS: AUGMENTIN 875 MG/125 MG 1 TABLET PO (19:34)
[2024-08-18] MEDS: NEURONTIN 600 MG PO (21:39)
[2024-08-18] MEDS: SENOKOT PO (21:42)
[2024-08-18 23:14] VITALS: BP 123/58
[2024-08-19] MEDS: TYLENOL 1000 MG PO ×4 (00:17→22:30)
[2024-08-19 05:55] VITALS: BMI 22.7
[2024-08-19 06:13] LABS: Hematocrit 35.5 % (37.0-47.0); Mean Corpuscular Hgb 30.9 pg (27.0-31.0); Mean Corpuscular Volume 99.7 fL (81.0-99.0); Mean Platelet Volume 9.4 fL (7.4-10.4); Platelet Count 394 10^3/uL (130-400); Red Blood Cell Count 3.56 10^6/uL (4.20-5.40); Red Cell Dist. Width 12.5 % (11.5-14.5); White Blood Cell Count 9.8 10^3/uL (4.8-10.8)
[2024-08-19 06:38] LABS: Blood Urea Nitrogen 16 mg/dl (7-17); Calcium 8.7 mg/dl (8.4-10.2); Carbon Dioxide 34 mmol/L (22-30); Chloride 100 mmol/L (98-107); Estimated Creatinine Clearance 30 ml/min; Glucose 90 mg/dl (70-99); Magnesium 1.9 mg/dl (1.6-2.3); Phosphorus 3.3 mg/dl (2.5-4.5); Potassium 4.5 mmol/L (3.5-5.1); Sodium 138 mmol/L (135-145); eGFR > 60.00
[2024-08-19 07:00] VITALS: BP 126/56
--- NOTE | 2024-08-19 07:29 | W.PN.HOSP.TC ---
Today's Communication/Plan
-
Augmentin switched to Azithromycin
Baclofen increased to TID
cont pain control
CT left shoulder/arm to further evaluate fractures
Orthopedic Eval requested
Assessment / Plan
Assessment / Plan
Physical Exam
General: No acute distress resting comfortably in bed
HEENT: normocephalic atraumatic
Cardio: S1-S2 RRR
Chest: Clear to Auscultation
Abd: soft nontender bowel sounds present
Ext: no edema
Neuro: Awake Alert Conversant Coherent
89F COPD chronic O2 2L pAfib HFpEF Hypothyroidism ppm hx PE on Eliquis renal dose d/t age/weight hx bowel obstruction resection here for fall with associate pelvic and rib fractures.
CT pelvis-subacute mildly displaced left inferior pubic ramus fracture
Head CT-no acute IC changes. Moderate senescent changes
Echo 06/15/2024-normal LV size and function. EF 57%. Diastolic function indeterminate. Mild MR, trace AI, mild TR. PA pressure 37 mmHg
# Mechanical fall/ambulatory dysfunction no prodrome symptoms
Pelvic fracture and chronic healing proximal humeral fracture
cont Pain control
Tylenol [id number], continue gabapentin, lidocaine patches
oxycodone prn
Pain remains uncontrolled, low dose Baclofen added 2.5 mg BID increased to TID
# Left rib area pain-rib X-rays appreciated 2 old rib fractures and 2 new rb fractures
#Left Upper Ext chronic proximal humerus fx as noted on Left Shoulder X-ray
lidocaine patches left arm and shoulder
Sling for support/comfort
Left Shoulder MRI appreciated:
-Significant limitation secondary to patient motion and pacemaker artifact.
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
-Lateral humeral head shallow concavity and marrow edema which could represent impaction fracture or avulsion fracture in the proper clinical setting.
-Age-indeterminate suspected avulsion fracture fragment adjacent to the posterior glenohumeral joint margin.
-Limited evaluation of the rotator cuff tendons; full-thickness supraspinatus tendon tear. Superior migration of the humeral head.
-Small to moderate glenohumeral joint effusion.
CT Lt shoulder ordered
Orthopedic eval requested
# Bronchiectasis/COPD with chronic hypoxic respiratory failure on 2 L of oxygen- cont symbicort
#cough productive sputum positive for gram neg bacili, Pneumonia
Otherwise no significant systemic signs of infection, afebrile, recent mild leukocytosis noted, oxygenation remains baseline 2L
follow sputum culture speciation and sensitivities
Augmentin switched to Azithromcyin planned for 5 day regimen with initial dose 500 mg and subsequent doses 250, monitor QT
# Paroxysmal atrial fibrillation-continue amiodarone, Eliquis, metoprolol
# Chronic HFpEF- on bumex prn for weight gain
daily weights I/O
appears Euvolemic at this time
# Hypothyroidism-Synthroid
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
# History of PE-continue Eliquis
# Constipation-continue Linzess and Bal regimen
# History of bowel obstruction with bowel resection
# Nephrolithiasis with history of lithotripsy
# DVT prophylaxis-Eliquis
# DNR
PT/OT appreciated SNF rehab
discussed with patient, patient's son Leon, and patient's daughter Pilar
I spent a total of 40 minutes with the patient or on the floor. More than 50% of this time involved counseling and coordination of care.
Anticipated Discharge: 24 - 48 hours
Subjective/Interval History
-
Date of Service: August 19, 2024
No acute distress sitting up comfortably in chair. Pain persists along with intermittent productive cough.
Objective Data
-
Labs:
Laboratory Results
08/19/24
05:49
WBC 9.8
Hgb 11.0 L
Hct 35.5 L
Plt Count 394
Sodium 138
Potassium 4.5
Chloride 100
Carbon Dioxide 34 H
BUN 16
Creatinine 0.9
Glucose 90
Calcium 8.7
Vital Signs:
Vital Signs
Temp Pulse Resp BP Pulse Ox
98.4 F 61 18 123/58 95
08/18/24 23:14 08/18/24 23:14 08/18/24 23:14 08/18/24 23:14 08/18/24 23:14
I&O
08/18/24 08/19/24 08/20/24
06:59 06:59 06:59
Intake Total 720 / 720 600 / 600
Balance 720 / 720 600 / 600
[2024-08-19] MEDS: LIORESAL 2.5 MG PO ×2 (08:07→20:14)
[2024-08-19] MEDS: VITAMIN D3 (cholecalciferol) 25 MCG PO (08:07)
[2024-08-19] MEDS: PACERONE 200 MG PO (08:08)
[2024-08-19] MEDS: ELIQUIS 2.5 MG PO ×2 (08:08→20:13)
[2024-08-19] MEDS: TOPROL XL 50 MG PO ×2 (08:09→20:14)
[2024-08-19] MEDS: COLACE PO ×2 (08:09→20:25)
[2024-08-19] MEDS: LIDOCAINE 4% PATCH TOPICAL (08:09)
[2024-08-19] MEDS: MIRALAX PO (08:10)
[2024-08-19] MEDS: MAGNESIUM OXIDE PO (08:20)
[2024-08-19] MEDS: AUGMENTIN 875 MG/125 MG PO (08:20)
[2024-08-19] MEDS: SYMBICORT 80/4.5 MCG INHALER 2 PUFF INH ×2 (08:52→18:00)
[2024-08-19 10:45] VITALS: BP 117/56; PULSE 61; O2SAT 96
[2024-08-19] MEDS: ZITHROMAX 500 MG PO (13:55)
[2024-08-19 15:00] VITALS: BP 131/57
[2024-08-19] MEDS: ROXICODONE 5 MG PO (15:45)
[2024-08-19] MEDS: NEURONTIN 600 MG PO (20:25)
[2024-08-19] MEDS: SENOKOT PO (20:26)
[2024-08-19 22:49] VITALS: BP 126/62
[2024-08-20 04:46] VITALS: BMI 22.6
[2024-08-20 06:52] LABS: Hematocrit 36.4 % (37.0-47.0); Hemoglobin 11.2 g/dL (12.0-16.0); Mean Corp Hgb Conc. 30.8 g/dL (33.0-37.0); Mean Corpuscular Hgb 30.7 pg (27.0-31.0); Mean Corpuscular Volume 99.7 fL (81.0-99.0); Mean Platelet Volume 9.3 fL (7.4-10.4); Platelet Count 411 10^3/uL (130-400); Red Blood Cell Count 3.65 10^6/uL (4.20-5.40); Red Cell Dist. Width 12.7 % (11.5-14.5); White Blood Cell Count 10.7 10^3/uL (4.8-10.8)
[2024-08-20 07:00] VITALS: BP 153/76
--- NOTE | 2024-08-20 07:08 | W.PN.HOSP.TC ---
Today's Communication/Plan
-
CT left shoulder
discontinue Baclofen
cont pain control
PT/OT
NWB LUE
abx
Assessment / Plan
Assessment / Plan
Physical Exam
General: No acute distress resting comfortably in bed
HEENT: normocephalic atraumatic
Cardio: S1-S2 RRR
Chest: Clear to Auscultation
Abd: soft nontender bowel sounds present
Ext: no edema
Neuro: Awake Alert Conversant Coherent
89F COPD chronic O2 2L pAfib HFpEF Hypothyroidism ppm hx PE on Eliquis renal dose d/t age/weight hx bowel obstruction resection here for fall with associate pelvic and rib fractures.
CT pelvis-subacute mildly displaced left inferior pubic ramus fracture
Head CT-no acute IC changes. Moderate senescent changes
Echo 06/15/2024-normal LV size and function. EF 57%. Diastolic function indeterminate. Mild MR, trace AI, mild TR. PA pressure 37 mmHg
# Mechanical fall/ambulatory dysfunction no prodrome symptoms
#Metabolic Encephalopathy
Pelvic fracture and chronic healing proximal humeral fracture
cont Pain control
Tylenol [id number], continue gabapentin, lidocaine patches
oxycodone prn
Pain remained uncontrolled, low dose Baclofen added but later discontinued, pain had improved but patient experienced significant side effects weakness/confusion/agitation/possible delirium/metabolic encephalopathy.
# Left rib area pain-rib X-rays appreciated 2 old rib fractures and 2 new rb fractures
#Left Upper Ext chronic proximal humerus fx as noted on Left Shoulder X-ray
lidocaine patches left arm and shoulder
Sling for support/comfort
Left Shoulder MRI appreciated:
-Significant limitation secondary to patient motion and pacemaker artifact.
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
-Lateral humeral head shallow concavity and marrow edema which could represent impaction fracture or avulsion fracture in the proper clinical setting.
-Age-indeterminate suspected avulsion fracture fragment adjacent to the posterior glenohumeral joint margin.
-Limited evaluation of the rotator cuff tendons; full-thickness supraspinatus tendon tear. Superior migration of the humeral head.
-Small to moderate glenohumeral joint effusion.
CT Lt shoulder pending
Orthopedic eval appreciated
# Bronchiectasis/COPD with chronic hypoxic respiratory failure on 2 L of oxygen- cont symbicort
#cough productive sputum positive for gram neg bacili, Pneumonia
Otherwise no significant systemic signs of infection, afebrile, recent mild leukocytosis noted, oxygenation remains baseline 2L
follow sputum culture speciation and sensitivities
Augmentin switched to Azithromcyin planned for 5 day regimen with initial dose 500 mg and subsequent doses 250, monitor QT
# Paroxysmal atrial fibrillation-continue amiodarone, Eliquis, metoprolol
# Chronic HFpEF- on bumex prn for weight gain
daily weights I/O
appears Euvolemic at this time
# Hypothyroidism-Synthroid
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
# History of PE-continue Eliquis
# Constipation-continue Linzess and Bal regimen
# History of bowel obstruction with bowel resection
# Nephrolithiasis with history of lithotripsy
# DVT prophylaxis-Eliquis
# DNR
PT/OT appreciated SNF rehab
discussed with patient and patient's son Leon
I spent a total of 50 minutes with the patient or on the floor. More than 50% of this time involved counseling and coordination of care.
Anticipated Discharge: 24 - 48 hours
Subjective/Interval History
-
Date of Service: August 20, 2024
Pain well controlled however patient significantly distressed this morning when she woke up and found herself very weak unable to get up on her own, likely side effect of baclofen. Some confusion possible delirium was also noted, also likely side
effect of baclofen. Patient initiate refused morning meds and started requesting to leave AMA. Eventually after extensive discussion and assistance from patient's son, agitation/confusion improved and patient complied with medical
recommendations/took her morning meds with exception baclofen (discontinued).
Objective Data
-
Labs:
Laboratory Results
08/20/24
06:11
WBC 10.7
Hgb 11.2 L
Hct 36.4 L
Plt Count 411 H
Sodium Pending
Potassium Pending
Chloride Pending
Carbon Dioxide Pending
BUN Pending
Creatinine Pending
Glucose Pending
Calcium Pending
Vital Signs:
Vital Signs
Temp Pulse Resp BP Pulse Ox
98.4 F 61 18 126/62 98
08/19/24 22:49 08/19/24 22:49 08/19/24 22:49 08/19/24 22:49 08/19/24 22:49
I&O
08/19/24 08/20/24 08/21/24
06:59 06:59 06:59
Intake Total 600 / 600 1080 / 1080
Balance 600 / 600 1080 / 1080
[2024-08-20 07:13] LABS: Blood Urea Nitrogen 15 mg/dl (7-17); Calcium 8.9 mg/dl (8.4-10.2); Carbon Dioxide 33 mmol/L (22-30); Chloride 100 mmol/L (98-107); Estimated Creatinine Clearance 34 ml/min; Glucose 89 mg/dl (70-99); Magnesium 1.9 mg/dl (1.6-2.3); Phosphorus 3.7 mg/dl (2.5-4.5); Potassium 4.5 mmol/L (3.5-5.1); Sodium 138 mmol/L (135-145); eGFR > 60.00
--- NOTE | 2024-08-20 07:42 | W.PN.UPDATE ---
Update Note
Progress Note Update
Patient seen evaluated by orthopedic surgery this morning. Orthopedic surgery was consulted regarding age-indeterminate left proximal humerus fracture. On encounter this morning, patient is unable to provide any information regarding her shoulder
or left upper extremity. She states that she does not have any pain. At this time, we will await CT scan of the left shoulder for further treatment recommendations. Orthopedic surgery will continue to follow along.
[2024-08-20] MEDS: SYMBICORT 80/4.5 MCG INHALER 2 PUFF INH (07:48)
[2024-08-20] MEDS: LIDOCAINE 4% PATCH TOPICAL (12:23)
[2024-08-20] MEDS: COLACE PO (12:24)
[2024-08-20] MEDS: MIRALAX PO (12:25)
[2024-08-20 13:03] VITALS: BP 110/47; PULSE 60; O2SAT 95
[2024-08-20 13:07] VITALS: BP 110/47; PULSE 60; O2SAT 95
[2024-08-20] MEDS: TOPROL XL 50 MG PO (13:25)
[2024-08-20] MEDS: PACERONE 200 MG PO (13:25)
[2024-08-20] MEDS: MAGNESIUM OXIDE PO (13:25)
[2024-08-20] MEDS: ELIQUIS 2.5 MG PO (13:26)
[2024-08-20] MEDS: VITAMIN D3 (cholecalciferol) 25 MCG PO (13:26)
[2024-08-20] MEDS: TYLENOL 1000 MG PO (13:26)
[2024-08-20 15:00] VITALS: BP 122/53
--- NOTE | 2024-08-20 15:24 | CON.ORTHO ---
Consultation
-
Date/Time Consultation Requested: 08/19/2024 @ 19:59
Date/Time Consultation Performed: 08/20/2024 @ 7:30 AM
Requesting Provider: Asa Jain MD
Performing Provider: Jim Allen PA-C for Dr. Torito Monae
Reason for Consultation: Left proximal humerus fracture
Consultation - Orthopedics
History
HPI: The patient is an 89-year-old female with a past medical history significant for bronchiectasis on O2, atrial fibrillation on Eliquis, COPD, hypertension, aortic diastolic murmur, CHF, mitral insufficiency, and ambulatory dysfunction who
presented to [facility] Emergency Department on 08/14/2024 after a mechanical fall. Patient is mostly wheelchair-bound; she can stand to transfer briefly. She states that she was standing up to get out of her wheelchair when she lost her
balance and fell onto her left side, specifically onto her left shoulder, elbow, and hip. She reports that she sustained a fall this past February onto her left shoulder, which unfortunately resulted in a left proximal humerus fracture and left hip
fracture. She underwent left hip cephalomedullary nail at [facility]. She also reports 2 additional falls, which she sustained this past April. In the Emergency Department, x-rays were obtained, which revealed a chronic proximal humeral
fracture. With respect to her left hip, intramedullary loida and screw fixation of the proximal femur was noted without evidence of acute periprosthetic fracture or dislocation. She also underwent CT scan of the pelvis, which revealed a subacute
mildly displaced left inferior pubic ramus fracture. Orthopedic surgery was consulted regarding treatment recommendations for her chronic left proximal humerus fracture. Currently, she is resting in bed in a sling. She endorses left shoulder pain
with range of motion. She denies any paresthesias. Of significance, she is currently being treated for a respiratory infection; respiratory cultures from 08/18/[address] scan of the left shoulder was ordered and is
currently pending.
PAST MEDICAL HISTORY: COPD, paroxysmal atrial fibrillation, hypertension, bronchiectasis, aortic diastolic murmur, CHF, mitral insufficiency, and ambulatory dysfunction.
PAST SURGICAL HISTORY: Appendectomy, left oophorectomy, lithotripsy, large colon resection, tracheotomy, cardiac pacemaker, laminectomy, right total hip replacement.
SOCIAL HISTORY: Former smoker. Occasional EtOH use. Denies any illicit drug use. Lives with family. Mostly wheelchair-bound.
FAMILY HISTORY: Non-contributory.
REVIEW OF SYSTEMS: 12-point review of systems obtained and negative except those mentioned in the HPI.
Allergies / Home Medications
Allergy/AdvReac Type Severity Reaction Status Date / Time
amlodipine Allergy Swelling-foot Verified 08/16/24 15:47
ankle edema
diltiazem Allergy Swelling-foot Verified 08/16/24 15:47
and ankle
edema
hydromorphone [From Dilaudid] Allergy Swelling Verified 08/14/24 16:49
metoprolol [From Lopressor] Allergy Itching Verified 08/14/24 16:49
metronidazole [From Flagyl] Allergy Hives Verified 08/14/24 16:49
Sulfa (Sulfonamide Allergy Itching Verified 08/14/24 16:49
Antibiotics)
�Medication �Instructions �Recorded
apixaban 2.5 mg tablet (Eliquis) 2.5 mg PO BID Blood Clot 07/28/23
Prevention/Tx
bumetanide 1 mg tablet 1 mg PO DAILY PRN Fluid 07/28/23
Retention/Swelling
cholecalciferol (vitamin D3) 25 25 mcg PO DAILY Supplement 07/28/23
mcg (1,000 unit) tablet (Vitamin
D3)
linaclotide 145 mcg capsule 145 mcg PO DAILY Gastrointestinal 07/28/23
(Linzess) Issue
simethicone 125 mg chewable tablet 125 mg PO QIDPRN PRN flatulence 07/28/23
(Gas-X Extra Strength)
amiodarone 200 mg tablet (Pacerone) 200 mg PO DAILY Arrhythmia #0 tabs 03/23/24
acetaminophen 500 mg tablet 650 mg PO Q4H PRN Pain 06/13/24
bisacodyl 10 mg rectal suppository 10 mg WI DAILYPRN PRN if mom is 06/13/24
(Dulcolax (bisacodyl)) ineffective, give on day 5 of no bm
budesonide 0.5 mg/2 mL suspension 0.5 mg inhalation R BID 06/13/24
for nebulization Lung/Breathing Issues
docusate sodium 100 mg capsule 100 mg PO BID Constipation 06/13/24
gabapentin 300 mg capsule 600 mg PO HS Neurological Condition 06/13/24
guaifenesin 600 mg tablet, 600 mg PO [id number] PRN cough 06/13/24
extended release 12 hr
ipratropium 0.5 mg-albuterol 3 mg 3 ml inhalation R Q6 06/13/24
(2.5 mg base)/3 mL nebulization Lung/Breathing Issues
soln
levothyroxine 50 mcg tablet 50 mcg PO DAILY Thyroid 06/13/24
magnesium hydroxide 400 mg/5 mL 30 ml PO DAILYPRN PRN if no bm on 06/13/24
oral suspension (Milk of Magnesia) day 4
methocarbamol 500 mg tablet 500 mg PO Q8HPRN PRN muscle 06/13/24
weakness
metoprolol succinate 25 mg 50 mg PO BID Heart Failure 06/13/24
tablet,extended release 24 hr
naloxone 4 mg/actuation nasal 4 mg intranasal Q3MPRN PRN opiod 06/13/24
spray (Narcan) overdose
oxycodone 5 mg tablet 10 mg PO Q6HPRN PRN moderate pain 06/13/24
sennosides 8.6 mg tablet (senna) 17.2 mg PO DAILY Constipation 06/13/24
sodium phosphates 19 gram-7 118 ml WI DAILYPRN PRN if dulcolax 06/13/24
gram/118 mL enema (Fleet Enema) is ineffective, give day 6 of no bm
thiamine HCl (vitamin B1) 100 mg 100 mg PO DAILY Supplement 06/13/24
tablet
tolterodine 2 mg capsule,extended 2 mg PO DAILY Urinary Issue 06/13/24
release 24 hr
amoxicillin 875 mg-potassium 1 tab PO Q12H #2 tabs 06/17/24
clavulanate 125 mg tablet
doxycycline hyclate 100 mg capsule 100 mg PO Q12 #2 caps 06/17/24
prednisone 10 mg tablet 10 mg PO DIRECTED #16 tabs 06/17/24
fluticasone fur. 100 mcg-umeclid 1 inh inhalation DAILY 08/14/24
62.5 mcg-vilant 25 mcg Lung/Breathing Issues
inhalat.powder (Trelegy Ellipta)
lidocaine 4 % topical patch 1 patch topical DAILY PRN back pain 08/14/24
Vital Signs / Lab Results
Temp Pulse Resp BP Pulse Ox
98.4 F 64 15 153/76 92
08/20/24 07:00 08/20/24 07:52 08/20/24 07:52 08/20/24 07:00 08/20/24 07:00
08/20/24 06:11
08/20/24 06:11
RADIOGRAPHIC FINDINGS:
CR Elbow - LEFT Min 3 Views was obtained at [facility] on 08/14/2024 and was made available for my review today. Findings: Bones - there is no acute fracture or dislocation. Mild degenerative changes of the elbow. Joints - there is no
evidence of joint effusion. Impression: No evidence of acute fracture or dislocation.
CR Shoulder, Trauma - LEFT was also obtained at [facility] on 08/14/2024 and was made available for my review today. Findings: Bones -there is a fracture of the proximal humerus which is slightly impacted and appears similar in appearance
to prior radiographs. There is no evidence of acute dislocation. Soft Tissue - there is no abnormal soft tissue swelling. Left chest wall pacemaker with leads projecting over the right atrium and right ventricle. Arthrosclerotic calcifications of
the aortic arch. No left-sided pneumothorax. Impression: No definite acute fracture or dislocation. There is a chronic proximal humeral fracture which appears overall similar to prior.
CR Hip - LEFT w/wo Pel 2-3 Vw* was also obtained at [facility] on 08/14/2024 and was made available for my review today. Impression: Intramedullary loida and screw fixation of the proximal left femur without evidence of acute periprosthetic
fracture or dislocation. Right total hip arthroplasty without evidence of hardware complication. Degenerative changes of the visualized lower lumbar spine.
CT Pelvis W/o Iv Contrast was also performed at [facility] on 08/15/2024 and was made available for my review today. Findings: Left femur ORIF changes without overt complication. Partially healed fracture component of the greater
trochanter. Surrounding heterotopic ossification. Subacute mildly displaced left inferior pubic ramus fracture, with minimal healing. Old right inferior and superior pubic rami fractures. Total right hip arthroplasty without overt complication.
Limited evaluation of the pelvic viscera demonstrates a stable 1.6 cm simple right ovarian cyst. No dedicated follow-up is indicated per the 2019 Society of Radiologists in Ultrasound consensus statement. Evaluation of additional soft tissue
structures such as ligaments and tendons is limited by CT. Grossly, no abnormalities noted. Impression: Subacute mildly displaced left inferior pubic ramus fracture.
MR Left Shoulder Without was performed at [facility] on 08/18/2024 and was made available for my review today. Impression: Significant limitation secondary to patient motion and pacemaker artifact. Small focus of avascular necrosis along
the superior humeral head margin. Lateral humeral head shallow concavity and marrow edema which could represent impaction fracture or avulsion fracture in the proper clinical setting. Age-indeterminate suspected avulsion fracture fragment adjacent
to the posterior glenohumeral joint margin. Consider further evaluation/follow-up CT examination. Limited evaluation of the rotator cuff tendon; full-thickness supraspinatus tendon tear. Superior migration of the humeral head. Small to moderate
glenohumeral joint effusion.
PHYSICAL EXAM:
General: Well-developed, well-nourished female in no acute distress.
HEENT: NCAT, sclera anicteric, normal conversational hearing.
Heart: No JVD.
Lungs: Nasal cannula in place.
MSK: Directed examination of the left upper extremity, with attention to the left shoulder, reveals sling intact. Skin intact. There is mild tenderness to palpation over the left proximal humerus. No reproducible tenderness to palpation
elsewhere. Patient is able to demonstrate passive range of motion with assistance of the right upper extremity without significant pain. Active range of motion reduced in all planes. Able to wiggle fingers. Sensation intact to light touch over
the axillary nerve distribution and capillary refill is less than 2 seconds.
Directed examination of the left lower extremity, with attention to the left hip, reveals skin intact. No erythema, warmth, or ecchymosis. Well-healed prior surgical incisions. Mild groin discomfort with internal rotation. No significant pain with
external rotation. There is no significant tenderness to palpation about the left hip. Able to plantarflex and dorsiflex left ankle. She is able to wiggle all toes. NVI distally.
Assessment / Plan
ASSESSMENT: 89-year-old female with a history of recurrent falls (most recent fall 08/14/2024). Orthopedic Surgery was consulted regarding recommendations for her chronic left proximal humerus fracture. Patient also underwent CT Scan of the Pelvis
which revealed a subacute mildly displaced left inferior pubic ramus fracture.
PLAN:
1) With respect to her left chronic proximal humerus fracture, CT scan has been ordered by primary team for further evaluation. Will await completion of CT scan prior to providing further recommendations. At this time, she may continue with sling
to LUE for comfort, NWB. Pain control per primary team.
2) With respect to her left subacute mildly displaced inferior pubic ramus fracture, she may be weightbearing as tolerated. Patient is mostly wheelchair-bound, therefore may be weightbearing as tolerated for transfers. Recommend PT/OT.
3) Orthopedic surgery will continue to follow along / comment on CT scan once completed.
--- NOTE | 2024-08-20 15:37 | CM ---
PT/OT currently recommending SNF at this time
Pt seen bedside, discussed current rehab recommendation. Pt is agreeable stating she thought this was always the recommendation, CM informed PT/OT has been following and prev did not see any rehab needs up until today.
Pt agreeable for CM to send referrals to facilities in [facility]
Referrals sent to [facility], [facility], [facility], [facility]. Awaiting determination
Ortho surg following
Plan: SNF; pending bed availability
[2024-08-20] MEDS: ZITHROMAX PO (18:19)
[2024-08-20] MEDS: TYLENOL PO ×2 (18:19→22:50)
[2024-08-20] MEDS: SYMBICORT 80/4.5 MCG INHALER INH (19:51)
[2024-08-20] MEDS: ELIQUIS PO (21:36)
[2024-08-20] MEDS: NEURONTIN PO (21:36)
[2024-08-20] MEDS: TOPROL XL PO (21:36)
[2024-08-20] MEDS: SENOKOT PO (21:36)
[2024-08-20] MEDS: ROXICODONE 5 MG PO (22:47)
[2024-08-20 23:00] VITALS: BP 152/62
[2024-08-21 06:00] VITALS: BMI 22.9
[2024-08-21 07:15] VITALS: BP 132/58
[2024-08-21 08:25] LABS: Hematocrit 34.1 % (37.0-47.0); Hemoglobin 10.5 g/dL (12.0-16.0); Mean Corp Hgb Conc. 30.8 g/dL (33.0-37.0); Mean Corpuscular Hgb 31.3 pg (27.0-31.0); Mean Corpuscular Volume 101.8 fL (81.0-99.0); Mean Platelet Volume 9.2 fL (7.4-10.4); Platelet Count 421 10^3/uL (130-400); Red Blood Cell Count 3.35 10^6/uL (4.20-5.40); Red Cell Dist. Width 12.9 % (11.5-14.5); White Blood Cell Count 9.7 10^3/uL (4.8-10.8)
[2024-08-21] MEDS: SYMBICORT 80/4.5 MCG INHALER 2 PUFF INH ×2 (08:28→19:38)
[2024-08-21] MEDS: ROXICODONE 5 MG PO ×2 (08:39→21:10)
[2024-08-21] MEDS: LIDOCAINE 4% PATCH TOPICAL (08:44)
[2024-08-21] MEDS: MIRALAX PO (08:44)
[2024-08-21] MEDS: TYLENOL 1000 MG PO ×3 (08:45→23:24)
[2024-08-21] MEDS: TOPROL XL 50 MG PO ×2 (08:45→21:05)
[2024-08-21] MEDS: PACERONE 200 MG PO (08:46)
[2024-08-21] MEDS: MAGNESIUM OXIDE PO (08:46)
[2024-08-21] MEDS: ELIQUIS 2.5 MG PO ×2 (08:46→21:04)
[2024-08-21] MEDS: VITAMIN D3 (cholecalciferol) 25 MCG PO (08:47)
--- NOTE | 2024-08-21 09:03 | W.PN.HOSP.TC ---
Today's Communication/Plan
-
CT Left shoulder
cont pain control
discharge planning SNF rehab
Assessment / Plan
Assessment / Plan
Physical Exam
General: No acute distress resting comfortably in bed
HEENT: normocephalic atraumatic
Cardio: S1-S2 RRR
Chest: Clear to Auscultation
Abd: soft nontender bowel sounds present
Ext: no edema
Neuro: Awake Alert Conversant Coherent
89F COPD chronic O2 2L pAfib HFpEF Hypothyroidism ppm hx PE on Eliquis renal dose d/t age/weight hx bowel obstruction resection here for fall with associate pelvic and rib fractures.
CT pelvis-subacute mildly displaced left inferior pubic ramus fracture
Head CT-no acute IC changes. Moderate senescent changes
Echo 06/15/2024-normal LV size and function. EF 57%. Diastolic function indeterminate. Mild MR, trace AI, mild TR. PA pressure 37 mmHg
# Mechanical fall/ambulatory dysfunction no prodrome symptoms
#Metabolic Encephalopathy
Pelvic fracture and chronic healing proximal humeral fracture
cont Pain control
Tylenol [id number], continue gabapentin, lidocaine patches
oxycodone prn
Pain remained uncontrolled, low dose Baclofen added but later discontinued, pain had improved but patient experienced significant side effects weakness/confusion/agitation/possible delirium/metabolic encephalopathy (since improved following
discontinuation Baclofen)
# Left rib area pain-rib X-rays appreciated 2 old rib fractures and 2 new rb fractures
#Left Upper Ext chronic proximal humerus fx as noted on Left Shoulder X-ray
lidocaine patches left arm and shoulder
Sling for support/comfort
Left Shoulder MRI appreciated:
-Significant limitation secondary to patient motion and pacemaker artifact.
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
-Lateral humeral head shallow concavity and marrow edema which could represent impaction fracture or avulsion fracture in the proper clinical setting.
-Age-indeterminate suspected avulsion fracture fragment adjacent to the posterior glenohumeral joint margin.
-Limited evaluation of the rotator cuff tendons; full-thickness supraspinatus tendon tear. Superior migration of the humeral head.
-Small to moderate glenohumeral joint effusion.
CT Lt shoulder pending
Orthopedic eval appreciated
# Bronchiectasis/COPD with chronic hypoxic respiratory failure on 2 L of oxygen- cont symbicort
#cough productive sputum positive for gram neg bacili, Pneumonia
Otherwise no significant systemic signs of infection, afebrile, recent mild leukocytosis noted, oxygenation remains baseline 2L
follow sputum culture speciation and sensitivities
Augmentin switched to Azithromcyin planned for 5 day regimen with initial dose 500 mg and subsequent doses 250, monitor QT
# Paroxysmal atrial fibrillation-continue amiodarone, Eliquis, metoprolol
# Chronic HFpEF- on bumex prn for weight gain
daily weights I/O
appears Euvolemic at this time
# Hypothyroidism-Synthroid
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
# History of PE-continue Eliquis
# Constipation-continue Linzess and Bal regimen
# History of bowel obstruction with bowel resection
# Nephrolithiasis with history of lithotripsy
# DVT prophylaxis-Eliquis
# DNR
PT/OT appreciated SNF rehab
discussed with patient. patient's son Leon called no answer received, brief update left in voicemail along with call back number
I spent a total of 45 minutes with the patient or on the floor. More than 50% of this time involved counseling and coordination of care.
Anticipated Discharge: 24 - 48 hours
Subjective/Interval History
-
Date of Service: August 21, 2024
Some confusion persists but overall patient appears to be doing better compared to yesterday. Pain remains an issue though patient appears comfortable at this time with current pain regimen
Objective Data
-
Labs:
Laboratory Results
08/21/24
07:35
WBC 9.7
Hgb 10.5 L
Hct 34.1 L
Plt Count 421 H
Sodium Pending
Potassium Pending
Chloride Pending
Carbon Dioxide Pending
BUN Pending
Creatinine Pending
Glucose Pending
Calcium Pending
Vital Signs:
Vital Signs
Temp Pulse Resp BP Pulse Ox
98.6 F 61 16 132/58 98
08/21/24 07:15 08/21/24 08:46 08/21/24 08:33 08/21/24 08:46 08/21/24 08:33
I&O
08/20/24 08/21/24 08/22/24
06:59 06:59 06:59
Intake Total 1080 / 1080 680 / 680
Balance 1080 / 1080 680 / 680
[2024-08-21 09:15] LABS: Blood Urea Nitrogen 15 mg/dl (7-17); Calcium 8.5 mg/dl (8.4-10.2); Carbon Dioxide 30 mmol/L (22-30); Chloride 102 mmol/L (98-107); Estimated Creatinine Clearance 27 ml/min; Glucose 84 mg/dl (70-99); Magnesium 1.9 mg/dl (1.6-2.3); Phosphorus 3.5 mg/dl (2.5-4.5); Potassium 4.5 mmol/L (3.5-5.1); Sodium 140 mmol/L (135-145); eGFR 53.85
--- NOTE | 2024-08-21 10:51 | W.PN.UPDATE ---
Update Note
Progress Note Update
Patient seen and evaluated this morning by Orthopedic surgery. She is sitting in her bedside chair. She continues with left shoulder pain and left groin/thigh pain.
She is scheduled for CT scan left shoulder today. Will await completion of CT scan prior to providing further recommendations. At this time, she may continue with sling to LUE for comfort, NWB until CT reviewed. Pain control per primary team.
She underwent CT Scan Pelvis on 09/14/2024. CT read as subacute mildly displaced left inferior pubic ramus fracture. CT scan was reviewed with Dr. Hassan today. Patient with acute appearing mildly displaced left inferior pubic ramus fracture on
top of chronic appearing fracture. Recommend WBAT to LLE with use of walker for assistance/transfers. PT/OT as tolerated.
Orthopedic surgery will continue to follow along.
[2024-08-21 13:06] LABS: Iron 31 ug/dl (37-170)
[2024-08-21 13:15] LABS: Percent Saturation 20 % (20-50); Total Iron Binding Capacity 154 ug/dl (265-497)
[2024-08-21 14:00] VITALS: BP 118/50; PULSE 61; O2SAT 97
[2024-08-21] MEDS: FERRLECIT 110 MG IV (15:11)
[2024-08-21 15:20] VITALS: BP 109/59
[2024-08-21 15:24] LABS: TSH Reflex To Free T4 7.81 uIU/ml (0.47-4.68)
[2024-08-21 15:51] LABS: Free T4 1.35 ng/dl (0.78-2.19)
[2024-08-21 15:59] LABS: Vitamin B12 633 pg/ml (239-931)
[2024-08-21] MEDS: ZITHROMAX 250 MG PO (17:40)
[2024-08-21] MEDS: NEURONTIN 600 MG PO (21:09)
[2024-08-21] MEDS: SENOKOT 17.2 MG PO (21:11)
[2024-08-21 23:15] VITALS: BP 114/51
[2024-08-22] MEDS: ROXICODONE 5 MG PO ×4 (01:36→19:03)
[2024-08-22] MEDS: LIDOCAINE 4% PATCH TOPICAL (07:11)
[2024-08-22] MEDS: TOPROL XL 50 MG PO ×2 (07:12→21:37)
[2024-08-22] MEDS: MIRALAX PO (07:12)
[2024-08-22] MEDS: MAGNESIUM OXIDE PO (07:12)
[2024-08-22] MEDS: VITAMIN D3 (cholecalciferol) PO ×2 (07:13→07:20)
[2024-08-22] MEDS: TYLENOL 1000 MG PO ×2 (07:13→23:23)
[2024-08-22] MEDS: PACERONE 200 MG PO (07:13)
[2024-08-22] MEDS: ELIQUIS 2.5 MG PO ×2 (07:14→21:37)
[2024-08-22 07:42] VITALS: BP 142/59
--- NOTE | 2024-08-22 07:45 | W.PN.HOSP.TC ---
Today's Communication/Plan
-
LUE wbat, sling for comfort
oxycodone 2.5 mg prn moderate pain (attempting to minimize sedation/confusion), 5 mg remains available for severe pain
Levofloxacin Q48H renally dosed, follow up AM EKG for QT monitoring
ID eval requested
Discharge planning SNF rehab
Assessment / Plan
Assessment / Plan
Physical Exam
General: No acute distress sitting up comfortably in chair
HEENT: normocephalic atraumatic
Cardio: S1-S2 RRR
Chest: Clear to Auscultation
Abd: soft nontender bowel sounds present
Ext: no edema, LUE sling in place
Neuro: Awake Alert Conversant Coherent
89F COPD chronic O2 2L pAfib HFpEF Hypothyroidism ppm hx PE on Eliquis renal dose d/t age/weight hx bowel obstruction resection here for fall with associate pelvic and rib fractures.
CT pelvis-subacute mildly displaced left inferior pubic ramus fracture
Head CT-no acute IC changes. Moderate senescent changes
Echo 06/15/2024-normal LV size and function. EF 57%. Diastolic function indeterminate. Mild MR, trace AI, mild TR. PA pressure 37 mmHg
# Mechanical fall/ambulatory dysfunction no prodrome symptoms
#Metabolic Encephalopathy
Pelvic fracture and chronic healing proximal humeral fracture
cont Pain control
Tylenol [id number], continue gabapentin, lidocaine patches
oxycodone prn 5 mg severe pain, 2.5 mg moderate pain
Pain remained uncontrolled, low dose Baclofen added but later discontinued, pain had improved but patient experienced significant side effects weakness/confusion/agitation/possible delirium/metabolic encephalopathy (since improved following
discontinuation Baclofen)
# Left rib area pain-rib X-rays appreciated 2 old rib fractures and 2 new rb fractures
#Left Upper Ext chronic proximal humerus fx as noted on Left Shoulder X-ray
lidocaine patches left arm and shoulder
Left Shoulder MRI appreciated:
-Significant limitation secondary to patient motion and pacemaker artifact.
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
-Lateral humeral head shallow concavity and marrow edema which could represent impaction fracture or avulsion fracture in the proper clinical setting.
-Age-indeterminate suspected avulsion fracture fragment adjacent to the posterior glenohumeral joint margin.
-Limited evaluation of the rotator cuff tendons; full-thickness supraspinatus tendon tear. Superior migration of the humeral head.
-Small to moderate glenohumeral joint effusion.
CT Lt shoulder appreciated no acute abn's, old fractures noted
Orthopedic eval appreciated
-LUE WBAT, sling for comfort
-possible benefit steroid injection in outpt follow up
-follow up pelvic X-ray 4 weeks recommended
# Bronchiectasis/COPD with chronic hypoxic respiratory failure on 2 L of oxygen- cont symbicort
#cough productive sputum positive for Pseudomonas pansensitive
Otherwise no significant systemic signs of infection, afebrile, single value brief mild leukocytosis, wbc otherwise consistently wnl, oxygenation remains baseline 2L
Augmentin switched to Azithromcyin discontinued in favor of Levofloxacin 750 mg Q48H renally dosed, Follow up AM EKG for QT monitoring
Question as to whether or not Pseudomonas is chronic colonizer w/ hx bronchiectasis as opposed to true infection
ID eval requested
# Paroxysmal atrial fibrillation-continue amiodarone, Eliquis, metoprolol
# Chronic HFpEF- on bumex prn for weight gain
daily weights I/O
appears Euvolemic at this time
# Hypothyroidism-Synthroid
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
# History of PE-continue Eliquis
# Constipation-continue Linzess and Bal regimen
# History of bowel obstruction with bowel resection
# Nephrolithiasis with history of lithotripsy
# DVT prophylaxis-Eliquis
# DNR
PT/OT appreciated SNF rehab
discussed with patient and patient's son Leon
I spent a total of 45 minutes with the patient or on the floor. More than 50% of this time involved counseling and coordination of care.
Anticipated Discharge: 24 - 48 hours
Subjective/Interval History
-
Date of Service: August 22, 2024
No acute distress, appears relatively comfortable at this time. Note concerns sedating effects of pain meds. Productive cough remains persistent.
Objective Data
-
Labs:
Laboratory Results
08/22/24
07:40
WBC Pending
Hgb Pending
Hct Pending
Plt Count Pending
Sodium Pending
Potassium Pending
Chloride Pending
Carbon Dioxide Pending
BUN Pending
Creatinine Pending
Glucose Pending
Calcium Pending
Vital Signs:
Vital Signs
Temp Pulse Resp BP Pulse Ox
98.7 F 61 20 142/59 97
08/22/24 07:42 08/22/24 07:42 08/22/24 07:42 08/22/24 07:42 08/22/24 07:42
I&O
08/21/24 08/22/24 08/23/24
06:59 06:59 06:59
Intake Total 680 / 680 1090 / 1090 120 / 120
Balance 680 / 680 1090 / 1090 120 / 120
[2024-08-22 08:20] LABS: Hematocrit 33.2 % (37.0-47.0); Hemoglobin 10.2 g/dL (12.0-16.0); Mean Corp Hgb Conc. 30.7 g/dL (33.0-37.0); Mean Corpuscular Hgb 30.8 pg (27.0-31.0); Mean Corpuscular Volume 100.3 fL (81.0-99.0); Platelet Count 407 10^3/uL (130-400); Red Blood Cell Count 3.31 10^6/uL (4.20-5.40); White Blood Cell Count 8.3 10^3/uL (4.8-10.8)
[2024-08-22] MEDS: SYMBICORT 80/4.5 MCG INHALER 2 PUFF INH ×2 (08:24→19:47)
[2024-08-22 08:42] LABS: Blood Urea Nitrogen 14 mg/dl (7-17); Calcium 8.5 mg/dl (8.4-10.2); Carbon Dioxide 32 mmol/L (22-30); Chloride 101 mmol/L (98-107); Estimated Creatinine Clearance 27 ml/min; Glucose 86 mg/dl (70-99); Magnesium 1.8 mg/dl (1.6-2.3); Phosphorus 4.1 mg/dl (2.5-4.5); Potassium 4.4 mmol/L (3.5-5.1); Sodium 139 mmol/L (135-145); eGFR 53.85
--- NOTE | 2024-08-22 11:53 | W.PN.UPDATE ---
Update Note
Progress Note Update
Patient seen and evaluated by Orthopedic surgery this morning. Patient's son, Leon is at bedside.
Regarding her left shoulder, CT scan was performed yesterday.
Findings: The avulsion fracture of the left shoulder posterior to the glenohumeral joint is stable from prior CT examination 06/13/2024. No acute fractures nor dislocations are noted. There is a healed left humeral neck fracture. There is a small
linear ossification about the anterior humeral head likely a benign soft tissue calcification due to prior rotator cuff or tendinosis. There is mild osteophyte formation of the glenohumeral joint as well as mild joint space narrowing consistent
with osteoarthritis. There is moderate joint space narrowing of the AC joint. There is mild bronchiectasis in the lingula.
Impression: No evidence of acute injury. Old fractures as described above. 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 Mild lingular bronchiectasis. Stable.
MRI from 08/18/2024 did reveal what appears to be a full-thickness supraspinatus tendon tear with superior migration of humeral head, indicative of rotator cuff arthropathy.
We discussed treatment options for her left shoulder at this time including pain control per primary team, trial of a corticosteroid injection once her respiratory infection is eradicated, and incorporation of physical therapy for anterior deltoid
strengthening program. We also discussed surgical options if she fails non-operative treatment. Given CT scan findings, she may be weightbearing as tolerated to her left upper extremity.
She may follow-up in the office as an outpatient for her left shoulder. Recommend obtaining serial x-rays of her acute appearing mildly displaced left inferior pubic ramus fracture in 4 weeks. All questions were answered.
Orthopedic surgery will sign off at this time. Please reengage with any further questions or concerns.
--- NOTE | 2024-08-22 12:55 | CM ---
Patient seen at bedside.
PT rec SNF
Referrals in [facility]
Spoke with patient son and they would like [facility] or [facility]
PLAN: SNF, pending bed availability
[2024-08-22] MEDS: FEOSOL 325 MG PO (13:46)
[2024-08-22 15:32] VITALS: BP 114/48
[2024-08-22] MEDS: TYLENOL PO (16:00)
[2024-08-22] MEDS: LEVAQUIN 750 MG PO (17:00)
[2024-08-22] MEDS: ROXICODONE 2.5 MG PO (21:36)
[2024-08-22] MEDS: SENOKOT 17.2 MG PO (21:42)
[2024-08-22] MEDS: NEURONTIN 600 MG PO (21:44)
[2024-08-22 23:13] VITALS: BP 146/57
[2024-08-23] MEDS: ROXICODONE 5 MG PO ×4 (03:53→22:41)
[2024-08-23 06:00] VITALS: BMI 23.3
[2024-08-23] MEDS: LIDOCAINE 4% PATCH TOPICAL (07:16)
[2024-08-23] MEDS: MAGNESIUM OXIDE 500 MG PO (07:27)
[2024-08-23] MEDS: TYLENOL 1000 MG PO ×3 (07:27→22:41)
[2024-08-23] MEDS: TOPROL XL 50 MG PO (07:27)
[2024-08-23] MEDS: ELIQUIS 2.5 MG PO ×2 (07:27→20:10)
[2024-08-23] MEDS: MIRALAX 17 GRAMS PO (07:27)
[2024-08-23] MEDS: VITAMIN D3 (cholecalciferol) 25 MCG PO (07:28)
[2024-08-23] MEDS: PACERONE 200 MG PO (07:28)
[2024-08-23] MEDS: FEOSOL 325 MG PO (07:28)
[2024-08-23 07:36] VITALS: BP 130/53
[2024-08-23] MEDS: SYMBICORT 80/4.5 MCG INHALER 2 PUFF INH ×2 (07:39→19:36)
--- NOTE | 2024-08-23 08:53 | W.PN.HOSP.TC ---
Today's Communication/Plan
-
Antibiotics. ID eval
Assessment / Plan
Assessment / Plan
Physical Exam
General: No acute distress sitting up comfortably in chair
HEENT: normocephalic atraumatic
Cardio: S1-S2 RRR
Chest: Clear to Auscultation
Abd: soft nontender bowel sounds present
Ext: no edema, LUE sling in place
Neuro: Awake Alert Conversant Coherent
A/P:
89F COPD chronic O2 2L pAfib HFpEF Hypothyroidism ppm hx PE on Eliquis renal dose d/t age/weight hx bowel obstruction resection here for fall with associate pelvic and rib fractures.
CT pelvis-subacute mildly displaced left inferior pubic ramus fracture
Head CT-no acute IC changes. Moderate senescent changes
Echo 06/15/2024-normal LV size and function. EF 57%. Diastolic function indeterminate. Mild MR, trace AI, mild TR. PA pressure 37 mmHg
# Mechanical fall/ambulatory dysfunction no prodrome symptoms
#Metabolic Encephalopathy
Pelvic fracture and chronic healing proximal humeral fracture
cont Pain control
Tylenol [id number]-[id number]-nelfk, continue gabapentin, lidocaine patches
oxycodone prn 5 mg severe pain, 2.5 mg moderate pain
Pain remained uncontrolled, low dose Baclofen added but later discontinued, pain had improved but patient experienced significant side effects weakness/confusion/agitation/possible delirium/metabolic encephalopathy (since improved following
discontinuation Baclofen)
# Left rib area pain-rib X-rays appreciated 2 old rib fractures and 2 new rb fractures
#Left Upper Ext chronic proximal humerus fx as noted on Left Shoulder X-ray
lidocaine patches left arm and shoulder
Left Shoulder MRI appreciated:
-Significant limitation secondary to patient motion and pacemaker artifact.
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
-Lateral humeral head shallow concavity and marrow edema which could represent impaction fracture or avulsion fracture in the proper clinical setting.
-Age-indeterminate suspected avulsion fracture fragment adjacent to the posterior glenohumeral joint margin.
-Limited evaluation of the rotator cuff tendons; full-thickness supraspinatus tendon tear. Superior migration of the humeral head.
-Small to moderate glenohumeral joint effusion.
CT Lt shoulder appreciated no acute abn's, old fractures noted
Orthopedic eval appreciated
-LUE WBAT, sling for comfort
-possible benefit steroid injection in outpt follow up
-follow up pelvic X-ray 4 weeks recommended
# Bronchiectasis/COPD with chronic hypoxic respiratory failure on 2 L of oxygen- cont symbicort
#cough productive sputum positive for Pseudomonas pansensitive
Otherwise no significant systemic signs of infection, afebrile, single value brief mild leukocytosis, wbc otherwise consistently wnl, oxygenation remains baseline 2L
Augmentin switched to Azithromcyin discontinued in favor of Levofloxacin 750 mg Q48H renally dosed, Follow up AM EKG for QT monitoring
Question as to whether or not Pseudomonas is chronic colonizer w/ hx bronchiectasis as opposed to true infection
ID eval requested
# Paroxysmal atrial fibrillation-continue amiodarone, Eliquis, metoprolol
# Chronic HFpEF- on bumex prn for weight gain
daily weights I/O
appears Euvolemic at this time
# Hypothyroidism-Synthroid
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
# History of PE-continue Eliquis
# Constipation-continue Linzess and Bal regimen
# History of bowel obstruction with bowel resection
# Nephrolithiasis with history of lithotripsy
# DVT prophylaxis-Eliquis
# DNR
PT/OT appreciated SNF rehab
Anticipated Discharge: 24 - 48 hours
Subjective/Interval History
-
Date of Service: August 23, 2024
Patient still coughs with sputum production, complains of pelvic pain upon movement. Afebrile
Objective Data
-
Labs:
Laboratory Results
08/23/24
08:34
WBC Pending
Hgb Pending
Hct Pending
Plt Count Pending
Sodium Pending
Potassium Pending
Chloride Pending
Carbon Dioxide Pending
BUN Pending
Creatinine Pending
Glucose Pending
Calcium Pending
Vital Signs:
Vital Signs
Temp Pulse Resp BP Pulse Ox
98.2 F 62 16 130/53 94
08/23/24 07:36 08/23/24 07:44 08/23/24 07:44 08/23/24 07:36 08/23/24 07:44
I&O
08/22/24 08/23/24 08/24/24
06:59 06:59 06:59
Intake Total 1090 / 1090 960 / 960
Balance 1090 / 1090 960 / 960
[2024-08-23 09:10] LABS: Hematocrit 35.6 % (37.0-47.0); Hemoglobin 10.7 g/dL (12.0-16.0); Mean Corp Hgb Conc. 30.1 g/dL (33.0-37.0); Mean Corpuscular Hgb 30.2 pg (27.0-31.0); Mean Corpuscular Volume 100.6 fL (81.0-99.0); Platelet Count 464 10^3/uL (130-400); Red Blood Cell Count 3.54 10^6/uL (4.20-5.40); White Blood Cell Count 10.5 10^3/uL (4.8-10.8)
[2024-08-23 09:40] LABS: Blood Urea Nitrogen 11 mg/dl (7-17); Calcium 8.9 mg/dl (8.4-10.2); Carbon Dioxide 32 mmol/L (22-30); Chloride 99 mmol/L (98-107); Estimated Creatinine Clearance 30 ml/min; Glucose 97 mg/dl (70-99); Magnesium 1.8 mg/dl (1.6-2.3); Phosphorus 3.5 mg/dl (2.5-4.5); Potassium 4.5 mmol/L (3.5-5.1); Sodium 138 mmol/L (135-145); eGFR > 60.00
--- NOTE | 2024-08-23 14:15 | CM ---
Chart reviewed. Echo done today
Spoke w/ pt's daughter re d/c plan. Per daughter, in agreement w/ her brother about [facility] being first choice and [facility] being the second choice. Both facilities are willing to accept pt pending bed availability day of d/c.
Per hospitalist, pt may be able to d/c 24-48 hours
Plan: SNF ([facility] preferred); pending bed availability day of d/c
--- NOTE | 2024-08-23 14:36 | CON.ID ---
Consultation
-
Date/Time Consultation Requested: 08/22/2024 1523
Date/Time Consultation Performed: 08/23/2024 1144
Requesting Provider: Dr. Jain
Performing Provider: Dr. Narayanan
Reason for Consultation: Exacerbation COPD; Hx bronchiectasis; Pseudomonas in sputum
Chief Complaint / Past History
History of Present Illness
Mary Lou Ward is an 89 female being evaluated at the request of Dr. Jain in regards to Pseudomonas recovered from the sputum. History is obtained from chart review, along with patient interview.
The patient has an underlying significant past medical history of COPD and bronchiectasis. She reports that she had a history of left hip fracture and left shoulder fracture February 2024. Thereafter, she was sent to rehab, and has had several
subsequent readmissions. She most recently was at [facility] and reports discharged to home on 08/13/2024. She reports that she got out of the wheelchair, and subsequently fell to the floor and was brought back in to the hospital for further
evaluation. Here she was found to have a chronic left proximal humerus fracture, and a subacute left inferior pubic ramus fracture. She has been followed by Orthopedics while here.
The patient also reports that she is on chronic home O2 (2 L), but approximately 2 weeks ago she noted an increase in her sputum. She notes that initially it was a dark yellow in color, but subsequently transition to a santos/green appearance. She
notes significant amounts of sputum production over the same timeframe. She notes ongoing shortness of breath which is chronic, but has not significantly worsened. Sputum culture obtained here at the hospital has revealed the presence of
Pseudomonas, and Infectious Diseases is asked to comment upon further therapy. Patient denies any recent antibiotic use, but has been started on levofloxacin here.
Past History
Additional Past Medical History:
A-fib
CHF
COPD
Bronchiectasis
HTN
IBS
Hypothyroidism
Additional Past Surgical History:
PPM placement
Allergy History:
amlodipine Allergy (Verified 08/16/24 15:47)
Swelling-foot ankle edema
diltiazem Allergy (Verified 08/16/24 15:47)
Swelling-foot and ankle edema
hydromorphone [From Dilaudid] Allergy (Verified 08/14/24 16:49)
Swelling
metoprolol [From Lopressor] Allergy (Verified 08/14/24 16:49)
Itching
metronidazole [From Flagyl] Allergy (Verified 08/14/24 16:49)
Hives
Sulfa (Sulfonamide Antibiotics) Allergy (Verified 08/14/24 16:49)
Itching
Medications Reviewed: Yes
Current Antibiotics:
Levofloxacin 750 mg p.o. every 48 hours
Social History
Tobacco: Non-Smoker
Alcohol: None
Drug: None
Personal:
Living: With Family (Son)
Employment: Retired
Family History
Family History: Not Pertinent
Review of Systems
Vital Signs
Temp Pulse Resp BP Pulse Ox
98.2 F 62 16 130/53 95
08/23/24 07:36 08/23/24 07:44 08/23/24 07:44 08/23/24 07:36 08/23/24 08:02
Physical Exam
Physical Exam
Constitutional: No Acute Distress, Comfortable, Chronically Ill, Non-toxic and Cachetic (mild)
Head: Normocephalic
Eyes: Pupils Equal, Pupils Round, No Conjunctival Hemorrhage and Sclera Anicteric
Oral: No Thrush and No Ulcers
Cardiovascular: Regular Rate and S1/S2; Negative S3/S4
Pulmonary: Clear, Rhonchi (few, scattered), Coarse and Non Labored; Negative Wheezes or Rales
Gastrointestinal: Soft, Non Tender and Non Distended
Extremities: Negative Edema, Cyanosis or Erythema
Skin: Warm and Dry; Negative Rash or Jaundice
Neurological: Awake and Alert
Psychological: Calm
.
Lab / Diagnostic Study Results
08/23/24 08:34
08/23/24 08:34
Microbiology Results
Micro:
08/18/24 13:44 Respiratory Culture - Final
Sputum Pseudomonas aeruginosa
Gram Stain - Final
1. Pseudomonas aeruginosa
M.I.C. RX
--------- ---
Aztreonam 8 S
Cefepime <=2 S
Ceftazidime 4 S
Ciprofloxacin <=0.25 S
Meropenem <=1 S
Piperacillin/Tazobactam <=8 S
Tobramycin <=2 S
Imaging:
08/16/2024 CXR (3 view): Subtle contour deformities are demonstrated involving numerous left ribs related to old healed fractures. This includes posterior 10th rib. Anterior fifth rib. There is a posterolateral left eighth rib fracture.
Nondisplaced. There is a subtle nondisplaced posterior left fifth rib fracture, best demonstrated on previous radiographic examination of the left shoulder performed 08/14/2024. No pneumothorax. No radiographically demonstrable pleural effusion.
Chronic bronchiectasis and bronchial wall thickening can demonstrated in the medial segment right lobe. Mild thyromegaly. No congestive heart failure. Chronic biapical pleural thickening. Film personally viewed.
Assessment / Plan
Recent fall with rib fractures
Bronchiectasis with flare; recovery of Pseudomonas from sputum
Exacerbation of COPD
Chronic left proximal humerus fracture
Subacute left inferior pubic ramus fracture
A-fib
CHF
COPD
Bronchiectasis
HTN
IBS
Hypothyroidism
Recommendations:
Would continue with treatment of Pseudomonas, although would prefer to moved to the IV route.
Discontinue further levofloxacin. Begin cefepime 2 g IV every 8 hours (dosed for CrCl = 30)
Follow sputum production.
Trend estimated creatinine clearance to guide further antimicrobial dosing.
Monitor white count temperature curve.
Would treat for 2-week course. Although it would be difficult to achieve complete cure, hopefully a course of antibiotics will decrease overall bioburden and provide some respiratory relief.
[2024-08-23 14:37] VITALS: BP 122/50
[2024-08-23 15:04] VITALS: BP 113/47
[2024-08-23] MEDS: STERILE WATER FOR INJECTION 10 ML IV (15:28)
[2024-08-23] MEDS: MAXIPIME 2000 MG IV (15:28)
[2024-08-23] MEDS: TOPROL XL PO ×2 (20:09→20:13)
[2024-08-23] MEDS: SENOKOT 17.2 MG PO (20:10)
[2024-08-23] MEDS: NEURONTIN 600 MG PO (20:10)
[2024-08-23 23:10] VITALS: BP 134/56
[2024-08-24] MEDS: STERILE WATER FOR INJECTION 10 ML IV ×2 (04:14→15:28)
[2024-08-24] MEDS: MAXIPIME 2000 MG IV ×2 (04:14→15:28)
[2024-08-24] MEDS: ROXICODONE 5 MG PO ×3 (04:25→22:30)
[2024-08-24 05:27] VITALS: BMI 23.1
[2024-08-24 06:24] VITALS: BP 103/46
--- NOTE | 2024-08-24 07:49 | W.PN.HOSP.TC ---
Addendum entered and electronically signed by Vj Treviño MD 08/24/24 15:59:
Pelvic fracture due to low level fall only
Original Note:
Today's Communication/Plan
-
IV antibiotics. Discharge planning in progress
Assessment / Plan
Assessment / Plan
Physical Exam
General: No acute distress
HEENT: normocephalic atraumatic
Cardio: S1-S2 RRR
Chest: Clear to Auscultation
Abd: soft nontender bowel sounds present
Ext: no edema, LUE sling in place
Neuro: Awake Alert Conversant Coherent
A/P:
Pseudomonas pneumonia/bronchiectasis with flare:
On IV cefepime 2 g every 12 hours per ID recommendation--> continue for 2 weeks
DuoNeb as needed
PT OT
Discussed with daughter over the phone today
I told case packer today that she can be discharged as soon as today as long as coordination for d/c has been completed--> await for CM for d/c dispo
Chronic hypoxic respiratory failure:
Continue oxygen supplementation
Monitor respiratory status
COPD without exacerbation:
Continue bronchodilators
Continue Symbicort
Recent mechanical fall /Pelvic fracture with subacute left inferior pubic ramus fracture /Chronic left proximal humeral fracture:
Continue current pain regimen with lidocaine patch, gabapentin, acetaminophen 1 g every 8 hours, and oxycodone 2.5 mg for moderate pain and 5 mg for severe pain
Continue bowel regimen
Appreciate Ortho consult
Chronic diastolic congestive heart failure:
Euvolemic
Weight 53 kg today which seems to be lower than before
Resume oral diuretics as needed upon discharge or earlier if needed
Continue beta-kole
HTN:
Cont B-kole
Hypothyroidism:
Resume thyroid medications today on 08/24, levothyroxine 50 mcg p.o. daily
Unclear why was not taking it prior
Paroxysmal atrial fibrillation:
Continue rate control, metoprolol succinate 50 mg twice a day
Continue antiarrhythmic, amiodarone 200 mg daily orally
Continue anticoagulant, Eliquis 2.5 mg twice a day
Continue cardiac monitoring
DVT prophylaxis:
Eliquis
CODE STATUS:
DNR
Anticipated Discharge: Today
Subjective/Interval History
-
Date of Service: August 24, 2024
Feels better overall. Still having some pain on activity and some sputum production. Less shortness of breath. Afebrile
Objective Data
-
Labs:
Laboratory Results
08/24/24
05:51
WBC Pending
Hgb Pending
Hct Pending
Plt Count Pending
Sodium Pending
Potassium Pending
Chloride Pending
Carbon Dioxide Pending
BUN Pending
Creatinine Pending
Glucose Pending
Calcium Pending
Vital Signs:
Vital Signs
Temp Pulse Resp BP Pulse Ox
98.0 F 61 18 103/46 97
08/24/24 06:24 08/24/24 06:24 08/24/24 06:24 08/24/24 06:24 08/24/24 06:24
I&O
08/23/24 08/24/24 08/25/24
06:59 06:59 06:59
Intake Total 960 / 960 840 / 840
Output Total 350 / 350
Balance 960 / 960 490 / 490
[2024-08-24 08:28] LABS: Blood Urea Nitrogen 14 mg/dl (7-17); Calcium 8.6 mg/dl (8.4-10.2); Carbon Dioxide 32 mmol/L (22-30); Chloride 100 mmol/L (98-107); Estimated Creatinine Clearance 25 ml/min; Glucose 94 mg/dl (70-99); Phosphorus 3.7 mg/dl (2.5-4.5); Sodium 138 mmol/L (135-145); eGFR 48.03
[2024-08-24] MEDS: SYMBICORT 80/4.5 MCG INHALER 2 PUFF INH ×2 (08:37→20:41)
[2024-08-24 08:53] LABS: Hematocrit 34.3 % (37.0-47.0); Hemoglobin 10.1 g/dL (12.0-16.0); Mean Corp Hgb Conc. 29.4 g/dL (33.0-37.0); Mean Corpuscular Hgb 30.1 pg (27.0-31.0); Mean Corpuscular Volume 102.4 fL (81.0-99.0); Mean Platelet Volume 9.2 fL (7.4-10.4); Platelet Count 397 10^3/uL (130-400); Red Blood Cell Count 3.35 10^6/uL (4.20-5.40); Red Cell Dist. Width 13.2 % (11.5-14.5); White Blood Cell Count 10.4 10^3/uL (4.8-10.8)
[2024-08-24] MEDS: LIDOCAINE 4% PATCH TOPICAL (09:07)
[2024-08-24] MEDS: ROXICODONE 2.5 MG PO (09:20)
[2024-08-24] MEDS: MAGNESIUM OXIDE 500 MG PO (09:21)
[2024-08-24] MEDS: TYLENOL 1000 MG PO ×3 (09:21→22:30)
[2024-08-24] MEDS: MIRALAX 17 GRAMS PO (09:21)
[2024-08-24] MEDS: VITAMIN D3 (cholecalciferol) 25 MCG PO (09:22)
[2024-08-24] MEDS: ELIQUIS 2.5 MG PO ×2 (09:22→20:30)
[2024-08-24] MEDS: TOPROL XL 50 MG PO ×2 (09:22→20:30)
[2024-08-24] MEDS: FEOSOL 325 MG PO (09:22)
[2024-08-24] MEDS: PACERONE 200 MG PO (09:23)
[2024-08-24 11:12] VITALS: BP 111/68; PULSE 63; O2SAT 95
--- NOTE | 2024-08-24 11:16 | CM ---
Spoke w/ pt's daughter. Per daughter, she does not want [facility] to be explored for SNF anymore. Family is still considering [facility] and is now preferring [facility] as well.
Referral prev done for [facility] and are willing to accept pt pending bed availability at d/c
Spoke w/ hospitalist and ID, pt will cont current IV abx course at d/c. Per ID, is hoping a 2 week course and will leave script on chart
Per hospitalist, pt is medically stable for d/c once coordination is completed.
CM TT Tsering García/Hal Gaitan to inquire on bed availability today, awaiting response. CM also informed that pt will d/c w/ continuation of her current IV abx
Plan: SNF, [facility] or [facility] depending on bed availability.
Pt will cont her IV abx course at d/c
--- NOTE | 2024-08-24 12:18 | PN.CDI ---
CDI
- -
CDI:
Physician Documentation Request
Admit Date: 08/19/24 08:00
Dear Doctor Hudson,
Please review the following and provide your response in the progress notes.
Clinical Indicators:
Pt admitted with Pelvic fracture and chronic healing proximal humeral fracture
Documented throughout the record, ' Lateral humeral head shallow concavity and marrow edema which could represent impaction fracture or avulsion fracture in the proper clinical setting.Age-indeterminate suspected avulsion fracture fragment adjacent
to the posterior glenohumeral joint margin.'
Documented per ED, '...here with L shoulder and L hip pain after fallpt is mostly wheelchair bound; she can stand to transfer briefly...she says that she was standing up to get out of her wheelchair and she lost her balance and fell on her L side
onto let shoulder, elbow and hip...'
CT pelvis-subacute mildly displaced left inferior pubic ramus fracture
Please clarify in your note the Etiology/Etiologies of the documented pelvic fracture:
Multifactorial due to low level fall/Age related osteoporosis
Due to low level fall only
Other ( please specify)
Use of terms such as suspected, likely, concern for, or probable (associated with a specific diagnosis that is being evaluated, monitored, or treated as if it exists) are acceptable and can be coded in the inpatient setting, when documented at the
time of discharge.
Thank you,
Irina Emmanuel RN
CDI Specialist
[facility]
Please use your independent medical judgment in providing your response.
[2024-08-24 15:04] VITALS: BP 96/44
[2024-08-24 15:15] VITALS: BP 123/44; PULSE 65; O2SAT 96
[2024-08-24] MEDS: SYNTHROID 50 MCG PO (15:27)
--- NOTE | 2024-08-24 16:17 | W.PN.ID1 ---
Date of Service
Date of Service: August 24, 2024
Today's Communication
Continue antibiotics. See below�
Assessment / Plan
Recent fall with rib fractures
Bronchiectasis with flare; recovery of Pseudomonas from sputum
Exacerbation of COPD
Chronic left proximal humerus fracture
Subacute left inferior pubic ramus fracture
A-fib
CHF
COPD
Bronchiectasis
HTN
IBS
Hypothyroidism
Recommendations:
Would continue with treatment of Pseudomonas
Current est CrCl ~ 25.
Will transition to cefepime 2 g IV every 24 hours
Follow sputum production.
Trend estimated creatinine clearance to guide further antimicrobial dosing.
Monitor white count temperature curve.
Would treat for 2-week course. Although it would be difficult to achieve complete cure, hopefully a course of antibiotics will decrease overall bioburden and provide some respiratory relief.
Prescription given to Case Management
Chief Complaint
-: Pneumonia
Subjective / Review of Systems
Review of Systems: No Fever, No Chills and Cough
Vital Signs / Physical Exam
Vital Signs
Vital Signs
Temp Pulse Resp BP Pulse Ox
97.4 F 60 19 96/44 96
08/24/24 15:04 08/24/24 15:04 08/24/24 15:04 08/24/24 15:04 08/24/24 15:04
Physical Exam
Constitutional: No Acute Distress, Comfortable, Chronically Ill and Non-toxic
Eyes: Sclera Anicteric
Cardiovascular: S1/S2; Negative S3/S4
Pulmonary: Coarse and Non Labored
Gastrointestinal: Soft and Non Tender
Neurological: Awake and Alert
Psychological: Calm
Objective Data
Lab Data
Lab Results
08/24/24 05:51
08/24/24 05:51
Estimated Creat Clear 25 ml/min 08/24/24 05:51
Total Bilirubin 0.4 mg/dl (0.2-1.3) 08/15/24 13:47
AST 25 U/L (14-36) 08/15/24 13:47
ALT 16 U/L (0-35) 08/15/24 13:47
Alkaline Phosphatase 73 U/L (38-126) 08/15/24 13:47
Most recent labs reviewed.
Micro Results:
08/18/24 13:44 Respiratory Culture - Final
Sputum Pseudomonas aeruginosa
Gram Stain - Final
1. Pseudomonas aeruginosa
M.I.C. RX
--------- ---
Aztreonam 8 S
Cefepime <=2 S
Ceftazidime 4 S
Ciprofloxacin <=0.25 S
Meropenem <=1 S
Piperacillin/Tazobactam <=8 S
Tobramycin <=2 S
Imaging:
08/16/2024 CXR (3 view): Subtle contour deformities are demonstrated involving numerous left ribs related to old healed fractures. This includes posterior 10th rib. Anterior fifth rib. There is a posterolateral left eighth rib fracture.
Nondisplaced. There is a subtle nondisplaced posterior left fifth rib fracture, best demonstrated on previous radiographic examination of the left shoulder performed 08/14/2024. No pneumothorax. No radiographically demonstrable pleural effusion.
Chronic bronchiectasis and bronchial wall thickening can demonstrated in the medial segment right lobe. Mild thyromegaly. No congestive heart failure. Chronic biapical pleural thickening. Film personally viewed.
[2024-08-24 17:56] LABS: COVID-19 Antigen Negative (Negative)
[2024-08-24 20:29] VITALS: BP 138/37
[2024-08-24] MEDS: NEURONTIN 600 MG PO (20:33)
[2024-08-24] MEDS: SENOKOT 17.2 MG PO (20:33)
[2024-08-24 22:51] VITALS: BP 125/39
[2024-08-25] MEDS: ROXICODONE 5 MG PO ×2 (02:46→11:45)
[2024-08-25] MEDS: SYNTHROID 50 MCG PO (04:55)
[2024-08-25] MEDS: ROXICODONE 2.5 MG PO (04:59)
[2024-08-25 05:39] VITALS: BMI 22.9
[2024-08-25 05:44] LABS: % Basophils 0.5 % (0-2); % Eosinophils 10.4 % (0-6); % Immature Granulocytes 1.8 % (0-0.5); % Lymphocytes 12.3 % (20.5-51.1); % Monocytes 10.7 % (1.7-9.3); % Neutrophils 64.3 % (42.2-75.2); Absolute Basophils 0.1 10^3/uL (0-0.2); Absolute Eosinophils 1.1 10^3/uL (0-0.7); Absolute Immature Granulocytes 0.2 10^3/uL (0-0.05); Absolute Lymphocytes 1.3 10^3/uL (1.2-3.4); Absolute Monocytes 1.1 10^3/uL (0.1-0.6); Absolute Neutrophils 6.7 10^3/uL (1.4-6.5); Hematocrit 32.3 % (37.0-47.0); Hemoglobin 9.6 g/dL (12.0-16.0); Mean Corp Hgb Conc. 29.7 g/dL (33.0-37.0); Mean Corpuscular Hgb 30.5 pg (27.0-31.0); Mean Corpuscular Volume 102.5 fL (81.0-99.0); Nucleated Red Blood Cells % 0 %; Platelet Count 409 10^3/uL (130-400); Red Blood Cell Count 3.15 10^6/uL (4.20-5.40); Red Cell Dist. Width 13.3 % (11.5-14.5); White Blood Cell Count 10.4 10^3/uL (4.8-10.8)
[2024-08-25 05:51] LABS: Blood Urea Nitrogen 19 mg/dl (7-17); Calcium 8.6 mg/dl (8.4-10.2); Carbon Dioxide 29 mmol/L (22-30); Chloride 101 mmol/L (98-107); Estimated Creatinine Clearance 27 ml/min; Glucose 82 mg/dl (70-99); Potassium 5.1 mmol/L (3.5-5.1); Sodium 139 mmol/L (135-145); eGFR 53.85
[2024-08-25 07:00] VITALS: BP 108/35
[2024-08-25] MEDS: LIDOCAINE 4% PATCH TOPICAL (07:57)
[2024-08-25] MEDS: MIRALAX PO (07:58)
[2024-08-25] MEDS: TYLENOL 1000 MG PO (07:58)
[2024-08-25] MEDS: MAGNESIUM OXIDE PO (07:59)
[2024-08-25] MEDS: VITAMIN D3 (cholecalciferol) 25 MCG PO (07:59)
[2024-08-25] MEDS: ELIQUIS 2.5 MG PO (08:00)
[2024-08-25] MEDS: FEOSOL 325 MG PO (08:00)
[2024-08-25] MEDS: TOPROL XL 50 MG PO (08:00)
[2024-08-25] MEDS: LINZESS 145 MCG PO (08:01)
[2024-08-25] MEDS: PACERONE 200 MG PO (08:08)
[2024-08-25] MEDS: SYMBICORT 80/4.5 MCG INHALER 2 PUFF INH (08:20)
--- NOTE | 2024-08-25 08:43 | W.PN.HOSP.TC ---
Today's Communication/Plan
-
Discharge planning today
Assessment / Plan
Assessment / Plan
Physical Exam
General: No acute distress
HEENT: normocephalic atraumatic
Cardio: S1-S2 RRR
Chest: Clear to Auscultation
Abd: soft nontender bowel sounds present
Ext: no edema, LUE sling in place
Neuro: Awake Alert Conversant Coherent
A/P:
Pseudomonas pneumonia/bronchiectasis with flare:
On IV cefepime 2 g every 24 hours per ID recommendation--> continue for 2 weeks
DuoNeb as needed
PT OT
Discussed with daughter over the phone prior
I told piano case and bench assembler today that she can be discharged as soon as today as long as coordination for d/c has been completed--> await for CM for d/c dispo
Chronic hypoxic respiratory failure:
Continue oxygen supplementation
Monitor respiratory status
COPD without exacerbation:
Continue bronchodilators
Continue Symbicort
Recent mechanical fall /Pelvic fracture with subacute left inferior pubic ramus fracture /Chronic left proximal humeral fracture:
Continue current pain regimen with lidocaine patch, gabapentin, acetaminophen 1 g every 8 hours, and oxycodone 2.5 mg for moderate pain and 5 mg for severe pain
Continue bowel regimen
Appreciate Ortho consult
Chronic diastolic congestive heart failure:
Euvolemic
Weight 53 kg today which seems to be lower than before
Resume oral diuretics as needed upon discharge or earlier if needed
Continue beta-kole
HTN:
Cont B-kole
Hypothyroidism:
Resume thyroid medications today on 08/24, levothyroxine 50 mcg p.o. daily
Paroxysmal atrial fibrillation:
Continue rate control, metoprolol succinate 50 mg twice a day
Continue antiarrhythmic, amiodarone 200 mg daily orally
Continue anticoagulant, Eliquis 2.5 mg twice a day
Continue cardiac monitoring
DVT prophylaxis:
Eliquis
CODE STATUS:
DNR
Anticipated Discharge: Today
Subjective/Interval History
-
Date of Service: August 25, 2024
Patient doing well today.
Objective Data
-
Labs:
Laboratory Results
08/25/24
04:48
WBC 10.4
Hgb 9.6 L
Hct 32.3 L
Plt Count 409 H
Sodium 139
Potassium 5.1
Chloride 101
Carbon Dioxide 29
BUN 19 H
Creatinine 1.0
Glucose 82
Calcium 8.6
Vital Signs:
Vital Signs
Temp Pulse Resp BP Pulse Ox
97.9 F 62 18 125/39 97
08/24/24 22:51 08/24/24 22:51 08/24/24 22:51 08/24/24 22:51 08/24/24 22:51
I&O
08/24/24 08/25/24 08/26/24
06:59 06:59 06:59
Intake Total 840 / 840 600 / 600
Output Total 350 / 350 460 / 460
Balance 490 / 490 140 / 140
--- NOTE | 2024-08-25 08:45 | CM ---
Hospitalist and [facility] agreeable for pt to d/c today
Picc placed yesterday.
Covid results, Picc report, copy of insurance cards and IV abx script provided to SNF
Pt will need ambulance transport, forms on chart.
IMM on chart
Daughter updated
[facility]
Report: [phone]

Plan: [facility] w/ continuation of IV abx course (2 weeks)
--- NOTE | 2024-08-25 09:27 | W.DCSUMMARY ---
Discharge Summary
Discharge Data
Date of Admission: 08/19/24
Date of Discharge: 08/25/24
-
Pending Results: No
Hospital Course
Patient 89 years old female with history of A-fib, COPD, CHF, bronchiectasis, hypertension, IBS, hypothyroidism, presented to the hospital after a fall and also increased in cough with sputum production. Patient had a chronic left proximal humerus
fracture and found to have a subacute left inferior pubic ramus fracture. Orthopedic was consulted. For a pelvic fracture orthopedic recommended weightbearing as tolerated with using walker for assistance in transfers and PT OT as tolerated; as
far as left shoulder Ortho did a CT scan and reviewed MRI and it reveals a full-thickness supraspinatus tendon tear with superior migration of humeral head indicating of rotator cuff arthropathy and orthopedic would like to have her follow-up with
them as outpatient for further management. In regards of her sputum production, her presentation was consistent with bronchiectasis with flare and probable pneumonia and her sputum culture grew Pseudomonas for which she has received a couple of
courses of antibiotics prior to her presentation without significant improvement and ID was consulted. ID recommended IV antibiotics with cefepime to continue for 2 weeks in an attempt to treat her appropriately. She has a midline and will
continue with long-term IV antibiotics at this point. Otherwise, patient is hemodynamically stable and afebrile. She will be discharged in stable condition today to skilled rehab.
Discharge duration: 36 minutes
Discharge Plan
-
Patient Disposition: Care Home/SNF
Discharge Diagnosis/Procedures: Pseudomonas Pneumonia. Bronchiectasis with flare. Chronic hypoxic respiratory failure on home oxygen. Chronic diastolic congestive heart failure. Recent mechanical fall. Pelvic fracture with subacute left
inferior pubic ramus fracture. Chronic left proximal humeral fracture. Chronic obstructive pulmonary disease.
Diet: Low Cholesterol
Activity: As tolerated
Blood Work: Please PCP to order CBC, BMP within 1 week
Specialty Instructions: Weigh Daily- Call MD for wt gain/loss 3 lbs overnight/5 lbs in 1 week
Referrals:
Harvinder Borrego MD [Family Provider] - in less than 1 week
Sandrine Nielson DO [Active] - in two to three weeks
Devin Beach MD [Active] - (Treatment of Left Shoulder )
Prescriptions:
New
oxycodone 5 mg Tablet
2.5 mg PO Q4HPRN PRN (Reason: moderate pain) Qty: 4 0RF
oxycodone 5 mg Tablet
5 mg PO Q4HPRN PRN (Reason: severe pain) Qty: 4 0RF
cefepime 2 gram Recon Soln
2,000 mg IV Q24H 14 Days Qty: 0 0RF
Continued
simethicone [Gas-X Extra Strength] 125 mg Tablet,Chewable
125 mg PO QIDPRN PRN (Reason: flatulence)
cholecalciferol (vitamin D3) [Vitamin D3] 25 mcg (1,000 unit) Tablet
25 mcg PO DAILY
bumetanide 1 mg Tablet
1 mg PO DAILY PRN (Reason: Fluid Retention/Swelling)
Patient Comments:
07/28/23 patient gets this filled at [facility] in [place].
Linzess 145 mcg Capsule
145 mcg PO DAILY
Patient Comments:
07/28/23 patient gets samples from Dr[address] Jonah Pitts in [place], [place]
Eliquis 2.5 mg Tablet
2.5 mg PO BID
Patient Comments:
07/28/23 patient gets this medication filled at [facility] in [place].
amiodarone [Pacerone] 200 mg Tablet
200 mg PO DAILY Qty: 0 0RF
tolterodine 2 mg Capsule,Extended Release 24hr
2 mg PO DAILY
methocarbamol 500 mg Tablet
500 mg PO Q8HPRN PRN (Reason: muscle weakness)
sennosides [senna] 8.6 mg Tablet
17.2 mg PO DAILY
ipratropium-albuterol 0.5 mg-3 mg(2.5 mg base)/3 mL solution for nebulization
3 ml INHALATION R Q6
acetaminophen 500 mg Tablet
650 mg PO Q4H PRN (Reason: Pain)
magnesium hydroxide [Milk of Magnesia] 400 mg/5 mL Suspension
30 ml PO DAILYPRN PRN (Reason: if no bm on day 4)
levothyroxine 50 mcg Tablet
50 mcg PO DAILY
bisacodyl [Dulcolax (bisacodyl)] 10 mg Suppository
10 mg AR DAILYPRN PRN (Reason: if mom is ineffective, give on day 5 of no bm)
Fleet Enema 19-7 gram/118 mL Enema
118 ml AR DAILYPRN PRN (Reason: if dulcolax is ineffective, give day 6 of no bm)
docusate sodium 100 mg Capsule
100 mg PO BID
gabapentin 300 mg capsule
600 mg PO HS
budesonide 0.5 mg/2 mL suspension for nebulization
0.5 mg inhalation R BID
metoprolol succinate 25 mg Tablet Extended Release 24 Hr
50 mg PO BID
naloxone [Narcan] 4 mg/actuation [place],Non-Aerosol
4 mg INTRANASAL Q3MPRN PRN (Reason: opiod overdose)
thiamine HCl (vitamin B1) 100 mg tablet
100 mg PO DAILY
guaifenesin 600 mg tablet extended release 12hr
600 mg PO [id number] PRN (Reason: cough)
prednisone 10 mg tablet
10 mg PO DIRECTED Qty: 16 0RF
Rx Instructions:
40 mg/day x1 day; 30 mg/day x2 days; 20 mg/day x2 days; 10 mg/day x2 days
lidocaine 4 % Adhesive Patch,Medicated
1 patch TOPICAL DAILY PRN (Reason: back pain)
Trelegy Ellipta 100-62.5-25 mcg Blister With Device
1 inh INHALATION DAILY
Discontinued
oxycodone 5 mg Tablet
10 mg PO Q6HPRN PRN (Reason: moderate pain)
amoxicillin-pot clavulanate 875-125 mg tablet
1 tab PO Q12H Qty: 2 0RF
doxycycline hyclate 100 mg Capsule
100 mg PO Q12 Qty: 2 0RF
Discharge Orders:
Discharge Patient (As Directed); Ordered 08/25/24
Ordered By: Vj Treviño
Discharge Date and Time
Discharge Date/Time: 08/25/24 13:25
Print Language: PORTUGUESE
--- NOTE | 2024-08-25 12:45 | W.PN.ID1 ---
Date of Service
Date of Service: August 25, 2024
Today's Communication
Continue antibiotics.
Assessment / Plan
Recent fall with rib fractures
Bronchiectasis with flare; recovery of Pseudomonas from sputum
Exacerbation of COPD
Chronic left proximal humerus fracture
Subacute left inferior pubic ramus fracture
A-fib
CHF
COPD
Bronchiectasis
HTN
IBS
Hypothyroidism
Recommendations:
Continue with treatment of Pseudomonas with cefepime 2 g IV every 24 hours
Current est CrCl ~ 25.
Follow sputum production.
Trend estimated creatinine clearance to guide further antimicrobial dosing.
Monitor white count temperature curve.
Would treat for 2-week course. Although it would be difficult to achieve complete cure, hopefully a course of antibiotics will decrease overall bioburden and provide some respiratory relief.
Prescription given to Case Management
Patient counseled that she will need outpatient follow-up with Pulmonary
����������������������������������������������������������
Chief Complaint
-: Pneumonia
Subjective / Review of Systems
Patient seen and examined. Continues to report ongoing sputum production. Shortness of breath is approximately at baseline.
Vital Signs / Physical Exam
Vital Signs
Vital Signs
Temp Pulse Resp BP Pulse Ox
97.6 F 60 18 108/35 99
08/25/24 07:00 08/25/24 07:00 08/25/24 07:00 08/25/24 07:00 08/25/24 07:00
Physical Exam
Constitutional: No Acute Distress, Comfortable, Chronically Ill and Non-toxic
Eyes: Sclera Anicteric
Cardiovascular: S1/S2; Negative S3/S4
Pulmonary: Coarse and Non Labored
Gastrointestinal: Soft and Non Tender
Neurological: Awake and Alert
Psychological: Calm
Lines: PICC
Objective Data
Lab Data
Lab Results
08/25/24 04:48
08/25/24 04:48
Estimated Creat Clear 27 ml/min 08/25/24 04:48
Total Bilirubin 0.4 mg/dl (0.2-1.3) 08/15/24 13:47
AST 25 U/L (14-36) 08/15/24 13:47
ALT 16 U/L (0-35) 08/15/24 13:47
Alkaline Phosphatase 73 U/L (38-126) 08/15/24 13:47
Most recent labs reviewed.
Micro Results:
08/18/24 13:44 Respiratory Culture - Final
Sputum Pseudomonas aeruginosa
Gram Stain - Final
1. Pseudomonas aeruginosa
M.I.C. RX
--------- ---
Aztreonam 8 S
Cefepime <=2 S
Ceftazidime 4 S
Ciprofloxacin <=0.25 S
Meropenem <=1 S
Piperacillin/Tazobactam <=8 S
Tobramycin <=2 S
Imaging:
08/16/2024 CXR (3 view): Subtle contour deformities are demonstrated involving numerous left ribs related to old healed fractures. This includes posterior 10th rib. Anterior fifth rib. There is a posterolateral left eighth rib fracture.
Nondisplaced. There is a subtle nondisplaced posterior left fifth rib fracture, best demonstrated on previous radiographic examination of the left shoulder performed 08/14/2024. No pneumothorax. No radiographically demonstrable pleural effusion.
Chronic bronchiectasis and bronchial wall thickening can demonstrated in the medial segment right lobe. Mild thyromegaly. No congestive heart failure. Chronic biapical pleural thickening. Film personally viewed.
== END 2024-08-25 13:25 | DRG 535 ==
LOC: 4 WEST ACU 08:00
PROVIDERS: Internal Medicine; ADMITTING PHYSICIAN Internal Medicine; ATTENDING PHYSICIAN Hospitalist; CONSULT PHYSICIAN Orthopaedic Surgery; EMERGENCY PHYSICIAN Emergency Medicine; FAMILY PHYSICIAN Family Medicine; OTHER PHYSICIAN Internal Medicine Infectious Disease
DX: S32.592A Other specified fracture of left pubis, initial encounter for closed fracture (principal); J15.1 Pneumonia due to Pseudomonas; J47.0 Bronchiectasis with acute lower respiratory infection; J44.0 Chronic obstructive pulmonary disease with (acute) lower respiratory infection; I50.32 Chronic diastolic (congestive) heart failure; J96.11 Chronic respiratory failure with hypoxia; Z66 Do not resuscitate; Z79.01 Long term (current) use of anticoagulants; Z87.891 Personal history of nicotine dependence; I48.0 Paroxysmal atrial fibrillation; Z95.0 Presence of cardiac pacemaker; I11.0 Hypertensive heart disease with heart failure; Z99.3 Dependence on wheelchair; E03.9 Hypothyroidism, unspecified; Z99.81 Dependence on supplemental oxygen; W01.0XXA Fall on same level from slipping, tripping and stumbling without subsequent striking against object, initial encounter; Z11.52 Encounter for screening for COVID-19
CPT/HCPCS: 70450; 71101; 72192; 73030; 73080; 73200; 73221; 73502; 80048; 80053; 82607; 82728; 82746; 83540; 83550; 83735; 84100; 84439; 84443; 85025; 85027; 87070; 87077; 87186; 87205; 87811; 93005; 94640; 97110; 97116; 97163; 97167; 97530; 97535; 99285; J2916

== ENCOUNTER 2024-08-27 06:51 | Emergency (ER) | payer MEDICARE, OTHER, SELFPAY ==
[2024-08-27 07:31] LABS: % Basophils 0.2 % (0-2); % Eosinophils 0.1 % (0-6); % Immature Granulocytes 1.3 % (0-0.5); % Lymphocytes 5.5 % (20.5-51.1); % Monocytes 6.1 % (1.7-9.3); % Neutrophils 86.8 % (42.2-75.2); Absolute Immature Granulocytes 0.2 10^3/uL (0-0.05); Absolute Monocytes 1.1 10^3/uL (0.1-0.6); Absolute Neutrophils 15.6 10^3/uL (1.4-6.5); Hemoglobin 10.3 g/dL (12.0-16.0); Mean Corp Hgb Conc. 31.2 g/dL (33.0-37.0); Mean Corpuscular Volume 99.4 fL (81.0-99.0); Mean Platelet Volume 8.7 fL (7.4-10.4); Nucleated Red Blood Cells % 0 %; Platelet Count 462 10^3/uL (130-400); Red Blood Cell Count 3.32 10^6/uL (4.20-5.40); Red Cell Dist. Width 13.4 % (11.5-14.5)
[2024-08-27 07:34] LABS: ALT (SGPT) 22 U/L (0-35); AST (SGOT) 32 U/L (14-36); Albumin 3.3 g/dl (3.5-5.0); Alkaline Phosphatase 163 U/L (38-126); Blood Urea Nitrogen 16 mg/dl (7-17); Carbon Dioxide 30 mmol/L (22-30); Chloride 103 mmol/L (98-107); Estimated Creatinine Clearance 30 ml/min; Glucose 109 mg/dl (70-99); Potassium 4.6 mmol/L (3.5-5.1); Sodium 138 mmol/L (135-145); Total Bilirubin 0.2 mg/dl (0.2-1.3); Total Protein 6.3 g/dl (6.3-8.2); eGFR > 60.00
[2024-08-27] MEDS: ZOFRAN 4 MG IV (08:30)
[2024-08-27] MEDS: MORPHINE SULFATE 4 MG IV ×2 (08:30→09:16)
[2024-08-27] MEDS: NSS 1000 IV (08:36)
--- NOTE | 2024-08-27 09:17 | ED.GENMED ---
History of Present Illness
General
Chief Complaint: Abdominal Symptoms
Source: patient, ambulance crew and alf
Exam Limitations: none
Time Seen by Provider: 08/27/24 07:04
Nursing documentation reviewed up to this point in time: agreed with
History of Present Illness
History of Present Illness:
89-year-old female presenting to the emergency department today with concerns of nausea and vomiting since yesterday also had some diarrhea also was claiming that she has had ongoing discomfort to her shoulder and hip that she has had chronically
previous fall. Also being treated with IV antibiotics for pseudomonal lung infection getting cefepime through a PICC line. Denies specific chest pain shortness of breath denies any known fevers
Past History
Past History
ED Past Medical History: Arrthythmia (afib/flutter), CHF, COPD, HTN and Other (IBS)
ED Past Surgical History: Cardiac (pacemaker)
Social History
Tobacco: Non-smoker
Alcohol: None
Drug: None
Personal:
Living: with family
Review of Systems
Review of Systems
Allergies reviewed?: Yes
All Other Systems: ROS reviewed and negative except as documented in HPI and ROS
Phy Exam
Physical Exam
Physical Exam:
GENERAL: Alert , in no apparent distress
EYE: pupils equal and reactive
NECK: Supple, no significant adenopathy.
ENT: o/p clr, mmm.
CARDIAC: Regular rate and rhythm .
LUNGS: Clear breath sounds bilaterally, no acute respiratory distress, no wheezes/rales/rhonchi
ABDOMEN: Vague discomfort to the abdomen no specific focal pain generally soft no specific guarding or peritoneal signs
NEUROLOGICAL: Alert and oriented, no focal neuro deficits
SKIN: Warm and dry, skin intact.
MUSCULOSKELETAL: No edema, well perfused.
PSYCH: Normal and appropriate interaction.
Course
Orders/Labs/Results
Orders:
Orders
08/27/24 07:09
Complete Blood Count/With Diff Urgent
Comprehensive Metabolic Panel Urgent
08/27/24 07:31
CT Abd/Pel (IV only)-DH only Urgent
Comment:
Reason For Exam: abd pain
Morphine Sulfate 4 mg IV NOW STA
Ondansetron Injectable [Zofran] 4 mg IV NOW STA
08/27/24 07:33
0.9% Sodium Chloride 1000 ml [Nss] 1,000 ml IV BOLUS
08/27/24 09:10
Blood Culture Q30M
DIANA Source: Blood/Venous
Specimen Description:
Morphine Sulfate 4 mg IV NOW STA
08/27/24 09:36
Blood Culture Q30M
DIANA Source: Blood/Venous
Specimen Description:
Abnormal Lab Results
08/27/24
07:09
WBC 18.0 H 10^3/uL
(4.8-10.8)
RBC 3.32 L 10^6/uL
(4.20-5.40)
Hgb 10.3 L g/dL
(12.0-16.0)
Hct 33.0 L %
(37.0-47.0)
MCV 99.4 H fL
(81.0-99.0)
MCHC 31.2 L g/dL
(33.0-37.0)
Plt Count 462 H 10^3/uL
(130-400)
Abs Immat Gran (auto) 0.2 H 10^3/uL
(0-0.05)
Absolute Neuts (auto) 15.6 H 10^3/uL
(1.4-6.5)
Absolute Lymphs (auto) 1.0 L 10^3/uL
(1.2-3.4)
Absolute Monos (auto) 1.1 H 10^3/uL
(0.1-0.6)
Immature Gran % 1.3 H %
(0-0.5)
Neutrophils % 86.8 H %
(42.2-75.2)
Lymphocytes % 5.5 L %
(20.5-51.1)
Glucose 109 H mg/dl
(70-99)
Alkaline Phosphatase 163 H U/L
(38-126)
Albumin 3.3 L g/dl
(3.5-5.0)
08/27/24 07:09
08/27/24 07:09
Vital Signs
Initial and Last Documented VS:
Initial Vital Signs
Pulse Ox
94
08/27/24 06:59
Last Documented Vital Signs
Temp Pulse Resp BP Pulse Ox
100.2 F 60 18 123/100 98
08/27/24 07:12 08/27/24 13:15 08/27/24 13:15 08/27/24 13:00 08/27/24 13:15
MDM/Problems Addressed
MDM/Problems Addressed:
89-year-old female presenting to the emergency department today with concerns of nausea vomiting diarrhea starting yesterday unable to take anything by mouth and also worsening discomfort to her hip and shoulder that is had chronic discomfort. On
arrival low-grade temperature of 100.2 otherwise vital signs are normal. White count of 18.0 which could be explained from patient's vomiting though cannot rule out worsening infection due to the patient's pneumonia. Concerning this blood cultures
were sent. Patient does have a left shift. Otherwise labs unremarkable. CT scan obtained that showed evidence of potential enteritis which seems to be consistent with patient's more acute symptoms of nausea vomiting and diarrhea. No acute
abnormalities to the gallbladder. Patient does have ongoing opacification suspicious for pneumonia. Patient with significant improvement of symptoms. It was discussed with her that symptoms seem to be consistent with gastroenteritis however she
does have an elevated white count compared to previous. She otherwise has been feeling much better with the IV antibiotics in regard to the pneumonia concerning this it appears that she is safe for discharge at this time blood cultures were sent in
the off chance that there could be worsening infection she was given very strict return precautions.
*Critical Care Note
Total Time (30-74mins, 75-104mins- exclusive of procedures): Not Applicable
ED Attending Note
-
Portions of this chart may have been created with voice recognition software.� Occasional wrong word or��sound alike� substitutions may have occurred due to the inherent limitations of voice recognition software.
Discharge Plan
Departure
Patient Disposition: Home (Routine Discharge)
Date of Disposition: 08/27/24
Time of Disposition: 11:20
Patient with high blood pressure during this ER visit?: No
Condition: Good
Covid-19: Not Applicable
Discharge Problem:
Vomiting, Diarrhea
Instructions: Nausea and Vomiting, Adult (DC)
Prescriptions:
New
ondansetron 4 mg tablet,disintegrating
4 mg PO Q6H PRN (Reason: nausea and vomiting) Qty: 7 0RF
No Action
simethicone [Gas-X Extra Strength] 125 mg Tablet,Chewable
125 mg PO QIDPRN PRN (Reason: flatulence)
cholecalciferol (vitamin D3) [Vitamin D3] 25 mcg (1,000 unit) Tablet
25 mcg PO DAILY
bumetanide 1 mg Tablet
1 mg PO DAILYPRN PRN (Reason: Fluid Retention/Swelling)
Patient Comments:
07/28/23 patient gets this filled at [facility] in [place].
Linzess 145 mcg Capsule
145 mcg PO DAILYPRN PRN (Reason: constipation)
Patient Comments:
07/28/[address] patient [address] samples [address] Dr[address] Jonah Pitts in [place]
Eliquis 2.5 mg Tablet
2.5 mg PO BID
amiodarone [Pacerone] 200 mg Tablet
200 mg PO DAILY Qty: 0 0RF
sennosides [senna] 8.6 mg Tablet
17.2 mg PO DAILY
ipratropium-albuterol 0.5 mg-3 mg(2.5 mg base)/3 mL solution for nebulization
3 ml INHALATION R QID
magnesium hydroxide [Milk of Magnesia] 400 mg/5 mL Suspension
30 ml PO [id number] PRN (Reason: no bm in 2 days)
levothyroxine 50 mcg Tablet
50 mcg PO DAILY
bisacodyl [Dulcolax (bisacodyl)] 10 mg Suppository
10 mg DC DAILYPRN PRN (Reason: if no bm 8 hrs after mom)
Fleet Enema 19-7 gram/118 mL Enema
118 ml DC DAILYPRN PRN (Reason: if no bm 8 hrs after suppository)
docusate sodium 100 mg Capsule
100 mg PO BID
gabapentin 300 mg capsule
600 mg PO HS
budesonide 0.5 mg/2 mL suspension for nebulization
0.5 mg inhalation R BID
metoprolol succinate 25 mg Tablet Extended Release 24 Hr
50 mg PO BID
thiamine HCl (vitamin B1) 100 mg tablet
100 mg PO DAILY
guaifenesin 600 mg tablet extended release 12hr
600 mg PO Q12H
Patient Comments:
08/27/24: Give for 7 days, starting 08/26/24
oxycodone 5 mg Tablet
2.5 mg PO Q4HPRN PRN (Reason: moderate pain) Qty: 4 0RF
oxycodone 5 mg Tablet
5 mg PO Q4HPRN PRN (Reason: severe pain) Qty: 4 0RF
cefepime 2 gram Recon Soln
2,000 mg IV Q24H 14 Days Qty: 0 0RF
Patient Comments:
08/27/24: give for 14 days, starting 08/26/24
acetaminophen 325 mg Tablet
650 mg PO Q8HPRN PRN (Reason: mild pain)
ondansetron HCl [Zofran] 4 mg Tablet
4 mg PO Q6HPRN PRN (Reason: nausea)
Anoro Ellipta 62.5-25 mcg/actuation Blister With Device
1 inh INHALATION R HS
prednisone 10 mg tablet
10 mg PO .TAPER
Rx Instructions:
40 mg QD on 08/26/24; 30 mg QD 08/27/24-08/28/24; 20 mg QD 08/29/24-08/30/24; 10 mg QD 08/31/24-09/01/24
Referrals:
Nitin Olson MD [Family Provider] -
Activity Restrictions/Additional Instructions:
You came to the emergency department today with concerns of nausea vomiting diarrhea. Here you had a CT scan that did not show emergent findings did show some potential ongoing pneumonia. Please continue the IV antibiotics. Additionally had a
degree of a white count here. This may be from your recent vomiting. We did send blood cultures it seems less likely that this is worsening pneumonia or bacteremia at this point. If this is positive we will contact you. Additionally if symptoms
are worsening or progressing please immediately return to the ER for further assessment.
Interventions
Interventions:
*Risk Screen - Suicide Last Done: 08/27/24 07:12
*General Assessment Last Done: 08/27/24 07:12
*Neglect/Abuse Screening Last Done: 08/27/24 07:12
ED- Fall Risk Assessment Last Done: 08/27/24 07:12
*ED COVID-19 Vaccine History Last Done: 08/27/24 07:18
CV-Zlsths-Vafycuaeba Assessment Last Done: 08/27/24 07:12
Discharge Date and Time
Print Language: KHMER
--- NOTE | 2024-08-27 11:28 | PTCARENOTE ---
Patient care assumed at 11:00 from Keysha Pitts RN. Patient provided warm blanket. Pt states pain has decreased and is hopeful for dicharge back to [facility] home.
== END 2024-08-27 14:55 | disposition home or self-care (01) ==
LOC: EMR 06:51
PROVIDERS: Physician Assistant; EMERGENCY PHYSICIAN Emergency Medicine; FAMILY PHYSICIAN Family Medicine
DX: R11.2 Nausea with vomiting, unspecified (principal); R19.7 Diarrhea, unspecified; I48.91 Unspecified atrial fibrillation; I50.9 Heart failure, unspecified; I11.0 Hypertensive heart disease with heart failure; J44.9 Chronic obstructive pulmonary disease, unspecified; K58.9 Irritable bowel syndrome, unspecified; Z95.0 Presence of cardiac pacemaker
CPT/HCPCS: 99284; 96374; 96375; 96376; 74177; 80053; 85025; 87040; Q9967